=== PATIENT | female | born 1990 | race Caucasian/White ===

== ENCOUNTER 2023-07-03 20:55 | Outpatient (REF) | payer BC, OTHER, SELFPAY ==
[2023-07-09 14:09] LABS: Age Gdln ACOG Testing Note (.); HPV Aptima Negative (Negative); IGP, Aptima HPV, rfx 16/18,45 Note (.)
== END 2023-07-03 20:56 | disposition home or self-care (01) ==
LOC: LAB 20:55
PROVIDERS: Family Provider Family Medicine; Visit Provider Obstetrics & Gynecology
DX: Z12.4 Encounter for screening for malignant neoplasm of cervix (principal)
CPT/HCPCS: 87624; G0145

== ENCOUNTER 2024-07-15 20:49 | Outpatient (REF) | payer BC, SELFPAY ==
[2024-07-20 13:08] LABS: Age Gdln ACOG Testing Note (.); HPV Aptima Negative (Negative); IGP, Aptima HPV, rfx 16/18,45 Note (.)
== END 2024-07-15 20:50 | disposition home or self-care (01) ==
LOC: LAB 20:49
PROVIDERS: Family Provider Family Medicine; Visit Provider Obstetrics & Gynecology
DX: Z01.419 Encounter for gynecological examination (general) (routine) without abnormal findings (principal)
CPT/HCPCS: 87624; 88175

== ENCOUNTER 2025-08-22 19:43 | Outpatient (REF) | payer BC, SELFPAY ==
--- OUTSIDE RECORDS SUMMARY | 2025-08-08 12:40 | XMS_ITS | Encounter Summary ---
Author Organization [facility] Address [address] [place] [address] Care Team Providers Care Underground Truck Operator Name Role Phone Austen Mcdaniel DO Unavailable [phone] Austen Mcdaniel DO Primary Care Provider [phone] Encounter Details Date Type Department Care Team (Late st Contact Info) Description 08/08/2025 12:40 PM EDT Office Visit [facility] [address] [facility] [address] [place] [address] Austen Mcdaniel DO [address] [facility] [address] [place] [address] Obesity without serious comorbidity, unspecified class, unspecified obesity type; Viral upper respiratory infection Social History Tobacco Use Types Packs/Day Years Used Date Smoking Tobacco: Never Smokeless Tobacco: Never Alcohol Use Standard Drinks/Week Comments Yes 0 (1 standard drink = 0.6 oz pure alcohol) 1-2 drinks less than monthly in the past year, Caffeine intake: 1 can of pop per day AUDIT-C Answer Date Recorded Q1: How often do you have a drink containing alc ohol? Monthly or less 09/24/2023 Q2: How many drinks containi ng alcohol do you have on a typical day when you are drinking? 1 or 2 09/24/2023 Q3: How often do you have si x or more drinks on one occasion? Never 09/24/2023 PHQ-2 Answer Date Recorded Patient Health Questionnaire-2 Score 0 08/08/2025 Comments No Sex and Gender Information Value Date Recorded Sex Assigned at Not on file Legal Sex Female 7:24 PM EDT Gender Identity Female 01/15/2023 7:24 PM EDT Sexual Orientation Not on file documented as of this encounter Last Filed Vital Signs Vital Sign Reading Time Taken Comments Blood Pressure 118/84 08/08/2025 12:36 PM EDT Pulse 85 08/08/2025 12:36 PM EDT Temperature 36.1 C (96.9 F) 08/08/2025 12:36 PM EDT Respiratory Rate - - Oxygen Saturation 95% 08/08/2025 12:36 PM EDT Inhaled Oxygen Concentration - - Weight 109 kg (240 lb) 08/08/2025 12:36 PM EDT Height 162.6 cm (5' 4 ) 08/08/2025 12:36 PM EDT Body Mass Index 41.2 08/08/2025 12:36 PM EDT documented in this encounter Functional Status * Over the past 2 weeks, how often have you been bothered by any of the following problems? Question Answer Date of Assessment Author Little interest or pleasure in doing things Not at all 08/08/2025 12:36 PM EDT Cameron Kelly LPN Feeling down, depressed, or hopeless Not at all 08/08/2025 12:36 PM EDT Shell Cunha LPN Patient Health Questionnaire-2 Score 0 08/08/2025 12:36 PM EDT Cameron Cunha LPN documented as of this encounter Progress Notes * Austen Mcdaniel, - 08/08/2025 12:40 PM EDT Images from the original note were not included. Subjective ?Quick Links Last Note in Specialty Snapshot Current Meds Patient ID: Delia Magaña is a 34 y.o. female who presents for Weight Check. Weight Check: Pt presents to the office for a weight check. She is currently on adipex. Pt has gained 1 lb since last OV. She does walk a lot and eats a healthy diet overall. Treated for C-diff. Last day of Abx was either 07/17 or 07/18. Pt states she will still get diarrhea every once in a while still. Denies any blood in the stool. Medication Documentation Review Audit Reviewed by Cameron Cunha LPN (Licensed Nurse) on 06/27/25 at 1322 Medication Order Taking? Sig Documenting Provider Last Dose Status Discontinued 06/27/25 1322 cetirizine (ZyrTEC) 10 MG tablet [id number] Yes Take 1 tablet (10 mg) by mouth Daily Austen Mcdaniel DO Active fluticasone (Flonase) 50 MCG/ACT nasal spray [id number] Yes Administer 1-2 sprays into each nostril Daily Shake gently. Before first use, prime pump. After use, clean tip and replace cap Austen Mcdaniel DO Active ibuprofen 800 MG tablet [id number] Yes Take 1 tablet (800 mg) by mouth 3 (three) times a day as needed for mild pain Austen Mcdaniel DO Active phentermine (Adipex-P) 37.5 MG tablet [id number] Yes Take 1 tablet (37.5 mg) by mouth in the morning.Take before meals. Austen Mcdaniel DO Active Review of Systems ?Quick Review Review Full History Meds - cetirizine (ZyrTEC) 10 MG tablet fluticasone (Flonase) 50 MCG/ACT nasal spray ibuprofen 800 MG tablet phentermine (Adipex-P) 37.5 MG tablet --- PMH - Ovarian cyst Pap smear for cervical cancer screening PCOS (polycystic ovarian syndrome) Objective ?Quick Links Timeline (Adult) Labs Imaging Results Review Trend Vitals ?? Avoid pulling in long tables of results. Comment on relevant results to support your medical decision making. There were no vitals taken for this visit. Physical Exam ?Quick Links Full Problem List Allergy Cardiology GI Assessment & Plan Obesity without serious comorbidity, unspecified class, unspecified obesity type Will continue adipex as pt had c.dif infection and was unable to take medication or excersize. Did advise will not be able to refill agin without weight loss Orders: phentermine (Adipex-P) 37.5 MG tablet; Take 1 tablet (37.5 mg) by mouth in the morning. Take beforemeals. Viral upper respiratory infection Orders: fluticasone (Flonase) 50 MCG/ACT nasal spray; Administer 1-2 sprays into each nostril Daily Shake gently. Before first use, prime pump. After use, clean tip and replace cap documented in this encounter Plan of Treatment Upcoming Encounters Date Type Department Care Team (Late st Contact Info) Description 11/23/2025 8:30 AM EST Clinical Support HILARY HERRERA [address] [place] [address] [place] [address] 08/31/2026 11:00 AM EDT Procedure Visit [facility]ILARY HERRERA [address] [place] [address] [place] [phone] Heladio Morris DO [address] [place] [address] [place] [address] documented as of this encounter Visit Diagnoses Diagnosis Obesity without serious comorbidity, unspecified class, unspecified obesity type Viral upper respiratory infection Acute upper respiratory infections of unspecified site documented in this encounter Care Teams Underground Truck Operator Relationship Specialty Start Date End Date Austen Mcdaniel DO [address] [facility] [address] [place] [address] PCP - [place] [employer] 02/01/21 Austen Mcdaniel DO [address] [facility] [address] [place] [address] PCP - General Family Medicine 06/07/24 documented as of this encounter
--- OUTSIDE RECORDS SUMMARY | 2025-08-22 13:40 | XMS_ITS | Encounter Summary ---
Author Organization [facility] Address [address] [place] [address] Care Team Providers Care Ep Tech Name Role Phone Austen Mcdaniel DO Unavailable [phone] Austen Mcdaniel DO Primary Care Provider [phone] Reason for Visit * Reason Comments Well Women Visit Encounter Details Date Type Department Care Team (Late st Contact Info) Description 08/22/2025 1:40 PM EDT Office Visit [facility] [place] [facility] [address] [place] [id number] Heladio Morris DO [address] [facility] [address] [place], [facility]11 Well woman exam with routine gynecological exam; Pain of both breasts Social History Tobacco Use Types Packs/Day Years [...] Sign Reading Time Taken Comments Blood Pressure 110/70 08/22/2025 2:16 PM EDT Pulse - - Temperature - - Respiratory Rate - - Oxygen Saturation - - Inhaled Oxygen Concentration - - Weight 112 kg (246 lb 12.8 oz) 08/22/2025 2:16 P M EDT Height - - Body Mass Index 42.36 08/08/2025 12:36 PM EDT documented in this encounter Progress Notes * Cathryn Saucedo MA - 08/22/2025 1:40 PM EDT Reason for Appointment: Patient ID: Delia Magaña is a 34 y.o. female who presents for Well Women Visit Patient presents today for Annual Exam. MEDICATIONS Current Outpatient Medications Medication Instructions cetirizine (ZYRTEC) 10 mg, Oral, Daily fluticasone (Flonase) 50 MCG/ACT nasal spray 1-2 sprays, Each Nostril, Daily, Shake gently. Before first use, prime pump. After use, clean tip and replace cap ibuprofen 800 mg, Oral, 3 times daily PRN phentermine (ADIPEX-P) 37.5 mg, Oral, Daily before breakfast ALLERGIES No Known Allergies PROBLEMS Active Ambulatory Problems Diagnosis Date Noted Allergic rhinitis 05/20/2024 Mixed anxiety and depressive disorder 05/20/2024 Primary insomnia 05/20/2024 Varicose veins of both lower extremities 05/20/2024 Edema 05/20/2024 Menorrhagia with regular cycle 07/15/2024 Pelvic pain in female 07/15/2024 PCOS (polycystic ovarian syndrome) 07/15/2024 Insulin resistance 07/15/2024 Well woman exam with routine gynecological exam 07/15/2024 Resolved Ambulatory Problems Diagnosis Date Noted No Resolved Ambulatory Problems Past Medical History: Diagnosis Date Ovarian cyst Pap smear for cervical cancer screening 07/03/2023 HISTORY PAST MEDICAL HISTORY SOCIAL HISTORY Past Medical History: Diagnosis Date Ovarian cyst Pap smear for cervical cancer screening 07/03/2023 neg PCOS (polycystic ovarian syndrome) Social History Tobacco Use Smoking status: Never Smokeless tobacco: Never Substance Use Topics Alcohol use: Yes Comment: 1-2 drinks less than monthly in the past year, Caffeine intake: 1 can of pop per day Drug use: Never FAMILY HISTORY Family History Problem Relation Name Age of Onset No Known Problems Mother No Known Problems Father Colon cancer Sister Thyroid cancer Sister Breast cancer Sister pre-existing cells Lupus Sister Melanoma Sister Hypertension Maternal Grandmother Thyroid cancer Maternal Grandfather Thyroid cancer Sibling Colon cancer Sibling Heart disease Sibling SURGICAL HISTORY Past Surgical History: Procedure Laterality Date ADENOIDECTOMY SECTION, CLASSIC SECTION, LOW TRANSVERSE 2011 KIDNEY STONE SURGERY LEG SURGERY Left lukas leg 25 yrs ago TONSILLECTOMY REVIEW OF SYSTEMS Review of Systems: Review of Systems Constitutional: Negative. HENT: Negative. Eyes: Negative. Respiratory: Negative. Cardiovascular: Negative. Gastrointestinal: Negative. Genitourinary: Negative. Musculoskeletal: Negative. Skin: Negative. Neurological: Negative. All other systems reviewed and are negative. Hematological: Negative. Endocrine: Negative. Allergic/Immunologic: Negative. OBJECTIVE Objective: Physical Exam Constitutional: Appearance: Normal appearance. She is well-developed. Genitourinary: Vulva normal. Genitourinary Comments: Appearance of bilateral breast is normal with tenderness to bilateral breast with nipple pain to left nipple. Breasts: Breasts are soft. Right: Tenderness present. Left: Tenderness present. Cardiovascular: Rate and Rhythm: Normal rate and regular rhythm. Pulmonary: Effort: Pulmonary effort is normal. Breath sounds: Normal breath sounds. Abdominal: General: Bowel sounds are normal. There is no distension. Palpations: Abdomen is soft. Tenderness: There is no abdominal tenderness. There is no guarding or rebound. Musculoskeletal: General: No swelling. Normal range of motion. Right lower leg: No edema. Left lower leg: No edema. Neurological: Mental Status: She is alert and oriented to person, place, and time. Skin: General: Skin is warm and dry. Psychiatric: Mood and Affect: Mood normal. Behavior: Behavior normal. Vitals and nursing note reviewed. Exam conducted with a continuity person present. Vitals: Estimated body mass index is 42.36 kg/m?? as calculated from the following: Height as of 08/08/25: 5' 4 . Weight as of this encounter: 246 lb 12.8 oz. BP: 110/70 No LMP recorded. Assessment/Plan ICD-10-CM 1. Well woman exam with routine gynecological exam Z01.419 Pap Smear HPV DNA probe, amplified 2. Pain of both breasts N64.4 Bilateral diagnostic mammogram Bilateral diagnostic mammogram Annual Exam: Patient presents today for an annual exam. Patient complains of Bilateral Breast Pain. Pap was obtained without difficulty. Patient with complaints of breast tenderness with findings consistent with fibrocystic changes. She also reports left nipple pain that is described as burning pain. She deniesany nipple discharge. Patient with family history of breast cancer and colon cancer. Discussed otogenic testing and patient to schedule for otogenics testing in the future. Orders Placed This Encounter Procedures HPV DNA probe, amplified Bilateral diagnostic mammogram Follow Up: Patient is to return in one year for annual unless needed otherwise. Documented by Cathryn Saucedo MA on behalf of: Heladio Morris DO documented in this encounter Plan of Treatment Upcoming Encounters Date Type Department Care Team (Late st Contact Info) Description 11/23/2025 8:30 AM EST Clinical Support HILARY HERRERA [address] [place] [address] 08/31/2026 11:00 AM EDT Procedure Visit HILARY HERRERA [address] [place] [address] Heladio Morris DO [address] [place] [address] Scheduled Orders Name Type Priority Associated Diagnoses Orde r Schedule Pap Smear Pathology and Cytology Routine Well woman exam with routine gynecological exam Ordered: 08/22/2025 HPV DNA probe, amplified Microbiology Routine Well woman exam with routine gynecological exam Ordered: 08/22/2025 Bilateral diagnostic mammogram Imaging Routine Pain of both breasts Expected: 08/22/2025 (Approximate), Expires: 10/22/2026 documented as of this encounter Visit Diagnoses Diagnosis Well woman exam with routine gynecological exam Routine gynecological examination Pain of both breasts documented in this encounter Care Teams Ep Tech Relationship Specialty Start Date End Date Austen Mcdaniel DO [address] [place] [address] PCP - [place] [employer] 02/01/21 Austen Mcdaniel DO [address] [facility] [address] [place] [address] PCP - General Family Medicine 06/07/24 documented as of this encounter
--- OUTSIDE RECORDS SUMMARY | 2025-08-22 19:46 | XMS_ITS | Encounter Summary ---
Author Organization [facility] Address [address] [place] [address] Care Team Providers Care Supervisor Multifocal Lens Name Role Phone HungAusten england DO Unavailable [phone] HungAusten england Lorena KONG Primary Care Provider [phone] Encounter Details Date Type Department Care Team (Late st Contact Info) Description 07/22/2024 Orders Only HILARY HERRERA [address] [facility] [phone] [place] [address] [facility] [address] [place] [address] Social History Tobacco Use Types Packs/Day Years [...] Date Recorded Patient Health Questionnaire-2 Score 0 06/07/2024 Comments No Sex and Gender Information Value Date Recorded Sex Assigned at Not on file Legal Sex Female 7:24 PM EDT Gender Identity Female 01/15/2023 7:24 PM EDT Sexual Orientation Not on file documented as of this encounter Plan of Treatment Upcoming Encounters Date Type Department Care Team (Late st Contact Info) Description 11/23/2025 8:30 AM EST Clinical Support HILARY HERRERA [address] [facility] [address] 08/31/2026 11:00 AM EDT Procedure Visit HILARY HERRERA [address] [place] [phone] Heladio Morris DO [address] [facility] [place] [address] documented as of this encounter Procedures Procedure Name Priority Date/Time Associated Diagnosis Comments PAP SMEAR Routine 07/15/2024 12:00 AM EDT documented in this encounter Results * Pap Smear (07/15/2024 12:00 AM EDT) Swab Cervical swab / Unknown Heladio Morris DO LAB CYTOLOGY ORDERABLES Final Re sult EXTERNAL LAB documented in this encounter Visit Diagnoses Not on filedocumented in this encounter Care Teams Supervisor Multifocal Lens Relationship Specialty Start Date End Date Austen Mcdaniel DO [address] [facility] [address] [place] [address] PCP - [place] [employer] 02/01/21 Austen Mcdaniel DO [address] [place] [address] PCP - General Family Medicine 06/07/24 documented as of this encounter
--- OUTSIDE RECORDS SUMMARY | 2025-08-22 19:46 | XMS_ITS | Encounter Summary ---
Author Organization [facility] Address [address] [place] [address] Care Team Providers Care Manager Web Name Role Phone HungAustne england Lorena KONG Unavailable [phone] DarshanazainAusten DO Primary Care Provider [phone] Encounter Details Date Type Department Care Team (Late st Contact Info) Description 08/19/2024 Abstract [facility] [place] [facility] [address] [facility] [place] [phone] Heladio Morris DO [address] [facility] [address] [place] [id number] Social History Tobacco Use Types Packs/Day Years [...] AM EST Clinical Support HILARY HERRERA [address] [facility] [place] [address] 08/31/2026 11:00 AM EDT Procedure Visit HILARY HERRERA [address] [place] [address] Heladio Morris DO [address] [facility] [address] [place] [address] documented as of this encounter Visit Diagnoses Not on filedocumented in this encounter Care Teams Manager Web Relationship Specialty Start Date End Date Austen Mcdaniel DO [address] [facility] [address] [place] [address] PCP - [place]enn[place] Bennett 02/01/21 Austen Mcdaniel DO [address] [facility] [address] [place] [address] PCP - General Family Medicine 06/07/24 documented as of this encounter
--- OUTSIDE RECORDS SUMMARY | 2025-08-22 19:47 | XMS_ITS | Encounter Summary ---
Author Organization [facility] Address [address] [place] [address] Care Team Providers Care Global Implementation Manager Name Role Phone Austen Mcdaniel DO Unavailable [phone] Austen Mcdaniel DO Primary Care Provider [phone] Freddy Greene MD Primary Care Provider Austen Mcdaniel DO Primary Care Provider [phone] Encounter Details Date Type Department Care Team (Late st Contact Info) Description 04/24/2023 Orders Only [facility] [address] [place] [phone] Provider, MD Buddy [address] [place] [id number] Social History Tobacco Use Types Packs/Day Years Used Date Smoking Tobacco: Never Assessed Comments Unknown Sex and Gender Information Value Date Recorded Sex Assigned at Not on file Legal Sex Female 7:24 PM EDT Gender Identity Female 01/15/2023 7:24 PM EDT Sexual Orientation Not on file documented as of this encounter Plan of Treatment Upcoming Encounters Date Type Department Care Team (Late st Contact Info) Description 11/23/2025 8:30 AM EST Clinical Support [facility]OM[facility]ERR[facility] [address] [place] [address] 08/31/2026 11:00 AM EDT Procedure Visit [facility]a [facility] [address] [place] [address] Heladio Morris DO [address] [facility] [place] [address] documented as of this encounter Procedures Procedure Name Priority Date/Time Associated Diagnosis Comments COLONOSCOPY DIAGNOSTIC Routine 04/24/2023 10:33 AM EDT documented in this encounter Results * COLONOSCOPY DIAGNOSTIC (04/24/2023 10:33 AM EDT) Anatomical Region Laterality Modality Radiographic Liliana ging us Historical Provider MD [place] XR PROCEDURES Final R esult documented in this encounter Visit Diagnoses Not on filedocumented in this encounter Care Teams Global Implementation Manager Relationship Specialty Start Date End Date Austen Mcdaniel DO [address] [place] [address] PCP - [place] [employer] 02/01/21 Austen Mcdaniel DO [address] [place] [address] PCP - General Family Medicine 03/11/23 02/29/24 Freddy Greene MD [address] [place] [address] [place] [address] PCP - General Family Medicine 03/01/24 05/19/24 Austen Mcdaniel DO [address] [place] [address] PCP - General Family Medicine 06/07/24 documented as of this encounter
--- OUTSIDE RECORDS SUMMARY | 2025-08-22 19:47 | XMS_ITS | Clinical Summary ---
Author Organization [facility] Address [address] [place] [address] Care Team Providers Care Bearing Machine Operator Name Role Phone DarshanaAusten pittman Lorena KONG Unavailable [phone] Austen Mcdaniel DO Primary Care Provider Allergies No known active allergies Medications cetirizine (ZyrTEC) 10 MG tabletIndicatio ns:Allergic rhinitis due to other allergic trigger, unspecified seasonality Take 1 tablet (10 mg) by mouth Daily 30 tablet 11 5 Active ibuprofen 800 MG tabletIndicatio ns:Thrombophleb itis of superficial veins of left lower extremity Take 1 tablet (800 mg) by mouth 3 (three) times a day as needed for mild pain 90 tablet 5 Active phentermine (Adipex-P) 37.5 MG tabletIndicatio ns:Obesity without serious comorbidity, unspecified class, unspecified obesity type Take 1 tablet (37.5 mg) by mouth in the morning. Take before meals. 30 tablet 5 09/07/20 25 Active fluticasone (Flonase) 50 MCG/ACT nasal sprayIndication s:Viral upper respiratory infection Administer 1-2 sprays into each nostril Daily Shake gently. Before first use, prime pump. After use, clean tip and replace cap 16 g 3 5 Active fluticasone (Flonase) 50 MCG/ACT nasal sprayIndication s:Viral upper respiratory infection Administer 1-2 sprays into each nostril Daily Shake gently. Before first use, prime pump. After use, clean tip and replace cap 16 g 3 5 08/08/20 25 Discontin ued(Reord er) phentermine (Adipex-P) 37.5 MG tabletIndicatio ns:Obesity without serious comorbidity, unspecified class, unspecified obesity type Take 1 tablet (37.5 mg) by mouth in the morning. Take before meals. 30 tablet 5 08/08/20 25 Discontin ued(Reord er) Active Problems Problem Noted Date Diagnosed Date Menorrhagia with regular cycle 07/15/2024 Pelvic pain in female 07/15/2024 PCOS (polycystic ovarian syndrome) 07/15/2024 Assessment & Plan (06/27/2025 3:14 PM EDT): Labs ordered today, will follow up when results available Orders: CBC and differential; Future Comprehensive metabolic panel; Future Insulin resistance 07/15/2024 Well woman exam with routine gynecological exam 07/15/2024 Allergic rhinitis 05/20/2024 Mixed anxiety and depressive disorder 05/20/2024 Assessment & Plan (04/28/2025 12:26 PM EDT): Problem is stable, will continue with current treatment plan. Call or return to clinic if any changes occur, will restart wellbutrin as feels it was helpful Orders: buPROPion SR (Wellbutrin SR) 150 MG 12 hr tablet; Take 1 tablet (150 mg) by mouth Daily Do not crush, chew, or split. Primary insomnia 05/20/2024 Varicose veins of both lower extremities 024 Assessment & Plan (04/28/2025 12:26 PM EDT): Did rec compression stockings as pt on her feet alot Edema 05/20/2024 Assessment & Plan (04/28/2025 12:26 PM EDT): Patient advised to return if symptoms worsen and/or persist despite treatment. Encounters Date Type Department Care Team Description 08/22/2025 1:40 PM EDT Office Visit [facility] ANN [address] [place] [address] [place] [address] Heladio Morris, DO Well woman exam with routine gynecological exam; Pain of both breasts 08/22/2025 Bamboo flowsheet [facility] [address] [place] [address] [place] [phone] Heladio Morris DO 08/08/2025 12:40 PM EDT Office Visit [facility] [address] [place] [address] Austen Mcdaniel, Obesity without serious comorbidity, unspecified class, unspecified obesity type; Viral upper respiratory infection 08/08/2025 Bamboo flowsheet [facility] [address] [place] [address] Austen Mcdaniel, 08/08/2025 Travel 07/01/2025 Telephone [facility] [address] [place] [address] Austen Mcdaniel, Results 06/27/2025 1:20 PM EDT Office Visit [facility] [address] [place] [address] Austen Mcdaniel DO PCOS (polycystic ovarian syndrome) (Primary Dx); Obesity without serious comorbidity, unspecified class, unspecified obesity type; Diarrhea of presumed infectious origin; Bright red blood per rectum; Lower abdominal pain 06/27/2025 Bamboo flowsheet [facility] [address] [place] [address] Austen Mcdaniel, 06/27/2025 Travel 05/31/2025 2:20 PM EDT Office Visit [facility] [address] [place] [address] Austen Mcdaniel DO Bee sting, undetermined intent, initial encounter (Primary Dx); Obesity without serious comorbidity, unspecified class, unspecified obesity type; Cellulitis of left upper extremity; Thrombophlebitis of superficial veins of left lower extremity 05/31/2025 Bamboo flowsheet [facility] [place] [facility] [address] [place] [address] Austen Mcdaniel DO 05/31/2025 Travel from Last 3 Months Immunizations Immunization Administration Dates Next Due Influenza, seasonal, injectable, preservative fr ee 08/22/2022 Tdap 04/17/2018 Family History Medical History Relation Name Comments No Known Problems Father Thyroid cancer Maternal Grandfather Hypertension Maternal Grandmother No Known Problems Mother Colon cancer Sibling Heart disease Sibling Thyroid cancer Sibling Colon cancer Sister 1 Thyroid cancer Sister 2 Breast cancer Sister 3 pre-existing c ells Lupus Sister 4 Melanoma Sister 5 Relation Name Status Comments Father Maternal Grandfather Maternal Grandmother Mother Sibling 6, brothers, 8 sisters Sister 1 Sister 2 Sister 3 Sister 4 Sister 5 Social History Tobacco Use Types Packs/Day Years Used Date Smoking Tobacco: Never Smokeless Tobacco: Never Tobacco Cessation:Counseling Given: Yes Alcohol Use Standard Drinks/Week Comments Yes 0 [...] PM EDT Sexual Orientation Not on file Last Filed Vital Signs Vital Sign Reading Time Taken Comments Blood Pressure 110/70 08/22/2025 2:16 PM EDT Pulse 85 08/08/2025 12:36 PM EDT Temperature 36.1 C (96.9 F) 08/08/2025 12:36 PM EDT Respiratory Rate - - Oxygen Saturation 95% 08/08/2025 12:36 PM EDT Inhaled Oxygen Concentration - - Weight 112 kg (246 lb 12.8 oz) 08/22/2025 2:16 P M EDT Height 162.6 cm (5' 4 ) 08/08/2025 12:36 PM EDT Body Mass Index 42.36 08/08/2025 12:36 PM EDT Plan of Treatment Upcoming Encounters Date Type Department Care Team (Late st Contact Info) Description 11/23/2025 8:30 AM EST Clinical Support [facility] HERRERA [address] [facility] [place] [address] 08/31/2026 11:00 AM EDT Procedure Visit [facility] [address] [facility] [place] [address] Heladio Morris DO [address] [facility] [place] [address] Health Maintenance Due Date Last Done Comments Influenza Vaccine (#1) 2025 08/22/2022 Cervical Cancer Screening 07/15/2029 HPV/Cotest 07/15/2029 08/19/2023, 01/04/2020 Pap Smear 07/15/2029 07/15/2024 Procedures Procedure Name Priority Date/Time Associated Diagnosis Comments RESULT Routine 06/28/2025 12:13 PM EDT RESULT Routine 06/28/2025 12:13 PM EDT OCCULT BLOOD X 1, STOOL Routine 06/28/2025 12:13 PM EDT RESULT Routine 06/28/2025 12:13 PM EDT RESULT Routine 06/28/2025 12:13 PM EDT COMPREHENSIVE METABOLIC PANEL Routine 06/28/2025 12:13 PM EDT Obesity without serious comorbidity, unspecified class, unspecified obesity type PCOS (polycystic ovarian syndrome) Lower abdominal pain CBC (INCLUDES DIFF/PLT) Routine 06/28/2025 12:13 PM EDT Obesity without serious comorbidity, unspecified class, unspecified obesity type PCOS (polycystic ovarian syndrome) Lower abdominal pain FECAL LEUKOCYTE STAIN Routine 06/28/2025 12:13 PM EDT OVA AND PARASITES, CONC AND PERM SMEAR Routine 06/28/2025 12:13 PM EDT CLOSTRIDIUM DIFFICILE TOXIN Routine 06/28/2025 12:13 PM EDT Diarrhea of presumed infectious origin Bright red blood per rectum STOOL CULTURE Routine 06/28/2025 12:13 PM EDT Diarrhea of presumed infectious origin Bright red blood per rectum PAP SMEAR Routine 07/15/2024 12:00 AM EDT THINPREP PAP AND HPV MRNA E6/E7 W/RFL HPV 16,18/45 Routine 08/19/2023 3:31 PM EDT Well woman exam with routine gynecological exam from Last 3 Months or Most Recently Relevant to Health Maintenance Results * (ABNORMAL) RESULT (06/28/2025 12:13 PM EDT) RESULT 1 Comment(A) [facility] Comment:Few white blood cell s. 06/28/2025 12:1 3 PM EDT 06/28/2025 Narrative [facility] - 07/04/2025 5:06 PM EDT Performed at: 01 - [address] [id number] Twister Hand: Hayder Alanis PhD, Phone: [phone] Austen Mcdaniel DO LAB BLOOD ORDERABLES Final Re sult [facility] * RESULT (06/28/2025 12:13 PM EDT) RESULT 1 Comment [facility] Comment: No ova, cysts, or parasites seen. One negative specimen does not rule out the possibility of a parasitic infection. 06/28/2025 12:1 3 PM EDT 06/28/2025 Narrative [facility] - 07/04/2025 5:06 PM EDT Performed at: [address] [place] [id number] Twister Hand: Hayder Alanis PhD, Phone: [phone] Austen Mcdaniel DO LAB BLOOD ORDERABLES Final Re sult Performing Organization Address [facility] Co de Phone Number [facility] * RESULT (06/28/2025 12:13 PM EDT) RESULT 1 Comment [facility] Comment:No Campylobacter spe cies isolated. 06/28/2025 12:1 3 PM EDT 06/28/2025 Narrative [facility] - 07/04/2025 5:06 PM EDT Performed at: [address] [place] [id number] Twister Hand: Hayder Alanis PhD, Phone: [phone] Austen Mcdaniel LAB BLOOD ORDERABLES Final Re sult Performing Organization Address [facility] de Phone Number [facility] * RESULT (06/28/2025 12:13 PM EDT) RESULT 1 Comment [facility] Comment:No Salmonella or Isabella gella recovered. 06/28/2025 12:1 3 PM EDT 06/28/2025 Narrative [facility] - 07/04/2025 5:06 PM EDT Performed at: [address] [place] [id number] Twister Hand: Hayder Alanis PhD, Phone: [phone] Austen Mcdaniel DO LAB BLOOD ORDERABLES Final Re sult Performing Organization Address [facility] Co de Phone Number [facility] * (ABNORMAL) Occult blood x 1, stool (06/28/2025 12:13 PM EDT) OCCULT BLOOD, FECAL, IA Positive(A ) Negative [facility] 06/28/2025 12:1 3 PM EDT 06/28/2025 Comment:[facility] [place]- [phone] [facility] - 07/04/2025 5:06 PM EDT Performed at: [facility] [id number] Twister Hand: Hayder Alanis PhD, Phone: [phone] Austen Mcdaniel DO LAB BODY FLUIDS AND STOOLS OR DERABLES Final Result Performing Organization Address [facility] de Phone Number [facility] * Ova and parasite examination (06/28/2025 12:13 PM EDT) OVA AND PARASITE Final report [facility] Comment: These results were obtained using wet preparation(s) and trichrome stained smear. This test does not include testing for Cryptosporidium parvum, Cyclospora, or Microsporidia. 06/28/2025 12:1 3 PM EDT 06/28/2025 Comment:[facility] [place]- [id number] [facility] - 07/04/2025 5:06 PM EDT Performed at: [address] [place] [id number] Twister Hand: Hayder Alanis PhD, Phone: [phone] Austen Mcdaniel DO LAB MICROBIOLOGY - GENERAL OR DERABLES Final Result Performing Organization Address [facility] de Phone Number [facility] * (ABNORMAL) CBC and differential (06/28/2025 12:13 PM EDT) WBC 6.6 3.4 - 10.8 x10E3/uL [facility] RBC 4.34 3.77 - 5.28 x10E6/uL [facility] Hgb 12.7 11.1 - 15.9 g/dL [facility] Hct 38.8 34.0 - 46.6 % [facility] MCV 89 79 - 97 fL [facility] MCH 29.3 26.6 - 33.0 pg [facility] MCHC 32.7 31.5 - 35.7 g/dL [facility] RDW 12.4 11.7 - 15.4 % [facility] Platelets 305 150 - 450 x10E3/uL [facility] Neutrophils 57 Not Estab. % [facility] Lymphs 28 Not Estab. % [facility] Monocytes 6 Not Estab. % [facility] Eos 8 Not Estab. % [facility] Basos 1 Not Estab. % [facility] Neutrophils Abs 3.7 1.4 - 7.0 x10E3/uL [facility] Lymphs Abs 1.9 0.7 - 3.1 x10E3/uL [facility] MonocytesAbs 0.4 0.1 - 0.9 x10E3/uL [facility] Eos Abs 0.6(H) 0.0 - 0.4 x10E3/uL [facility] Baso Abs 0.1 0.0 - 0.2 x10E3/uL [facility] Immature Granulocytes 0 Not Estab. % [facility] Immature Grans Abs 0.0 0.0 - 0.1 x10E3/uL [facility] Blood Venous blood specimen / Unknown 06/28/2025 12:13 PM EDT 06/28/2025 Narrative [facility] - 07/04/2025 5:06 PM EDT Performed at: [address] [place] [id number] Twister Hand: Hayder Alanis PhD, Phone: [phone] Austen Mcdaniel DO LAB BLOOD ORDERABLES Final Re sult [facility] * (ABNORMAL) Fecal leukocytes (06/28/2025 12:13 PM EDT) WBC Final report(A) None Seen [facility] 06/28/2025 12:1 3 PM EDT 06/28/2025 Comment:[facility]- [id number] Narrative [facility] - 07/04/2025 5:06 PM EDT Performed at: [address] [place] [id number] Twister Hand: Hayder Alanis PhD, Phone: [phone] Austen Mcdaniel DO LAB MICROBIOLOGY - GENERAL OR DERABLES Final Result Performing Organization Address [facility] Co de Phone Number [facility] * (ABNORMAL) Clostridium difficile toxin (06/28/2025 12:13 PM EDT) C DIFFICILE, CYTOTOXIN B Comment(A) [facility] Comment: Positive Cytotoxin detected. Reference Range: Negative Stool Rectal contents / Unknown 06/28/2025 12:13 PM EDT 06/28/2025 Comment: - [id number] Narrative [facility] - 07/04/2025 5:06 PM EDT Performed at: [address] [id number] Twister Hand: Hayder Alanis PhD, Phone: [employer] Austen Mcdaniel DO LAB MICROBIOLOGY - GENERAL OR DERABLES Final Result Performing Organization Address [facility] Phone Number [facility] * Stool culture (06/28/2025 12:13 PM EDT) Pathologist [facility] SALMONELLA/SHIGEL LA SCREEN Final report [facility] CAMPYLOBACTER CULTURE Final report [facility] E COLI SHIGELLA TOXIN EIA Negative Negative [facility] Stool Rectal contents / Unknown 06/28/2025 12:13 PM EDT 06/28/2025 Comment: - [id number] Narrative [facility] - 07/04/2025 5:06 PM EDT Performed at: [address] [id number] Twister Hand: Hayder Alanis PhD, Phone: [phone] Austen Mcdaniel DO LAB MICROBIOLOGY - GENERAL OR DERABLES Final Result Performing Organization Address [facility] de Phone Number [facility] * (ABNORMAL) Comprehensive metabolic panel (06/28/2025 12:13 PM EDT) Glucose 77 70 - 99 mg/dL [facility] BUN 6 6 - 20 mg/dL [facility] Creat 0.74 0.57 - 1.00 mg/dL [facility] EGFR 107 >59 mL/min/1.7 3 [facility] BUN/Creat Ratio 8(L) 9 - 23 [facility] Sodium 140 134 - 144 mmol/L [facility] Potassium 3.8 3.5 - 5.2 mmol/L [facility] Chloride 103 96 - 106 mmol/L [facility] Carbon Dioxide 23 20 - 29 mmol/L [facility] Calcium 8.8 8.7 - 10.2 mg/dL [facility] Protein Total 6.6 6.0 - 8.5 g/dL [facility] Albumin 4.0 3.9 - 4.9 g/dL [facility] Globulin Total 2.6 1.5 - 4.5 g/dL [facility] Bili Total 0.5 0.0 - 1.2 mg/dL [facility] Alk Phosphatase 89 44 - 121 IU/L [facility] Comment: Effective July 18, 2025 Alkaline Phosphatase reference interval will be changing to: Age Male Female 0 - 5 days 47 - 127 47 - 127 6 - 10 days 29 - 242 29 - 242 11 - 20 days 109 - 357 109 - 357 21 - 30 days 94 - 494 94 - 494 1 - 2 months 149 - 539 149 - 539 3 - 6 months 131 - 452 131 - 452 7 - 11 months 117 - 401 117 - 401 12 months - 6 years 158 - 369 158 - 369 7 - 12 years 150 - 409 150 - 409 13 years 156 - 435 78 - 227 14 years 114 - 375 64 - 161 15 years 88 - 279 56 - 134 16 years 74 - 207 51 - 121 17 years 63 - 161 47 - 113 18 - 20 years 51 - 125 42 - 106 21 - 50 years 47 - 123 41 - 116 51 - 80 years 49 - 135 51 - 125 >80 years 48 - 129 48 - 129 AST 16 0 - 40 IU/L [facility] ALT 18 0 - 32 IU/L [facility] Blood Venous blood specimen / Unknown 06/28/2025 12:13 PM EDT 06/28/2025 Narrative [facility] - 07/04/2025 5:06 PM EDT Performed at: - [facility] [address] [id number] Twister Hand: Hayder Alanis PhD, Phone: [phone] us Austen Mcdaniel DO LAB BLOOD ORDERABLES Final Re sult [facility] * Pap Smear (07/15/2024 12:00 AM EDT) Swab Cervical swab / Unknown us Heladio Alexandra DO LAB CYTOLOGY ORDERABLES Final Re sult Performing Organization Address City/[facility]/ZIP Co de Phone Number EXTERNAL LAB * THINPREP PAP AND HPV MRNA E6/E7 W/RFL HPV 16,18/45 (08/19/2023 3:31 PM EDT) Heladio Alexandra DO LAB BLOOD ORDERABLES Final Resul t Performing Organization Address City/[facility] Co de Phone Number EXTERNAL LAB from Last 3 Months or Most Recently Relevant to Health Maintenance Insurance Care Teams Bearing Machine Operator Relationship Specialty Start Date End Date Austen Mcdaniel DO [address] [place] [address] PCP - [place] [employer] 02/01/21 Austen Mcdaniel DO [address] [place] [address] PCP - General Family Medicine 06/07/24
--- OUTSIDE RECORDS SUMMARY | 2025-08-22 19:47 | XMS_ITS | Clinical Summary ---
Author Organization [employer] [facility] Address [facility] [id number] [place] [id number] Care Team Providers Care Armament Repairer Name Role Phone Unavailable Primary Care Provider Unavailabl e Social History Tobacco Use Types Packs/Day Years Used Date Smoking Tobacco: Never Assessed Childcare Answer Date Recorded Childcare Unknown 04/14/2019 Employment Answer Date Recorded Employment Unknown 04/14/2019 Comments Unknown Sex and Gender Information Value Date Recorded Sex Assigned at Not on file Legal Sex Female 12:09 PM EDT Gender Identity Not on file Sexual Orientation Not on file Plan of Treatment Not on file Medical Devices Not on file
--- OUTSIDE RECORDS SUMMARY | 2025-08-22 19:47 | XMS_ITS | Encounter Summary ---
Author Organization [facility] Address [address] [place] [address] Care Team Providers Care Grief Counsellor Name Role Phone HungAusten england DO Unavailable [phone] DarshanazainAusten DO Primary Care Provider [phone] Encounter Details Date Type Department Care Team (Late st Contact Info) Description 08/22/2025 Bamboo flowsheet [facility] [place] [facility] [address] [place] [phone] Heladio Morris DO [address] [facility] [address] [place] [id number] Social History Tobacco Use Types Packs/Day Years [...] AM EST Clinical Support HILARY HERRERA [address] [facility] [address] 08/31/2026 11:00 AM EDT Procedure Visit HILARY HERRERA [address] [facility] [address] Heladio Morris DO [address] [facility] [place] [address] documented as of this encounter Visit Diagnoses Not on filedocumented in this encounter Care Teams Grief Counsellor Relationship Specialty Start Date End Date Austen Mcdaniel DO [address] [facility] [address] [place] [address] PCP - Dennise Bennett 02/01/21 Austen Mcdaniel DO [address] [facility] [address] [place] [address] PCP - General Family Medicine 06/07/24 documented as of this encounter
--- OUTSIDE RECORDS SUMMARY | 2025-08-22 19:47 | XMS_ITS | Encounter Summary ---
Author Organization [facility] Address [address] [place] [address] Care Team Providers Care Mold Construction Supervisor Name Role Phone Austen Mcdaniel DO Unavailable [phone] Austen Mcdaniel DO Primary Care Provider [phone] Freddy Greene MD Primary Care Provider Austen Mcdaniel DO Primary Care Provider [phone] Encounter Details Date Type Department Care Team (Late st Contact Info) Description 07/30/2023 Abstract NOMMarky HERRERA [address] [place] [address] Mary Lou Obrien PA [address] [place], [id number] Social History Tobacco Use Types Packs/Day Years Used Date Smoking Tobacco: Never Tobacco Cessation:Counseling Given: Not Answered Alcohol Use Standard Drinks/Week Comments Yes 0 (1 standard drink = 0.6 oz pure alcohol) 1-2 drinks less than monthly in the past year, Caffeine intake: 1 can of pop per day Comments No Sex and Gender Information Value Date Recorded Sex Assigned at Not on file Legal Sex Female 7:24 PM EDT Gender Identity Female 01/15/2023 7:24 PM EDT Sexual Orientation Not on file documented as of this encounter Plan of Treatment Upcoming Encounters Date Type Department Care Team (Late Contact Info) Description 11/23/2025 8:30 AM EST Clinical Support HILARY HERRERA [address] [place] [address] 08/31/2026 11:00 AM EDT Procedure Visit [facility] Nicolasa HERRERA [address] [facility] [place] [phone] Heladio Morris DO [address] [facility] [place] [address] documented as of this encounter Visit Diagnoses Not on filedocumented in this encounter Care Teams Mold Construction Supervisor Relationship Specialty Start Date End Date Austen Mcdaniel DO [address] [place] [address] [facility] Austen Mcdaniel DO [address] [place] [address] PCP - General Family Medicine 03/11/23 02/29/24 Freddy Greene MD [address] [place] [address] [place] [address] PCP - General Family Medicine 03/01/24 05/19/24 Austen Mcdaniel DO [address] [place] [address] PCP - General Family Medicine 06/07/24 documented as of this encounter
--- OUTSIDE RECORDS SUMMARY | 2025-08-22 19:47 | XMS_ITS | Encounter Summary ---
Author Organization [facility] Address [address] [place] [address] Care Team Providers Care Process Design Engineer Name Role Phone Austen Mcdaniel DO Unavailable [phone] Austen Mcdaniel DO Primary Care Provider [phone] Encounter Details Date Type Department Care Team (Late st Contact Info) Description 08/08/2025 Bamboo flowsheet [facility] [address] [place] [phone] Austen Mcdaniel DO [address] [place] [address] Social History Tobacco Use Types Packs/Day Years [...] AM EST Clinical Support HILARY HERRERA [address] [facility] [place] [address] 08/31/2026 11:00 AM EDT Procedure Visit HILARY HERRERA [address] [place] [address] Heladio Morris DO [address] [facility] [place] [address] documented as of this encounter Visit Diagnoses Not on filedocumented in this encounter Care Teams Process Design Engineer Relationship Specialty Start Date End Date Austen Mcdaniel DO [address] [facility] [address] [place] [address] PCP - Dennise Bennett 02/01/21 Austen Mcdaniel DO [address] [facility] 230 [place] [address] PCP - General Family Medicine 06/07/24 documented as of this encounter
--- OUTSIDE RECORDS SUMMARY | 2025-08-22 19:47 | XMS_ITS | Encounter Summary ---
Author Organization [facility] Address [address] [place] [address] Care Team Providers Care Courtesy Booth Cashier Name Role Phone Austen Mcdaniel DO Unavailable [phone] Austen Mcdaniel Primary Care Provider [phone] Encounter Details Date Type Department Care Team (Latest Contact Info) Description 08/08/2025 Travel Social History Tobacco Use Types Packs/Day Years [...] on file documented as of this encounter Functional Status * Over the [...] [place]unha LPN documented as of this encounter Plan of Treatment Upcoming Encounters Date Type Department Care Team (Late st Contact Info) Description 11/23/2025 8:30 AM EST Clinical Support NOMMarky HERRERA [address] [facility] [place] [address] 08/31/2026 11:00 AM EDT Procedure Visit HILARY HERRERA [address] [facility] [place] [place] [address] Heladio Morris DO [address] [facility] [place] [address] documented as of this encounter Visit Diagnoses Not on filedocumented in this encounter Care Teams Courtesy Booth Cashier Relationship Specialty Start Date End Date Austen Mcdaniel DO [address] [place] [address] PCP - Dennise Bennett 02/01/21 Austen Mcdaniel DO [address] [place] [address] PCP - General Family Medicine 06/07/24 documented as of this encounter
--- OUTSIDE RECORDS SUMMARY | 2025-08-22 19:48 | XMS_ITS | CCD ---
Author Organization [facility]iniSyn[facility] Care Team Providers Care Claims Representative Name Role Phone JULIETTE MORRIS Admitting Unavailable JULIETTE MORRIS Attending Unavailable Arely MCDANIEL Primary Care Unavailable GURPREET CALVO V Consulting Unavailable JULIETTE MORRIS Consulting Unavailable JULIETTE MORRIS Admitting Unavailable JULIETTE MORRIS Attending Unavailable JULIETTE MORRIS Consulting Unavailable LAZ ALEXIS Consulting Unavailable Arely MCDANIEL Consulting Unavailable DO Gregg Mcdaniel Primary Care Provider MD Laine Marx Attending Provider Gregg Mcdaniel Primary Care Unavailable Laine Marx Attending Unavailable Laine Marx Admitting Unavailable Britt Mcdaniel DO Unavailable Britt Mcdaniel DO Primary Care Provider FREDRICK Cooper Attending Unavailable BRITT MCDANIEL Primary Care Unavailable FREDRICK Cooper Admitting Unavailable BRITT MCDANIEL Primary Care Unavailable FREDRICK Cooper Admitting Unavailable FREDRICK Cooper Attending Unavailable WASHINGTON JIMENEZ Attending Unavailable BRITT MCDANIEL Attending Unavailable BRITT MCDANIEL Referring Unavailable MARY LOU POE Attending Unavailable BRITT MCDANIEL Attending Unavailable BRITT MCDANIEL Attending Unavailable JULIETTE MORRIS Attending Unavailable MARY LOU POE Attending Unavailable MARY LOU POE Attending Unavailable BRITT MCDANIEL Attending Unavailable BRITT MCDANIEL Attending Unavailable BRITT MCDANIEL Attending Unavailable BRITT MCDANIEL Attending Unavailable Medications Current Medications Medication Drug Class(es) Dates Sig (Normalized) Sig (Original) cefdinir 300 mg oral capsule (2 sources) Cephalosporin Antibacterial Start: 05-31-2025 End: 06-10-2025 take 1 capsule by mouth in the morning cefdinir (Omnicef) 300 MG capsule Indications: Cellulitis of left upper extremity Take 1 capsule (300 mg) by mouth in the morning and 1 capsule (300 mg) before bedtime. Do all this for 10 days. 20 capsule 05/31/2025 06/10/2025 Active cetirizine hydrochloride 10 mg oral tablet (20 sources) Histamine-1 Receptor Antagonist Start: 05-20-2024 End: 03-02-2025 take 1 tablet by mouth once daily cetirizine (ZyrTEC) 10 MG tablet Indications: Allergic rhinitis due to other allergic trigger, unspecified seasonality Take 1 tablet (10 mg) by mouth Daily 30 tablet 11 03/02/2025 Active Start: 04-24-2023 take 10 mg by mouth once daily Cetirizine Active 10 MG PO Daily April 24, 2023 12:00am cyclobenzaprine hydrochloride 10 mg oral tablet (3 sources) Muscle Relaxant Start: 01-11-2025 End: 02-21-2025 take 1 tablet by mouth three times daily as needed for muscle spasms cyclobenzaprine (Flexeril) 10 MG tablet Indications: Dysuria , Left flank pain Take 1 tablet (10 mg) by mouth 3 (three) times a day as needed for muscle spasms for up to 10 days 30 tablet 01/11/2025 02/21/2025 Discontinued 12 hr dextromethorphan hydrobromide 60 mg / guaiFENesin 1200 mg extended release oral tablet (20 sources) Uncompetitive X-hswfak-[place]-aspart[place] te Receptor Antagonist, Sigma-1 Agonist Start: 12-27-2024 dextromethorphan-gua iFENesin (MUCINEX DM MAX STRENGTH) 60-1200 MG 12 hr tablet Indications: Viral upper respiratory infection Take 1 tablet by mouth every 12 (twelve) hours if needed (BID) 20 tablet 12/27/2024 Active Start: 12-27-2024 dextromethorph an-guaiFENesin (MUCINEX DM MAX STRENGTH) 60- 1200 MG 12 hr tablet Indications: Viral upper respiratory infection Take 1 tablet by mouth every 12 (twelve) hours if needed (BID) 20 tablet 12/27/2024 Active Start: 07-12-2024 End: 12-27-2024 dextromethorphan-guaiFENesin (MUCINEX DM MAX STRENGTH) 60-1200 MG 12 hr tablet Indications: Viral upper respiratory infection Take 1 tablet by mouth every 12 (twelve) hours if needed (BID) 20 tablet 07/12/2024 12/27/2024 Discontinued fluticasone propionate 0.05 mg/actuat metered dose nasal spray (20 sources) Corticosteroid Start: 12-27-2024 End: 08-08-2025 take 1-2 spray(s) nasal route once daily fluticasone (Flonase) 50 MCG/ACT nasal spray Indications: Viral upper respiratory infection Administer 1-2 sprays into each nostril Daily Shake gently. Before first use, prime pump. After use, clean tip and replace cap 16 g 3 08/08/2025 Active Start: 05-20-2024 End: 12-27-2024 take 2 spray(s) nasal route once daily fluticasone (Flonase) 50 MCG/ACT nasal spray Indications: Allergic rhinitis due to other allergic trigger, unspecified seasonality Administer 2 sprays into each nostril Daily Shake gently. Before first use, prime pump. After use, clean tip and replace cap. 16 g 11 05/20/2024 12/27/2024 Discontinued Start: 04-24-2023 Fluticasone Pr opionate Active 1 SPRAY INTRANASAL Daily April 24, 2023 12:00am ibuprofen 800 mg oral tablet (20 sources) Nonsteroidal Anti-inflammatory Drug Start: 10-04-2024 End: 05-31-2025 take 1 tablet by mouth three times daily as needed for pain ibuprofen 800 MG tablet Indications: Thrombophlebitis of superficial veins of left lower extremity Take 1 tablet (800 mg) by mouth 3 (three) times a day as needed for mild pain 90 tablet 05/31/2025 Active Start: 06-07-2024 End: 07-15-2024 take 1 tablet by mouth in the morning, then take 1 tablet by mouth in the evening, then take 1 tablet by mouth at bedtime ibuprofen 800 MG tablet Indications: Thrombophlebitis of superficial veins of left lower extremity Take 1 tablet (800 mg) by mouth in the morning and 1 tablet (800 mg) in the evening and 1 tablet (800 mg) before bedtime. 90 tablet 06/07/2024 07/15/2024 Discontinued 24 hr metFORMIN hydrochloride 500 mg extended release oral tablet (20 sources) Biguanide Start: 08-19-2024 End: 09-18-2024 take 2 tablets by mouth every twenty-four hours at mealtime metFORMIN XR (Glucophage-XR) 500 MG 24 hr tablet Indications: Encounter for weight management Take 2 tablets (1,000 mg) by mouth in the evening. Take with meals Do not crush, chew, or split. 60 tablet 11 08/19/2024 Active Start: 07-15-2024 End: 10-14-2024 take 1 tablet by mouth every twenty-four hours at mealtime metFORMIN XR (Glucophage-XR) 500 MG 24 hr tablet Indications: Insulin resistance , PCOS (polycystic ovarian syndrome) Take 1 tablet (500 mg) by mouth in the evening. Take with meals Do not crush, chew, or split. 30 tablet 11 07/15/2024 10/14/2024 Discontinued metroNIDAZOLE 500 mg oral tablet (3 sources) Nitroimidazole Antimicrobial Start: 02-23-2025 End: 03-02-2025 take 1 tablet by mouth in the morning metroNIDAZOLE (Flagyl) 500 MG tablet Indications: BV (bacterial vaginosis) Take 1 tablet (500 mg) by mouth in the morning and 1 tablet (500 mg) before bedtime. Do all this for 7 days. Do not drink alcohol while taking this medication. 14 tablet 02/23/2025 03/02/2025 Active nitrofurantoin, macrocrystals 25 mg / nitrofurantoin, monohydrate 75 mg oral capsule (3 sources) Nitrofuran Antibacterial Start: 01-10-2025 End: 02-21-2025 take 1 capsule by mouth in the morning nitrofurantoin, macrocrystal-monoh ydrate, (Macrobid) 100 MG capsule Take 100 mg by mouth in the morning and 100 mg before bedtime. 01/10/2025 02/21/2025 Discontinued phentermine hydrochloride 37.5 mg oral tablet (20 sources) Sympathomimetic Amine Anorectic Start: 03-02-2025 End: 09-07-2025 take 1 tablet by mouth before mealtime phentermine (Adipex-P) 37.5 MG tablet Indications: Obesity without serious comorbidity, unspecified class, unspecified obesity type Take 1 tablet (37.5 mg) by mouth in the morning. Take before meals. 30 tablet 08/08/2025 09/07/2025 Active Start: 08-19-2024 End: 02-21-2025 take 1 tablet by mouth before mealtime phentermine (Adipex-P) 37.5 MG tablet Indications: Encounter for weight management Take 1 tablet (37.5 mg) by mouth in the morning. Take before meals. 30 tablet 10/14/2024 02/21/2025 Discontinued Completed/Discontinued Medications Medication Drug Class(es) Dates Sig (Normalized) Sig (Original) 12 hr buPROPion hydrochloride 150 mg extended release oral tablet (13 sources) Aminoketone Start: 04-04-2025 End: 06-27-2025 take 1 tablet by mouth once daily buPROPion SR (Wellbutrin SR) 150 MG 12 hr tablet Indications: Mixed anxiety and depressive disorder Take 1 tablet (150 mg) by mouth Daily Do not crush, chew, or split. 04/28/2025 06/27/2025 Discontinued ramelteon 8 mg oral tablet (6 sources) Melatonin Receptor Agonist Start: 05-20-2024 End: 05-20-2025 take 1 tablet by mouth at bedtime ramelteon (Rozerem) 8 MG tablet Indications: Primary insomnia Take 1 tablet (8 mg) by mouth at bedtime 30 tablet 05/20/2024 07/15/2024 Discontinued Problems Active Problems Problem Classification Problem Date Documented Da te Episodic/Chronic Administrative/social admission (5 sources) Patient encounter status; Translations: [Persons encountering health services in other specified circumstances] 08-19-2024 Episodic Anxiety disorders (20 sources) Mixed anxiety and depressive disorder; Translations: [Other specified anxiety disorders] Onset: 05-20-2024 Chronic Gastrointestinal hemorrhage (4 sources) Gastrointestinal hemorrhage; Translations: [Hemorrhage of anus and rectum] 06-27-2025 Episodic Immunizations and screening for infectious disease (4 sources) Exposure to sexually transmissible disorder; Translations: [Contact with and (suspected) exposure to infections with a predominantly sexual mode of transmission] 02-21-2025 Episodic Intestinal infection (4 sources) Diarrhea of presumed infectious origin; Translations: [Diarrhea, unspecified] 06-27-2025 Episodic Menstrual disorders (20 sources) Menorrhagia; Translations: [Excessive and frequent menstruation with regular cycle] Onset: 4 07-15-2024 Chronic Miscellaneous mental health disorders (20 sources) Primary insomnia; Translations: [Primary insomnia] Onset: 4 05-20-2024 Chronic Nonmalignant breast conditions (2 sources) Mastodynia of bilateral breasts; Translations: [Mastodynia] 08-22-2025 Episodic Other endocrine disorders (4 sources) Polycystic ovarian syndrome; Translations: [POLYCYSTIC OVARIAN SYNDROME] Onset: 9 Chronic Other endocrine disorders (20 sources) Polycystic ovary syndrome; Translations: [Polycystic ovarian syndrome] Onset: 4 07-15-2024 Chronic Other female genital disorders (2 sources) Vaginal discharge; Translations: [Other specified noninflammatory disorders of vagina] 02-21-2025 Episodic Other lower respiratory disease (2 sources) Cough; Translations: [Acute cough] 12-27-2024 Episodic Other nutritional; endocrine; and metabolic disorders (20 sources) Insulin resistance; Translations: [Insulin resistance] Onset: 4 07-15-2024 Chronic Other nutritional; endocrine; and metabolic disorders (12 sources) Obesity; Translations: [Obesity, unspecified] 03-02-2025 Chronic Other upper respiratory disease (20 sources) Allergic rhinitis; Translations: [Allergic rhinitis, unspecified] Onset: 4 05-20-2024 Chronic Other upper respiratory infections (10 sources) Viral upper respiratory tract infection; Translations: [Acute upper respiratory infection, unspecified] 07-12-2024 Episodic Ovarian cyst (4 sources) Unspecified ovarian cyst, unspecified side; Translations: [UNSPECIFIED OVARIAN CYST UNSP SIDE] Onset: 9 Phlebitis; thrombophlebitis and thromboembolism (7 sources) Thrombophlebitis of superficial vein of left lower limb; Translations: [Phlebitis and thrombophlebitis of superficial vessels of left lower extremity] 10-04-2024 Episodic Poisoning by nonmedicinal substances (2 sources) Bee sting; Translations: [Toxic effect of venom of bees, undetermined, initial encounter] 05-31-2025 Episodic Skin and subcutaneous tissue infections (2 sources) Cellulitis of left upper limb; Translations: [Cellulitis of left upper limb] 05-31-2025 Episodic Unclassified (1 source) Encounter for screening for malignant neoplasm of colon; Translations: [Encounter for screening for malignant neoplasm of colon] Onset: Past or Other Problems Problem Classification Problem Date Documented Da te Episodic/Chronic Abdominal pain (20 sources) Pain in female pelvis; Translations: [Pelvic and perineal pain] Onset: 07-15-2024 07-15-2024 Episodic Residual codes; unclassified (20 sources) Edema; Translations: [Edema, unspecified] Onset: 05-20-2024 05-20-2024 Episodic Varicose veins of lower extremity (20 sources) Varicose veins of bilateral lower limbs; Translations: [Asymptomatic varicose veins of bilateral lower extremities] Onset: 05-20-2024 05-20-2024 Episodic Results Test Name Value Interpretation Reference Range Facility Coding Summaryon 06-22-2025 Coding Summary HTMLBase 64 ClyfnmnnLKx3xLi+PGhl YWQ+TM8QIWLzV81lmEIi hA1pL1QNGDcEBfdoZRDY UJrEIbXjqjNpTW5hlJOz ZXJu IC8+PQ9tQRXfVwaweYQb u3E3nVD4T38dyu2jBQge nMJ7UNJyUiFwgjzvg7xc zKa7FJczLyrtRpWj RKUowT54LXW9sW11Oa60 dVMckIWxi4squIi6HwLh OMRhQTS4yFoqGIyfh1Hd QUMaI78uiVJno6Y2 IGNvbGxhcHNlOyBlbXB0 zP8wRHgdvoozy9xiibpw Khq7ov74uVGlx8K0ySJ2 W4RnabZ0YQLjfYMo DftrgEYWhI2oammlo9js uxbrVnAcLLBqUXd1GXe7 SFRceBbkDfUuJX33EAU2 FXXzjfDlD6FfOSRk mQodAhD1m5S0Lf8LT1BQ QtorH5YRQSMELHwhaKY+ JA56go43I5KjJbcfBzx2 SPKlVJC0zQF9wH2g ATFdDYahy3R3nFA3M6Px ieFdyp9wu4bxAGWxLBjl R62qzXMqs2B2JFYktEM9 CSErcMlvQwHqkX82 Oyc+EAQckUrso2LrOvou n1rns7cbiGb3GhpbCRRu waJhoDtqSHU4t3IfZc6v ZOLurXT6qLK7aQ9f PaHbBuM3CCyyN328SmTd kNToGbqrI86kP7DgrED+ JKLlGxl5RYUubMlzDH1x T9LeILQxvwyicIMu oIheEC8nODXyabvqDYLy vB7oNECgZ3k5HfUdFqH6 AOtyM3OdDUMximbfKr37 uX1yMySbHxZ3LUtm M3FchjR0GWUfkJMoMGlc FIP5H68oc3G7LOFfMAVn HLJ8pUA2kN1vsHzhlbev bGVmdDsgdmVydGlj VPauHBbpW857DKRfhFqf PkNvZGluZyBEYXRlOiAg MDgvMjAvMjAyNTwvdGQ+ SDMeUJC2lRgtZRQd eKAiOVyxSa3hsXzixBnd CV6kXZMyeoiiUHQngA6y BEPhqGFuaOfgGK7rQOWw rafwn910HeDaOKG3 MZYkaIGjH2RlvX2wImKe SOFuDJQaU7JwyYRwIJmq Y384KSxfHfX7RRMrftXg O0BtXWRepMifUcE8 c3B9Vc1Xp3JmiqpvU9Eb sJLuSdEoKhzdAQc7F9Rs PjwvdHI+TB72TRYiCR45 VDu6EFL8tCfbSNbb SXMwP7GmlC6kEqHiDHAn ZGRkOyc+PHRhYmxlIHdp ZHRoPScxMDAlJyBzdHls HE1mWw8jEEQsVPFn cZqjeFLtFrSjn0qjYJVl PWwjJY7hnPhxD9ZcmHR1 EOHqo0l9Ve11T38cQ4Nq dXA+JPIxxAI7cAD5 jG9lUfAcDtD3FNooD660 LgYrdCSbKlnnr2huf1cj jKm7RaD8GZXhqxMoiRfd SLD0o7EoPo72F20m IHdpZHRoPSIxNSUiIHZh xSibaa5fyN9aHr2+PGNv vGX4dHW0rN8sQaRfJuQ6 YBlvJ699BmEyfXFv Dblsr3ele7aqpOd8NcQm VWOvgxBvwNyhYCH6i1Df Ll43K1SttIqha2PhAwd9 jh03xGQob4F0pAU5 K8KwHMDhompngBJlvYlz RF5tKNMrtjwiJTZlcY1a PIBhG2h1UgUySzL8TScx E8LjruX6WCOxxUDx OLBveZJFoB1dgacmy8ue mbmjMfKtKZTvQKu0UCa1 GHBbbUnkMkMfCZW3LkV1 FPI7dNGhuS4zmCxa samttS1sUur+RAQ5rFRl uDTELB2wWbzmmWI+PHRk NKG2vUkaXEeyMCGyvX2s PCHaB7p9MvEsScC8 HHctH7IkxvG7DIAngELp ORHlfRKImP0pfauhg0wa porjKiJuYQMuBFg9HYf6 LWFsaWduOiBsZWZ0 WwV3OYZ0dSQpdW2ceMcn ktedhP6lLaw+QmlydGgg WZB2XWl2S7TcYtd3OILz nRvwRU3kyYVoAMcy Fj9tjWiqaCqjWD1nVQFe muwby817XcVpg5nfZIAx gVVyTTmnKHI6C40px6X0 JTWgRVGnNKE0tOX4 kM7yxLzwsmpihULpvKsr xrQuvOxkYNjoZYzzU905 RMZfhJqbXxRsHZq4G7Au Ckp1UPNtqPgrXL5t bVFyNCdkBm6dzTfwpKfa JE0uWXKpveoyo370WlQc y2siJAKkqXDfQNpjJGF5 A32bl5Z3ZDNvDCGu BGO2sVJ8lV6lfHpndbis bGVmdDsgdmVydGljYWwt AFfiW067DMEucTwyQhOs rGa5Q7PsGib2DBUi aDemMN0yoUDtKKldBq0w qFoebHhuQF4wWYGnqsym o005AbDdc2kqZLOauSLa VYkqCYN4D82au6L6 VSUnUXKoXGV9jCX6fP2u bGlnbjogbGVmdDsgdmVy dMlfDXkiWWobR697RMWp cDsnPlBhdGllbnQg VIwiGLu5G3LvJadnlKL+ RG24UNMtRM35nMEoaZDg u9cesHj8XpCoJDWrZQS3 rIuiIFvya6KlDSCf Z50haBSqa6V8YYGgvMax gEYiOxCawLN1lZ9vCWsl ktqcx5urtbouQqjur0bd ye13hP16Q10fYBcn ZHRoPSIzMCUiIHZhbGln ui8bbT5rWx2+PGNvbCB3 iOX1mM0aGDCuXcS7UVxa V009CiPooBJvHpwg d2xkh0ctzLt6WwT6UUVg pgHpoRlfNCN5e9KvGi02 W89qFNzbRUImLAQjADHc MXIqhZujkm7dwR8s Ii8+AYSfoXZ5cTC2bZ0x WjZsOvK4JDcxC587GsEn jUBnKhrkU03iB8GaiUU+ MZZsAqy6QLPiyTpp MC6lbBXrTOwrDm6wIVV5 AiWbWuBuTHdwD2VqKTNi xnxwcpzslBR8AGZcIVQm lK49Xr3zwZpmPLBr sHZDpO8xbutox7odpusg FxKdFVIiLUm8QGi1FULk oJdkGmCvKVM2IzD4GNZ9 cPBqdA0cmPgorxof dO3zE7CiBPUniofgHr31 dB2gMjWpSsB9NUlsPci+ QHaHSBVAJSPPF8aJLDum JHpQVFZSEZT6Y2Qa Bzo7POAwjMlvIH1zlMLj FAwwMh1krKfkkKoxXF5q BARqrvfbNUVqjO1mAQRi sMYdwTqrJJ7uGALv dqgap390JlZzXIQ2CLZr zQMoV7OanB3bBhJrGJPc WKPzD5DwdYFsGWxmM054 OIdrLrU4IKMrtkZe L3HeXBZzqCdqZsR8j7I6 Xp2oFm9wAO1yTBe3HU48 DB38yXUpi1X5kVA9O5Rs ZGRpbmctcmlnaHQ6 PKJeIIGgwJ33gTCcUImg Oz2ik5O6f740IXGjXCZi pN60Wq0bhOjmAEIrpTGH bU5giguoq1dewbvd AlRlUGMdLEt5TSs1EWFv xAhjKpLfZNG8EuU8ZOY6 gBRozJ4hhCgzhqvbyG2l Oyc+MzYgWWVhcnM8 J2LxSct4BASxrVgmAJ3k uJAxXHwvKn5gzDuwgWdt QB3wWGRbwjwnGBDwqQ5n YJIvqNWsgMtlEG4b VYVffavyl744GhGxTXQ9 BDKyyNFxN5ZttS2gMiYz GBLsKURgD0UatVRuPMtk T526TLksKoI1BPZr mkLkS4WsFDNvvHhpZrN8 f7P4It2RVN6GGTI0K4Vx Nzj7RDGvzYrqEA9kcLYz PIlvSr2tjXrpiUjw LY6jNXWxeorxAQCxtK0h DZNdtWNbbQnnIK7fZDEi lzgzv761KiYmKSB2ARVe nAVbW1FvvI9wNhFo DPClNLPhC2YuqLQvVYiz V041HBllEvA3ZAKnpcNl X0BtBJXslMfkYmL7r6K7 Pa6ZGCjtsUL+PC90 fi28S9SxSjokIvj5UBMm RTY2eMY1iI3gVVBeBVgq x2G9bSN6Z4GzwnRvjc1q b5sxIVMeYVxsQ99c lHSej3H2OGCcaEL9JPTm iRuwYrFhmK64Ewh+PGNv sXbub5SwGluvi7nla6dy zDe3AfHuMDTowfJz oNwePMF2f4IjXa52Y22n IHdpZHRoPSIzMCUiIHZh sQkuck5gyC6tFe0+PGNv cXN5xLG4kA0dBpXw AhJ1KZrzT219DyLguFQp Vkulw5shy3xjhSn9HnRd QMXlqlRzaNjvYTM5z7Ex Ni94I7ZuiUfyy5Mr Yze8sy02oYUaj1Q7aGZ6 Z0JnKCErssnfyIHupBrx GJ5sFZGcvqhwYCTlpU3f LVRhK6j6HrStPfC0 YKqwK7ElpoP6XJUzmJPo LFWflNSSiU7lgoknd0bx wmepDbOuMXWuHNm2DFf9 LWFsaWduOiBsZWZ0 HyW0ZOR8uMSgfC6xgIgi jxewsG0gEsh+KXw5q0bj lDFgIF4svPE0RK96BU05 rJYxn9W1yJV6A0Fg SBIppsqmgzjhrOU4UAKw FMUcsH33Rw4xdPesKb1w XJFxXOE4QGEmbLTsV9Tu fN8zQmZoKPPjMIGl G0DhoFEmJZebA515RSjx WdD9GJNnpvTuE2XsAYGs mPcpNwF5b9F7Aw7LIY02 MI13FQ07gORkd4K0 jMM7A0PyWIFomrcsphtc iXI7UAKoTTWfnP73Lf1n sUzeSu2pRAIkKFK8PBPq tNVsR8DpzX8iIiTr VGWrDZGjN8ValXEsLQzb O441LPfhKmX3KYPiziMz J4WbRIUnvAcnJnN6w4X2 Tk2RDx69YN91HC92 oSUlb2I2mRX2K7WuLWSx rhizhharjMV5TQSdTFCc bX34Jl6ciSnxQc2lDOTu VXU3XLXurFHnK9Ub vP7pGiWtVPXaZOAeN7Yj iRIfFXefP966VRxcBlV1 TXTybvZvN2SdYJRtdFna SyD1y2Y5Ji2SOUim dxx1Q5FlEafceVG+PC90 CFWcFQ01bEPtaCPre6rl uXm2ZzSwWUWiSTE8qVoq YHfxr2RcUFSvN80m bGF (more content not included)... Normal [facility] RECURRENT VAGINITIS (HTRX)on 02-22-2025 ATOPOBIUM VAGINAE 21.55 Abnormal [facility] ATOPOBIUM VAGINAE Detected Abnormal [facility] BVAB 2,3 (BACTERIAL VAGINOSIS ASSOCIATED BACTERIA 2, 3); MOBILUNCUS SPP 12.878 Abnormal [facility] BVAB 2,3 (BACTERIAL VAGINOSIS ASSOCIATED BACTERIA 2, 3); MOBILUNCUS SPP Detected Abnormal [facility] SHIMON ALBICANS, PARAPSILOSIS, TROPICALIS 0 [facility] SHIMON ALBICANS, PARAPSILOSIS, TROPICALIS Not detected [facility] SHIMON GLABRATA 0 [facility] SHIMON GLABRATA Not detected [facility] SHIMON KRUSEI 0 [facility] SHIMON KRUSEI Not detected [facility] CHLAMYDIA TRACHOMATIS 0 [facility] CHLAMYDIA TRACHOMATIS Not detected [facility] ERMB, C; MEFA 25.09 Abnormal [facility] Healthcare ERMB, C; MEFA Detected Abnormal [facility] Healthcare GARDNERELLA VAGINALIS 20.402 Abnormal [facility] GARDNERELLA VAGINALIS Detected Abnormal [facility] Healthcare HERPES SIMPLEX VIRUS 1 0 [facility] HERPES SIMPLEX VIRUS 1 Not detected [facility] HERPES SIMPLEX VIRUS 2 0 [facility] HERPES SIMPLEX VIRUS 2 Not detected [facility] Interpretation and review of laboratory results Abnormal [facility] MEGASPHAERA (TYPES 1, 2) 0 [facility] MEGASPHAERA (TYPES 1, 2) Not detected [facility] MYCOPLASMA GENITALIUM 0 [facility] MYCOPLASMA GENITALIUM Not detected [facility] NEISSERIA GONORRHOEAE 0 [facility] NEISSERIA GONORRHOEAE Not detected [facility] TET B, TET M 18.723 Abnormal [facility] TET B, TET M Detected Abnormal [facility] TRICHOMONAS VAGINALIS 0 [facility] TRICHOMONAS VAGINALIS Not detected [facility] HCG ( test) Ql (U)o n 02-21-2025 Interpretation and review of laboratory results Normal [facility] Preg Test, Ur Negative Negative [facility] Urinalysis macro (dipstick) panel (U)on 02-21-2025 Bilirubin, UA Negative Negative - 4(70) +++ mg/dL [facility] Blood, UA Positive Negative - 50 Chucky/mcL [facility] Comment on above: trace-intact Clarity, UA Clear [facility] Color, UA Yellow [facility] Glucose, UA Negative Negative - 1999(110) ++++ mg/dL [facility] Interpretation and review of laboratory results Abnormal [facility] Ketones, UA Negative Negative - 160(16) ++++ mg/dL [facility] Leukocytes, UA Trace Negative - 500+++ Sriram/mcL [facility] Nitrite, UA Negative Negative - Positive [facility] pH, UA 5.5 5 - 9 [facility] Protein, UA Negative Negative - 1999(20) ++++ mg/dL [facility] Spec Grav, UA 1.025 1 - 1.03 [facility] Urobilinogen, UA 0.2 0.2 - 12 mg/dL [facility] Coding Summaryon 01-18-2025 Coding Summary HTMLBase 64 SqavdxiqMBo2sSl+PGhl YWQ+ML4CALAwT21euAZn fC0mZ5YKRZvUVryzFSAQ LRdTTfQobeOlJC3mfFLh ZXJu IC8+EG4uDTApDlmzsWUj d1E4jWL8Z85yjq7jMPke rUT5WZGnQeIgznfgx9ae iUe1FQcbKhphThQu QLWtvX23HBH4eS64Cy04 rCYhwIIiq3bzcHk9TrRu FRZgHIK9aZtcUUate1Zq XDQyG83qgKQdo8O1 IGNvbGxhcHNlOyBlbXB0 dV7sIOfddlvgl8dvjwtw Bkd4lw00cBQrj6V3oBK5 Y6WgtvK0LJZozGJp JicxyTTLoS5yxzrcl3we etjxVmDhMMHyHDa3WRg2 XARmaExpYjXgHN46UTO2 TRKqsbTyH5LgHWAt kHnaDiB1c8O7Uq2TT3IO AxnnI5PCFGOUTJigdEE+ HV76bh85Z0LzWiwfPtp7 GAOtCSQ0wMT9lC1v YZIaRTarj4U8nEC3T9Oc yyHgxk3db6kaGRNdKZlr W02kxGLhu5K3UKVkrVE5 SMSwzYadJwDqqV59 Oyc+BNWehPeoe2SrKqmq w5dny6dgtBg6BcxxJNSn wdVtpMrwCRG1q1WwOa5d RDEkzPC3lRK6wQ6g PkAzOmJ2FAhqD517OjNy kGJlYumoA90aT5VafSH+ CYUrQvd5RZTnsQmyGV0r W6MxRGXnxboyfLHp tPtaQE8gGAHqvhaxEVJi kT7aVISoA2h4AhLoBfN2 AGzcW2JkBHEoodusJb19 pJ5uNtItGiG9OHeu V2OlrqH8AHBesOYvJTwa PYX8K45yx6N4TNStYSPe JMX2gJZ4yK4xcEnapcvq bGVmdDsgdmVydGlj NVglKUitV016NGMbkWsc PkNvZGluZyBEYXRlOiAg MDMvMTgvMjAyNTwvdGQ+ LTXpZNX5dFwoUEPh dQVuKGbfCq3wyDjsyExl LC4nUUQteilsDLPniM8a MRFzuEYznQwlVQ1qMYZz tytbp419EsYqFYQ0 JKXskJNrM3CcbT6gJgGs NGVcGGIbJ1ZwsVKpHMzs F097MQuxQhK0LAJdlxUw U4WwEIWwlDecInX4 l8T4Vi5Wq0DaixsoP3Rl pYVwDvPnKyduOBy3J6Ye PjwvdHI+KT29DEEwRW99 OJr8GHN7kNatTDjf TNMaG0UckP6tWePcXFJa ZGRkOyc+PHRhYmxlIHdp ZHRoPScxMDAlJyBzdHls XN8rHd4rNYXgSWMz nZczcXZnNpHsy1elXBDc USazGJ7pcXsvZ7OlzPY4 GAHyh5g2Aw48Q71wW8Pw dXA+RENfbEQ7vLK5 aU8wYlIeQvR5MInlM617 YcAdpMCsHxlns5qjp3om uYv5EiB4HHPvbwXqnBox RYD2n9NgPq84K72c IHdpZHRoPSIxNSUiIHZh hGoeks7inZ2cYl3+PGNv wYI9nBW0hR9vPgQlJuA0 XJtxK259VoWiiRCb Mgunt4hkn9slxYd8GmRi BKQufxCvbMyvMOU8b4Ud Lz06Q0ZnoJsas2LcXpq5 dv89zQXbk1M2qWV0 F2PfYVDliyzfpSPepYvt SP7wOVSgdyyjRILfvO9o PAFeA2o9BnQaVlJ0LLda G2IwuzS9MABimGMv DJXbePFFpE7sivbat8qw maukAbPhNBHlXLu3XMf4 PVZlaXfhOlGcLPB4WjM7 APZ9wFXdeE5opZel msbpjW3sXqx+LQS8zASm xZGOXZ1mVzcxyMD+PHRk SZL2zPnnHCxaKVAxdB9b IKYpQ0r1XeClGrU8 UZwiE0BfjjN3XTLicWMn VEHuuMDZxO8xewbqc2kb rpkxQrYcMDOjGVe9QIg4 LWFsaWduOiBsZWZ0 UiH7MTF4eRYmmR3upJbg geknkU5oFrj+QmlydGgg YDM3ZNx2Z0FoBzo4DILq nOxjBI1kuPMkFScy Us0flRfqnVmoTD5fOLRi rijiq904KvIaj5ixEHLb nJDdOZglQRG7R44rf8K6 KIWcYVToYDF4cTE8 pX3xzHrgmpsdsXVweBqq csRjzQgaAOhgKAmgB091 KPYqfEkmYdVxFVg9V6Fw Xha6AFEhnYauSN1z lWBxIWllEa8zoFwfhYze OE7rZLYnyqehj726FrRv m1gxYRBqdSFyWFhwFAW5 M57ci1S8HWZrNWYz CCH0qWZ4tC5qyRjapglq bGVmdDsgdmVydGljYWwt OIwaK213WZAugSnaOfEi yVd1C1XsIrf3JBBs xEpoXB6imEQoYYouAt5z pSecqEzdGR7hCXMhdsmr y614EqOdk5jsFRZkqCIf OHwiVLO5Q43sk8L0 ERXjUBYhQHG9fRG6pV7u bGlnbjogbGVmdDsgdmVy oFdaCAnnLRllY822HDAa cDsnPlBhdGllbnQg EQbzAPb2R8DrNngdiRK+ LA92WQFjCU16lOElfKFq e2coiRx1FgNlDEEiJWI1 nIvbTIxns2GbAVGl Z79wxHVln9H5GUSdwWoy vOBrApAqwUN3qQ5qDGck wucea6axtldfCnoyg4is jk04bA58G54xNThn ZHRoPSIzMCUiIHZhbGln ol1swH4cSg6+PGNvbCB3 oPW9vP2nIWJiPcO4FWtm O377LbKhiPOtKpzh t8esn4kuxVw1MeO2DVFx uiVkvVaxOXQ8l1PvBi34 T32sQWnoTMYkMJRvLIKz SOUgrChpyf0laT8b Ii8+ZRHefPT1wJS6lD4w NrFgZbZ1WXpaG410YqXs hGHyJdqpO63zR4RrsCH+ SUWkBmc8OHLkhOrd ZA6buPZpTSxaAc5lWFH1 LzCsAvAzSSuwO8InXWXk isrvtifzbNV0EDOeHKOk rQ40Lj3xsQcfOLGl yWRVeJ7cnsxco4jvoxbx PwTuBUTiNDa6UDq2OIFp hVriIhUzLRR5UwD1BHF4 vUHtcW5tkSgnxvvk zM2lI3YyFZEziuufWy73 eC1dMvRaBxH6FIzrNvt+ CHrAVLBQYROYQ3hGNGor KDzSWJARQJR5G0Np Vue0NAHtmOzdHL8gyZKg IZjuHi4vvFadtFzfPT6k YLLtorolYRDwaV4uGAFl wYKafMxfMH9rOVLu gpise999QiCgLMV2CCUj uUCmG8EhkM6hZxSoBWZk VOZzV4WyrUQxWHwmG531 GAkdLbB1TGSmllJg C0XtGWBfqSmpJwW2d5X0 Ym1dQq7zET2bSXw5UE35 CQ44vIIec9D7nKX4Y4Ct ZGRpbmctcmlnaHQ6 NBKqWYBqwW89kIJyXCif Qm2jy7B4r971DKHpVFDq wJ62Lv0reVqaHHVozXPI kC2iyrioj1icsgvm GlHbFSEyWJt7GGg5WMTz tImjTvPlDKN6MzD9DJY0 rLTpyK3nrHuejwuncG3v Oyc+MzYgWWVhcnM8 G5MbGoc6BCEguSasOW3k eAQtWHkjAc0vaHzflSgj CT6vCELyowlmYKVjuY2k YEDwbCEuyAqwJM6v HLQyodkco175FwDhHSM1 WZDiyJIhM8EgyL3iKiXd VREjQGMtQ9HbeJIwLTcz I786VDmkHyP1OVVv omJvD6TeGSZdvZfkBzP9 v0P6Qv9ZFG6DRVH8Y8Ma Yjj4XAWmiLriJF9ybVGw ZSgqAk3jkBxfeHgl BW3uTKGgvezvMTJnbC5u FMEtbZEdwNgyYP2mXXXr rtbiq340OtIbIOG9BYDg wYHyJ8XewL7pYeWc SYMaJGEcM4HdkLHhCKah Q390JIovTpL9VYVcpkLq I5HwQHByyYgnPiQ4n2O2 Rg1ONZcoaPK+PC90 ct96S6PzFiabCfp3YSWh VQH6eKO6cB1dYLKeVOge o9H7fBV2F7KyqjYkfs7z l3pvRQKxWNahR33n xVDuw2U7FZQfrBM7QTSz hYtxSlPukX40Rjj+PGNv tFrdk5WrYuayk8buc2rd xTm4KyZqBEFpypZw lTqgDPA4o0IxJq64U91s IHdpZHRoPSIzMCUiIHZh xUqccq0ptA5qNl0+PGNv oXP4iWB5qV0lIcVv EkO0CNxeO417LiOftUOm Pkgln6jlv6qtcLr7DhZq FNRwhqZkkFcoLPA0r2Up Ri68G4LoxAekl0Xg Nbl7bm61wENdj2A8lFM7 L0OyTXQdwgqxxJTrsOxe WC5vCZTwcxpeHMKcwL0f TWHdL1b2LbDcWuY9 IYvmH4WtedT6XKRpqLWg LIAvcCCDrD3tswrtw8zz cjkyQsXnIGPaBCz0MTu6 LWFsaWduOiBsZWZ0 GtV5DZH5xKRfhP8sfQka sncxjO8uJmn+VXq5p4co bAJhIW8omMQ0MX59YQ36 bKBgk3W3mTH0L5Is EPTwathqfashyMV4OAYg LYCmzX22Hc7ogKcbYk3f KDPkOXV0IQCkmBAxO1Xp rB6xVaJaXQDsKNEz W6GuzKPyBVyjJ422JWqz WdU1HCLzcsPsJ1UqYDTt uQfjJfO6q8F6Lz3RZQ93 HG62BU21tFLtd4X6 bLM8M2JqWDObugtxgvfk oTV5BOLdWFHryG61Nm3l qSefLh2sMFObXNV1MWAw gGBmW3GmnJ4eNpNz SWBiNZLzX2CtjOFlMRch D083XVvaGzD3TLYfbbXp Z8XhHVBbyZgfXrA0v3V0 Tu7WFb42OL28BX18 wQDou3A1fNN0D2YqBXSy tyltwmqfbUH1IKKdPWFr mG33Hk9ctOxiLf0eLVTd GKF7LDPprGGrI1Hn uR6qZcEbTSThUOXiY1Tx sVUhWEqyD948HTxoZzC0 QXMcwgWrB2NuWMEjcTmr QmW9j4K0Xj7OTTbo jjq9L6UzSvrrlEJ+PC90 EZCpKF03hZKxgFBon7dd pPj7ZnOeTHGaWTS2zQup KBeyd0TcNDOfL50x bGF (more content not included)... Normal [facility] CT ABDOMEN PELVIS WO IV CONT [facility] 01-14-2025 CT ABDOMEN PELVIS WO IV CONTRAST HISTORY: Left flank pain. Hematuria. History of kidney stones and lithotripsy. TECHNIQUE: Non-IV contrast imaging of the abdomen and pelvis was performed using standard technique, scanning from just above the dome of the diaphragm to the symphysis pubis. Unenhanced imaging is limited for the evaluation of some intra-abdominal and pelvic pathology. All CT scans at this facility use dose modulation, iterative reconstruction, and/or weight based dosing when appropriate to reduce radiation dose to as low as reasonably achievable. COMPARISON: None. RESULT: Abdomen / Pelvis: Liver: Unremarkable. Biliary: Gallbladder unremarkable. Pancreas: Unremarkable. Spleen: No splenomegaly. Adrenals: No mass. Kidneys: No calculus or hydronephrosis. No suspicious lesions in the unenhanced kidneys. GI Tract: No bowel dilation. Normal appendix. Feces throughout the colon. Diverticulosis without evidence for diverticulitis. Lymph Nodes: No lymphadenopathy. Mesentery/peritoneum /retroperitoneum: No ascites or mass. Vasculature: No abdominal aortic or iliac artery aneurysm. Pelvis: No significant free fluid. Bladder unremarkable. Uterus grossly unremarkable. Bones/Soft Tissues: No acute osseous findings. Lower thorax: Unremarkable. IMPRESSION: No hydronephrosis or nephrolithiasis, or other acute process in the abdomen/pelvis. ELECTRONICALLY SIGNED BY: Rafa Simental MD Normal Not Available Urgent Care Note- Provideron 01-14-2025 Urgent Care Note- Provider Called patient, identified by last name and date of . We discussed her urine culture results and gonorrhea chlamydia testing which were negative. Patient has been on Macrobid since initial visit and has been taking as directed with improvement of her symptoms. We discussed that it may not be necessary at this time to continue the antibiotic but patient reports her PCP has ordered a CT scan today to assess for kidney stone as well. She will continue with the antibiotic at this point and discuss with her PCP whether or not she will continue to take it. She denies any worsening of her symptoms, fever, chills. Call with concerns patient verbalized understanding [Electronically Signed on: 01/14/2025 08:47 EDT] Ray Cooper MAGAZINE JOURNALIST REAL ESTATE ACQUISITION ANALYST-C [Verified on: 01/14/2025 08:47 EDT] Ray Cooper MAGAZINE JOURNALIST REAL ESTATE ACQUISITION ANALYST-C Normal [facility] C Urineon 01-12-2025 C Urine Urine Culture ordered as a result of parameters set on specific urine dip and urine microsopic results. Mixed skin, or urogenital dylon. Clinically insignificant Normal [facility] Comment on above: Performed By: #### 1 [id number], [id number], [id number] #### [facility] (DEFAULT) [address] [place], [place] [id number] Chlamydia/GC Amplification L Con 01-12-2025 Chlamydia trachomatis, BEATRIZ LC Negative Invalid Interpretation Code Negative [facility] Comment on above: Performed By: #### 1 [id number] #### [facility] (DEFAULT) [address] [place] [address] Neisseria gonorrhoeae, BEATRIZ LC Negative Invalid Interpretation Code Negative [facility] Comment on above: Result Comment: Perf ormed At: =G [facility] [id number] Andrea Negro MD Ph:[phone] Performed By: #### 1 [id number], [id number] #### [facility] (DEFAULT) [address] [place] [address] Miscellaneous Testing LCon 0 01-12-2025 Misc. Test Result LC COMMENT Invalid Interpretation Code [facility] Comment on above: Result Comment: Test Ordered: [id number] Trich vag by BEATRIZ Trich vag by BEATRIZ Negative =G Reference Range: Negative Performed At: [facility] [place] [address] [place], [place] [id number] Zeke Singletary PhD Ph:[phone] Performed At: =[facility] [address] [place], [place] [id number] Andrea Negro MD Ph:[phone] Performed By: #### 1 [id number] #### [facility] (DEFAULT) [address] [place] [address] Misc. Lab Teston 01-10-2025 Miscellaneous Sent 01/10/25 Invalid Interpretation Code [facility] Comment on above: Order Comment: Trich omonas Performed By: #### 1 [id number], [id number] #### [facility] (DEFAULT) [address] [place] [address] Name of Test Trichomonas Invalid Interpretation Code [facility] Comment on above: Order Comment: Trich omonas Performed By: #### 1 [id number], [id number] #### [facility] (DEFAULT) [address] [place] [address] Miscellaneous Testing LCon 0 01-10-2025 Miscellaneous Testing LC TRICHOMONAS VAGINALIS BEATRIZ Invalid Interpretation Code [facility] Comment on above: Performed By: #### 1 [id number] #### [facility] (DEFAULT) [address] [place] [address] Test Code LC 107488 Invalid Interpretation Code [facility] Comment on above: Performed By: #### 1 [id number] #### [facility] (DEFAULT) [address] [place] [address] Test Name LC TRICHOMONAS VAGINALIS BEATRIZ Invalid Interpretation Code [facility] Comment on above: Performed By: #### 1 [id number] #### [facility] (DEFAULT) [address] [place] [address] Test Urine 1on U Preg Negative [facility] Comment on above: Performed By: #### 1 [id number], [id number] #### [facility] (DEFAULT) [address] [place] [address] U Preg Internal Control Pass [facility] Comment on above: Performed By: #### 1 [id number], [id number] #### [facility] (DEFAULT) [address] [place] [address] UA Zizli5yd 01-10-2025 UA Bacteria 1+ [facility] Comment on above: Order Comment: Urina lysis Microscopic order added on by [employer] Rules system. Performed By: #### 1 [id number], [id number], [id number] #### [facility] (DEFAULT) [address] [place] [address] UA RBC 3-5 [facility] Comment on above: Order Comment: Urina lysis Microscopic order added on by Discern Expert Rules system. Performed By: #### 1 [id number], [id number], [id number] #### [facility] (DEFAULT) [address] [place] [address] UA Squam Epi Few [facility] Comment on above: Order Comment: Urina lysis Microscopic order added on by [employer] Expert Rules system. Performed By: #### 1 [id number], [id number], [id number] #### [facility] (DEFAULT) [address] [place] [address] UA WBC 10-15 [facility] Comment on above: Order Comment: Urina lysis Microscopic order added on by [employer] Rules system. Performed By: #### 1 [id number], [id number], [id number] #### [facility] (DEFAULT) [address] [place] [address] UA w Culture if Ind Standard on 01-10-2025 Breakpoint UA [facility] Comment on above: Performed By: #### 1 [id number], [id number], [id number] #### [facility] (DEFAULT) [address] [place] [address] Color (U) Yellow [facility] Comment on above: Performed By: #### 1 [id number], [id number], [id number] #### [facility] (DEFAULT) [address] [place] [address] Culture? Indicated Invalid Interpretation Code [facility] Comment on above: Result Comment: Resu lt created by rule GL_MAGR_ADD_UA_CULT Result created by rule GL_MAGR_ADD_UA_CULT Result created by rule GL_MAGR_ADD_UA_CULT Performed By: #### 1 [id number], [id number], [id number] #### [facility] (DEFAULT) [address] [place] [address] Glucose (U) [Mass/Vol] Negative [facility] Comment on above: Performed By: #### 1 [id number], [id number], [id number] #### [facility] (DEFAULT) [address] [place] [address] Ketones Ql (U) Negative Normal [facility] Comment on above: Performed By: #### 1 [id number], [id number], [id number] #### [facility] (DEFAULT) [address] [place] [address] 18084 Micro? Indicated Invalid Interpretation Code [facility] Comment on above: Result Comment: Resu lt created by rule GL_MAGR_ADD_UA_MICRO Performed By: #### 1 [id number], [id number], [id number] #### [facility] (DEFAULT) [address] [place] [address] UA Bilirubin Negative Normal [facility] Comment on above: Performed By: #### 1 [id number], [id number], [id number] #### [facility] (DEFAULT) [address] [place] [address] UA Blood MODERATE Abnormal NEGATIVE [facility] Comment on above: Performed By: #### 1 [id number], [id number], [id number] #### [facility] (DEFAULT) [address] [place] [address] UA Clarity SL CLOUDY Abnormal CLEAR [facility] Comment on above: Performed By: #### 1 [id number], [id number], [id number] #### [facility] (DEFAULT) [address] [place] [address]220 UA Leuk Est SMALL Abnormal NEGATIVE [facility] Comment on above: Performed By: #### 1 [id number], [id number], [id number] #### [facility] (DEFAULT) [address] [place] [address] UA Nitrite Negative Normal NEGATIVE [facility] Comment on above: Performed By: #### 1 [id number], [id number], [id number] #### [facility] (DEFAULT) [address] [place] [address]3801 UA pH 6.0 Normal 5-8 [facility] Comment on above: Performed By: #### 1 [id number], [id number], [id number] #### [facility] (DEFAULT) [address] [place] [address] UA Protein Negative Normal NEGATIVE [facility] Comment on above: Performed By: #### 1 [id number], [id number], [id number] #### [facility] (DEFAULT) [address] [place] [address] UA Spec Grav >=1.030 Normal 1.001-1.035 [facility] Comment on above: Performed By: #### 1 [id number], [id number], [id number] #### [facility] (DEFAULT) [address] [place] [address]52 UA Urobilinogen 0.2 mg/dL Normal 0.2-1.0 [facility] Comment on above: Performed By: #### 1 [id number], [id number], [id number] #### [facility] (DEFAULT) [address] [place] [address]75 Urine Source Clean Catch Normal [facility] Comment on above: Performed By: #### 1 [id number], [id number], [id number] #### [facility] (DEFAULT) [address] [place] [address] Laboratory - Microbiology an d Antimicrobial susceptibilityon 12-27-2024 S. pyogenes Ag Ql (Throat) Negative Negative, None Detected [facility] SARS-CoV-2 (COVID-19) RNA BEATRIZ+probe Ql (Unsp spec) Negative [facility] No Panel Informationon 12-27 Interpretation and review of laboratory results Normal [facility] FLU A Negative [facility] FLU B Negative [facility] Interpretation and review of laboratory results Normal [facility] IGP,APTIMA HPV,AGE GDLNon AGE GDLN ACOG TESTING Note . [facility] Comment on above: TESTS RESULT FLAG UN ITS REF RANGE LAB Clinician Provided Cytology Information Source.............Cervix;Endocervix No. of containers..01 ThinPrep Vial Age Meryl DIALLO Courtney... 3065 FLAG LEGEND: L-Low Normal,H-High Normal,LL-Alert Low,HH-Alert High <-Panic Low,>-Panic High,A-Abnormal,AA-Critical Abnormal Performed at: 01 =[address] [address] Leslie Mendez MD, HPV APTIMA Negative Negative [facility] Comment on above: This nucleic acid am plification test detects fourteen high- risk HPV types (16,18,31,33,35,39,45,51,52,56,58,59,66,68) without differentiation. Performed at: =[address] [id number] Corrections Corporal: Leslie Mendez MD, Phone: [phone] Performed at: [address] [id number] Corrections Corporal: Leslie Mendez MD, Phone: [phone] IGP, APTIMA HPV, RFX 16/18,45 Note . [facility] Comment on above: TESTS RESULT FLAG UN ITS REF RANGE LAB DIAGNOSIS: 02 NEGATIVE FOR INTRAEPITHELIAL LESION OR MALIGNANCY. CELLULAR CHANGES ASSOCIATED WITH INFLAMMATION ARE PRESENT. Specimen adequacy: 02 Satisfactory for evaluation. Endocervical and/or squamous metaplastic cells (endocervical component) are present. Performed by: 02 Yvrose Lance, Hand Plug Shaper (ASCP) . 02 Note: Note 02 The Pap smear is a screening test designed to aid in the detection of premalignant and malignant conditions of the uterine cervix. It is not a diagnostic procedure and should not be used as the sole means of detecting cervical cancer. Both false-positive and false-negative reports do occur. Test Methodology: Note 02 This liquid based ThinPrep(R) pap test was screened with the use of an image guided system. HPV Genotype Reflex Note 02 Criteria not met, HPV Genotype not performed. FLAG LEGEND: L-Low Normal,H-High Normal,LL-Alert Low,HH-Alert High <-Panic Low,>-Panic High,A-Abnormal,AA-Critical Abnormal Performed at: [address] [address] Leslie Mendez MD, BRUSH-SPATULA CERVIX [facility] HCG ( test) IAbasim tadeo Ql (U)Ordered By: Laine Marx on 04-24-2023 HCG ( test) Ql (U) Negative [facility] HCG,Urineon 04-24-2023 Beta HCG ( test) Ql (U) Negative Normal [facility] Comment on above: Result Comment: PERF ORMED BY: [place] [address] PATHOLOGIST IRONER MACHINE JERMAINE ZAPATA M.D. Performed By: #### U HCG #### [address] US PELVIS AND TRANSVAGon US PELVIS AND TRANSVAG Patient: NOBLE CHIN Exam Date: 09/16/2019 : 1990 Gender:F Ordering : DR JULIETTE MORRIS . Admission #: [id number] Family : Order #: [id number] CLICK HERE TO VIEW EXAM RADIOLOGY REPORT PROCEDURE: ULTRASOUND PELVIS AND TRANSVAGINAL COMPARISON: US PELVIS AND TRANSVAG, 07/22/2019. INDICATIONS: Cyst of ovary N83.209 TECHNIQUE: Transabdominal sonographic examination. Transvaginal sonographic examination. FINDINGS: UTERUS: Normal size and appearance. Uterus: 7.9 x 3.6 x 4.3 cm (63.4 cc) ENDOMETRIUM: Normal homogeneous appearance. Endometrial thickness: 3 mm RIGHT OVARY: Normal size and appearance. Blood flow present within ovary on color Doppler. Right ovary: 3.2 x 1.6 x 2.4 cm (6.4 cc) LEFT OVARY: Normal size and appearance. Blood flow is present within ovary on Color Doppler. Left ovary: 4.4 x 1.6 x 1.9 cm (6.9 cc) OTHER: None. CONCLUSION: Normal examination. Resolution of previously seen right ovary complex cyst. Dictated by: Laz Alexis M.D. on 09/16/2019 at 13:30 Approved by: Laz Alexis M.D. on 09/16/2019 at 13:32 Normal [facility] US PELVIS AND TRANSVAGon US PELVIS AND TRANSVAG Patient: NOBLE CHIN Exam Date: 07/22/2019 : 1990 Gender:F Ordering : DR JULIETTE MORRIS . Admission #: [id number] Family : Order #: [id number] CLICK HERE TO VIEW EXAM RADIOLOGY REPORT PROCEDURE: ULTRASOUND PELVIS AND TRANSVAGINAL COMPARISON: None. INDICATIONS: Polycystic ovary syndrome E28.2 TECHNIQUE: Transabdominal sonographic examination. Transvaginal sonographic examination. FINDINGS: UTERUS: Normal size and appearance. Uterus: 8.4 x 3.8 x 6.0 cm (100 cc) ENDOMETRIUM: Normal homogeneous appearance. Endometrial thickness: 10 mm RIGHT OVARY: Hypoechoic area noted measuring 2.0 x 1.7 x 1.6cm. Normal number and size of follicles Blood flow present within ovary on color Doppler. Right ovary: 3.4 x 2.4 x 2.8 cm (11.5 cc) LEFT OVARY: Normal size and appearance. Normal number and size of follicles Blood flow is present within ovary on Color Doppler. Left ovary: 3.1 x 1.8 x 2.0 cm (6.9 cc) CONCLUSION: 1. 2 cm cystic lesion in the right ovary, consider hemorrhagic or complex cyst. Dictated by: Gurpreet Clavo M.D. on 07/22/2019 at 11:15 Approved by: Gurpreet Calvo M.D. on 07/22/2019 at 11:16 Normal [facility] Vital Signs Date Time Vital Sign Value Performing Clinician Facility 08-22-2025 14:16-0400 Body mass index (BMI) [Ratio] 42.36 kg/m2 [employer] Work Phone: [facility] [employer] 08-22-2025 14:16-0400 Body weight 111.95 kg [employer] Work Phone: [facility] [employer] 08-22-2025 14:16-0400 Diastolic blood pressure 70 mm[Hg] [employer] Work Phone: [facility] [employer] 08-22-2025 14:16-0400 Systolic blood pressure 110 mm[Hg] [employer] Work Phone: [facility] [employer] 08-08-2025 12:36-0400 Body height 162.6 cm [employer] Work Phone: [facility] [employer] 08-08-2025 12:36-0400 Body mass index (BMI) [Ratio] 41.2 kg/m2 [employer] Work Phone: [facility] [employer] 08-08-2025 12:36-0400 Body temperature 96.91 [degF] [employer] Work Phone: [facility] [employer] 08-08-2025 12:36-0400 Body weight 108.86 kg [employer] Work Phone: [facility] [employer] 08-08-2025 12:36-0400 Diastolic blood pressure 84 mm[Hg] Britt Kaftan DO Work Phone: [facility] 08-08-2025 12:36-0400 Heart rate 85 /min Britt Mcdaniel DO Work Phone: [facility] 08-08-2025 12:36-0400 SaO2% (BldA) [Mass fraction] 95 % Britt Mcdaniel DO Work Phone: [facility] 08-08-2025 12:36-0400 Systolic blood pressure 118 mm[Hg] Britt Mcdaniel DO Work Phone: [facility] 06-27-2025 13:17-0400 Body height 162.6 cm Britt Mcdaniel DO Work Phone: [facility] 06-27-2025 13:17-0400 Body mass index (BMI) [Ratio] 41.13 kg/m2 Britt Mcdaniel DO Work Phone: [facility] 06-27-2025 13:17-0400 Body temperature 97.3 [degF] Britt Mcdaniel DO Work Phone: [facility] 06-27-2025 13:17-0400 Body weight 108.68 kg Britt Mcdaniel DO Work Phone: [facility] 06-27-2025 13:17-0400 Diastolic blood pressure 86 mm[Hg] Britt Mcdaniel DO Work Phone: [facility] 06-27-2025 13:17-0400 Heart rate 73 /min Britt Mcdaniel DO Work Phone: [facility] 06-27-2025 13:17-0400 SaO2% (BldA) [Mass fraction] 99 % Britt Mcdaniel DO Work Phone: [facility] 06-27-2025 13:17-0400 Systolic blood pressure 128 mm[Hg] Britt Mcdaniel DO Work Phone: [facility] 05-31-2025 14:34-0400 Body height 162.6 cm Britt Mcdaniel DO Work Phone: [facility] 05-31-2025 14:34-0400 Body mass index (BMI) [Ratio] 41.71 kg/m2 Britt Mcdaniel DO Work Phone: [facility] 05-31-2025 14:34-0400 Body temperature 96.91 [degF] Britt Mcdaniel DO Work Phone: [facility] 05-31-2025 14:34-0400 Body weight 110.22 kg Britt Mcdaniel DO Work Phone: [facility] 05-31-2025 14:34-0400 Diastolic blood pressure 86 mm[Hg] Britt Mcdaniel DO Work Phone: [facility] 05-31-2025 14:34-0400 Heart rate 65 /min Britt Mcdaniel DO Work Phone: [facility] 05-31-2025 14:34-0400 SaO2% (BldA) [Mass fraction] 99 % Britt Mcdaniel DO Work Phone: [facility] 05-31-2025 14:34-0400 Systolic blood pressure 124 mm[Hg] Britt Mcdaniel DO Work Phone: [facility] 04-28-2025 11:17-0400 Body height 162.6 cm Britt Mcdaniel DO Work Phone: [facility] 04-28-2025 11:17-0400 Body mass index (BMI) [Ratio] 41.85 kg/m2 Britt Mcdaniel DO Work Phone: [facility] 04-28-2025 11:17-0400 Body temperature 96.8 [degF] Britt Mcdaniel DO Work Phone: [facility] 04-28-2025 11:17-0400 Body weight 110.59 kg Britt Mcdaniel DO Work Phone: [facility] 04-28-2025 11:17-0400 Diastolic blood pressure 86 mm[Hg] Britt Mcdaniel DO Work Phone: [facility] 04-28-2025 11:17-0400 Heart rate 86 /min Britt Mcdaniel DO Work Phone: [facility] 04-28-2025 11:17-0400 SaO2% (BldA) [Mass fraction] 98 % Britt Mcdaniel DO Work Phone: [facility] 04-28-2025 11:17-0400 Systolic blood pressure 128 mm[Hg] Britt Mcdaniel DO Work Phone: [facility] 04-04-2025 11:24-0400 Body height 162.6 cm Britt Mcdaniel DO Work Phone: [facility] 04-04-2025 11:24-0400 Body mass index (BMI) [Ratio] 42.57 kg/m2 Britt Mcdaniel DO Work Phone: [facility] 04-04-2025 11:24-0400 Body temperature 97.11 [degF] Britt Mcdaniel DO Work Phone: [facility] 04-04-2025 11:24-0400 Body weight 112.49 kg Britt Mcdaniel DO Work Phone: [facility] 04-04-2025 11:24-0400 Diastolic blood pressure 80 mm[Hg] Britt Mcdaniel DO Work Phone: [facility] 04-04-2025 11:24-0400 Heart rate 83 /min Britt Mcdaniel DO Work Phone: [facility] 04-04-2025 11:24-0400 SaO2% (BldA) [Mass fraction] 98 % Britt Mcdaniel DO Work Phone: [facility] 04-04-2025 11:24-0400 Systolic blood pressure 124 mm[Hg] Britt Mcdaniel DO Work Phone: [facility] 03-02-2025 14:35-0400 Body mass index (BMI) [Ratio] 42.4 kg/m2 Britt Mcdaniel DO Work Phone: [facility] 03-02-2025 14:35-0400 Body temperature 97.3 [degF] Britt Mcdaniel DO Work Phone: [facility] 03-02-2025 14:35-0400 Body weight 112.04 kg Britt Mcdaniel DO Work Phone: [facility] 03-02-2025 14:35-0400 Diastolic blood pressure 86 mm[Hg] Britt Mcdaniel DO Work Phone: [facility] 03-02-2025 14:35-0400 Heart rate 81 /min Britt Mcdaniel DO Work Phone: [facility] 03-02-2025 14:35-0400 SaO2% (BldA) [Mass fraction] 98 % Britt Mcdaniel DO Work Phone: [facility] 03-02-2025 14:35-0400 Systolic blood pressure 132 mm[Hg] Britt Mcdaniel DO Work Phone: [facility] 02-21-2025 09:51-0400 Body mass index (BMI) [Ratio] 42.19 kg/m2 Mary Lou Washington PA Work Phone: [facility] 02-21-2025 09:51-0400 Body weight 111.49 kg Mary Lou Camille PA Work Phone: [facility] 02-21-2025 09:51-0400 Diastolic blood pressure 78 mm[Hg] Mary Lou Camille PA Work Phone: [facility] 02-21-2025 09:51-0400 Systolic blood pressure 120 mm[Hg] Mary Lou Washington PA Work Phone: [facility] 12-27-2024 10:24-0500 Body height 162.6 cm Washington Jimenez PA Work Phone: [facility] 12-27-2024 10:24-0500 Body mass index (BMI) [Ratio] 42.4 kg/m2 Washington Jimenez PA Work Phone: [facility] 12-27-2024 10:24-0500 Body weight 112.04 kg Washington Jimenez PA Work Phone: [facility] 12-27-2024 10:24-0500 Diastolic blood pressure 84 mm[Hg] Washington Jimenez PA Work Phone: [facility] 12-27-2024 10:24-0500 Heart rate 98 /min Washington Jimenez PA Work Phone: [facility] 12-27-2024 10:24-0500 SaO2% (BldA) [Mass fraction] 100 % Washington Jimenez PA Work Phone: [facility] 12-27-2024 10:24-0500 Systolic blood pressure 128 mm[Hg] Washington Jimenez PA Work Phone: [facility] 10-14-2024 10:45-0500 Body mass index (BMI) [Ratio] 41.62 kg/m2 Mary Lou Camille PA Work Phone: [facility] 10-14-2024 10:45-0500 Body weight 113.45 kg Mary Lou Washington PA Work Phone: [facility] 10-14-2024 10:45-0500 Diastolic blood pressure 82 mm[Hg] Mary Lou Camille PA Work Phone: [facility] 10-14-2024 10:45-0500 Systolic blood pressure 120 mm[Hg] Mary Lou [place] PA Work Phone: [facility] 09-16-2024 11:27-0500 Body mass index (BMI) [Ratio] 41.37 kg/m2 Mary Lou Washington PA Work Phone: [facility] 09-16-2024 11:27-0500 Body weight 112.76 kg Mary Lou [place] PA Work Phone: [facility] 09-16-2024 11:27-0500 Diastolic blood pressure 70 mm[Hg] Mary Lou Washington PA Work Phone: [facility] 09-16-2024 11:27-0500 Systolic blood pressure 118 mm[Hg] Mary Lou Camille PA Work Phone: [facility] 08-19-2024 11:13-0400 Body mass index (BMI) [Ratio] 42.1 kg/m2 Juliette Alexandra DO Work Phone: [facility] 08-19-2024 11:13-0400 Body weight 114.76 kg Juliette Alexandra DO Work Phone: [facility] 08-19-2024 11:13-0400 Diastolic blood pressure 70 mm[Hg] Juliette Alexandra DO Work Phone: [facility] 08-19-2024 11:13-0400 Systolic blood pressure 116 mm[Hg] Juliette Alexandra DO Work Phone: [facility] 07-15-2024 11:10-0400 Body height 165.1 cm Juliette Alexandra DO Work Phone: [facility] 07-15-2024 11:10-0400 Body mass index (BMI) [Ratio] 40.44 kg/m2 Juliette Alexandra DO Work Phone: [facility] 07-15-2024 11:10-0400 Body weight 110.22 kg Juliette Alexandra DO Work Phone: [facility] 07-15-2024 11:10-0400 Diastolic blood pressure 74 mm[Hg] Juliette Alexandra DO Work Phone: [facility] 07-15-2024 11:10-0400 Systolic blood pressure 122 mm[Hg] Juliette Alexandra DO Work Phone: [facility] 07-12-2024 13:11-0400 Body height 165.1 cm Washington Jimenez PA Work Phone: [facility] 07-12-2024 13:11-0400 Body mass index (BMI) [Ratio] 40.44 kg/m2 Washington Jimenez PA Work Phone: [facility] 07-12-2024 13:11-0400 Body temperature 98.71 [degF] Washington Jimenez PA Work Phone: [facility] 07-12-2024 13:11-0400 Body weight 110.22 kg Washington Jimenez PA Work Phone: [facility] 07-12-2024 13:11-0400 Diastolic blood pressure 64 mm[Hg] Washington Jimenez PA Work Phone: [facility] 07-12-2024 13:11-0400 Heart rate 83 /min Washington Jimenez PA Work Phone: [facility] 07-12-2024 13:11-0400 SaO2% (BldA) [Mass fraction] 100 % Washington Jimenez PA Work Phone: [facility] 07-12-2024 13:11-0400 Systolic blood pressure 122 mm[Hg] Washington VILLEDA Work Phone: [facility] 04-24-2023 10:54-0400 Diastolic blood pressure 66 mm[Hg] DO Gregg Mcdaniel Work Phone: [facility] 04-24-2023 10:54-0400 Heart rate 65 /min DO Gregg Mcdaniel Work Phone: [facility] 04-24-2023 10:54-0400 Respiratory rate 16 /min DO Gregg Mcdaniel Work Phone: [facility] 04-24-2023 10:54-0400 SaO2% (BldA) [Mass fraction] 99 % DO Gregg Mcdaniel Work Phone: [facility] 04-24-2023 10:54-0400 Systolic blood pressure 124 mm[Hg] DO Gregg Mcdaniel Work Phone: [facility] 04-24-2023 09:49-0400 Body height 162.56 cm DO Gregg Mcdaniel Work Phone: [facility] 04-24-2023 09:49-0400 Body temperature 97.9 [degF] DO Gregg Mcdaniel Work Phone: [facility] 04-24-2023 09:49-0400 Body weight 117.93 kg DO Gregg Mcdaniel Work Phone: [facility] Encounters Encounter Date Encounter Type Care Provider Facility Start: 08-22-2025 End: 08-22-2025 Bamboo flowsheet Juliette Alexandra DO Work Phone: [facility] Start: 08-22-2025 End: 08-22-2025 Bamboo flowsheet Juliette Alexandra DO Work Phone: [facility] Start: 08-22-2025 End: 08-22-2025 Patient encounter procedure Juliette Alexandra DO Work Phone: [facility] Work Phone: Start: 08-22-2025 End: 08-22-2025 Periodic preventive med est patient 18-39 yrs Juliette Morris DO Work Phone: [facility] Comment on above: Well woman exam with routine gynecological exam; Pain of both breasts Start: 08-08-2025 End: 08-08-2025 Bamboo flowsheet Britt Mcdaniel DO Work Phone: [facility] 230 Start: 08-08-2025 End: 08-08-2025 Bamboo flowsheet Britt Mcdaniel DO Work Phone: [facility] 230 Start: 08-08-2025 End: 08-08-2025 Office outpatient visit 15 minutes Britt Carrillo Darshanazain DO Work Phone: [facility] 230 Comment on above: Obesity without seri ous comorbidity, unspecified class, unspecified obesity type; Viral upper respiratory infection Start: 08-08-2025 End: 08-08-2025 ambulatory BRITT MCDANIEL Not Available Start: 07-01-2025 End: 07-01-2025 Telephone encounter Britt Lorena Mcdaniel DO Work Phone: [facility] 230 Comment on above: Results Start: 06-27-2025 End: 06-27-2025 Bamboo flowsheet Britt Mcdaniel DO Work Phone: [facility] 230 Start: 06-27-2025 End: 06-27-2025 Bamboo flowsheet Britt Mcdaniel DO Work Phone: [facility] 230 Start: 06-27-2025 End: 06-27-2025 Office outpatient visit 15 minutes Britt Carrillo Darshanazain DO Work Phone: [facility] 230 Comment on above: PCOS (polycystic ova cindi syndrome) (Primary Dx); Obesity without serious comorbidity, unspecified class, unspecified obesity type; Diarrhea of presumed infectious origin; Bright red blood per rectum; Lower abdominal pain Start: 06-27-2025 End: 06-27-2025 ambulatory BRITT MCDANIEL Not Available Start: 06-01-2025 ambulatory FREDRICK Cooper [facility] Start: 05-31-2025 End: 05-31-2025 ambulatory BRITT MCDANIEL Not Available Start: 05-31-2025 End: 05-31-2025 Office outpatient visit 15 minutes Britt R Hungftan DO Work Phone: [facility] 230 Comment on above: Bee sting, undetermi yuli intent, initial encounter (Primary Dx); Obesity without serious comorbidity, unspecified class, unspecified obesity type; Cellulitis of left upper extremity; Thrombophlebitis of superficial veins of left lower extremity Start: 05-31-2025 End: 05-31-2025 Bamboo flowsheet Britt Persaudftan DO Work Phone: [facility] 230 Start: 05-31-2025 End: 05-31-2025 Bamboo flowsheet Britt Gillilandan DO Work Phone: [facility] 230 Start: 04-28-2025 End: 04-28-2025 Bamboo flowsheet Britt Lorena Gillilandan DO Work Phone: [facility] 230 Start: 04-28-2025 End: 04-28-2025 Bamboo flowsheet Britt Gillilandan DO Work Phone: [facility] 230 Start: 04-28-2025 End: 04-28-2025 ambulatory BRITT MCDANIEL Not Available Start: 04-28-2025 End: 04-28-2025 Office outpatient visit 15 minutes Britt R Hungftan DO Work Phone: [facility] 230 Comment on above: Edema, unspecified t ype (Primary Dx); Obesity without serious comorbidity, unspecified class, unspecified obesity type; Thrombophlebitis of superficial veins of left lower extremity; Viral upper respiratory infection; Varicose veins of both lower extremities, unspecified whether complicated; Mixed anxiety and depressive disorder Start: 04-04-2025 End: 04-04-2025 Bamboo flowsheet Britt R Hungftan DO Work Phone: [facility] 230 Start: 04-04-2025 End: 04-04-2025 Bamboo flowsheet Britt Mcdaniel DO Work Phone: [facility] 230 Start: 04-04-2025 End: 04-04-2025 ambulatory BRITT MCDANIEL Not Available Start: 04-04-2025 End: 04-04-2025 Office outpatient visit 15 minutes Britt Mcdaniel DO Work Phone: [facility] 230 Comment on above: PCOS (polycystic ova cindi syndrome) (Primary Dx); Obesity without serious comorbidity, unspecified class, unspecified obesity type; Mixed anxiety and depressive disorder Start: 03-02-2025 End: 03-02-2025 ambulatory BRITT MCDANIEL Not Available Start: 03-02-2025 End: 03-02-2025 Office outpatient visit 15 minutes Britt Mcdaniel DO Work Phone: [facility] 230 Comment on above: PCOS (polycystic ova cindi syndrome) (Primary Dx); Thrombophlebitis of superficial veins of left lower extremity; Allergic rhinitis due to other allergic trigger, unspecified seasonality; Viral upper respiratory infection; Mixed anxiety and depressive disorder; Obesity without serious comorbidity, unspecified class, unspecified obesity type Start: 03-02-2025 End: 03-02-2025 Bamboo flowsheet Britt Mcdaniel DO Work Phone: [facility] 230 Start: 03-02-2025 End: 03-02-2025 Bamboo flowsheet Britt Mcdaniel DO Work Phone: [facility] 230 Start: 02-21-2025 End: 02-21-2025 Bamboo flowsheet Mary Lou VILLEDA Work Phone: [facility] Start: 02-21-2025 End: 02-22-2025 Bamboo flowsheet Mary Lou VILLEDA Work Phone: [facility] Start: 02-21-2025 End: 02-22-2025 External Result Encounter Mary Lou VILELDA Work Phone: [facility] External Department Unsolicited Start: 02-21-2025 End: 02-21-2025 ambulatory MARY LOU POE Not Available Start: 02-21-2025 End: 02-21-2025 Office outpatient visit 15 minutes Mary Lou Poe PA Work Phone: [facility] Comment on above: Exposure to STD; Vaginal discharge; Sexually transmitted disease exposure Start: 01-14-2025 End: 01-14-2025 ambulatory BRITT MCDANIEL Not Available Start: 01-11-2025 End: 01-11-2025 ambulatory BRITT MCDANIEL Not Available Start: 01-10-2025 ambulatory BRITT Lorena MCDANIEL Facilit :[facility] Start: 12-27-2024 End: 12-27-2024 Bamboo flowsheet Washington Jimenez PA Work Phone: [facility] 230 Start: 12-27-2024 End: 12-27-2024 Bamboo flowsheet Washington Jimenez PA Work Phone: [facility] Start: 12-27-2024 End: 12-27-2024 Office outpatient visit 15 minutes Washington VILLEDA Work Phone: [facility] 230 Comment on above: Acute cough (Primary Dx); Viral upper respiratory infection Start: 12-27-2024 End: 12-27-2024 ambulatory WASHINGTON JIMENEZ Not Available Start: 10-14-2024 End: 10-14-2024 Bamboo flowsheet Mary Lou Poe PA Work Phone: [facility] Start: 10-14-2024 End: 10-14-2024 Bamboo flowsheet Mary Lou Poe PA Work Phone: [facility] Start: 10-14-2024 End: 10-14-2024 Office outpatient visit 15 minutes Mary Lou Poe PA Work Phone: [facility] Comment on above: Encounter for weight management Start: 10-14-2024 End: 10-14-2024 ambulatory MARY LOU POE Not Available Start: 10-04-2024 End: 10-04-2024 Refill Cameron Cunha LPN Work Phone: [facility] 230 Comment on above: Thrombophlebitis of superficial veins of left lower extremity Start: 09-16-2024 End: 09-16-2024 Bamboo flowsheet Mary Lou VILLEDA Work Phone: [facility] Start: 09-16-2024 End: 09-16-2024 Bamboo flowsheet Mary Lou VILLEDA Work Phone: [facility] Start: 09-16-2024 End: 09-16-2024 ambulatory MARY LOU POE Not Available Start: 09-16-2024 End: 09-16-2024 Office outpatient visit 5 minutes Mary Lou VILLEDA Work Phone: [facility] Comment on above: Encounter for weight management Start: 08-19-2024 End: 08-19-2024 Bamboo flowsheet Juliette Alexandra DO Work Phone: [facility] Start: 08-19-2024 End: 08-19-2024 Bamboo flowsheet Juliette Alexandra DO Work Phone: [facility] Start: 08-19-2024 End: 08-19-2024 Office outpatient visit 15 minutes Juliette Alexandra DO Work Phone: [facility] Comment on above: Encounter for weight management Start: 08-19-2024 End: 08-19-2024 ambulatory JULIETTE ALEXANDRA Not Available Start: 07-15-2024 End: 07-15-2024 Bamboo flowsheet Juliette Alexandra DO Work Phone: [facility] Start: 07-15-2024 End: 07-20-2024 Bamboo flowsheet Juliette Alexandra DO Work Phone: [facility] Start: 07-15-2024 End: 07-20-2024 Clinisync Result Encounter Juliette Alexandra DO Work Phone: [facility] External Department Unsolicited Start: 07-15-2024 End: 07-15-2024 Patient encounter procedure Juliette Alexandra DO Work Phone: [facility] Start: 07-15-2024 End: 07-15-2024 Periodic preventive med est patient 18-39 yrs Juliette Alexandra DO Work Phone: [facility] Comment on above: Well woman exam with routine gynecological exam; Menorrhagia with regular cycle; Pelvic pain in female; Insulin resistance; PCOS (polycystic ovarian syndrome) Start: 07-12-2024 End: 07-12-2024 Bamboo flowsheet Washington VILLEDA Work Phone: [facility] Start: 07-12-2024 End: 07-12-2024 Bamboo flowsheet Washington VILLEDA Work Phone: [facility] Start: 07-12-2024 End: 07-12-2024 Office outpatient visit 15 minutes Washington VILLEDA Work Phone: [facility] 230 Comment on above: Viral upper respirat ory infection (Primary Dx) Start: 04-24-2023 End: 04-24-2023 ambulatory Gregg Mcdaniel Facility:[facility] Start: 04-24-2023 End: 04-24-2023 Admission to same day surgery center DO Gregg Persaudsamanta Work Phone: [facility] Work Phone: Start: 04-24-2023 End: 04-24-2023 ambulatory DO Gregg Mcdaniel Work Phone: [facility] Work Phone: Start: 09-16-2019 End: 09-17-2019 Patient encounter procedure JULIETTE MORRIS Facility:[facility] Start: 07-22-2019 End: 07-23-2019 Patient encounter procedure JULIETTE MORRIS Facility:[facility] Procedures Date Procedure Procedure Detail Performing Clinician Start: 02-21-2025 RECURRENT VAGINITIS (HTRX) Mary Lou VILLEDA Work Phone: Start: 02-21-2025 End: 02-21-2025 Urnls dip stick/tablet rgnt non-auto w/o micrscp Mary Lou VILLEDA Work Phone: Start: 12-27-2024 Iaadiadoo streptococ cus group a Washington VILLEDA Work Phone: Start: 12-27-2024 STATUS COVID-19/FLU Cruz VILLEDA Work Phone: Start: 07-15-2024 IGP,APTIMA HPV,AGE GDLN Juliette Morris DO Work Phone: Start: 07-15-2024 Microscopic observat ion [Identifier] in Cervix by Cyto stain Juliette Morris DO Work Phone: Start: 04-24-2023 Colonoscopy DO Gregg Mcdaniel Work Phone: Plan of Treatment Date Care Activity Detail Author Start: 07-15-2029 Screening for malign ant neoplasm of cervix [facility] Start: 08-19-2028 Screening for malign ant neoplasm of cervix [facility] Start: 08-22-2025 End: 10-22-2026 MG Breast - bilateral Diagnostic Bilateral diagnostic mammogram Imaging Routine Pain of both breasts Expected: 08/22/2025 (Approximate), Expires: 10/22/2026 [facility] Work Phone: Comment on above: Expected: 08/22/2025 (Approximate), Expires: 10/22/2026 Start: 08-22-2025 End: 08-22-2025 Patient encounter procedure [facility] Start: 08-08-2025 End: 08-08-2025 Patient encounter procedure 08/08/2025 12:40 PM EDT Office Visit [facility] [address] [place] [address] Britt Mcdaniel, DO [address] [place] [address] Arrived [facility] 230 Comment on above: Arrived Start: 07-28-2025 End: 07-28-2025 Patient encounter procedure 07/28/2025 11:00 AM EDT Office Visit [facility] [address] [place] [address] Juliette Morris DO [address] [place], [place] [id number] [facility] Start: 07-04-2025 Influenza vaccination [facility] Start: 06-28-2025 End: 07-27-2025 CBC W Auto Differential panel - Blood CBC and differential Lab Routine Obesity without serious comorbidity, unspecified class, unspecified obesity type PCOS (polycystic ovarian syndrome) Lower abdominal pain Expected: 06/28/2025 (Approximate), Expires: 07/27/2025 [facility] Comment on above: Expected: 06/28/2025 (Approximate), Expires: 07/27/2025 Start: 06-28-2025 End: 07-27-2025 Clostridioides difficile toxin A+B tcdA+tcdB genes [Presence] in Stool by BEATRIZ with probe detection Clostridium difficile toxin Microbiology Routine Diarrhea of presumed infectious origin Bright red blood per rectum Expected: 06/28/2025 (Approximate), Expires: 07/27/2025 [facility] Comment on above: Expected: 06/28/2025 (Approximate), Expires: 07/27/2025 Start: 06-28-2025 End: 07-27-2025 Comprehensive metabolic 2000 panel - Serum or Plasma Comprehensive metabolic panel Lab Routine Obesity without serious comorbidity, unspecified class, unspecified obesity type PCOS (polycystic ovarian syndrome) Lower abdominal pain Expected: 06/28/2025 (Approximate), Expires: 07/27/2025 [facility] Comment on above: Expected: 06/28/2025 (Approximate), Expires: 07/27/2025 Start: 06-28-2025 End: 07-27-2025 Stool culture Stool culture Microbiology Routine Diarrhea of presumed infectious origin Bright red blood per rectum Expected: 06/28/2025 (Approximate), Expires: 07/27/2025 [facility] Work Phone: Comment on above: Expected: 06/28/2025 (Approximate), Expires: 07/27/2025 Start: 06-27-2025 End: 06-27-2026 CT Abdomen and Pelvis WO contrast CT abdomen pelvis wo IV contrast Imaging Routine Diarrhea of presumed infectious origin Bright red blood per rectum Lower abdominal pain Expected: 06/27/2025, Expires: 06/27/2026 [facility] Comment on above: Expected: 06/27/2025 , Expires: 06/27/2026 Start: 06-27-2025 End: 06-27-2025 Patient encounter procedure 06/27/2025 1:20 PM EDT [facility] [address] [place] [id number] Britt Mcdaniel DO [address] [place] [address] Arrived [facility] 230 Comment on above: Arrived Start: 03-03-2025 End: 04-01-2025 CBC W Auto Differential panel - Blood CBC and differential Lab Routine Thrombophlebitis of superficial veins of left lower extremity Allergic rhinitis due to other allergic trigger, unspecified seasonality Viral upper respiratory infection PCOS (polycystic ovarian syndrome) Mixed anxiety and depressive disorder Obesity without serious comorbidity, unspecified class, unspecified obesity type Expected: 03/03/2025 (Approximate), Expires: 04/01/2025 [facility] Comment on above: Expected: 03/03/2025 (Approximate), Expires: 04/01/2025 Start: 03-03-2025 End: 04-01-2025 Comprehensive metabolic 2000 panel - Serum or Plasma Comprehensive metabolic panel Lab Routine Thrombophlebitis of superficial veins of left lower extremity Allergic rhinitis due to other allergic trigger, unspecified seasonality Viral upper respiratory infection PCOS (polycystic ovarian syndrome) Mixed anxiety and depressive disorder Obesity without serious comorbidity, unspecified class, unspecified obesity type Expected: 03/03/2025 (Approximate), Expires: 04/01/2025 [facility] Comment on above: Expected: 03/03/2025 (Approximate), Expires: 04/01/2025 Start: 03-03-2025 End: 04-01-2025 Hemoglobin A1c/Hemoglobin.total in Blood Hemoglobin A1c Lab Routine PCOS (polycystic ovarian syndrome) Expected: 03/03/2025 (Approximate), Expires: 04/01/2025 [facility] Comment on above: Expected: 03/03/2025 (Approximate), Expires: 04/01/2025 Start: 03-03-2025 End: 04-01-2025 Testosterone [Mass/volume] in Serum or Plasma Testosterone Lab Routine PCOS (polycystic ovarian syndrome) Expected: 03/03/2025 (Approximate), Expires: 04/01/2025 [facility] Work Phone: Comment on above: Expected: 03/03/2025 (Approximate), Expires: 04/01/2025 Start: 12-27-2024 End: 12-27-2024 Patient encounter procedure 12/27/2024 10:20 AM EST Office Visit [facility] [address] [place] [address] Washington Jimenez PA [address] [place] [address] Arrived [facility] 230 Comment on above: Arrived Start: 11-09-2024 End: 11-09-2024 Patient encounter procedure 11/09/2024 10:10 AM EST Office Visit [facility] [address] [place] [phone] Mary Lou Poe PA [address] [place] [address] [facility] Start: 10-14-2024 End: 10-14-2024 Patient encounter procedure [facility] Comment on above: Arrived Start: 09-16-2024 End: 09-16-2024 Patient encounter procedure 09/16/2024 10:50 AM EST Office Visit [facility] [address] [place] [id number] Mary Lou Poe PA [address] [place] [address] [facility] Start: 08-19-2024 End: 08-19-2024 Patient encounter procedure [facility] Comment on above: Arrived Start: 07-15-2024 End: 07-15-2025 Antimullerian hormone (AMH) Antimullerian hormone (AMH) Lab Routine Insulin resistance PCOS (polycystic ovarian syndrome) Expected: 07/15/2024, Expires: 07/15/2025 [facility] Comment on above: Expected: 07/15/2024 , Expires: 07/15/2025 Start: 07-15-2024 End: 07-15-2025 aPTT in Blood by Coagulation assay APTT Lab Routine Menorrhagia with regular cycle Expected: 07/15/2024 (Approximate), Expires: 07/15/2025 [facility] Comment on above: Expected: 07/15/2024 (Approximate), Expires: 07/15/2025 Start: 07-15-2024 End: 07-15-2025 CBC W Auto Differential panel - Blood [facility] Comment on above: Ordered: 07/15/2024 Expected: 07/15/2024 (Approximate), Expires: 07/15/2025 Start: 07-15-2024 End: 07-15-2025 DHEA DHEA Lab Routine Insulin resistance PCOS (polycystic ovarian syndrome) Expected: 07/15/2024, Expires: 07/15/2025 [facility] Comment on above: Expected: 07/15/2024 , Expires: 07/15/2025 Start: 07-15-2024 End: 07-15-2025 DHEA-sulfate DHEA-sulfate Lab Routine Insulin resistance PCOS (polycystic ovarian syndrome) Expected: 07/15/2024 (Approximate), Expires: 07/15/2025 [facility] Comment on above: Expected: 07/15/2024 (Approximate), Expires: 07/15/2025 Start: 07-15-2024 End: 07-15-2025 Follicle stimulating hormone Follicle stimulating hormone Lab Routine Insulin resistance PCOS (polycystic ovarian syndrome) Expected: 07/15/2024 (Approximate), Expires: 07/15/2025 [facility] Comment on above: Expected: 07/15/2024 (Approximate), Expires: 07/15/2025 Start: 07-15-2024 End: 07-15-2025 hCG, quantitative, [facility] Comment on above: Ordered: 07/15/2024 Expected: 07/15/2024 (Approximate), Expires: 07/15/2025 Start: 07-15-2024 End: 07-15-2025 Luteinizing hormone Luteinizing hormone Lab Routine Insulin resistance PCOS (polycystic ovarian syndrome) Expected: 07/15/2024 (Approximate), Expires: 07/15/2025 [facility] Comment on above: Expected: 07/15/2024 (Approximate), Expires: 07/15/2025 Start: 07-15-2024 End: 07-15-2025 Thyrotropin [Units/volume] in Serum or Plasma [facility] Comment on above: Ordered: 07/15/2024 Expected: 07/15/2024 (Approximate), Expires: 07/15/2025 Start: 07-15-2024 End: 07-15-2025 Thyroxine (T4) free [Mass/volume] in Serum or Plasma [facility] Comment on above: Ordered: 07/15/2024 Expected: 07/15/2024 (Approximate), Expires: 07/15/2025 Start: 07-15-2024 End: 07-15-2025 US for US PELVIS-TRANSVAG IF INDICATED Imaging Routine Menorrhagia with regular cycle Expected: 07/15/2024 (Approximate), Expires: 07/15/2025 [facility] Comment on above: Expected: 07/15/2024 (Approximate), Expires: 07/15/2025 Start: 07-15-2024 End: 07-15-2024 Patient encounter procedure 07/15/2024 11:00 AM EDT Office Visit [facility] [address] [place] [address] Juliette Morris, DO [address] [place], [place] [id number] [facility] Start: 07-04-2024 Influenza vaccination Influenza Vacc ine (#1) [facility] Start: 04-24-2023 [facility] Start: 2009 Screening for malign ant neoplasm of cervix Pap Smear [facility] CHLAMYDIA TRACHOMATI S (GENITO/STI) CHLAMYDIA TRACHOMATIS (GENITO/STI) Lab Routine Exposure to STD Vaginal discharge Ordered: 02/21/2025 [facility] Comment on above: Ordered: 02/21/2025 Cytology Cervical or vaginal smear or scraping study Pap Smear Pathology and Cytology Routine Well woman exam with routine gynecological exam Ordered: 07/15/2024 [facility] Work Phone: Comment on above: Ordered: 07/15/2024 Cytology Cervical or vaginal smear or scraping study Pap Smear Pathology and Cytology Routine Well woman exam with routine gynecological exam Ordered: 08/22/2025 [facility] Work Phone: Comment on above: Ordered: 08/22/2025 Hemoglobin A1c/Hemoglobin.total in Blood Hemoglobin A1c Lab Routine Menorrhagia with regular cycle Ordered: 07/15/2024 [facility] Comment on above: Ordered: 07/15/2024 Hepatitis B virus surface Ag [Presence] in Serum or Plasma by Immunoassay Hepatitis B surface antigen Lab Routine Sexually transmitted disease exposure Ordered: 02/21/2025 [facility] Comment on above: Ordered: 02/21/2025 HIV-1/HIV-2 antigen/antibody combination immunoassay HIV-1 and HIV-2 antibodies Lab Routine Sexually transmitted disease exposure Ordered: 02/21/2025 [facility] Comment on above: Ordered: 02/21/2025 Human papilloma viru s DNA [Presence] in Unspecified specimen by Probe with amplification HPV DNA probe, amplified Microbiology Routine Well woman exam with routine gynecological exam Ordered: 07/15/2024 [facility] Comment on above: Ordered: 07/15/2024 Human papilloma viru s DNA [Presence] in Unspecified specimen by Probe with amplification HPV DNA probe, amplified Microbiology Routine Well woman exam with routine gynecological exam Ordered: 08/22/2025 [facility] Comment on above: Ordered: 08/22/2025 Neisseria gonorrhoea e DNA [Presence] in Unspecified specimen by BEATRIZ with probe detection Neisseria gonorrhea DNA probe, direct Lab Routine Exposure to STD Vaginal discharge Ordered: 02/21/2025 [facility] Comment on above: Ordered: 02/21/2025 Patient Education Hemorrhoids (DC) [facility] Work Phone: Prothrombin time (PT ) in Blood by Coagulation assay Protime-INR Lab Routine Menorrhagia with regular cycle Ordered: 07/15/2024 [facility] Comment on above: Ordered: 07/15/2024 Reagin Ab [Presence] in Serum by RPR RPR Lab Routine Sexually transmitted disease exposure Ordered: 02/21/2025 [facility] Comment on above: Ordered: 02/21/2025 SURESWAB(R) ADVANCED VAGINITIS PLUS, TMA SURESWAB(R) ADVANCED VAGINITIS PLUS, TMA Pathology and Cytology Routine Exposure to STD Vaginal discharge Ordered: 02/21/2025 [facility] Work Phone: Comment on above: Ordered: 02/21/2025 Immunizations Immunization Date Immunization Notes Care Provider Christen dominguez 08-22-2022 influenza, seasonal, injectable, preservative free [place] [facility] Work Phone: [facility] 08-22-2022 influenza virus vacc ine, unspecified formulation [place] [facility] Work Phone: [facility] 04-17-2018 tetanus toxoid, redu danny diphtheria toxoid, and acellular pertussis vaccine, adsorbed [place] [facility] Work Phone: [facility] Payers Date Payer Category Payer Self-pay [id number] 2017 [facility] BCBS Memb er Subscriber Plan / Payer (Effective 2017-Present) Name: Noble Chin Relation to Subscriber: Self Name: Noble Chin Payer ID: Not on file Type: Not on file Address: [address] [place] [id number] 2017 Unknown BCBS BCBS xxxxxx [id number] 2017-Present [phone] [address] [place] [id number] 1988 Unknown [id number] 2.16.840.1.032734.3.579.2. 593 1988 Unknown [id number] 2.16.840.1.003574.3.579.2. 593 1988 Unknown [id number] 2.16.840.1.169028.3.579.2. 8 1988 Unknown [id number] 2.16.840.1.466924.3.579.2. 8 1988 Unknown [id number] 2.16.840.1.567811.3.579.2. 9 1988 Unknown [id number] 2.16.840.1.408347.3.579.2. 1258 1988 Unknown [id number] 2.16.840.1.338925.3.579.2. 1258 1988 Unknown [id number] 2.16.840.1.302220.3.579.2. 1258 1988 Unknown [id number] 2.16840.1.316739.3.579.2. 1258 1988 Unknown [id number] 2.16840.1.328952.3.579.2. 1258 1988 Unknown [id number] 2.16840.1.071984.3.579.2. 1258 1988 Unknown [id number] 2.16840.1.012224.3.579.2. 1258 1988 Unknown [id number] 2.16840.1.649896.3.579.2. 1258 1988 Unknown [id number] 2.16840.1.895331.3.579.2. 1258 1988 Unknown [id number] 2.16840.1.463797.3.579.2. 1258 1988 Unknown [id number] 2.16840.1.048651.3.579.2. 1258 1988 Unknown [id number] 2.16840.1.138932.3.579.2. 9 1959 Unknown [id number] 1959 Unknown [id number] Unknown [id number] 2.16840.1.279310.3.579.2. 531 Social History Date Type Detail Facility Start: 04-24-2023 End: 07-12-2024 Tobacco smoking status NHIS Never smoked tobacco (finding) [facility] Start: 1990 Sex Assigned At Female [facility] Start: 07-12-2024 Tobacco use and exposure Smokeless tobacco non-user [facility] Start: 07-15-2024 End: 08-22-2025 Alcoholic beverage intake Current drinker of alcohol (finding) [facility] Start: 09-24-2023 End: 08-08-2025 History of Social function [facility] Start: 09-24-2023 End: 08-08-2025 Alcohol Use Disorder Identification Test - Consumption [AUDIT-C] [facility] How often to you hav e a drink containing alcohol? Monthly or less [facility] How many standard dr inks containing alcohol do you have on a typical day? 1 or 2 [facility] How often do you hav e 6 or more drinks on 1 occasion? Never [facility] Start: 07-30-2023 Alcohol Comment 1-2 drinks less than monthly in the past year, Caffeine intake: 1 can of pop per day [facility] Start: 1990 Sex assigned at Not on file [facility] Start: 01-15-2023 Gender identity Identifies as female gender (finding) [facility] Start: 01-15-2023 Sex Female [facility] Goals Date Patient Goal Desired Activity /State Functional Status Date Assessment Result Facility 08-08-2025 Patient Health Quest ionnaire 2 item (PHQ-2) [Reported] [facility] 06-27-2025 Patient Health Quest ionnaire 2 item (PHQ-2) [Reported] [facility] 05-31-2025 Patient Health Quest ionnaire 2 item (PHQ-2) [Reported] [facility] 04-28-2025 Patient Health Quest ionnaire 2 item (PHQ-2) [Reported] [facility] 04-04-2025 Patient Health Quest ionnaire 2 item (PHQ-2) [Reported] [facility] 03-02-2025 Patient Health Quest ionnaire 2 item (PHQ-2) [Reported] [facility] Clinical Notes 04-24-2023 to 08-22-2025 Cathryn Saucedo MA - 08/22/2025 1:40 PM Gisela Mcdaniel, - 08/08/2025 12:40 PM EDTTelephone Encounter - Yasmin Salvador - 07/01/2025 10:41 AM Gisela Mcdaniel, - 06/27/2025 1:20 PM EDT Note Date & Type Note Facility 08-22-2025 History of Presen t illness Narrative Reason for Appointment: Patient ID: Noble Chin is a 34 y.o. female who presents [...] nursing note reviewed. Exam conducted with a switch box installer present. Vitals: Estimated body mass index is 42.36 kg/m as calculated from the following: Height as [...] that is described as burning pain. She denies any nipple discharge. Patient with family history of breast cancer and colon cancer. Discussed otogenic testing and patient to schedule for otogenics testing in the future. Orders Placed This Encounter Procedures HPV DNA probe, amplified Bilateral diagnostic mammogram Follow Up: Patient is to return in one year for annual unless needed otherwise. Documented by Cathryn Saucedo MA on behalf of: Juliette Morris DO documented in this encounter [facility] 08-08-2025 History of Presen t illness Narrative Images from the original note were not included. Subjective ?Quick Links Last Note in Specialty Snapshot Current Meds Patient ID: Noble Chin is a 34 y.o. female who presents [...] 06/27/25 1322 cetirizine (ZyrTEC) 10 MG tablet [id number] Yes Take 1 tablet (10 mg) by mouth Daily Britt Mcdaniel DO Active fluticasone (Flonase) 50 MCG/ACT nasal spray [id number] Yes Administer 1-2 sprays into each nostril Daily Shake gently. Before first use, prime pump. After use, clean tip and replace cap Britt Mcdaniel DO Active ibuprofen 800 MG tablet [id number] Yes Take 1 tablet (800 mg) by mouth 3 (three) times a day as needed for mild pain Britt Mcdaniel DO Active phentermine (Adipex-P) 37.5 MG tablet [id number] Yes Take 1 tablet (37.5 mg) by mouth in the morning. Take before meals. Britt Mcdaniel DO Active Review of Systems ?Quick [...] mouth in the morning. Take before meals. Viral upper respiratory infection Orders: fluticasone (Flonase) 50 MCG/ACT nasal spray; Administer 1-2 sprays into each nostril Daily Shake gently. Before first use, prime pump. After use, clean tip and replace cap documented in this encounter [facility] 07-01-2025 Telephone encounter Note Pt calling to fu on blood work and stool sample. Completed on 06/28 at [facility] 07-01-2025 Miscellaneous Notes Pt calling to fu on blood work and stool sample. Completed on 06/28 at [facility] documented in this encounter [facility] 06-27-2025 History of Presen t illness Narrative Associated Problem(s): PCOS (polycystic ovarian syndrome) Labs ordered today, will follow up when results available Orders: CBC and differential; Future Comprehensive metabolic panel; Future Images from the original note were not included. Subjective ?Quick Links Last Note in Specialty Snapshot Current Meds Patient ID: Noble Chin is a 34 y.o. female who presents for Diarrhea, blood in stool. Subjective Noble Chin is a 34 y.o. female who presents for evaluation of diarrhea. Onset of diarrhea was 2 weeks ago. Diarrhea is occurring approximately 10- 15 times per day. Patient describes diarrhea as bloody/ mucus and watery. Diarrhea has been associated with nausea once . Patient denies significant abdominal pain, unintentional weight loss. Treatment to date: avoiding food, pepto- bismol tablets with no relief. Pt had colonoscopy 2 years ago showing hemorrhoids. Pt was on antibiotics last month for insect bite. Pt states there is still a meet located on right lower arm. Did not finish abx due to illness. A couple weeks ago had illness of vomiting, diarrhea, body aches, chills, and fever. This has since subsided. Weight Check: Here for a weight check. She is currently on adipex. Pt has lost 4 lbs since last OV. She does walk a lot and eats a healthy diet overall. Review of Systems ?Quick Review Review Full History Meds - buPROPion SR (Wellbutrin SR) 150 MG 12 hr tablet cetirizine (ZyrTEC) 10 MG tablet fluticasone (Flonase) [...] vitals taken for this visit. Physical Exam Constitutional: Appearance: Normal appearance. She is obese. HENT: Head: Normocephalic and atraumatic. Eyes: Extraocular Movements: Extraocular movements intact. Conjunctiva/sclera: Conjunctivae normal. Pupils: Pupils are equal, round, and reactive to light. Cardiovascular: Rate and Rhythm: Normal rate and regular rhythm. Pulmonary: Effort: Pulmonary effort is normal. Breath sounds: Normal breath sounds. Abdominal: General: Bowel sounds are normal. Palpations: Abdomen is soft. Musculoskeletal: General: Normal range of motion. Skin: General: Skin is warm and dry. Neurological: General: No focal deficit present. Mental Status: She is alert and oriented to person, place, and time. Psychiatric: Mood and Affect: Mood normal. Thought Content: Thought content normal. Judgment: Judgment normal. ?Quick Links Full Problem List Allergy Cardiology GI Assessment & Plan Obesity without serious comorbidity, unspecified class, unspecified obesity type improved significantly, continue current treatment Orders: phentermine (Adipex-P) 37.5 MG tablet; Take 1 tablet (37.5 mg) by mouth in the morning. Take before meals. CBC and differential; Future Comprehensive metabolic panel; Future PCOS (polycystic ovarian syndrome) Labs ordered today, will follow up when results available Orders: CBC and differential; Future Comprehensive metabolic panel; Future Diarrhea of presumed infectious origin Rec probiotic as well Orders: Stool culture; Future Clostridium difficile toxin; Future CT abdomen pelvis wo IV contrast; Future Bright red blood per rectum Labs and imaging ordered today, will follow up when results available Orders: Stool culture; Future Clostridium difficile toxin; Future CT abdomen pelvis wo IV contrast; Future Lower abdominal pain Labs ordered today, will follow up when results available Orders: CBC and differential; Future Comprehensive metabolic panel; Future CT abdomen pelvis wo IV contrast; Future documented in this encounter [facility] 05-31-2025 History of Presen t illness Narrative Images from the original note were not included. Subjective Patient ID: Noble Chin is a 34 y.o. female who presents for Weight Check, Insect Bite. Weight Check: Pt presents to the office for follow up on taking adipex for weight loss. Pt maintained weight loss but has not lost any additional weight. She is currently on 1st day of menstrual cycle. Diet: well balanced, fruit smoothie bowls daily, dinner: lean protein with veggies. Exercise: walking. Pt admits she is tolerating the medication well. Insect Bite: Pt was bitten by insect yesterday on right lower arm. Now notes redness of right lower arm. Has been applying ice and taking ibuprofen 800 mg with little relief. Review of Systems Objective There were no vitals taken for this visit. Physical Exam Assessment & Plan Obesity without serious comorbidity, unspecified class, unspecified obesity type Pt feels like med is working and is noticing imporvements in [place]. Will continue med as has not been able to be as active recently but she does know she needs to make better progress to continue Orders: phentermine (Adipex-P) 37.5 MG tablet; Take 1 tablet (37.5 mg) by mouth in the morning. Take before meals. Bee sting, undetermined intent, initial encounter Patient advised to return if symptoms worsen and/or persist despite treatment. Cellulitis of left upper extremity Patient advised to return if symptoms worsen and/or persist despite treatment. To ER if fever or worsening develp Orders: cefdinir (Omnicef) 300 MG capsule; Take 1 capsule (300 mg) by mouth in the morning and 1 capsule (300 mg) before bedtime. Do all this for 10 days. Thrombophlebitis of superficial veins of left lower extremity Orders: ibuprofen 800 MG tablet; Take 1 tablet (800 mg) by mouth 3 (three) times a day as needed for mild pain documented in this encounter [facility] 04-28-2025 History of Presen t illness Narrative Associated Problem(s): Edema Patient advised to return if symptoms worsen and/or persist despite treatment. Associated Problem(s): Varicose veins of both lower extremities Did rec compression stockings as pt on her feet alot Associated Problem(s): Mixed anxiety and depressive disorder Problem is stable, will continue with current treatment plan. Call or return to clinic if any changes occur, will restart wellbutrin as feels it was helpful Orders: buPROPion SR (Wellbutrin SR) 150 MG 12 hr tablet; Take 1 tablet (150 mg) by mouth Daily Do not crush, chew, or split. Images from the original note were not included. Subjective Patient ID: Noble Chin is a 34 y.o. female who presents for Weight Check. Pt presents to the office for follow up on taking adipex for weight loss and wellbutrin (pt discontinued this rx the last couple days as had bloating and increased appetite). Pt has lost 5 lb since last OV. Diet: well balanced, fruit smoothie bowls daily, dinner: lean protein with veggies. Exercise: walking. Pt admits she is tolerating the medication well. Edema: Has complaints of lower extremity edema. Last episode occurred yesterday. Pt states bilateral legs were swollen after shift. 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 Objective There were no vitals taken for this visit. Physical Exam Constitutional: Appearance: Normal appearance. HENT: Head: Normocephalic and atraumatic. Eyes: Extraocular Movements: Extraocular movements intact. Conjunctiva/sclera: Conjunctivae normal. Pupils: Pupils are equal, round, and reactive to light. Cardiovascular: Rate and Rhythm: Normal rate and regular rhythm. Pulmonary: Effort: Pulmonary effort is normal. Breath sounds: Normal breath sounds. Abdominal: General: Bowel sounds are normal. Palpations: Abdomen is soft. Musculoskeletal: General: Normal range of motion. Skin: General: Skin is warm and dry. Neurological: General: No focal deficit present. Mental Status: She is alert and oriented to person, place, and time. Psychiatric: Mood and Affect: Mood normal. Thought Content: Thought content normal. Judgment: Judgment normal. Assessment & Plan Obesity without serious comorbidity, unspecified class, unspecified obesity type improved significantly, continue current treatment Thrombophlebitis of superficial veins of left lower extremity Patient advised to return if symptoms worsen and/or persist despite treatment.Patient advised to return if symptoms worsen and/or persist despite treatment. Viral upper respiratory infection Edema, unspecified type Patient advised to return if symptoms worsen and/or persist despite treatment. Varicose veins of both lower extremities, unspecified whether complicated Did rec compression stockings as pt on her feet alot Mixed anxiety and depressive disorder Problem is stable, will continue with current treatment plan. Call or return to clinic if any changes occur, will restart wellbutrin as feels it was helpful Orders: buPROPion SR (Wellbutrin SR) 150 MG 12 hr tablet; Take 1 tablet (150 mg) by mouth Daily Do not crush, chew, or split. documented in this encounter [facility] 04-04-2025 History of Presen t illness Narrative Images from the original note were not included. SUBJECTIVE: Noble Chin is a 34 y.o. female presents with chief complaint of Weight Check. Pt presents to the office for 1 month follow up on taking adipex for weight loss. Pt has gained 1 lb since last OV. Pt states she has forgotten to take a couple doses and started menstrual cycle yesterday. Diet: well balanced, fruit smoothie bowls daily, dinner: lean protein with veggies. Exercise: walking. Pt admits she is tolerating the medication well. Review of Systems: Review of Systems Problem List: Patient Active Problem List Diagnosis Allergic rhinitis Mixed anxiety and depressive disorder Primary insomnia Varicose veins of both lower extremities Edema Menorrhagia with regular cycle Pelvic pain in female PCOS (polycystic ovarian syndrome) Insulin resistance Well woman exam with routine gynecological exam Past Medical History: Past Medical History: Diagnosis Date Ovarian cyst Pap smear for cervical cancer screening 07/03/2023 neg PCOS (polycystic ovarian syndrome) Family History: Family History Problem Relation Name Age of Onset No Known Problems Mother No Known Problems Father Colon cancer Sister Thyroid cancer Sister Breast cancer Sister pre-existing cells Lupus Sister Melanoma Sister Hypertension Maternal Grandmother Thyroid cancer Maternal Grandfather Thyroid cancer Sibling Colon cancer Sibling Heart disease Sibling Allergies: No Known Allergies Surgical History: Past Surgical History: Procedure Laterality Date ADENOIDECTOMY SECTION, CLASSIC SECTION, LOW TRANSVERSE 2011 KIDNEY STONE SURGERY LEG SURGERY Left lukas leg 25 yrs ago TONSILLECTOMY Social History: Social Drivers of Health Tobacco Use: Low Risk (03/02/2025) Patient History Smoking Tobacco Use: Never Smokeless Tobacco Use: Never Passive Exposure: Not on file Alcohol Use: Not At Risk (09/24/2023) AUDIT-C Frequency of Alcohol Consumption: Monthly or less Average Number of Drinks: 1 or 2 Frequency of Binge Drinking: Never Financial Resource Strain: Not on file Food Insecurity: Not on file Transportation Needs: Not on file Physical Activity: Not on file Stress: Not on file Social Connections: Not on file Intimate Partner Violence: Not on file Depression: Not at risk (03/02/2025) PHQ-2 PHQ-2 Score: 0 Housing Stability: Not on file Health Literacy: Not on file OBJECTIVE: Visit Vitals OB Status Having periods Smoking Status Never Physical Exam Constitutional: Appearance: Normal appearance. HENT: Head: Normocephalic and atraumatic. Eyes: Extraocular Movements: Extraocular movements intact. Conjunctiva/sclera: Conjunctivae normal. Pupils: Pupils are equal, round, and reactive to light. Cardiovascular: Rate and Rhythm: Normal rate and regular rhythm. Pulmonary: Effort: Pulmonary effort is normal. Breath sounds: Normal breath sounds. Abdominal: General: Bowel sounds are normal. Palpations: Abdomen is soft. Musculoskeletal: General: Normal range of motion. Skin: General: Skin is warm and dry. Neurological: General: No focal deficit present. Mental Status: She is alert and oriented to person, place, and time. Psychiatric: Mood and Affect: Mood normal. Thought Content: Thought content normal. Judgment: Judgment normal. No results found for this or any previous visit (from the past 4 weeks). ASSESSMENT AND PLAN: Assessment/Plan Diagnoses and all orders for this visit: PCOS (polycystic ovarian syndrome) Reviewed labs and/or imaging at today. Will continue current treatment regimen and follow up at next scheduled visit unless problems arise. Obesity without serious comorbidity, unspecified class, unspecified obesity type Problem is stable, will continue with current treatment plan as pt was unable to take meds regularly last month. Did advise will not be able to continue if not making progress. Will work on increasing excersize as well - phentermine (Adipex-P) 37.5 MG tablet; Take 1 tablet (37.5 mg) by mouth in the morning. Take before meals. Mixed anxiety and depressive disorder - buPROPion SR (Wellbutrin SR) 150 MG 12 hr tablet; Take 1 tablet (150 mg) by mouth Daily Do not crush, chew, or split. Updated Medications: I have reviewed and reconciled the history and medication list with the patient today. Current Outpatient Medications: cetirizine (ZyrTEC) 10 MG tablet, Take 1 tablet (10 mg) by mouth Daily, Disp: 30 tablet, Rfl: 11 fluticasone (Flonase) 50 MCG/ACT nasal spray, Administer 1-2 sprays into each nostril Daily Shake gently. Before first use, prime pump. After use, clean tip and replace cap, Disp: 16 g, Rfl: 3 ibuprofen 800 MG tablet, Take 1 tablet (800 mg) by mouth 3 (three) times a day as needed for mild pain, Disp: 90 tablet, Rfl: 0 phentermine (Adipex-P) 37.5 MG tablet, Take 1 tablet (37.5 mg) by mouth in the morning. Take before meals., Disp: 30 tablet, Rfl: 0 documented in this encounter [facility] 03-02-2025 History of Presen t illness Narrative Images from the original note were not included. SUBJECTIVE: Noble Chin is a 34 y.o. female presents with chief complaint of Weight Management. Pt presents to the office to discuss weight management options. Pt would like to discuss getting on Semaglutide pill form to help with weight loss. Has been on adipex in the past, it provided temp relief of weight loss. Pt does walk frequently. Does do intermittent fasting. Does have hx of PCOS. Review of Systems: Review of Systems Problem List: Patient Active Problem List Diagnosis Allergic rhinitis Mixed anxiety and depressive disorder Primary insomnia Varicose veins of both lower extremities Edema Menorrhagia with regular cycle Pelvic pain in female PCOS (polycystic ovarian syndrome) Insulin resistance Well woman exam with routine gynecological exam Past Medical History: Past Medical History: Diagnosis Date Ovarian cyst Pap smear for cervical cancer screening 07/03/2023 neg PCOS (polycystic ovarian syndrome) Family History: Family History Problem Relation Name Age of Onset No Known Problems Mother No Known Problems Father Colon cancer Sister Thyroid cancer Sister Breast cancer Sister pre-existing cells Lupus Sister Melanoma Sister Hypertension Maternal Grandmother Thyroid cancer Maternal Grandfather Thyroid cancer Sibling Colon cancer Sibling Heart disease Sibling Allergies: No Known Allergies Surgical History: Past Surgical History: Procedure Laterality Date ADENOIDECTOMY SECTION, CLASSIC SECTION, LOW TRANSVERSE 2011 KIDNEY STONE SURGERY LEG SURGERY Left lukas leg 25 yrs ago TONSILLECTOMY Social History: Social Drivers of Health Tobacco Use: Low Risk (01/11/2025) Patient History Smoking Tobacco Use: Never Smokeless Tobacco Use: Never Passive Exposure: Not on file Alcohol Use: Not At Risk (09/24/2023) AUDIT-C Frequency of Alcohol Consumption: Monthly or less Average Number of Drinks: 1 or 2 Frequency of Binge Drinking: Never Financial Resource Strain: Not on file Food Insecurity: Not on file Transportation Needs: Not on file Physical Activity: Not on file Stress: Not on file Social Connections: Not on file Intimate Partner Violence: Not on file Depression: Not at risk (01/11/2025) PHQ-2 PHQ-2 Score: 0 Housing Stability: Not on file Health Literacy: Not on file OBJECTIVE: Visit Vitals LMP 02/07/2025 OB Status Having periods Smoking Status Never Physical Exam Constitutional: Appearance: Normal appearance. HENT: Head: Normocephalic and atraumatic. Eyes: Extraocular Movements: Extraocular movements intact. Conjunctiva/sclera: Conjunctivae normal. Pupils: Pupils are equal, round, and reactive to light. Cardiovascular: Rate and Rhythm: Normal rate and regular rhythm. Pulmonary: Effort: Pulmonary effort is normal. Breath sounds: Normal breath sounds. Abdominal: General: Bowel sounds are normal. Palpations: Abdomen is soft. Musculoskeletal: General: Normal range of motion. Skin: General: Skin is warm and dry. Neurological: General: No focal deficit present. Mental Status: She is alert and oriented to person, place, and time. Psychiatric: Mood and Affect: Mood normal. Thought Content: Thought content normal. Judgment: Judgment normal. Recent Results (from the past 4 weeks) Hepatitis c virus (hcv) rna detection and quantification by rt-pcr Collection Time: 02/16/25 4:57 PM Result Value Ref Range HEPATITIS C QUANTITATION HCV Not Detected IU/mL TEST INFORMATION: Comment POCT urinalysis dipstick manually resulted Collection Time: 02/21/25 9:58 AM Result Value Ref Range Color, UA Yellow Clarity, UA Clear Glucose, UA Negative Negative - 2000(110) ++++ mg/dL Bilirubin, UA Negative Negative - 4(70) +++ mg/dL Ketones, UA Negative Negative - 160(16) ++++ mg/dL Spec Grav, UA 1.025 1 - 1.03 Blood, UA Positive Negative - 50 Chucky/mcL pH, UA 5.5 5 - 9 Protein, UA Negative Negative - 2000(20) ++++ mg/dL Urobilinogen, UA 0.2 0.2 - 12 mg/dL Leukocytes, UA Trace Negative - 500+++ Sriram/mcL Nitrite, UA Negative Negative - Positive POCT , urine manually resulted Collection Time: 02/21/25 9:59 AM Result Value Ref Range Preg Test, Ur Negative Negative RECURRENT VAGINITIS (HTRX) Collection Time: 02/21/25 10:09 AM Result Value Ref Range ATOPOBIUM VAGINAE 21.550 (A) 19.961 - 24.689 ppm ATOPOBIUM VAGINAE Detected (A) 19.961 - 24.689 ppm BVAB 2,3 (BACTERIAL VAGINOSIS ASSOCIATED BACTERIA 2, 3); MOBILUNCUS SPP 12.878 (A) 19.961 - 24.689 ppm BVAB 2,3 (BACTERIAL VAGINOSIS ASSOCIATED BACTERIA 2, 3); MOBILUNCUS SPP Detected (A) 19.961 - 24.689 ppm SHIMON ALBICANS, PARAPSILOSIS, TROPICALIS 0.000 19.961 - 30.770 ppm SHIMON ALBICANS, PARAPSILOSIS, TROPICALIS Not Detected 19.961 - 30.770 ppm SHIMON GLABRATA 0.000 23.000 - 32.138 ppm SHIMON GLABRATA Not Detected 23.000 - 32.138 ppm SHIMON KRUSEI 0.000 23.000 - 32.271 ppm SHIMON KRUSEI Not Detected 23.000 - 32.271 ppm CHLAMYDIA TRACHOMATIS 0.000 23.000 - 31.467 ppm CHLAMYDIA TRACHOMATIS Not Detected 23.000 - 31.467 ppm GARDNERELLA VAGINALIS 20.402 (A) 19.961 - 24.689 ppm GARDNERELLA VAGINALIS Detected (A) 19.961 - 24.689 ppm HERPES SIMPLEX VIRUS 1 0.000 23.000 - 32.355 ppm HERPES SIMPLEX VIRUS 1 Not Detected 23.000 - 32.355 ppm HERPES SIMPLEX VIRUS 2 0.000 23.000 - 31.433 ppm HERPES SIMPLEX VIRUS 2 Not Detected 23.000 - 31.433 ppm MEGASPHAERA (TYPES 1, 2) 0.000 19.961 - 24.689 ppm MEGASPHAERA (TYPES 1, 2) Not Detected 19.961 - 24.689 ppm NEISSERIA GONORRHOEAE 0.000 23.000 - 32.117 ppm NEISSERIA GONORRHOEAE Not Detected 23.000 - 32.117 ppm TRICHOMONAS VAGINALIS 0.000 23.000 - 32.119 ppm TRICHOMONAS VAGINALIS Not Detected 23.000 - 32.119 ppm MYCOPLASMA GENITALIUM 0.000 19.961 - 24.689 ppm MYCOPLASMA GENITALIUM Not Detected 19.961 - 24.689 ppm ERMB, C; MEFA 25.090 (A) 23.000 - 27.611 ppm ERMB, C; MEFA Detected (A) 23.000 - 27.611 ppm TET B, TET M 18.723 (A) 23.000 - 27.778 ppm TET B, TET M Detected (A) 23.000 - 27.778 ppm ASSESSMENT AND PLAN: Assessment/Plan Diagnoses and all orders for this visit: PCOS (polycystic ovarian syndrome) Labs ordered today, will follow up when results available - Testosterone; Future - CBC and differential; Future - Comprehensive metabolic panel; Future - Hemoglobin A1c; Future Thrombophlebitis of superficial veins of left lower extremity - ibuprofen 800 MG tablet; Take 1 tablet (800 mg) by mouth 3 (three) times a day as needed for mild pain - CBC and differential; Future - Comprehensive metabolic panel; Future Allergic rhinitis due to other allergic trigger, unspecified seasonality Problem is stable, will continue with current treatment plan. Call or return to clinic if any changes occur - cetirizine (ZyrTEC) 10 MG tablet; Take 1 tablet (10 mg) by mouth Daily - CBC and differential; Future - Comprehensive metabolic panel; Future Viral upper respiratory infection - fluticasone (Flonase) 50 MCG/ACT nasal spray; Administer 1-2 sprays into each nostril Daily Shake gently. Before first use, prime pump. After use, clean tip and replace cap - CBC and differential; Future - Comprehensive metabolic panel; Future Mixed anxiety and depressive disorder - CBC and differential; Future - Comprehensive metabolic panel; Future Obesity without serious comorbidity, unspecified class, unspecified obesity type - phentermine (Adipex-P) 37.5 MG tablet; Take 1 tablet (37.5 mg) by mouth in the morning. Take before meals. - CBC and differential; Future - Comprehensive metabolic panel; Future Updated Medications: I have reviewed and reconciled the history and medication list with the patient today. Current Outpatient Medications: cetirizine (ZyrTEC) 10 MG tablet, Take 1 tablet (10 mg) by mouth Daily, Disp: 30 tablet, Rfl: 11 fluticasone (Flonase) 50 MCG/ACT nasal spray, Administer 1-2 sprays into each nostril Daily Shake gently. Before first use, prime pump. After use, clean tip and replace cap, Disp: 16 g, Rfl: 3 ibuprofen 800 MG tablet, Take 1 tablet (800 mg) by mouth 3 (three) times a day as needed for mild pain, Disp: 90 tablet, Rfl: 0 metroNIDAZOLE (Flagyl) 500 MG tablet, Take 1 tablet (500 mg) by mouth in the morning and 1 tablet (500 mg) before bedtime. Do all this for 7 days. Do not drink alcohol while taking this medication., Disp: 14 tablet, Rfl: 0 documented in this encounter [facility] 02-21-2025 History of Presen t illness Narrative Reason for Appointment: Patient ID: Noble Chin is a 34 y.o. female who presents for STI Screening Patient presents today for STD Check. MEDICATIONS Current Outpatient Medications Medication Instructions cetirizine (ZYRTEC) 10 mg, Oral, Daily fluticasone (Flonase) 50 MCG/ACT nasal spray 1-2 sprays, Each Nostril, Daily, Shake gently. Before first use, prime pump. After use, clean tip and replace cap ibuprofen 800 mg, Oral, 3 times daily PRN ALLERGIES No Known Allergies PROBLEMS Active Ambulatory [...] Exam Constitutional: Appearance: Normal appearance. She is well-developed and normal weight. HENT: Head: Normocephalic. Cardiovascular: Rate and Rhythm: Normal rate and regular rhythm. Pulses: Normal pulses. Pulmonary: Effort: Pulmonary effort is normal. Breath sounds: Normal breath sounds. Abdominal: General: Bowel sounds are normal. There is no distension. Palpations: Abdomen is soft. Tenderness: There is no abdominal tenderness. There is no guarding or rebound. Musculoskeletal: General: No swelling. Normal range of motion. Right lower leg: No edema. Left lower leg: No edema. Neurological: General: No focal deficit present. Mental Status: She is alert and oriented to person, place, and time. Skin: General: Skin is warm and dry. Psychiatric: Mood and Affect: Mood normal. Behavior: Behavior normal. Thought Content: Thought content normal. Judgment: Judgment normal. Vitals and nursing note reviewed. Exam conducted with a switch box installer present. Vitals: Estimated body mass index is 42.19 kg/m as calculated from the following: Height as of 01/11/25: 5' 4 . Weight as of this encounter: 245 lb 12.8 oz. BP: 120/78 Patient's last menstrual period was 02/07/2025. ASSESSMENT & PLAN Patient did come into the office today for Cultures. Patient labs ordered and cultures obtained without difficulty. Patient to return in 1 year for annual. Documented by Sapphire Adams LPN on behalf of: RONAL Olguin documented in this encounter [facility] 01-10-2025 Note Patient Education Ma terials Follows: Dysuria Dysuria is pain or discomfort during urination. The pain or discomfort may be felt in the part of the body that drains urine from the bladder (urethra) or in the surrounding tissue of the genitals. The pain may also be felt in the groin area, lower abdomen, or lower back. You may have to urinate frequently or have the sudden feeling that you have to urinate (urgency). Dysuria can affect anyone, but it is more common in females. Dysuria can be caused by many different things, including: ? Urinary tract infection. ? Kidney stones or bladder stones. ? Certain STIs (sexually transmitted infections), such as chlamydia. ? Dehydration. ? Inflammation of the tissues of the vagina. ? Use of certain medicines. ? Use of certain soaps or scented products that cause irritation. Follow these instructions at home: Medicines ? Take [id number] and prescription medicines only as told by your health care provider. ? If you were prescribed an antibiotic medicine, take it as told by your health care provider. Do not stop taking the antibiotic even if you start to feel better. Eating and drinking ? Drink enough fluid to keep your urine pale yellow. ? Avoid caffeinated beverages, tea, and alcohol. These beverages can irritate the bladder and make dysuria worse. In males, alcohol may irritate the prostate. General instructions ? Watch your condition for any changes. ? Urinate often. Avoid holding urine for long periods of time. ? If you are female, you should wipe from front to back after urinating or having a bowel movement. Use each piece of toilet paper only once. ? Empty your bladder after sex. ? Keep all follow-up visits. This is important. ? If you had any tests done to find the cause of dysuria, it is up to you to get your test results. Ask your health care provider, or the department that is doing the test, when your results will be ready. Contact a health care provider if: ? You have a fever. ? You develop pain in your back or sides. ? You have nausea or vomiting. ? You have blood in your urine. ? You are not urinating as often as you usually do. Get help right away if: ? Your pain is severe and not relieved with medicines. ? You cannot eat or drink without vomiting. ? You are confused. ? You have a rapid heartbeat while resting. ? You have shaking or chills. ? You feel extremely weak. Summary ? Dysuria is pain or discomfort while urinating. Many different conditions can lead to dysuria. ? If you have dysuria, you may have to urinate frequently or have the sudden feeling that you have to urinate (urgency). ? Watch your condition for any changes. Keep all follow-up visits. ? Make sure that you urinate often and drink enough fluid to keep your urine pale yellow. This information is not intended to replace advice given to you by your health care provider. Make sure you discuss any questions you have with your health care provider. Document Revised: 06/01/2021 Document Reviewed: 06/01/2021 [employer] Patient Education ? 2023 [employer]. [facility] 12-27-2024 History of Presen t illness Narrative Images from the original note were not included. Subjective Patient ID: Noble Chin is a 34 y.o. female who presents for Sore Throat (Pt states that this has been going on since Friday, no fever or chills). URI This is a new problem. The current episode started in the past 7 days. The problem has been gradually worsening. There has been no fever. Associated symptoms include congestion, coughing, headaches, a sore throat and wheezing. Pertinent negatives include no diarrhea, ear pain, nausea, rash, sinus pain or vomiting. Treatments tried: cough drops and OTC medications. The treatment provided mild relief. Review of Systems Constitutional: Negative for chills and fever. HENT: Positive for congestion and sore throat. Negative for ear pain and sinus pain. Respiratory: Positive for cough and wheezing. Gastrointestinal: Negative for diarrhea, nausea and vomiting. Musculoskeletal: Negative for myalgias. Skin: Negative for rash. Neurological: Positive for headaches. All other systems reviewed and are negative. Objective Visit Vitals BP 128/84 Pulse 98 Ht 5' 4 Wt 247 lb SpO2 100% BMI 42.40 kg/m OB Status Having periods Smoking Status Never BSA 2.25 m Physical Exam Constitutional: General: She is not in acute distress. Appearance: She is ill-appearing (and coughing). HENT: Head: Normocephalic and atraumatic. Right Ear: Tympanic membrane and ear canal normal. Left Ear: Tympanic membrane and ear canal normal. Nose: Congestion (mild) present. Right Sinus: Maxillary sinus tenderness present. No frontal sinus tenderness. Left Sinus: Maxillary sinus tenderness present. No frontal sinus tenderness. Mouth/Throat: Mouth: Mucous membranes are moist. Pharynx: Posterior oropharyngeal erythema (mild) present. No oropharyngeal exudate. Cardiovascular: Rate and Rhythm: Normal rate and regular rhythm. Pulses: Normal pulses. Heart sounds: No murmur heard. No friction rub. No gallop. Pulmonary: Effort: No respiratory distress. Breath sounds: Normal breath sounds. No wheezing, rhonchi or rales. Lymphadenopathy: Cervical: No cervical adenopathy. Skin: General: Skin is warm and dry. Neurological: General: No focal deficit present. Mental Status: She is alert. Psychiatric: Mood and Affect: Mood normal. Behavior: Behavior normal. Judgment: Judgment normal. Assessment/Plan Diagnoses and all orders for this visit: Acute cough - POCT rapid strep A manually resulted - STATUS COVID-19/FLU Viral upper respiratory infection - fluticasone (Flonase) 50 MCG/ACT nasal spray; Administer 1-2 sprays into each nostril Daily Shake gently. Before first use, prime pump. After use, clean tip and replace cap - dextromethorphan-guaiFENesin (MUCINEX DM MAX STRENGTH) 60-1200 MG 12 hr tablet; Take 1 tablet by mouth every 12 (twelve) hours if needed (BID) - POCT rapid strep A manually resulted - STATUS COVID-19/FLU Pt advised they have a viral illness. Advised on what OTC medications to take to treat fever, sore throat, body aches, sinus pain, cough, chest congestion, nose and sinus congestion, sneezing, runny nose, watery, itchy eyes, overall congestion relief, faster recovery and how to avoid spreading the illness. Call or RTO if worsening or not improving as expected. Discussed expectations (viral infections such as colds/flus do not respond to antibiotics and typically do not begin to improve until 7-10 days into the illness). All questions answered. Call the office with any other questions or concerns. Recent Results (from the past hour) POCT rapid strep A manually resulted Collection Time: 12/27/24 10:46 AM Result Value Ref Range Rapid Strep A Screen Negative Negative, None Detected STATUS COVID-19/FLU Collection Time: 12/27/24 10:46 AM Result Value Ref Range FLU A neg FLU B neg SARS COV 2 RNA neg documented in this encounter [facility] 10-14-2024 History of Presen t illness Narrative Reason for Appointment: Patient ID: Noble Chin is a 33 y.o. female who presents for encounter for weight management (Adipex #3) Patient presents today for Weight Management Consult. MEDICATIONS Current Outpatient Medications Medication Instructions cetirizine (ZYRTEC) 10 mg, Oral, Daily dextromethorphan-guaiFENesin (MUCINEX DM MAX STRENGTH) 60-1200 MG 12 hr tablet 1 tablet, Oral, Every 12 hours PRN fluticasone (Flonase) 50 MCG/ACT nasal spray 2 sprays, Each Nostril, Daily, Shake gently. Before first use, prime pump. After use, clean tip and replace cap. ibuprofen 800 mg, Oral, 3 times daily PRN metFORMIN XR (GLUCOPHAGE-XR) 1,000 mg, Oral, Daily with evening meal, Do not crush, chew, or split. phentermine (ADIPEX-P) 37.5 mg, Oral, Daily before [...] Exam Constitutional: Appearance: Normal appearance. She is normal weight. HENT: Head: Normocephalic. Cardiovascular: Rate and Rhythm: Normal rate. Pulses: Normal pulses. Pulmonary: Effort: Pulmonary effort is normal. Breath sounds: Normal breath sounds. Abdominal: Palpations: Abdomen is soft. Musculoskeletal: General: Normal range of motion. Neurological: General: No focal deficit present. Mental Status: She is alert and oriented to person, place, and time. Psychiatric: Mood and Affect: Mood normal. Behavior: Behavior normal. Thought Content: Thought content normal. Judgment: Judgment normal. Vitals and nursing note reviewed. Vitals: Estimated body mass index is 41.62 kg/m as calculated from the following: Height as of 07/15/24: 5' 5 . Weight as of this encounter: 250 lb 1.9 oz. BP: 120/82 Patient's last menstrual period was 10/09/2024. ASSESSMENT & PLAN ICD-10-CM 1. Encounter for weight management Z76.89 phentermine (Adipex-P) 37.5 MG tablet Patient presents today for 3rd Adipex prescription. Patient desires additional weigh loss and she is currently taking metformin along with working out to achieve further results.. Weight and blood pressure has been captured and it has been discussed/reiterated the importance of keeping a food journal, proper nutrition/diet, and exercise regimen. Patient verbalized understanding. Patient has lost more than 5% of her initial body weight Follow Up: Patient is to return to the office in 1 month for further evaluation to assess patient progress. Weight and blood pressure will need to be obtained in order for patient to receive 4th Adipex prescription. Documented by RONAL Olguin on behalf of: RONAL Olguin documented in this encounter [facility] 09-16-2024 History of Presen t illness Narrative Reason for Appointment: Patient ID: Noble Chin is a 33 y.o. female who presents for Weight Management Patient presents today for a weight management consultation. Patient has been prescribed Adipex and she is here for her 2nd prescription. Today's Vitals: Estimated body mass index is 41.37 kg/m as calculated from the following: Height as of 07/15/24: 5' 5 . Weight as of this encounter: 248 lb 9.6 oz. Previous Weight/BMI: Wt Readings from Last 2 Encounters: 09/16/24 248 lb 9.6 oz 08/19/24 253 lb BMI Readings from Last 2 Encounters: 09/16/24 41.37 kg/m 08/19/24 42.10 kg/m Allergies as of 09/16/2024 (No Known Allergies) Past Medical History: Diagnosis Date Ovarian cyst Pap smear for cervical cancer screening 07/03/2023 neg PCOS (polycystic ovarian syndrome) Past Surgical History: Procedure Laterality Date ADENOIDECTOMY SECTION, CLASSIC SECTION, LOW TRANSVERSE 2010 KIDNEY STONE SURGERY LEG SURGERY Left lukas leg 25 yrs ago TONSILLECTOMY Assessment/Plan Encounter Diagnosis Name Primary? Encounter for weight management Adipex: Patient presents today for 2nd Adipex prescription. Patients weight and blood pressure has been captured and discussed with the patient. I have discussed/reiterated the importance of keeping a food journal, proper nutrition/diet, and exercise regimen while taking Adipex. Patient verbalized understanding and was given a printed prescription signed by provider to take to their local pharmacy. Follow Up: Patient is to return to the office in 1 month for further evaluation to assess patient progress. Weight and blood pressure will need to be obtained in order for patient to receive 3rd prescription. Documented by: Halley Alfred LPN on behalf of RONAL Olguin documented in this encounter [facility] 08-19-2024 History of Presen t illness Narrative Reason for Appointment: Patient ID: Noble Chin is a 33 y.o. female who presents for Weight Management Patient presents today for Weight Management Consult. MEDICATIONS Current Outpatient Medications Medication Instructions cetirizine (ZYRTEC) 10 mg, Oral, Daily dextromethorphan-guaiFENesin (MUCINEX DM MAX STRENGTH) 60-1200 MG 12 hr tablet 1 tablet, Oral, Every 12 hours PRN fluticasone (Flonase) 50 MCG/ACT nasal spray 2 sprays, Each Nostril, Daily, Shake gently. Before first use, prime pump. After use, clean tip and replace cap. metFORMIN XR (GLUCOPHAGE-XR) 500 mg, Oral, Daily with evening meal, Do not crush, chew, or split. ALLERGIES No Known Allergies PROBLEMS Active Ambulatory [...] Date ADENOIDECTOMY SECTION, CLASSIC SECTION, LOW TRANSVERSE 2010 KIDNEY STONE SURGERY LEG SURGERY Left lukas leg 25 yrs ago TONSILLECTOMY REVIEW OF SYSTEMS Review of Systems: Review of Systems All other systems reviewed and are negative. OBJECTIVE Objective: Physical Exam Constitutional: Appearance: Normal appearance. She is well-developed. Cardiovascular: Rate and Rhythm: Normal rate and [...] nursing note reviewed. Exam conducted with a switch box installer present. Vitals: Estimated body mass index is 42.1 kg/m as calculated from the following: Height as of 07/15/24: 5' 5 . Weight as of this encounter: 253 lb. BP: 116/70 No LMP recorded. ASSESSMENT & PLAN ICD-10-CM 1. Encounter for weight management Z76.89 Patient presents today for initial Adipex prescription. The importance of keeping a food journal, proper nutrition/diet, and exercise regimen while taking Adipex has been discussed. Patient verbalized understanding and signed consents to initiate (Adipex) medication therapy. Patient was given a printed prescription signed by provider to take to their local pharmacy. Patient is doing well on Metformin. Follow Up: Patient is to return to the office in 1 month for further evaluation to assess patient progress. Weight and blood pressure will need to be captured in order for patient to receive 2nd prescription. Documented by Catherine Alves LPN on behalf of: Juliette Morris DO documented in this encounter [facility] 07-15-2024 History of Presen t illness Narrative Reason for Appointment: Patient ID: Noble Chin is a 33 y.o. female who presents for Well Women Visit Patient presents today for Annual Exam. and Consult appointment. MEDICATIONS Current Outpatient Medications Medication Instructions cetirizine (ZYRTEC) 10 mg, Oral, Daily dextromethorphan-guaiFENesin (MUCINEX DM MAX STRENGTH) 60-1200 MG 12 hr tablet 1 tablet, Oral, Every 12 hours PRN fluticasone (Flonase) 50 MCG/ACT nasal spray 2 sprays, Each Nostril, Daily, Shake gently. Before first use, prime pump. After use, clean tip and replace cap. ALLERGIES No Known Allergies PROBLEMS Active Ambulatory Problems Diagnosis Date Noted Allergic rhinitis 05/20/2024 Mixed anxiety and depressive disorder 05/20/2024 Primary insomnia 05/20/2024 Varicose veins of both lower extremities 05/20/2024 Edema 05/20/2024 Resolved Ambulatory Problems Diagnosis Date Noted No Resolved Ambulatory Problems Past Medical History: Diagnosis Date Ovarian cyst Pap smear for cervical cancer screening 07/03/2023 PCOS (polycystic ovarian syndrome) HISTORY PAST MEDICAL HISTORY SOCIAL HISTORY Past [...] SYSTEMS Review of Systems: Review of Systems Genitourinary: Positive for vaginal pain. All other systems reviewed and are negative. OBJECTIVE Objective: Physical Exam Constitutional: Appearance: Normal appearance. She is well-developed. Genitourinary: Vulva normal. Breasts: Breasts are soft. Right: Normal. Left: Normal. Cardiovascular: Rate and Rhythm: Normal rate and [...] nursing note reviewed. Exam conducted with a switch box installer present. Vitals: Estimated body mass index is 40.44 kg/m as calculated from the following: Height as of this encounter: 5' 5 . Weight as of this encounter: 243 lb. BP: 122/74 No LMP recorded. ASSESSMENT & PLAN ICD-10-CM 1. Well woman exam with routine gynecological exam Z01.419 Pap Smear HPV DNA probe, amplified Annual Exam: Patient presents today for an annual exam. Patient states she is doing well and has complaints of heavy/painful/irregular cycles. . Pap was obtained without difficulty. Discussed options for management and will order labs and US to have done. Patient is unsure of stance on fertility and is not preventing. Discussed Metformin use if patient desires. Patient will start Metformin 500mg and RTC in 4 weeks for increase in Metformin to 1000mg and Adipex #1 prescription. -*-Labs and ultrasound ordered to assess patient PCOS and symptoms of irregular/heavy/painful cycles. Patient did voiced that PCOS symptoms are sometimes debilitating and she is unable to perform ADL's Orders Placed This Encounter Procedures HPV DNA probe, amplified Follow Up: Patient is to return in one year for annual unless needed otherwise. Documented by Catherine Alves LPN on behalf of: Juliette Morris DO documented in this encounter [facility] 07-12-2024 History of Presen t illness Narrative Images from the original note were not included. Subjective Patient ID: Noble Chin is a 33 y.o. female who presents for URI (Pt presents for URI. Symptoms include runny nose, cough, headaches, body aches, chills. Onset was Friday. OTC cough drops, Tylenol. ). URI This is a new problem. Episode onset: 2 days ago. The problem has been gradually worsening. There has been no fever. Associated symptoms include congestion, coughing, headaches and a sore throat. Pertinent negatives include no chest pain, diarrhea, ear pain, nausea, rash, sinus pain, vomiting or wheezing. Treatments tried: cough drops and motrin. Improvement on treatment: moderate relief of sore throat. Review of Systems Constitutional: Negative for chills and fever. HENT: Positive for congestion and sore throat. Negative for ear pain and sinus pain. Respiratory: Positive for cough. Negative for wheezing. Cardiovascular: Negative for chest pain. Gastrointestinal: Negative for diarrhea, nausea and vomiting. Musculoskeletal: Positive for myalgias. Skin: Negative for rash. Neurological: Positive for headaches. All other systems reviewed and are negative. Objective Visit Vitals BP 122/64 Pulse 83 Temp 98.7 F Ht 5' 5 Wt 243 lb SpO2 100% BMI 40.44 kg/m OB Status Having periods Smoking Status Never BSA 2.25 m Physical Exam Constitutional: General: She is not in acute distress. Appearance: She is ill-appearing. HENT: Head: Normocephalic and atraumatic. Right Ear: Tympanic membrane and ear canal normal. Left Ear: Tympanic membrane and ear canal normal. Nose: Congestion (moderate) present. Right Sinus: Frontal sinus tenderness present. No maxillary sinus tenderness. Left Sinus: Frontal sinus tenderness present. No maxillary sinus tenderness. Mouth/Throat: Mouth: Mucous membranes are moist. Pharynx: Posterior oropharyngeal erythema (mild) present. No pharyngeal swelling or oropharyngeal exudate. Eyes: Extraocular Movements: Extraocular movements intact. Cardiovascular: Rate and Rhythm: Normal rate and regular rhythm. Pulses: Normal pulses. Heart sounds: No murmur heard. No friction rub. No gallop. Pulmonary: Effort: No respiratory distress. Breath sounds: Normal breath sounds. No wheezing, rhonchi or rales. Lymphadenopathy: Cervical: No cervical adenopathy. Skin: General: Skin is warm and dry. Neurological: General: No focal deficit present. Mental Status: She is alert. Psychiatric: Mood and Affect: Mood normal. Behavior: Behavior normal. Judgment: Judgment normal. Assessment/Plan Diagnoses and all orders for this visit: Viral upper respiratory infection - dextromethorphan-guaiFENesin (MUCINEX DM MAX STRENGTH) 60-1200 MG 12 hr tablet; Take 1 tablet by mouth every 12 (twelve) hours if needed (BID) Pt advised they have a viral illness. Advised on what OTC medications to take to treat fever, sore throat, body aches, sinus pain, cough, chest congestion, nose and sinus congestion, sneezing, runny nose, watery, itchy eyes, overall congestion relief, faster recovery and how to avoid spreading the illness. Call or RTO if worsening or not improving as expected. Discussed expectations (viral infections such as colds/flus do not respond to antibiotics and typically do not begin to improve until 7-10 days into the illness). All questions answered. Call the office with any other questions or concerns. documented in this encounter [facility] 04-24-2023 Procedure note [facility] Evaluation note No assessment inform ation available [facility] Work Phone: Evaluation note Diagnosis Encounter for weight management documented in this encounter [facility] Healthcare[facility]* Diagnosis Encounter for weight management documented in this encounter [facility] note* Diagnosis Thrombophlebitis of superficial veins of left lower extremity documented in this encounter [facility] HealthcareEvaluation note* Diagnosis Well woman exam with routine gynecological exam Routine gynecological examination Menorrhagia with regular cycle Pelvic pain in female Unspecified symptom associated with female genital organs Insulin resistance Other abnormal glucose PCOS (polycystic ovarian syndrome) Polycystic ovaries documented in this encounter [facility] HealthcareEvaluation note* Diagnosis Encounter for weight management documented in this encounter [facility] note* Diagnosis Viral upper respiratory infection- Primary Acute upper respiratory infections of unspecified site documented in this encounter [facility] HealthcareEvaluation note* Diagnosis Acute cough- Primary Viral upper respiratory infection Acute upper respiratory infections of unspecified site documented in this encounter [facility]* Diagnosis Exposure to STD Vaginal discharge Leukorrhea, not specified as infective Sexually transmitted disease exposure Contact with or exposure to venereal diseases documented in this encounter [facility]* Diagnosis PCOS (polycystic ovarian syndrome)- Primary Polycystic ovaries Thrombophlebitis of superficial veins of left lower extremity Allergic rhinitis due to other allergic trigger, unspecified seasonality Viral upper respiratory infection Acute upper respiratory infections of unspecified site Mixed anxiety and depressive disorder Dysthymic disorder Obesity without serious comorbidity, unspecified class, unspecified obesity type documented in this encounter [facility]* Diagnosis PCOS (polycystic ovarian syndrome)- Primary Polycystic ovaries Obesity without serious comorbidity, unspecified class, unspecified obesity type Mixed anxiety and depressive disorder Dysthymic disorder documented in this encounter [facility]* Diagnosis Edema, unspecified type- Primary Obesity without serious comorbidity, unspecified class, unspecified obesity type Thrombophlebitis of superficial veins of left lower extremity Viral upper respiratory infection Acute upper respiratory infections of unspecified site Varicose veins of both lower extremities, unspecified whether complicated Mixed anxiety and depressive disorder Dysthymic disorder documented in this encounter [facility]* Diagnosis Edema, unspecified type- Primary Obesity without serious comorbidity, unspecified class, unspecified obesity type Thrombophlebitis of superficial veins of left lower extremity Viral upper respiratory infection Acute upper respiratory infections of unspecified site Varicose veins of both lower extremities, unspecified whether complicated Mixed anxiety and depressive disorder Dysthymic disorder Bee sting, undetermined intent, initial encounter- Primary Obesity without serious comorbidity, unspecified class, unspecified obesity type Cellulitis of left upper extremity Thrombophlebitis of superficial veins of left lower extremity documented in this encounter [facility]* Diagnosis Edema, unspecified type- Primary Obesity without serious comorbidity, unspecified class, unspecified obesity type Thrombophlebitis of superficial veins of left lower extremity Viral upper respiratory infection Acute upper respiratory infections of unspecified site Varicose veins of both lower extremities, unspecified whether complicated Mixed anxiety and depressive disorder Dysthymic disorder PCOS (polycystic ovarian syndrome)- Primary Polycystic ovaries Obesity without serious comorbidity, unspecified class, unspecified obesity type Diarrhea of presumed infectious origin Bright red blood per rectum Hemorrhage of rectum and anus Lower abdominal pain Abdominal pain, other specified site documented in this encounter [facility]* Diagnosis Edema, unspecified type- Primary Obesity without serious comorbidity, unspecified class, unspecified obesity type Thrombophlebitis of superficial veins of left lower extremity Viral upper respiratory infection Acute upper respiratory infections of unspecified site Varicose veins of both lower extremities, unspecified whether complicated Mixed anxiety and depressive disorder Dysthymic disorder PCOS (polycystic ovarian syndrome)- Primary Polycystic ovaries Obesity without serious comorbidity, unspecified class, unspecified obesity type Diarrhea of presumed infectious origin Bright red blood per rectum Hemorrhage of rectum and anus Lower abdominal pain Abdominal pain, other specified site Obesity without serious comorbidity, unspecified class, unspecified obesity type Viral upper respiratory infection Acute upper respiratory infections of unspecified site documented in this encounter [facility]* Diagnosis Edema, unspecified type- Primary Obesity without serious comorbidity, unspecified class, unspecified obesity type Thrombophlebitis of superficial veins of left lower extremity Viral upper respiratory infection Acute upper respiratory infections of unspecified site Varicose veins of both lower extremities, unspecified whether complicated Mixed anxiety and depressive disorder Dysthymic disorder PCOS (polycystic ovarian syndrome)- Primary Polycystic ovaries Obesity without serious comorbidity, unspecified class, unspecified obesity type Diarrhea of presumed infectious origin Bright red blood per rectum Hemorrhage of rectum and anus Lower abdominal pain Abdominal pain, other specified site Well woman exam with routine gynecological exam Routine gynecological examination Pain of both breasts documented in this encounter [facility] Author Laine Marx [facility] April 24, 2023 10:09am Note Date/Time April 24, 2023 10:0 9am [facility] [address] [place] [address] Gastroenterology H&P Signed Patient: Noble Chin MR#: [id number] : 1990 Acct:[id number] Age/Sex: 32 / F Adm Date: 3 Loc: Room: Type: [facility] Attending Dr: Laine Marx MD Copies to: Arely Mcdaniel Jr, DO Laine Marx MD~ Date of Service: 04/24/2023 HISTORY & PHYSICAL: Patient's history with special attention to the cardiovascular, pulmonary systems and the current problem was reviewed with the patient immediately prior to the procedure. Present medications and doses reviewed in the EMR. Allergies and pertinent laboratory tests were also reviewedat this time in the EMR. The physical examination, as below, was then performed. Indication, assessment and HPI: 32-year-old female with family history of colon cancer (sister at the age of 33) here for screening colonoscopy Family history of GI malignancy? Yes PHYSICAL EXAMINATION Mouth and Pharynx : Moist mucus membranes, normal dentition Cardiac: Regular rate, regular rhythm Pulmonary: Clear to auscultation bilaterally, no wheezing Neurological: Alert and oriented x3, no focal deficits noted Abdomen: Abdomen soft, non-tender REVIEW OF SYSTEMS Constitutional: Denies malaise, fevers Cardiovascular: Denies chest pain, palpitations Respiratory: Denies shortness of breath, wheezing Gastrointestinal: Per HPI Genitourinary: Denies dysuria, polyuria Musculoskeletal: Denies joint swelling, joint stiffness Neurological: Denies numbness, tingling Integumentary: Denies rashes, skin lesions Endocrine: Denies fatigue, weight loss Written informed consent obtained from the patient. Risks (including but not limited to perforation, infection, bloating, bleeding, need for emergent surgeryand loss of life), benefits and alternatives explained and questions answered. The patient verbalized understanding. Based on history patient is an appropriate candidate for the procedure. Laine Marx M.D. Documented By: Laine Marx MD 04/24/23 1008 Signed By: <Electronically signed by Laine Marx MD> 04/24/23 1009 [facility] Work Phone: Hospital Discharge instructions Additional Instructions DISCHARGE INSTRUCTIONS FOR COLONOSCOPY WHAT TO EXPECT: - You may feel full, gassy or cramping after your procedure. In some cases, this may be from a few hours to a day. Walking may help relieve the discomfort. - If you have polyp(s) removed you may note some minor bloody discharge after your first bowel movements. - You should begin to recover from anesthesia within 1 hour of the procedure, however may feel groggy for the next 24 hours. DO's AND DON'Ts: - Call your doctor right away if you have a hard abdomen, severe pain, are passing lots of bright red blood or clots. - Call your doctor if you develop any rashes, hives or difficulty breathing. - Let your doctor know if you have not had a bowel movement by 3 days after your procedure. - If you take 81 mg aspirin for your heart it is safe to resume this medication. - If you take other blood thinner medications your doctor will instruct you when these can safely be resumed. - Do NOT drive for 24 hours. - Do NOT operate machinery such as power tools, lawn mowers, snow blowers, sewing machines, etc. for 24 hours. - Avoid alcoholic beverages and drugs for allergies, nerves, or sleep. - Do NOT stay alone. Do NOT leave your child unattended. - Do NOT make important personal or business decisions or sign any legal documents. - Eat solid foods and drink liquids in smaller amounts than usual until normal appetite returns. If you should experience an upset stomach, liquids high in sugar content (soda, Ramsey-Aid, non-acid juices) are recommended. - You can resume normal activities tomorrow. FOLLOW UP & RECOMMENDATIONS: -Notify the doctor if you have any problems. -Repeat colonoscopy in 5 years -Follow up with PCP. -Office number [phone]. [facility] Work Phone: Summary Purpose Family History Relationship Condition Age at Onset Recorded Date/T josie sister Malignant neoplasm of colon Unknown sister Lupus Unknown sister Malignant neoplasm of thyroid gland Unkno wn father Alzheimer's disease Unknown Advance Directives Advance Directive Response Recorded Date/ Time Advance Directives No March 20, 8 2:59pm Chief Complaint and Reason for Visit Chief Complaint Family Hx Colon Canc er Additional Source Comments INFORMATION SOURCE (unrecogn ized section and content) DATE CREATED AUTHOR 09/17/2019 [facility] DATE CREATED AUTHOR AUTHOR'S ORGANIZ ATION 05/01/2023 [facility] DATE CREATED AUTHOR AUTHOR'S ORGANIZ ATION 06/23/2025 [facility] DATE CREATED AUTHOR AUTHOR'S ORGANIZ ATION 08/10/2025 [facility] [employer] Care Teams (unrecognized sec tion and content) Team Status: Active Member Role Status Dates Gregg Mcdaniel DO Primary Care Provider Active Team Status: Inactive Member Role Status Dates Gregg Mcdaniel DO Primary Care Provider Active Laine Marx MD Attending Provider Active Claims Representative Relationship Specialty Start Date End Date Britt Mcdaniel DO [address] [place] [address] PCP - [employer] 02/01/21 Britt Mcdaniel, DO [address] [place] [address] PCP - General Family Medicine 06/07/24 Claims Representative Relationship Specialty Start Date End Date Britt Mcdaniel, [address] [place] [address] PCP - [employer] 02/01/21 Britt Mcdaniel, DO [address] [place] [address] PCP - General Family Medicine 06/07/24 Claims Representative Relationship Specialty Start Date End Date Britt Mcdaniel, DO [address] [place] [address] PCP - [employer] 02/01/21 Britt Mcdaniel, DO [address] [place] [address] PCP - General Family Medicine 06/07/24 Claims Representative Relationship Specialty Start Date End Date Britt Mcdaniel, [address] [place] [address] PCP - [employer] 02/01/21 Britt Mcdaniel, DO [address] [place] [address] PCP - General Family Medicine 06/07/24 Claims Representative Relationship Specialty Start Date End Date Britt Mcdaniel, [address] [place] [address] PCP - [employer] 02/01/21 Britt Mcdaniel, DO [address] [place] [address] PCP - General Family Medicine 06/07/24 Claims Representative Relationship Specialty Start Date End Date Britt Mcdaniel, DO [address] [place] [address] PCP - [employer] 02/01/21 Britt Mcdaniel, DO [address] [place] [address] PCP - General Family Medicine 06/07/24 Claims Representative Relationship Specialty Start Date End Date Britt Mcdaniel, DO [address] [place] [address] PCP - [employer] 02/01/21 Britt Mcdaniel, DO [address] [place] [address] PCP - General Family Medicine 06/07/24 Claims Representative Relationship Specialty Start Date End Date Britt Mcdaniel, DO [address] [place] [address] PCP - [employer] 02/01/21 Britt Mcdaniel, DO [address] [place] [address] PCP - General Family Medicine 06/07/24 Claims Representative Relationship Specialty Start Date End Date Britt Mcdaniel, DO [address] [place] [address] PCP - [employer] 02/01/21 Britt Mcdaniel, DO [address] [place] [address] PCP - General Family Medicine 06/07/24 Claims Representative Relationship Specialty Start Date End Date Britt Mcdaniel DO [address] [place] [address] PCP - [employer] 02/01/21 Britt Mcdaniel, DO [address] [place] [address] PCP - General Family Medicine 06/07/24 Claims Representative Relationship Specialty Start Date End Date Britt Mcdaniel DO [address] [place] [address] PCP - [employer] 02/01/21 Britt Mcdaniel, DO [address] [place] [address] PCP - General Family Medicine 06/07/24 Claims Representative Relationship Specialty Start Date End Date Britt Mcdaniel DO [address] [place] [address] PCP - [employer] 02/01/21 Britt Mcdaniel DO [address] [place] [address] PCP - General Family Medicine 06/07/24 Claims Representative Relationship Specialty Start Date End Date Britt Mcdaniel DO [address] [place] [address] PCP - [employer] 02/01/21 Britt Mcdaniel DO [address] [place] [address] PCP - General Family Medicine 06/07/24 Claims Representative Relationship Specialty Start Date End Date Britt Mcdaniel DO [address] [place] [address] PCP - [employer] 02/01/21 Britt Mcdaniel DO [address] [place] [address] PCP - General Family Medicine 06/07/24 Claims Representative Relationship Specialty Start Date End Date Britt Mcdaniel DO [address] [place] [address] PCP - [employer] 02/01/21 Britt Mcdaniel DO [address] [place] [address] PCP - General Family Medicine 06/07/24 Claims Representative Relationship Specialty Start Date End Date Britt Mcdaniel DO [address] [place] [address] PCP - [employer] 02/01/21 Britt Mcdaniel DO [address] [place] [address] PCP - General Family Medicine 06/07/24 Claims Representative Relationship Specialty Start Date End Date Britt cMdaniel DO [address] [place] [address] PCP - [employer] 02/01/21 Britt Mcdaniel DO [address] [place] [address] PCP - General Family Medicine 06/07/24 Claims Representative Relationship Specialty Start Date End Date Britt Mcdaniel DO [address] [place] [address] PCP - [employer] 02/01/21 Britt Mcdaniel DO [address] [place] [address] PCP - General Family Medicine 06/07/24 Claims Representative Relationship Specialty Start Date End Date Britt Mcdaniel DO [address] [place] [address] PCP - [employer] 02/01/21 Britt Mcdaniel DO [address] [place] [address] PCP - General Family Medicine 06/07/24 Claims Representative Relationship Specialty Start Date End Date Britt Mcdaniel DO [address] [place] [address] PCP - [employer] 02/01/21 Britt Mcdaniel DO [address] [place] [address] PCP - General Family Medicine 06/07/24 Claims Representative Relationship Specialty Start Date End Date Britt Mcdaniel DO [address] [place] [address] PCP - [employer] 02/01/21 Britt Mcdaniel DO [address] [place] [address] PCP - General Family Medicine 06/07/24 Claims Representative Relationship Specialty Start Date End Date Britt Mcdaniel, DO [address] [place] [address] PCP - [employer] 02/01/21 Britt Mcdaniel, DO [address] [place] [address] PCP - General Family Medicine 06/07/24 Claims Representative Relationship Specialty Start Date End Date Britt Mcdaniel, DO [address] [place] [address] PCP - [employer] 02/01/21 Britt Mcdaniel, DO [address] [place] [address] PCP - General Family Medicine 06/07/24 Claims Representative Relationship Specialty Start Date End Date Britt Mcdaniel, DO [address] [place] [address] PCP - [employer] 02/01/21 Britt Mcdaniel, DO [address] [place] [address] PCP - General Family Medicine 06/07/24 Claims Representative Relationship Specialty Start Date End Date Britt Mcdaniel, DO [address] [place] [address] PCP - [employer] 02/01/21 Britt Mcdaniel, DO [address] [place] [address] PCP - General Family Medicine 06/07/24 Claims Representative Relationship Specialty Start Date End Date Britt Mcdaniel, DO [address] [place] [address] PCP - [employer] 02/01/21 Britt Mcdaniel, DO [address] [place] [address] PCP - General Family Medicine 06/07/24 Claims Representative Relationship Specialty Start Date End Date Britt Mcdaniel, DO [address] [place] [address] PCP - [employer] 02/01/21 Britt Mcdaniel, DO [address] [place] [address] PCP - General Family Medicine 06/07/24 Reason for Visit (unrecogniz ed section and content) Reason Comments Weight Management Reason Onset Date Comments Med Refill 10/04/2024 Reason Comments Well Women Visit Reason Comments encounter for weight management Adipex # 3 Reason Comments URI Pt presents for URI. Symptoms include runny nose, cough, headaches, body aches, chills. Onset was Friday. OTC cough drops, Tylenol. Reason Comments Sore Throat Pt states that this has been going on since Friday, no fever or chills Reason Comments STI Screening Reason Onset Date Comments Results 07/01/2025 FOR RECORDS PERTAINING TO PATIENTS WHO ARE OR HAVE BEEN ENROLLED IN A CHEMICAL DEPENDENCY/SUBSTANCEABUSE PROGRAM, SOME INFORMATION MAY BE OMITTED. This clinical summary was aggregated from multiple sources. Caution should be exercised in using it in the provision of clinical care. This summary normalizes information from multiple sources, and as a consequence, information in this document may materially change the coding, format and clinical context of patient data. In addition, data may be omitted in some cases. CLINICAL DECISIONS SHOULD BE BASED ON THE PRIMARY CLINICAL RECORDS. [employer] [facility]. provides no warranty or guarantee of the accuracy or completeness of information in this document.
== END 2025-08-22 19:44 | disposition home or self-care (01) ==
LOC: LAB 19:43
PROVIDERS: Family Provider Family Medicine; Visit Provider Obstetrics & Gynecology
DX: Z01.419 Encounter for gynecological examination (general) (routine) without abnormal findings (principal)
CPT/HCPCS: 87624; 88175

== ENCOUNTER 2025-09-20 15:26 | Outpatient (REF) | payer BC, SELFPAY ==
--- OUTSIDE RECORDS SUMMARY | 2010-04-10 09:30 | XMS_ITS | Continuity of Care Document ---
Author Organization [facility] Address [address] [place] [address] Phone Care Team Providers Care Quiller Tender Name Role Phone Danisha Mendoza Unavailable Unavailable Procedures Procedure Date PREV VISIT, EST, AGE 18-39 URINE TEST SPECIMEN HANDLING THIN PREP PAP W/REFLEX TO ASCUS 010 Contraceptive pills for bc OFFICE/OUTPATIENT VISIT, EST Contraceptive pills for bc URINE TEST PREV VISIT, NEW, AGE 18-39 URINALYSIS, NONAUTO W/SCOPE SPECIMEN HANDLING Contraceptive pills for bc THIN PREP PAP W/REFLEX TO ASCUS 009 URINE TEST OFFICE/OUTPATIENT VISIT, EST ODH ROCEPHINE 250 MG (PER DOSE) 009 OFFICE/OUTPATIENT VISIT, EST HIV-1 URINALYSIS, NONAUTO W/SCOPE SPECIMEN HANDLING ROUTINE VENIPUNCTURE URINE TEST Advance Directives Directive Yes / No Effective Date File Name No Information Encounters Encounter Description Practice Location Reason(s) For Visit Diagnoses Date Provider Providers Copied on Encounter PREV VISIT, EST, AGE 18-39 [facility], [address] [place], [place], [id number], [place] tel:[phone] [facility] No Information Kelly Raman. [address] [place], [place], [id number], [place]. tel:[phone] OFFICE/OUTPAT IENT VISIT, [facility] ([place], [place]), [address] [place], [place], [id number], [place] tel:[phone] [facility] No Information Lizeth MILANA Obregon. [address] [place], [place], [id number]. tel:[phone] PREV VISIT, NEW, AGE 18-39 [facility], [address], [place], [id number], [place] tel:[phone] [facility] No Information No Information OFFICE/OUTPAT IENT VISIT, [facility] ([place], [place]), [address] [place], [place], [id number], [place] tel:[phone] [facility] No Information Sylvia Conn. [address] [place], [place], [id number], [place]. tel:[phone] OFFICE/OUTPAT IENT VISIT, [facility] ([place], [place]), [address] [place], [place], [id number], [place] tel:[phone] [facility] No Information Sylvia Conn. [address] [place], [place], [id number], [place]. tel:[phone] Family History Family Member Type Diagnosis Age At Onset No Information Payers Payer name Insurance type Covered green party ID Authoriza tion(s) No Information Social History Type Description Quantity Date Captured Comments Sex Female Smoking Status No Information Chief Complaint And Reason For Visit No Information Reason For Referral Reason For Referral No Information History Of Present Illness Encounter Date Complaint History Of Prese nt Illness No Information Functional Status Date Functional Assessmen t No Information Instructions Date Instruction Additional Infor mation No Information Assessments Type Assessment Date No Information Patient Care Teams Name Effective Dates (start - stop) Status Members No Information
--- OUTSIDE RECORDS SUMMARY | 2010-04-10 09:30 | XMS_ITS | Continuity of Care Document ---
Author Organization [facility] ([place], [place]) Address [address] [place] [address] Phone Care Team Providers Care Hemmer Automatic Name Role Phone Danisha Mendoza Unavailable Unavailable [...] on Encounter PREV VISIT, EST, AGE 18-37 [facility] ([place], [place]), [address] [place], [place], [id number], [place] tel:[phone] [facility] ([place], [place]) No Information Kelly Raman. [address] [place], [place], [id number], [place]. tel:[phone] OFFICE/OUTPAT IENT VISIT, [facility], [address] [place], [place], [id number], [place] tel:[phone] [facility] ([place], [place]) No Information Lizeth MILANA Obregon. [address] [place], [place], [id number]. tel:[phone] PREV VISIT, NEW, AGE 18-39 [facility] ([place], [place]), [address] [place], [place], [id number], [place] tel:[phone] [facility] ([place] [place]) No Information No Information OFFICE/OUTPAT IENT VISIT, [facility], [address] [place], [place], [id number], [place] tel:[phone] [facility] ([place], [place]) No Information Sylvia Conn. [address] [place], [place], [id number], [place]. tel:[phone] OFFICE/OUTPAT IENT VISIT, [facility], [address] [place], [place], [id number], [place] tel:[phone] [facility] ([place], [place]) No Information Sylvia Conn. [address] [place], [place], [id number], [place]. tel:[phone] Family History Family Member Type Diagnosis Age At Onset No Information Payers Payer name Insurance type Covered republican ID Authoriza tion(s) No Information Social History [...]
--- OUTSIDE RECORDS SUMMARY | 2010-04-10 09:30 | XMS_ITS | Continuity of Care Document ---
Author Organization [facility] Address [address] [place] [address] Phone Care Team Providers Care Furs Salesperson Name Role Phone Danisha Mendoza Unavailable Unavailable [...] on Encounter PREV VISIT, EST, AGE 18-39 [facility], [address] [place], [place], [id number], [place] tel:[phone] [facility] No Information Kelly Raman. [address] [place], [place], [id number], [place]. tel:[phone] OFFICE/OUTPAT IENT VISIT, [facility], [address] [place], [place], [id number], [place] tel:[phone] [facility] No Information Lizeth MILANA Obregon. [address] [place], [place], [id number]. tel:[phone] PREV VISIT, NEW, AGE 18-39 [facility], [address] [place], [place], [id number], [place] tel:[phone] [facility] No Information No Information OFFICE/OUTPAT IENT VISIT, [facility], [address] [place], [place], [id number], [place] tel:[phone] [facility] No Information Sylvia Conn. [address] [place], [place], [id number], [place]. tel:[phone] OFFICE/OUTPAT IENT VISIT, [facility], [address] [place], [place], [id number], [place] tel:[phone] [facility] No Information Sylvia Conn. [address] [place], [place], [id number], [place]. tel:[phone] Family History Family Member Type Diagnosis Age At Onset No Information Payers Payer name Insurance type Covered constitution party ID Authoriza tion(s) No Information Social [...]
--- OUTSIDE RECORDS SUMMARY | 2010-04-10 09:30 | XMS_ITS | Continuity of Care Document ---
Author Organization [facility] Address [address] [place] [address] Phone Care Team Providers Care Gas And Oil Servicer Name Role Phone Danisha Mendoza Unavailable Unavailable [...] on Encounter PREV VISIT, EST, AGE 18-39 [facility], [address] [place], [place], [id number], [place] tel:[phone] [facility] No Information Kelly Raman. [address] [place], [place], [id number], [place]. tel:[phone] OFFICE/OUTPAT IENT VISIT, [facility], [address] [place], [place], [id number], [place] tel:[phone] [facility] No Information Lizeth MILANA Obregon. [address] [place], [place], [id number]. tel:[phone] PREV VISIT, NEW, AGE 18-39 [facility], [address] [place], [place], [id number], [place] tel:[phone] [facility] No Information No Information OFFICE/OUTPAT IENT VISIT, [facility], [address] [place], [place], [id number], [place] tel:[phone] [facility] No Information Sylvia Conn. [address] [place], [place], [id number], [place]. tel:[phone] OFFICE/OUTPAT IENT VISIT, [facility], [address] [place], [place], [id number], [place] tel:[phone] [facility] No Information Sylvia Conn. [address] [place], [place], [id number], [place]. tel:[phone] Family History Family Member Type Diagnosis Age At Onset No Information Payers Payer name Insurance type Covered democrat ID Authoriza tion(s) No Information Social History [...]
--- OUTSIDE RECORDS SUMMARY | 2010-04-10 09:30 | XMS_ITS | Continuity of Care Document ---
Author Organization [facility] Address [address] [place] [address] Phone Care Team Providers Care Compliance Representative Name Role Phone Danisha Mendoza Unavailable Unavailable [...] on Encounter PREV VISIT, EST, AGE 18-39 [facility], [address] [place], [place], [id number], [place] tel:[phone] [facility] No Information Kelly Raman. [address] [place], [place], [id number], [place]. tel:[phone] OFFICE/OUTPAT IENT VISIT, [facility], [address] [place], [place], [id number], [place] tel:[phone] [facility] No Information Lizeth MILANA Obregon. [address] [place], [place], [id number]. tel:[phone] PREV VISIT, NEW, AGE 18-39 [facility], [address] [place], [place], [id number], [place] tel:[phone] [facility] No Information No Information OFFICE/OUTPAT IENT VISIT, [facility], [address] [place], [place], [id number], [place] tel:[phone] [facility] No Information Sylvia Conn. [address] [place], [place], [id number], [place]. tel:[phone] OFFICE/OUTPAT IENT VISIT, [facility], [address] [place], [place], [id number], [place] tel:[phone] [facility] No Information Sylvia Conn. [address] [place], [place], [id number], [place]. tel:[phone] Family History Family Member Type Diagnosis Age [...]
--- OUTSIDE RECORDS SUMMARY | 2010-04-10 09:30 | XMS_ITS | Continuity of Care Document ---
Author Organization [facility] Address [address] [place] [address] Phone Care Team Providers Care Well Service Pump Equipment Operator Name Role Phone Danisha Mendoza Unavailable Unavailable [...] on Encounter PREV VISIT, EST, AGE 18-39 [facility], [address] [place], [place], [id number], [place] tel:[phone] [facility] No Information Kelly Raman. [address] [place], [place], [id number], [place]. tel:[phone] OFFICE/OUTPAT IENT VISIT, [facility], [address] [place], [place], [id number], [place] tel:[phone] [facility] No Information Lizeth MILANA Obregon. [address] [place], [place], [id number]. tel:[phone] PREV VISIT, NEW, AGE 18-39 [facility], [address] [place], [place], [id number], [place] tel:[phone] [facility] No Information No Information OFFICE/OUTPAT IENT VISIT, [facility], [address] [place], [place], [id number], [place] tel:[phone] [facility] No Information Sylvia Conn. [address] [place], [place], [id number], [place]. tel:[phone] OFFICE/OUTPAT IENT VISIT, [facility], [address] [place], [place], [id number], [place] tel:[phone] [facility] No Information Sylvia Conn. [address] [place], [place], [id number], [place]. tel:[phone] Family History Family Member Type Diagnosis Age At Onset No Information Payers Payer name Insurance type Covered alliance party ID Authoriza tion(s) No Information Social [...]
--- OUTSIDE RECORDS SUMMARY | 2010-04-10 09:30 | XMS_ITS | Continuity of Care Document ---
Author Organization [facility] Address [address] [place] [address] Phone Care Team Providers Care Direct Marketing Specialist Name Role Phone Danisha Mendoza Unavailable Unavailable [...] on Encounter PREV VISIT, EST, AGE 18-39 [facility], [address] [place], [place], [id number], [place] tel:[phone] [facility] No Information Kelly Raman. [address] [place], [place], [id number], [place]. tel:[phone] OFFICE/OUTPAT IENT VISIT, [facility], [address] [place], [place], [id number], [place] tel:[phone] [facility] No Information Lizeth MILANA Obregon. [address] [place], [place], [id number]. tel:[phone] PREV VISIT, NEW, AGE 18-39 [facility], [address] [place], [place], [id number], [place] tel:[phone] [facility] No Information No Information OFFICE/OUTPAT IENT VISIT, [facility], [address] [place], [place], [id number], [place] tel:[phone] [facility] No Information Sylvia Conn. [address] [place], [place], [id number], [place]. tel:[phone] OFFICE/OUTPAT IENT VISIT, [facility], [address] [place], [place], [address], [place] tel:[phone] [facility] No Information Sylvia Conn. [address] [place], [place], [id number], [place]. tel:[phone] Family History Family Member Type Diagnosis Age [...]
--- OUTSIDE RECORDS SUMMARY | 2025-09-20 11:30 | XMS_ITS | Encounter Summary ---
Author Organization [facility] Address [address] [place] [address] Care Team Providers Care Medical Front Desk Coordinator Name Role Phone Jonas Asuten Carrillo DO Unavailable [phone] Austen Mcdaniel DO Primary Care Provider [phone] Reason for Visit * ReasonCommentsColposcopy Encounter Details DateTypeDepartmentCare Team (Latest Contact Info)Phdgfehsiil57/18/2025 11:30 AM ESTProcedure Visit [facility] [place] [facility] [address] [place] [id number] Heladio Morris DO [address] [place], [facility] Colposcopy needed after cervical smear; LGSIL of cervix of undetermined significance; Papanicolaou smear of cervix with low risk human papillomavirus (HPV) DNA test positive Social History Tobacco UseTypesPacks/DayYears UsedDateSmoking Tobacco: NeverSmokeless Tobacco: NeverAlcohol UseStandard Drinks/WeekCommentsYes0 (1 standard drink = 0.6 oz pure alcohol)1-2 drinks less than monthly in the past year, Caffeine intake: 1 can of pop per dayAUDIT-CAnswerDate RecordedQ1: How often do you have a drink containing alcohol?Monthly or less09/24/2023Q2: How many drinks containing alcohol do you have on a typical day when you are drinking?1 or Q3: How often do you have six or more drinks on one occasion?Never11/22/2023PHQ-2 AnswerDate RecordedPatient Health Questionnaire-2 Aiaou537 CommentsNoSex and Gender InformationValueDate RecordedSex Assigned at BirthNot on fileLegal EreMgcmis05/15/2023 7:24 PM EDTGender QqtrfuewWjsnej72/15/2023 7:24 PM EDTSexual OrientationNot on filedocumented as of this encounter Last Filed Vital Signs Vital SignReadingTime TakenCommentsBlood Jbwczrjt462/6809/20/2025 12:06 PM EST Pulse--Temperature--Respiratory Rate--Oxygen Saturation--Inhaled Oxygen Concentration--Dxwdfk827 kg (248 lb)09/20/2025 12:06 PM ESTHeight--Body Mass Index42.5710 12:36 PM EDTdocumented in this encounter Progress Notes * Divina Ferrari, NEIDA - 09/20/2025 11:30 AM ESTAssociated Order(s): Colposcopy Post-Procedure Diagnose(s): LGSIL of cervix of undetermined significance Reason for Appointment: Patient ID: Delia Magaña is a 34 y.o. female who presents for Colposcopy Patient presents today for a Colposcopy appointment. MEDICATIONS Current Outpatient Medications Medication Instructions [...] appearance. She is well-developed. Genitourinary: Vulva normal. Cardiovascular: Rate and Rhythm: Normal rate and [...] nursing note reviewed. Exam conducted with a crna present. Vitals: Estimated body mass index is 42.57 kg/m?? as calculated from the following: Height as of 08/08/25: 5' 4 . Weight as of this encounter: 248 lb. BP: 108/68 No LMP recorded. ASSESSMENT & PLAN Encounter Diagnosis: ICD-10-CM 1. Colposcopy needed after cervical smear R87.619 POCT , urine manually resulted Colposcopy 2. LGSIL of cervix of undetermined significance R87.612 3. Papanicolaou smear of cervix with low risk human papillomavirus (HPV) DNA test positive R87.820 Colposcopy Date/Time: 09/20/2025 12:16 PM Performed by: Heladio Morris DO Authorized by: Heladio Morris DO Procedure location: cervix and vagina Consent: Patient questions answered: yes Risks and benefits of the procedure and its alternatives discussed: yes Procedural risks discussed: Bleeding and infection Consent obtained: Written Consent given by: Patient Indication: Cervical indication(s): cervical LSIL Other indication(s): clinical abnormality Pre-procedure: Speculum was placed in the vagina: yes Prep solution(s): acetic acid Procedure: Colposcopy with: endocervical curettage Cervix visibility: fully visualized Post-procedure: Patient tolerance of procedure: Patient tolerated the procedure well with no immediate complications Instructions and paperwork completed: yes Educational handouts given: no Comments: Colposcopy: Patient is doing well and has no complaints. Pap results have been reviewed with the patient in great detail and patient voiced understanding. Patient presents today for a Colposcopy with ECC. Patient was placed in dorsal lithotomy position with feet in stirrups, a sterile speculum was placed into the vagina and the cervix was visualized. Cervix was cleansed with vinegar. Postprocedural instructions given. All if patients questions answered and she expressed understanding. Advised to call in interim with questions or concerns. Follow Up: Patient is to return in 6 months for Repeat Pap. Assessment/Plan Documented by Divina Ferrari LPN on behalf of: Heladio Morris DO documented in this encounter Plan of Treatment DateTypeDepartmentCare Team (Latest Contact Info)Vaiqzzeivjb91/21/2026 8:30 AM ESTClinical Support [facility] [address] [place] [address] [place] [address] 03/20/2026 11:20 AM EDTProcedure Visit NOM[facility] [address] [place] [phone] Heladio Morris, DO [address] [place] [address] 08/31/2026 11:00 AM EDTProcedure Visit HILARY HERRERA [address] [place] [phone] Heladio Morris, DO [address] [place] [address] NameTypePriorityAssociated DiagnosesOrder ScheduleColposcopyProceduresRoutine Colposcopy needed after cervical smear Expected: 09/20/2025 (Approximate), Expires: 09/20/2026documented as of this encounter Procedures Procedure NamePriorityDate/TimeAssociated DiagnosisCommentsPR COLPOSCOPY CERVIX ENDOCERVICAL KCLIEMGQBOrbcdaz04/18/2025 12:16 PM EST LGSIL of cervix of undetermined significance POCT , LBGANNuuirym60/18/2025 12:16 PM EST Colposcopy needed after cervical smear documented in this encounter Results * SC COLPOSCOPY CERVIX ENDOCERVICAL CURETTAGE (09/20/2025 12:16 PM EST) Divina Hemphill LPN - 09/20/2025 12:16 PM EST Divina Ferrari LPN 09/20/2025 1:59 PM Colposcopy Date/Time: 09/20/2025 12:16 PM Performed by: Heladio Morris DO Authorized by: Heladio Morris DO ?? Procedure location: cervix and vagina ?? Consent: ??Patient questions answered: yes ?Risks and benefits of the procedure and its alternatives discussed: yes ?Procedural risks discussed: ??Bleeding and infection ??Consent obtained: ??Written ??Consent given by: ??Patient Indication: ??Cervical indication(s): cervical LSIL ?Other indication(s): clinical abnormality ?? Pre-procedure: ??Speculum was placed in the vagina: yes ?Prep solution(s): acetic acid ?? Procedure: ??Colposcopy with: endocervical curettage ?Cervix visibility: fully visualized ?? Post-procedure: ??Patient tolerance of procedure: ??Patient tolerated the procedure well with no immediate complications ??Instructions and paperwork completed: yes ?Educational handouts given: no ?? Comments: ?? Colposcopy: Patient is doing well and has no complaints. Pap results have been reviewed with the patient in great detail and patient voiced understanding. Patient presents today for a Colposcopy with ECC. Patient was placed in dorsal lithotomy position with feet in stirrups, a sterile speculum was placed into the vagina and the cervix was visualized. Cervix was cleansed with vinegar. Postprocedural instructions given. All if patients questions answered and she expressed understanding. Advised to call in interim with questions or concerns. Follow Up: Patient is to return in 6 months for Repeat Pap. Authorizing ProviderResult TypeResult StatusCorey Alexandra [facility]/B[facility]IDE ORDERABLESFinal Result * POCT , urine manually resulted (09/20/2025 12:16 PM EST)Component ValueRef RangeTest MethodAnalysis TimePerformed AtPathologist SignaturePreg Test, UrNegativeNegativeSpecimen (Source)Anatomical Location / Laterality Collection Method / VolumeCollection TimeReceived IjmuOggfj82/18/2025 12:16 PM EST Narrative Authorizing ProviderResult TypeResult StatusCorey Alexandra DOPOINT OF CARE TEST ENTER/EDIT ORDERABLESFinal Result documented in this encounter Visit Diagnoses Diagnosis Colposcopy needed after cervical smear LGSIL of cervix of undetermined significance Papanicolaou smear of cervix with low risk human papillomavirus (HPV) DNA test positive documented in this encounter Care Teams Team MemberRelationshipSpecialtyStart DateEnd Date Austen Mcdaniel DO [address] [place] [address] SAUD - Dennise [facility]02/01/21 Austen Mcdaniel DO [address] [place] [address] PCP - GeneralFamily Medicine06/07/24documented as of this encounter
--- OUTSIDE RECORDS SUMMARY | 2025-09-21 19:29 | XMS_ITS | Continuity of Care Document ---
Author Organization [facility] Address [address] [place] [address] Phone Care Team Providers Care Foreign Student Adviser Name Role Phone Heladio Morris DO Attending Provider [phone] Care Teams Patient Care Team Team Status: Inactive Member Role/Relationship Status Dates Heladio Morris DO Attending Provider Active Start : September 20, 2025 End: September 20, 2025 Allergies, Adverse Reactions, Alerts Allergen Type Severity Reaction Last Updated Verified Status No Known Allergies Allergy Unknown April 24, 2023 8:29amYesActive Social History Smoking Status Status Start Date End Date Date of Observa tion Never smoked tobacco (finding) April 24, 2023 9:46am Observation Status Observation Response Date of Response Legal Sex Female (finding) Sex Assigned At BirthFemaleFebary 1990 Family History Relationship Condition Age at Onset Recorded Date/T josie sister Malignant neoplasm of colon Unknown sisterLupusUnknownsisterMalignant neoplasm of thyroid glandUnknownfather Alzheimer's diseaseUnknownfatherDeceasedUnknownfamily memberDeceasedUnknown Medications Medication Status Dose Units Route Directions Qty Days Refills S tart Date Stop Date End Date Reason(s) Instructions Adherence Cetirizine 10 mg tablet Active 10 MG PO Daily April 23, 2023 11:00pmUnknownFluticasone Propionate 50 mcg/actuation spray,acrekezlleVfeivg7ATRJYOQBUPZKJSXMwuohVszg 2022 11:00pmUnknown Advance Directives Advance Directive Response Recorded Date/ Time Advance Directives No March 20 8 1:59pm Insurance Providers Guarantor Nalini Luna Address [address] [facility] [address] Info.Home Phone: Payer Group Member ID Coverage Type Subscriber Relationship to Subscriber Effective Date Expiration Date Dennise JAQUEZ Id: [id number] Miller , M Id: [id number] [address] [facility] [address] Home Phone: Email: Declined [id number] Medicaid [id number] Miller , M Id: [id number] [address] [facility] [address] Home Phone: Email: Declined [id number] Encounters Encounter Location(s) Arrival/Admit Date Discharge/Departure Date Discharge/Departure Disposition Provider(s) Departed Referred -Lab [facility] September 20, 2025 12:30pm September 20, 2025 12:31pm Discharged to home care or self care (routine discharge) Heladio Morris
--- OUTSIDE RECORDS SUMMARY | 2025-09-22 15:28 | XMS_ITS | Clinical Summary ---
Author Organization [facility] Address [facility] [id number] [place] [address] Care Team Providers Care Photographic Equipment Mechanic Name Role Phone Unavailable Primary Care Provider Unavailabl e Social History Tobacco UseTypesPacks/DayYears UsedDateSmoking Tobacco: Never AssessedChildcare AnswerDate UsgnqekaAwqhofeyvNngolvy84/12/2019EmploymentAnswerDate Recorded BvpuuoeifaEqrcffo23/12/2019CommentsUnknownSex and Gender Information ValueDate RecordedSex Assigned at BirthNot on fileLegal LnzJuvvby06/06/2015 12:09 PM EDTGender IdentityNot on fileSexual OrientationNot on file Plan of Treatment Not on file Medical Devices Not on file
--- OUTSIDE RECORDS SUMMARY | 2025-09-22 15:28 | XMS_ITS | Clinical Summary ---
Author Organization [facility] Address [address] [place] [address] Care Team Providers Care Fiberglass Product Tester Name Role Phone Austen Mcdaniel DO Unavailable [phone] Austen Mcdaniel DO Primary Care Provider [phone] Allergies No known active allergies Medications MedicationSigDispense QuantityRefillsLast FilledStart DateEnd DateStatus cetirizine (ZyrTEC) 10 MG tablet Indications:Allergic rhinitis due to other allergic trigger, unspecified seasonalityTake 1 tablet (10 mg) by mouth Daily 30 tablet 5Active ibuprofen 800 MG tablet Indications:Thrombophlebitis of superficial veins of left lower extremityTake 1 tablet (800 mg) by mouth 3 (three) times a day as needed for mild pain 90 tablet 5Active phentermine (Adipex-P) 37.5 MG tablet Indications:Obesity without serious comorbidity, unspecified class, unspecified obesity typeTake 1 tablet (37.5 mg) by mouth in the morning. Take before meals. 30 tablet 5Active fluticasone (Flonase) 50 MCG/ACT nasal spray Indications:Viral upper respiratory infectionAdminister 1-2 sprays into each nostril Daily Shake gently. Before first use, prime pump. After use, clean tip and replace cap 16 g 5Active Active Problems ProblemNoted DateDiagnosed DateMenorrhagia with regular cycle4Pelvic pain in pvpzxi274PCOS (polycystic ovarian syndrome)07/15/2024 Assessment & Plan (06/27/2025 3:14 PM EDT): Labs ordered today, will follow up when results available Orders: CBC and differential; Future Comprehensive metabolic panel; Future Insulin unowsqrvzr88/12/2024Well woman exam with routine gynecological exam 4Allergic ozvijjht32/18/2024Mixed anxiety and depressive disorder 05/20/2024 Assessment & Plan (04/28/2025 12:26 PM EDT): Problem is stable, will continue with current treatment plan. Call or return to clinic if any changes occur, will restart wellbutrin as feels it was helpful Orders: buPROPion SR (Wellbutrin SR) 150 MG 12 hr tablet; Take 1 tablet (150 mg) by mouth Daily Do not crush, chew, or split. Primary jezucirx10/18/2024Varicose veins of both lower wofwtpucuxr21/18/2024 Assessment & Plan (04/28/2025 12:26 PM EDT): Did rec compression stockings as pt on her feet alot Edema05/20/2024 Assessment & Plan (04/28/2025 12:26 PM EDT): Patient advised to return if symptoms worsen and/or persist despite treatment. Encounters DateTypeDepartmentCare KgcqYhhlnmacfsc58/18/2025 11:30 AM ESTProcedure Visit [facility] H[facility] [address] [place], [place] [address] [address] Heladio Morris, Colposcopy needed after cervical smear; LGSIL of cervix of undetermined significance; Papanicolaou smear of cervix with low risk human papillomavirus (HPV) DNA test ivzpqynt35/03/2025[place] [address] Sapphire Adams LPN 08/31/2025[place] [address] Sapphire Adams LPN Error (VOID this visit)08/22/2025 1:40 PM EDTOffice Visit [facility] [address] [place] [address] Heladio Morris, DO Well woman exam with routine gynecological exam; Pain of both mbvnzmi03linisync Result Encounter [facility] External Department Unsolicited Heladio Morris, DO 08/22/2025amboo flowsheet [facility] [address] [place] [phone] Heladio Morris, DO 08/08/2025 12:40 PM EDTOffice Visit [facility] [address] [place] [phone] Austen Mcdaniel, Obesity without serious comorbidity, unspecified class, unspecified obesity type; Viral upper respiratory decwjhcxj93/06/2025amboo flowsheet [facility] [address] [place] [address] Austen Mcdaniel, 08/08/20256742Hoyvja76/29/2025Telephone [facility] [address] [place] [address] Austen Mcdaniel, Achowrs1306/27/2025 1:20 PM EDTOffice Visit [facility] [address] [place] [address] Austen Mcdaniel DO PCOS (polycystic ovarian syndrome) (Primary Dx); Obesity without serious comorbidity, unspecified class, unspecified obesity type; Diarrhea of presumed infectious origin; Bright red blood per rectum; Lower abdominal pain06/27/2025amboo flowsheet [facility] [address] [place] [phone] Austen Mcdaniel, DO 06/27/2025Travelfrom Last 3 Months Immunizations ImmunizationAdministration DatesNext DueInfluenza, seasonal, injectable, preservative free08/22/2022Tdap04/17/2018 Family History Medical HistoryRelationNameCommentsNo Known ProblemsFatherThyroid cancerMaternal GrandfatherHypertensionMaternal GrandmotherNo Known ProblemsMotherColon cancer SiblingHeart diseaseSiblingThyroid cancerSiblingColon cancerSister 1Thyroid cancerSister 2Breast cancerSister 3pre-existing cellsLupusSister 4MelanomaSister 5RelationNameStatusCommentsFatherMaternal GrandfatherMaternal GrandmotherMother Sibling6, brothers, 8 sistersSister 1DeceasedSister 2Sister 3Sister 4Sister 5 Social History Tobacco UseTypesPacks/DayYears UsedDateSmoking Tobacco: NeverSmokeless Tobacco: Never Tobacco Cessation:Counseling Given: Yes Alcohol UseStandard Drinks/WeekCommentsYes0 (1 standard drink = 0.6 [...] have six or more drinks on one occasion?Never09/24/2023HQ-2 AnswerDate RecordedPatient Health Questionnaire-2 Wifzi964 CommentsNoSex and Gender InformationValueDate RecordedSex Assigned at BirthNot on fileLegal OpxCumpwf27/15/2023 7:24 PM EDTGender WzomfyzeTgbnyd63/15/2023 7:24 PM EDTSexual OrientationNot on file Last Filed Vital Signs Vital SignReadingTime TakenCommentsBlood Jrtykxdr110/6809/20/2025 12:06 PM EST Gvgra582008/08/2025 12:36 PM SZVHyhspwvcsqq40.1 ??C (96.9 ??F)08/08/2025 12:36 PM EDTRespiratory Rate--Oxygen Gxxqniqsse31%08/08/2025 12:36 PM EDTInhaled Oxygen Concentration--Grcnev273 kg (248 lb)09/20/2025 12:06 PM JEXPqptho397.6 cm (5' 4 )08/08/2025 12:36 PM EDTBody Mass Index42.5708/08/2025 12:36 PM EDT Plan of Treatment DateTypeDepartmentCare Team (Latest Contact Info)Gcxrsfmyfpq13/21/2026 8:30 AM ESTClinical Support HILARY HERRERA [address] [place] [address] [place] [address] 03/20/2026 11:20 AM EDTProcedure Visit NOMMarky HERRERA [address] [place] [address] [place] [address] Heladio Morris, DO [address] [place] [address] [place] [address] 08/31/2026 11:00 AM EDTProcedure Visit HILARY HERRERA [address] [place] [address] [place] [address] Heladio Morris, DO [address] [place] [address] [place] [address] Health MaintenanceDue DateLast DoneCommentsCOVID-19 Vaccine ( season) 509/06/2021Influenza Vaccine (#1)/2Pap Smear /, 4Cervical Cancer Jwhsscuwf42/12/2029HPV/Cotest /, 01/04/2020Pneumococcal Vaccine: Pediatrics (0 to 5 Years) and At-Risk Patients (6 to 64 Years)Aged OutNo longer eligible based on patient's age to complete this topic Procedures Procedure NamePriorityDate/TimeAssociated DiagnosisCommentsPR COLPOSCOPY CERVIX ENDOCERVICAL PFUJZDKHONwqblwz27/18/2025 12:16 PM EST LGSIL of cervix of undetermined significance POCT , XAAFMGydqcxs09/18/2025 12:16 PM EST Colposcopy needed after cervical smear IGP,APTIMA HPV,AGE QCTOAnzglgj27/20/2025 2:07 PM EDT PAP TEST, BBODQVDAOcmgxmb66/20/2025 12:00 AM JPTQJNZSQBixbiae19/26/2025 12:13 PM EDT YGYIXWKgumzfa36/26/2025 12:13 PM EDT OCCULT BLOOD X 1, DNJNCRgmpqul48/26/2025 12:13 PM EDT QZNXBNFfkilmb48/26/2025 12:13 PM EDT MGXGYDUltjjfc65/26/2025 12:13 PM EDT COMPREHENSIVE METABOLIC LTVIINqiljkh26/26/2025 12:13 PM EDT Obesity without serious comorbidity, unspecified class, unspecified obesity type PCOS (polycystic ovarian syndrome) Lower abdominal pain CBC (INCLUDES DIFF/PLT)Rxybarz9106/28/2025 12:13 PM EDT Obesity without serious comorbidity, unspecified class, unspecified obesity type PCOS (polycystic ovarian syndrome) Lower abdominal pain FECAL LEUKOCYTE TZMZOFojusbn54/26/2025 12:13 PM EDT OVA AND PARASITES, CONC AND PERM UMRKFMlpsjtw48/26/2025 12:13 PM EDT CLOSTRIDIUM DIFFICILE HURRAMwtvyzd36/26/2025 12:13 PM EDT Diarrhea of presumed infectious origin Bright red blood per rectum STOOL FUPJWVZSmgmmjs57/26/2025 12:13 PM EDT Diarrhea of presumed infectious origin Bright red blood per rectum THINPREP PAP AND HPV MRNA E6/E7 W/RFL HPV 16,18/56Emfgult12/17/2023 3:31 PM EDT Well woman exam with routine gynecological exam from Last 3 Months or Most Recently Relevant to Health Maintenance Results * NM COLPOSCOPY CERVIX ENDOCERVICAL CURETTAGE (09/20/2025 12:16 PM EST) Divina Hemphill LPN - 09/20/2025 12:16 PM EST Divina NEIDA Ferrari 09/20/2025 1:59 PM Colposcopy Date/Time: 09/20/2025 12:16 [...] / Laterality Collection Method / VolumeCollection TimeReceived DhroPtzkf93/18/2025 12:16 PM EST Narrative Authorizing ProviderResult TypeResult StatusCorey Alexandra DOPOINT OF CARE TEST ENTER/EDIT ORDERABLESFinal Result * (ABNORMAL) IGP,APTIMA HPV,AGE GDLN (08/22/2025 2:07 PM EDT)ComponentValueRef RangeTest MethodAnalysis TimePerformed AtPathologist SignatureAGE GDLN ACOG TESTINGNote.TBHComment: ?? TESTS ? RESULT ??FLAG ??UNITS ?REF RANGE ??LAB ?? Clinician Provided Cytology Information ?? Source.............Cervix;Endocervix ?? No. of containers..01 ThinPrep Vial Age Algo ACOG Courtney... ??30-65 ? 01 ?FLAG LEGEND: ?L-Low Normal,H-High Normal,LL-Alert Low,HH-Alert High <-Panic Low,>-Panic High,A-Abnormal,AA-Critical Abnormal Performed at: 01 =G ?[facility] [address] ?? [address] [place] ??[phone] ?? Leslie Mendez MD, IGP, APTIMA HPV, RFX 16/18,45Note(A).TBHComment: ?? TESTS ? RESULT ??FLAG ??UNITS ?REF RANGE ??LAB DIAGNOSIS: ? [A] ?02 ?? EPITHELIAL CELL ABNORMALITY. ?? LOW GRADE SQUAMOUS INTRAEPITHELIAL LESION (LSIL). Recommendation: ?[A] ?02 ?? Suggest follow up as clinically appropriate. Specimen adequacy: ?02 ?? Satisfactory for evaluation. ??Endocervical and/or squamous metaplastic ?? cells (endocervical component) are present. Performed by: ? 02 ?? Darlene Chun Fleet Administrative Assistant (ASCP) Electronically si... ?02 ?? Candelario Coello MD, Pathologist . ? 02 Pathologist ICD10: ?02 ?? R87.612 Note: ? Note ?02 ?? The Pap smear is a screening test designed to aid in the ?? detection of premalignant and malignant conditions of the ?? uterine cervix. ??It is not a diagnostic procedure and ?? should not be used as the sole means of detecting cervical ?? cancer. ??Both false-positive and false-negative reports do ?? occur. Test Methodology: ? Note ?02 ?? This liquid based ThinPrep(R) pap test was interpreted ?? using the Campalyst(R) doxIQ(TM) Cervical Algorithm whole ?? slide imaging system. HPV Genotype Reflex ?? Note ?02 ?? Criteria not met, HPV Genotype not performed. ?FLAG LEGEND: ?L-Low Normal,H-High Normal,LL-Alert Low,HH-Alert High <-Panic Low,>-Panic High,A-Abnormal,AA-Critical Abnormal Performed at: 02 WB ?[facility] ?? [address] [place], [place] ??[phone] ?? Leslie Mendez MD, HPV APTIMAPositive(A)NegativeTBHComment: This nucleic acid amplification test detects fourteen high- risk HPV types (16,18,31,33,35,39,45,51,52,56,58,59,66,68) without differentiation. Performed at: ??=G - [facility] [address] ??[id number] [employer] Buyer: Leslie Mendez MD, Phone: ??[phone] Performed at: ?? - [facility] ??[id number] [employer] Buyer: Leslie Mendez MD, Phone: ??[phone] Specimen (Source)Anatomical Location / LateralityCollection Method / Volume Collection TimeReceived Time08/22/2025 2:07 PM EDT1 8:44 PM EDT Narrative [facility] - 08/29/2025 3:08 PM EDT BRUSH-SPATULA CERVIX ENDOCERVIX Authorizing ProviderResult TypeResult StatusCorey Alexandra DOLAB BLOOD ORDERABLES Final ResultPerforming OrganizationAddressCity/State/ZIP CodePhone Number [facility] * (ABNORMAL) PAP TEST, EXTERNAL (08/22/2025 12:00 AM EDT) Narrative Authorizing ProviderResult TypeResult StatusFazio Nurse [facility] ObLAB CYTOLOGY ORDERABLESFinal ResultPerforming OrganizationAddressCity/State/ZIP CodePhone Number EXTERNAL LAB * (ABNORMAL) RESULT (06/28/2025 12:13 PM EDT)ComponentValueRef RangeTest Method Analysis TimePerformed AtPathologist SignatureRESULT 1Comment(A)[facility] Comment:Few white blood cells.Specimen (Source)Anatomical Location / LateralityCollection Method / VolumeCollection TimeReceived Time06/28/2025 12:13 PM EDT06/28/2025 Narrative [facility] - 07/04/2025 5:06 PM EDT Performed at: 01 - [facility] ??[id number] [employer] Buyer: Hayder Alanis PhD, Phone: ??[phone] Authorizing ProviderResult TypeResult StatusAusten BRUMFIELDAB BLOOD ORDERABLESFinal ResultPerforming OrganizationAddSurgical [facility] Hlthty/State/ZIP CodePhone Number [facility] * RESULT (06/28/2025 12:13 PM EDT)ComponentValueRef RangeTest MethodAnalysis TimePerformed AtPathologist SignatureRESULT 1CommentLABCORPComment: No ova, cysts, or parasites seen. One negative specimen does not rule out the possibility of a parasitic infection. Specimen (Source)Anatomical Location / LateralityCollection Method / Volume Collection TimeReceived Time06/28/2025 12:13 PM EDT06/28/2025 Narrative [facility] - 07/04/2025 5:06 PM EDT Performed at: [address] [place] [address] ??[id number] [employer] Buyer: Hayder Alanis PhD, Phone: ??[phone] Authorizing ProviderResult TypeResult StatusAusten BRUMFIELDAB BLOOD ORDERABLESFinal ResultPerforming OrganizationAddLE[facility] HospitalPhone Number [facility] * RESULT (06/28/2025 12:13 PM EDT)ComponentValueRef RangeTest MethodAnalysis TimePerformed AtPathologist SignatureRESULT 1CommentLABCORPComment:No Campylobacter species isolated.Specimen (Source)Anatomical Location / LateralityCollection Method / VolumeCollection TimeReceived Time06/28/2025 12:13 PM EDT06/28/2025 Narrative [facility] - 07/04/2025 5:06 PM EDT Performed at: [address] [place] [address] ??[id number] [employer] Buyer: Hayder Alanis PhD, Phone: ??[phone] Authorizing ProviderResult TypeResult StatusAusten Mcdaniel DOLAB BLOOD ORDERABLESFinal ResultPerforming OrganizationAddSurgical Specialty [facility] Hlthty/State/ZIP CodePhone Number [facility] * RESULT (06/28/2025 12:13 PM EDT)ComponentValueRef RangeTest MethodAnalysis TimePerformed AtPathologist SignatureRESULT 1CommentLABCORPComment:No Salmonella or Shigella recovered.Specimen (Source)Anatomical Location / LateralityCollection Method / VolumeCollection TimeReceived Time06/28/2025 12:13 PM EDT06/28/2025 [facility] - 07/04/2025 5:06 PM EDT Performed at: [address] [place] [address] ??[id number] [employer] Buyer: Hayder Alanis PhD, Phone: ??[phone] Authorizing ProviderResult TypeResult StatusGeorge Lornea Mcdaniel DOLAB BLOOD ORDERABLESFinal ResultPerforming OrganizationAddressCity/State/ZIP CodePhone Number [facility] * (ABNORMAL) Occult blood x 1, stool (06/28/2025 12:13 PM EDT)ComponentValueRef RangeTest MethodAnalysis TimePerformed AtPathologist SignatureOCCULT BLOOD, FECAL, IAPositive(A)NegativeLABCORPSpecimen (Source)Anatomical Location / LateralityCollection Method / VolumeCollection TimeReceived Time06/28/2025 12:13 PM EDT5Comment:[facility]- [id number] [facility] - 07/04/2025 5:06 PM EDT Performed at: [address] [place] [address] ??[id number] [employer] Buyer: Hayder Alanis PhD, Phone: ??[phone] Authorizing ProviderResult TypeResult StatusGeorcelio Mcdaniel DOLAB BODY FLUIDS AND STOOLS ORDERABLESFinal ResultPerforming OrganizationAddressty/[facility] CodePhone Number [facility] * Ova and parasite examination (06/28/2025 12:13 PM EDT)ComponentValueRef Range Test MethodAnalysis TimePerformed AtPathologist SignatureOVA AND PARASITEFinal reportLABCORPComment: These results were obtained using wet preparation(s) and trichrome stained smear. This test does not include testing for Cryptosporidium parvum, Cyclospora, or Microsporidia. Specimen (Source)Anatomical Location / LateralityCollection Method / Volume Collection TimeReceived Time06/28/2025 12:13 PM EDT5Comment:[facility]- [phone] [facility] - 07/04/2025 5:06 PM EDT Performed at: 01 - [facility] [address], [place], [place] ??[id number] [employer] Buyer: Hayder Alanis PhD, Phone: ??[phone] Authorizing ProviderResult TypeResult StatusGeorcelio Lorena Gillilandzain DOLAB MICROBIOLOGY - GENERAL ORDERABLESFinal ResultPerforming OrganizationAddressCity/State/ZIP Code Phone Number [facility] * (ABNORMAL) CBC and differential (06/28/2025 12:13 PM EDT)ComponentValueRef RangeTest MethodAnalysis TimePerformed AtPathologist SignatureWBC6.63.4 - 10.8 x10E3/uLLABCORPRBC4.343.77 - 5.28 x10E6/uHQPRGPKAEio46.711.1 - 15.9 g/dL VAHSMSFRxv14.834.0 - 46.6 %KSRTYYYQBB7643 - 97 gGWZHKGKTOAH79.326.6 - 33.0 pg LHPNVMKTESP07.731.5 - 35.7 g/nWVEBLSQAHZP01.411.7 - 15.4 %VQJJTTFDqunrndsg795 150 - 450 x10E3/gGQCIYVEYNglzhcwfvbt50Uts Estab. %FLSVOIHObzleb69Vcw Estab. % CTSNIMRQynlgljmo8Rsa Estab. %XPGHJGKEka1Ghz Estab. %RDHYMMLBlsrj8Gvh Estab. % [facility]ABCORPNeutrophils Abs3.71.4 - 7.0 x10E3/uLLABCORPLymphs Abs1.90.7 - 3.1 x10E3/uLLABCORPMonocytesAbs0.40.1 - 0.9 x10E3/uLLABCORPEos Abs0.6(H)0.0 - 0.4 x10E3/uLLABCORPBaso Abs0.10.0 - 0.2 x10E3/uLLABCORPImmature Cgtxevhmtnhu8Qqe Estab. %[facility]ABC[facility]PImmature Grans Abs0.00.0 - 0.1 x10E3/uLLABCORPSpecimen (Source) Anatomical Location / LateralityCollection Method / VolumeCollection Time Received TimeBloodVenous blood specimen / Bhgnkwu3406/28/2025 12:13 PM EDT 06/28/2025 Narrative [facility] - 07/04/2025 5:06 PM EDT Performed at: 01 - [address] ??[id number] [employer] Buyer: Hayder Alanis PhD, Phone: ??[phone] Authorizing ProviderResult TypeResult StatusGeorcelio Mcdaniel DOLAB BLOOD ORDERABLESFinal ResultPerforming OrganizationAddressty/State/[facility] HospitalPhone Number [facility] * (ABNORMAL) Fecal leukocytes (06/28/2025 12:13 PM EDT)ComponentValueRef Range Test MethodAnalysis TimePerformed AtPathologist SignatureWBCFinal report(A) None SeenLABCORPSpecimen (Source)Anatomical Location / LateralityCollection Method / VolumeCollection TimeReceived Time06/28/2025 12:13 PM EDT06/28/2025 Comment:ST SINGH [id number] Narrative [facility] - 07/04/2025 5:06 PM EDT Performed at: 01 - [address] ??[id number] [employer] Buyer: Hayder Alanis PhD, Phone: ??[phone] Authorizing ProviderResult TypeResult StatusGeorcelio Lorena Mcdaniel DOLAB MICROBIOLOGY - GENERAL ORDERABLESFinal ResultPerforming OrganizationAddressty/State/[facility] Code Phone Number [facility] * (ABNORMAL) Clostridium difficile toxin (06/28/2025 12:13 PM EDT)ComponentValue Ref RangeTest MethodAnalysis TimePerformed AtPathologist SignatureC DIFFICILE, CYTOTOXIN BComment(A)[facility]PComment: Positive Cytotoxin detected. ?Reference Range: Negative Specimen (Source)Anatomical Location / LateralityCollection Method / Volume Collection TimeReceived TimeStoolRectal contents / Jynlzaq7206/28/2025 12:13 PM EDT06/28/2025omment:ST VERA- [id number] Narrative [facility] - 07/04/2025 5:06 PM EDT Performed at: 01 - [address] ??[id number] [employer] Buyer: Hayder Alanis PhD, Phone: ??[phone] Authorizing ProviderResult TypeResult StatusAusten Mcdaniel [facility] MICROBIOLOGY - GENERAL ORDERABLESFinal ResultPerforming OrganizationAddLE[facility] Code Phone Number [facility] * Stool culture (06/28/2025 12:13 PM EDT)ComponentValueRef RangeTest Method Analysis TimePerformed AtPathologist SignatureSALMONELLA/SHIGELLA SCREENFinal reportLABCORPCAMPYLOBACTER CULTUREFinal reportLABCORPE COLI SHIGELLA TOXIN EIA NegativeNegativeLABCORPSpecimen (Source)Anatomical Location / Laterality Collection Method / VolumeCollection TimeReceived TimeStoolRectal contents / Fmhddyi7906/28/2025 12:13 PM EDT06/28/2025omment:ST CD- [id number] Narrative [facility] - 07/04/2025 5:06 PM EDT Performed at: [address] ??[id number] [employer] Buyer: Hayder Alanis PhD, Phone: ??[phone] Authorizing ProviderResult TypeResult StatusGejone Mcdaniel [facility] MICROBIOLOGY - GENERAL ORDERABLESFinal ResultPerforming OrganizationAddSurgical Specialty Hospital-[facility] Hlthty/[facility] Code Phone Number [facility] * (ABNORMAL) Comprehensive metabolic panel (06/28/2025 12:13 PM EDT)Component ValueRef RangeTest MethodAnalysis TimePerformed AtPathologist SignatureGlucose 7770 - 99 mg/fFOIBFPVBDUR15 - 20 mg/dLLABCORPCreat0.740.57 - 1.00 mg/dLLABCORP XSZQ199>59 mL/min/1.73LABC[facility]PBUN/Creat Ratio8(L)9 - 13WUHNQAPAyqdtq999191 - 144 mmol/[facility]PPotassium3.83.5 - 5.2 mmol/ILYLRHLLNfkklozd03026 - 106 mmol/L [facility]PCarbon Htehxgs8918 - 29 mmol/[facility]ABCORPCalcium8.88.7 - 10.2 mg/dLLABC[facility]P Protein Total6.66.0 - 8.5 g/dLLABCORPAlbumin4.03.9 - 4.9 g/dLLABCORPGlobulin Total2.61.5 - 4.5 g/dLLABCORPBili Total0.50.0 - 1.2 mg/dLLABCORPAlk Agnasowjako8117 - 121 IU/[facility]ABC[facility]PComment: Effective July 18, 2025 Alkaline Phosphatase ??reference interval will be changing to: ? Age ?Male ?Female ?0 - ??5 days ? 47 - 127 ? 47 - 127 ?6 - 10 days ? 29 - 242 ? 29 - 242 ? 11 - 20 days ?109 - 357 ?109 - 357 ? 21 - 30 days ? 94 - 494 ? 94 - 494 ?1 - ??2 months ?149 - 539 ?149 - 539 ?3 - ??6 months ?131 - 452 ?131 - 452 ?7 - 11 months ?117 - 401 ?117 - 401 ??12 months - ??6 years ? 158 - 369 ?158 - 369 ?7 - 12 years ? 150 - 409 ?150 - 409 ?13 years ? 156 - 435 ? 78 - 227 ?14 years ? 114 - 375 ? 64 - 161 ?15 years ?88 - 279 ? 56 - 134 ?16 years ?74 - 207 ? 51 - 121 ?17 years ?63 - 161 ? 47 - 113 ? 18 - 20 years ?51 - 125 ? 42 - 106 ? 21 - 50 years ?47 - 123 ? 41 - 116 ? 51 - 80 years ?49 - 135 ? 51 - 125 >80 years 48 - 129 48 - 129 BHC188 - 40 IU/PXNCFMDXVCV459 - 32 IU/[facility]PSpecimen (Source)Anatomical Location / LateralityCollection Method / VolumeCollection TimeReceived TimeBlood Venous blood specimen / Nmpckyc7206/28/2025 12:13 PM EDT06/28/2025 Narrative [facility] - 07/04/2025 5:06 PM EDT Performed at: - [address] ??[id number] [employer] Buyer: Hayder Alanis PhD, Phone: ??[phone] Authorizing ProviderResult TypeResult StatusGejone Mcdaniel DOLAB BLOOD ORDERABLESFinal ResultPerforming OrganizationAddressCity/State/ZIP CodePhone Number [facility] * THINPREP PAP AND HPV MRNA E6/E7 W/RFL HPV 16,18/45 (08/19/2023 3:31 PM EDT) Narrative Authorizing ProviderResult TypeResult StatusCorey Alexandra DOLAB BLOOD ORDERABLES Final ResultPerforming OrganizationAddressCity/State/ZIP CodePhone Number EXTERNAL LAB from Last 3 Months or Most Recently Relevant to Health Maintenance Insurance Care Teams Team MemberRelationshipSpecialtyStart DateEnd Date Austen Mcdaniel DO [address] [place] [address] [facility] Austen Mcdaniel DO [address] [place] [address] PCP - [facility]06/07/24
--- OUTSIDE RECORDS SUMMARY | 2025-09-22 15:31 | XMS_ITS | CCD ---
Author Organization [facility] CliniSyvt Care Team Providers Care Materials Coordinator Name Role Phone HELADIO MORRIS Admitting Unavailable HELADIO MORRIS Attending Unavailable Arely MCDANIEL Primary Care Unavailable GURPREET CALVO V Consulting Unavailable HELADIO MORRIS Consulting Unavailable ALIYAH MORRISY Admitting Unavailable HELADIO MORRIS Attending Unavailable HELADIO MORRSI Consulting Unavailable GERMAIN ALEXIS Consulting Unavailable Arely MCDANIEL Consulting Unavailable DO Gregg Mcdaniel Primary Care Provider [phone] MD Laine Marx Attending Provider Gregg Mcdaniel [...] MCDANIEL Attending Unavailable BRITT MCDANIEL Attending Unavailable MARY LOU POE Attending Unavailable MARY LOU POE Attending Unavailable BRITT MCDANIEL Attending Unavailable BRITT MCDANIEL Attending Unavailable BRITT MCDANIEL Attending Unavailable BRITT MDCANIEL Attending Unavailable HELADIO MORRIS Attending Unavailable Medications Current Medications MedicationDrug Class(es)DatesSig (Normalized)Sig (Original)cefdinir 300 mg oral capsule (2 sources)Cephalosporin AntibacterialStart: 05-31-2025 End: 86-99-9463owxh 1 capsule by mouth in the morningcefdinir (Omnicef) 300 MG capsule Indications: Cellulitis of left upper extremity Take 1 capsule (300 mg) by mouth in the morning and 1 capsule (300 mg) before bedtime. Do all this for 10 days. 20 capsule 05/31/2025 06/10/2025 Activecetirizine hydrochloride 10 mg oral tablet (20 sources)Histamine-1 Receptor AntagonistStart: 05-20-2024 End: 98-85-8853vpxv 1 tablet by mouth once dailycetirizine (ZyrTEC) 10 MG tablet Indications: Allergic rhinitis due to other allergic trigger, unspecified seasonality Take 1 tablet (10 mg) by mouth Daily 30 tablet 11 03/02/2025 Active Start: 26-02-6573wnhk 10 mg by mouth once dailyCetirizine Active 10 MG PO Daily April 24, 2023 12:00amcyclobenzaprine hydrochloride 10 mg oral tablet (3 sources)Muscle RelaxantStart: 01-11-2025 End: 44-65-9582vpmh 1 tablet by mouth three times daily as needed for muscle spasmscyclobenzaprine (Flexeril) 10 MG tablet Indications: Dysuria , Left flank pain Take 1 tablet (10 mg) by mouth 3 (three) times a day as needed for muscle spasms for up to 10 days 30 tablet 01/11/2025 02/21/2025 Xxwzcjotysxh78 hr dextromethorphan hydrobromide 60 mg / guaiFENesin 1200 mg extended release oral tablet (20 sources)Uncompetitive K-cgjwij-G-aspartate Receptor Antagonist, Sigma-1 AgonistStart: 45-30-7666xwqmiwcysbjfpyqr-guaiFENesin (MUCINEX DM MAX STRENGTH) 60-1200 MG 12 hr tablet Indications: Viral upper respiratory infection Take 1 tablet by mouth every 12 (twelve) hours if needed (BID) 20 tablet 12/27/2024 ActiveStart: 27-07-0694tvoabhlhmrmfowuu-guaiFENesin (MUCINEX DM MAX STRENGTH) 60-1200 MG 12 hr tablet Indications: Viral upper respiratory infection Take 1 tablet by mouth every 12 (twelve) hours if needed (BID) 20 tablet 12/27/2024 ActiveStart: 07-12-2024 End: 82-74-5773hgepjkipruewvhdb-guaiFENesin (MUCINEX DM MAX STRENGTH) 60-1200 MG 12 hr tablet Indications: Viral upper respiratory infection Take 1 tablet by mouth every 12 (twelve) hours if needed (BID) 20 tablet 07/12/2024 12/27/2024 Discontinuedfluticasone propionate 0.05 mg/actuat metered dose nasal spray (20 sources)CorticosteroidStart: 12-27-2024 End: 78-18-7258ouwy 1-2 spray(s) nasal route once dailyfluticasone (Flonase) 50 MCG/ACT nasal spray Indications: Viral upper respiratory infection Administer 1- 2 sprays into each nostril Daily Shake gently. Before first use, prime pump. After use, clean tip and replace cap 16 g 3 08/08/2025 ActiveStart: 05-20-2024 End: 52-02-3932wsyj 2 spray(s) nasal route once dailyfluticasone (Flonase) 50 MCG/ACT nasal spray Indications: Allergic rhinitis due to other allergic tr igger, unspecified seasonality Administer 2 sprays into each nostril Daily Shake gently. Before first use, prime pump. After use, clean tip and replace cap. 16 g 11 05/20/2024 12/27/2024 DiscontinuedStart: 62-03-6060Bcrsrrgyegu Propionate Active 1 SPRAY INTRANASAL Daily April 24, 2023 12:00amibuprofen 800 mg oral tablet (20 sources)Nonsteroidal Anti-inflammatory DrugStart: 10-04-2024 End: 16-09-7425xbtr 1 tablet by mouth three times daily as needed for pain ibuprofen 800 MG tablet Indications: Thrombophlebitis of superficial veins of left lower extremity Take 1 tablet (800 mg) by mouth 3 (three) times a day as needed for mild pain 90 tablet 05/31/2025 ActiveStart: 06-07-2024 End: 59-44-6701gwsp 1 tablet by mouth in the morning, then take 1 tablet by mouth in the evening, then take 1 tablet by mouth at bedtimeibuprofen 800 MG tablet Indications: Thrombophlebitis of superficial veins of left lower extremity Take 1 tablet (800 mg) by mouth in the morning and 1 tablet (800 mg) in the evening and 1 tablet (800 mg) before bedtime. 90 tablet 06/07/2024 07/15/2024 Itceomcqnscg11 hr metFORMIN hydrochloride 500 mg extended release oral tablet (20 sources)BiguanideStart: 08-19-2024 End: 32-31-7662ctna 2 tablets by mouth every twenty-four hours at mealtime metFORMIN XR (Glucophage-XR) 500 MG 24 hr tablet Indications: Encounter for weight management Take 2 tablets (1,000 mg) by mouth in the evening. Take with meals Do not crush, chew, or split. 60 tablet 11 08/19/2024 ActiveStart: 07-15-2024 End: 52-01-6706boob 1 tablet by mouth every twenty-four hours at mealtime metFORMIN XR (Glucophage-XR) 500 MG 24 hr tablet Indications: Insulin resistance , PCOS (polycysticovarian syndrome) Take 1 tablet (500 mg) by mouth in the evening. Take with meals Do not crush, chew, or split. 30 tablet 11 07/15/2024 10/14/2024 DiscontinuedmetroNIDAZOLE 500 mg oral tablet (3 sources)Nitroimidazole AntimicrobialStart: 02-23-2025 End: 75-20-9620arer 1 tablet by mouth in the morningmetroNIDAZOLE (Flagyl) 500 MG tablet Indications: BV (bacterial vaginosis) Take 1 tablet (500 mg) by mouth in the morning and 1 tablet (500 mg) before bedtime. Do all this for 7 days. Do not drink alcohol while taking this medication. 14 tablet 02/23/2025 03/02/2025 Activenitrofurantoin, macrocrystals 25 mg / nitrofurantoin, monohydrate 75 mg oral capsule (3 sources)Nitrofuran AntibacterialStart: 01-10-2025 End: 11-29-7170xwro 1 capsule by mouth in the morningnitrofurantoin, macrocrystal-monohydrate, (Macrobid) 100 MG capsule Take 100 mg by mouth in the morning and 100 mg before bedtime. 01/10/2025 02/21/2025 Discontinuedphentermine hydrochloride 37.5 mg oral tablet (20 sources)Sympathomimetic Amine AnorecticStart: 03-02-2025 End: 20-83-0476wjrp 1 tablet by mouth before mealtimephentermine (Adipex-P) 37.5 MG tablet Indications: Obesity without serious comorbidity, unspecifiedclass, unspecified obesity type Take 1 tablet (37.5 mg) by mouth in the morning. Take before meals.30 tablet 08/08/2025 09/07/2025 ActiveStart: 08-19-2024 End: 73-06-2336zkjo 1 tablet by mouth before mealtimephentermine (Adipex-P) 37.5 MG tablet Indications: Encounter for weight management Take 1 tablet (37.5 mg) by mouth in the morning. Take before meals. 30 tablet 10/14/2024 02/21/2025 Discontinued Completed/Discontinued Medications MedicationDrug Class(es)DatesSig (Normalized)Sig (Original)12 hr buPROPion hydrochloride 150 mg extended release oral tablet (13 sources)AminoketoneStart: 04-04-2025 End: 10-38-1691qpqw 1 tablet by mouth once dailybuPROPion SR (Wellbutrin SR) 150 MG 12 hr tablet Indications: Mixed anxiety and depressive disorderTake 1 tablet (150 mg) by mouth Daily Do not crush, chew, or split. 04/28/2025 06/27/2025 Discontinuedramelteon 8 mg oral tablet (6 sources)Melatonin Receptor AgonistStart: 05-20-2024 End: 72-57-7959hjah 1 tablet by mouth at bedtimeramelteon (Rozerem) 8 MG tablet Indications: Primary insomnia Take 1 tablet (8 mg) by mouth at bedtime 30 tablet 11 05/20/2024 07/15/2024 Discontinued Problems Active Problems Problem ClassificationProblemDateDocumented DateEpisodic/Chronic Administrative/social admission (5 sources)Patient encounter status; Translations: [Persons encountering health services in other specified circumstances]42-47-6538GvcyzzptUijvksq disorders (20 sources)Mixed anxiety and depressive disorder; Translations: [Other specified anxiety disorders]Onset: 657829-60-5580CifwltmNxeuspmeprhrizlz hemorrhage (4 sources)Gastrointestinal hemorrhage; Translations: [Hemorrhage of anus and rectum]53-57-5323HppvmuwpPgbcqhqutsmol and screening for infectious disease (4 sources)Exposure to sexually transmissible disorder; Translations: [Contact with and (suspected) exposure to infections with a predominantly sexual mode of transmission]63-07-5713ZsxtdanlAalsmklorl infection (4 sources)Diarrhea of presumed infectious origin; Translations: [Diarrhea, unspecified]78-28-4761PjrmigihXwogwfxea disorders (20 sources)Menorrhagia; Translations: [Excessive and frequent menstruation with regular cycle]Onset: 086833-58-4364TkaewkcZqqzdnaszduwt mental health disorders (20 sources)Primary insomnia; Translations: [Primary insomnia]Onset: 05-20-2024 59-13-3490DvogsqkDmpzrkmayhao breast conditions (2 sources)Mastodynia of bilateral breasts; Translations: [Mastodynia]08-22-2025 EpisodicOther endocrine disorders (4 sources)Polycystic ovarian syndrome; Translations: [POLYCYSTIC OVARIAN SYNDROME]Onset: 08-61-3604JlbxtdzWzkuq endocrine disorders (20 sources)Polycystic ovary syndrome; Translations: [Polycystic ovarian syndrome]Onset: 044795-21-0673NowrootFvmma female genital disorders (2 sources)Vaginal discharge; Translations: [Other specified noninflammatory disorders of vagina]20-67-2735TxtrmjhqUdotg lower respiratory disease (2 sources)Cough; Translations: [Acute cough]49-33-4405AojqueqeMruyx nutritional; endocrine; and metabolic disorders (20 sources)Insulin resistance; Translations: [Insulin resistance]Onset: 978833-17-3592QmntbhsYyjdw nutritional; endocrine; and metabolic disorders (12 sources)Obesity; Translations: [Obesity, unspecified]63-88-1357PcikrhkWmtfk upper respiratory disease (20 sources)Allergic rhinitis; Translations: [Allergic rhinitis, unspecified] Onset: 035149-92-9495TiwonkuUrrtf upper respiratory infections (10 sources)Viral upper respiratory tract infection; Translations: [Acute upper respiratory infection, unspecified]55-25-8827GyhwteuqTcqgzmm cyst (4 sources)Unspecified ovarian cyst, unspecified side; Translations: [UNSPECIFIED OVARIAN CYST UNSP SIDE]Onset: 99-54-6238Psravaobg; thrombophlebitis and thromboembolism (7 sources)Thrombophlebitis of superficial vein of left lower limb; Translations: [Phlebitis and thrombophlebitis of superficial vessels of left lower extremity]56-33-5325IlzzrgglSuysbfhuj by nonmedicinal substances (2 sources)Bee sting; Translations: [Toxic effect of venom of bees, undetermined, initial encounter]50-60-1222FoglngioSxeg and subcutaneous tissue infections (2 sources)Cellulitis of left upper limb; Translations: [Cellulitis of left upper limb]40-91-0220TlxibgsqAlxcyphqudhj (1 source)Encounter for screening for malignant neoplasm of colon; Translations: [Encounter for screening formalignant neoplasm of colon]Onset: 04-24-2023 Past or Other Problems Problem ClassificationProblemDateDocumented DateEpisodic/ChronicAbdominal pain (20 sources)Pain in female pelvis; Translations: [Pelvic and perineal pain] Onset: 172161-87-4081GluwjaglArxcxnqj codes; unclassified (20 sources)Edema; Translations: [Edema, unspecified]Onset: EpisodicVaricose veins of lower extremity (20 sources)Varicose veins of bilateral lower limbs; Translations: [Asymptomatic varicose veins of bilateral lower extremities]Onset: Episodic Results Test NameValueInterpretationReference RangeFacilityIGP,APTIMA HPV,AGE GDLNon 02-37-6295TWH GDLN ACOG TESTINGNote.NOMS HealthcareComment on above:TESTS RESULT FLAG UNITS REF RANGE LAB Clinician Provided Cytology Information Source.............Cervix;Endocervix No. of containers..01 ThinPrep Vial Age Algo ACOG Courtney... 28 FLAG LEGEND: L-Low Normal,H-High Normal,LL-Alert Low,HH-Alert High <-Panic Low,>-Panic High,A-Abnormal,AA-Critical Abnormal Performed at: 01 =[address] [phone] Leslie Mendez MD, HPV APTIMAPositiveAbnormalNegativeNOMS HealthcareComment on above:This nucleic acid amplification test detects fourteen high- risk HPV types (16,18,31,33,35,39,45,51,52,56,58,59,66,68) without differentiation. Performed at: =[address] [id number] Business Professor: Leslie Mendez MD, Phone: [phone] Performed at: [address] [id number] Business Professor: Leslie Mendez MD, Phone: [phone] IGP, APTIMA HPV, RFX 16/18,45NoteAbnormal.NOMS HealthcareComment on above:TESTS RESULT FLAG UNITS REF RANGE LAB DIAGNOSIS: [A] 02 EPITHELIAL CELL ABNORMALITY. LOW GRADE SQUAMOUS INTRAEPITHELIAL LESION (LSIL). Recommendation: [A] 02 Suggest follow up as clinically appropriate. Specimen adequacy: 02 Satisfactory for evaluation. Endocervical and/or squamous metaplastic cells (endocervical component) are present. Performed by: 02 Darlene Chun, Dry Mill Worker (ASCP) Electronically si... Candelario Coello MD, Pathologist . 02 Pathologist ICD10: 02 R87.612 Note: Note 02 The Pap smear is a screening test designed to aid in the detection of premalignant and malignant conditions of the uterine cervix. It is not a diagnostic procedure and should not be used as the sole means of detecting cervical cancer. Both false-positive and false-negative reports do occur. Test Methodology: Note 02 This liquid based ThinPrep(R) pap test was interpreted using the [employer](R) Job App Plus(TM) Cervical Algorithm whole slide imaging system. HPV Genotype Reflex Note 02 Criteria not met, HPV Genotype not performed. FLAG LEGEND: L-Low Normal,H-High Normal,LL-Alert Low,HH-Alert High <-Panic Low,>-Panic High,A-Abnormal,AA-Critical Abnormal Performed at: [address] [phone] Leslie Mendez MD, Interpretation and review of laboratory resultsAbnormalNOFreeman Cancer Institute BRUSH-SPATULA CERVIX ENDOCERVIX CLINISYNCNOAZ HealthcareCoding Summaryon 25-42-6936Cfzuba SummaryMLBase 64 VaamutusNKh6qCu+PGhlYWQ+RH4DXRDoN71ghAZldE3sR0VVPOjNOmhbSSVRRTaGDcWkhnFuYR9hkSJv ZXJu [file] bGF (more content not included)...[facility] CampusRECURRENT VAGINITIS (HTRX)on 27-12-6714DFAAFIXWI IWAJDBO37.55AbnormalNOMS HealthcareATOPOBIUM VAGINAEDetectedAbnormalNOMS HealthcareBVAB 2,3 (BACTERIAL VAGINOSIS ASSOCIATED BACTERIA 2, 3); MOBILUNCUS SPP12.878AbnormalNOMS HealthcareBVAB 2,3 (BACTERIAL VAGINOSIS ASSOCIATED BACTERIA 2, 3); MOBILUNCUS SPPDetectedAbnormalNOMS HealthcareCANDIDA ALBICANS, PARAPSILOSIS, YTGHLVNPOU3LCSN HealthcareCANDIDA ALBICANS, PARAPSILOSIS, TROPICALISNot detectedNOMS HealthcareCANDIDA GLABRATA0 NOMS HealthcareCANDIDA GLABRATANot detectedNOMS HealthcareCANDIDA ZFJTDI3BANX HealthcareCANDIDA KRUSEINot detectedNOMS HealthcareCHLAMYDIA SWEUMNCZTSE4LZPO HealthcareCHLAMYDIA TRACHOMATISNot detectedNOMS HealthcareERMB, C; MEFA25.09 AbnormalNOMS HealthcareERMB, C; MEFADetectedAbnormalNOMS HealthcareGARDNERELLA CCCEOYWAB09.402AbnormalNOMS HealthcareGARDNERELLA VAGINALISDetectedAbnormalNOMS HealthcareHERPES SIMPLEX VIRUS 10NOMS HealthcareHERPES SIMPLEX VIRUS 1Not detectedNOMS HealthcareHERPES SIMPLEX VIRUS 20NOMS HealthcareHERPES SIMPLEX VIRUS 2Not detectedNOMS HealthcareInterpretation and review of laboratory resultsAbnormalNOAZ HealthcareMEGASPHAERA (TYPES 1, 2)0[facility] Healthcare MEGASPHAERA (TYPES 1, 2)Not detectedNOMS HealthcareMYCOPLASMA ECCUQBAWVS8YCVX HealthcareMYCOPLASMA GENITALIUMNot detectedNOMS HealthcareNEISSERIA GONORRHOEAE0 NOMS HealthcareNEISSERIA GONORRHOEAENot detectedNOMS HealthcareTET B, TET M 18.723AbnormalNOMS HealthcareTET B, TET MDetectedAbnormalNOAZ Healthcare TRICHOMONAS DYZQLFTDS1UUSE HealthcareTRICHOMONAS VAGINALISNot detectedNOMS HealthcareNOMS HealthcareHCG ( test) Ql (U)on 88-57-5474Szgftlahcvlupp and review of laboratory resultsNormalNOAZ HealthcarePreg Test, UrNegative NegativeNOAZ HealthcareNOAZ HealthcareUrinalysis macro (dipstick) panel (U)on 20-94-0315Trbzpohul, UANegativeNegative - 4(70) +++ mg/dLNOMS HealthcareBlood, UAPositiveNegative - 50 Chucky/mcLNOMS HealthcareComment on above:trace-intact Clarity, UAClearNOMS HealthcareColor, UAYellowNOMS HealthcareGlucose, UANegative Negative - 1999(110) ++++ mg/dLNOMS HealthcareInterpretation and review of laboratory resultsAbnormalNOAZ HealthcareKetones, UANegativeNegative - 160(16) ++++ mg/dLNOMS HealthcareLeukocytes, UATraceNegative - 500+++ Sriram/mcLNOMS HealthcareNitrite, UANegativeNegative - PositiveNOMS HealthcarepH, UA5.55 - 9 NOMS HealthcareProtein, UANegativeNegative - 2000(20) ++++ mg/dLNOMS Healthcare Spec Grav, UA1.0251 - 1.03NOMS HealthcareUrobilinogen, UA0.20.2 - 12 mg/dLNOMS HealthcareNOMS HealthcareCoding Summaryon 11-00-2088Ivedrs SummaryHTMLBase 64 IrkjeihuFYp1hPb+PGhlYWQ+MG1JSXXiB74jsICdxS8eQ8ZTGVhRWkimUIICSVoJEdKkkrRwKG8pfFBw ZXJu [file] bGF (more content not included)...[facility] ABDOMEN PELVIS WO IV CONTRASTon 19-26-9357QA ABDOMEN PELVIS WO IV CONTRASTHISTORY: Left flank pain. Hematuria. History of kidney stones and lithotripsy. TECHNIQUE: Non-IV contrast imaging of the abdomen and pelvis was performed using standard technique, scanning from just above the dome of the diaphragm to the symphysis pubis. Unenhanced imaging is limited for the evaluation of some intra- abdominal and pelvic pathology. All CT scans at [...] evidence for diverticulitis. Lymph Nodes: No lymphadenopathy. Mesentery/peritoneum/retroperitoneum: No ascites or mass. Vasculature: No abdominal aortic or iliac artery aneurysm. Pelvis: No significant free fluid. Bladder unremarkable. Uterus grossly unremarkable. Bones/Soft Tissues: No acute osseous findings. Lower thorax: Unremarkable. IMPRESSION: No hydronephrosis or nephrolithiasis, or other acute process in the abdomen/pelvis. ELECTRONICALLY SIGNED BY: Obi Rod AvailableUrgent Care Note- Provideron 87-96-8749Uyhjgr Care Note- ProviderCalled patient, identified by last name and date of . We discussed her urine culture results and gonorrhea chlamydia testing which were negative. Patient has been on Macrobid since initial visitand has been taking as directed with improvement [...] Signed on: 01/14/2025 08:47 EDT] Ray Cooper CNP MANAGER INVESTIGATIONS-C [Verified on: 01/14/2025 08:47 EDT] Ray Cooper CNP MANAGER INVESTIGATIONS-[facility] Urineon 01-12-2025 UrineUrine Culture ordered as a result of parameters set on specific urine dip and urine microsopic results. Mixed skin, or urogenital dylon. Clinically insignificantNoBethesda North Hospital Comment on above:Performed By: #### [id number], [id number], [id number] #### [facility] (DEFAULT) [address] [place] [address]Lbnphrzph/GC Amplification LCon 23-06-8849Odxhryseq trachomatis, BEATRIZ LCNegativeInvalid Interpretation [facility] HollisNegZanesville City Hospital Comment on above:Performed By: #### [id number], [id number] #### [facility] (DEFAULT) [address] [place] [address] 44298Auxltxiri gonorrhoeae, BEATRIZ LCNegativeInvalid Interpretation [facility] – HollisNegativeMagruder HospitalComment on above:Result Comment: Performed At: =[facility] [id number] Andrea Negro MD Ph:[phone] By: #### [id number], [id number] #### [facility] (DEFAULT) [address] [place] [address] 20773Byrlvfuwlubyf Testing LCon 50-42-1903Avne. Test Result LC COMMENTInvalid Interpretation CodeRegional Medical Center HospitalComment on above:Result Comment: Test Ordered: [id number] Trich vag by BEATRIZ Trich vag by BEATRIZ Negative =G Reference Range: Negative Performed At: [facility] [id number] Zeke Singletary PhD Ph:[phone] Performed At: =[address] [facility] [id number] Andrea Negro MD Ph:[phone] By: #### [id number] #### [facility] (DEFAULT) [address] [place] [address]Etna. Lab Teston 34-79-6756RazjxkiaekdaoEetm 01/10/25 Invalid Interpretation CodeRegional Medical Center HospitalComment on above:Order Comment: TrichomonasPerformed By: #### [id number], [id number] #### [facility] (DEFAULT) [address] [place] [address]Stbu of TestTrichomonasInvalid Interpretation CodeRegional Medical Center HospitalComment on above:Order Comment: TrichomonasPerformed By: #### [id number], [id number] #### [facility] (DEFAULT) [address] [place] [address]Yporkthsvqllh Testing LCon 63-87-0284Fdxhoppgjvxzt Testing LCTRICHOMONAS VAGINALIS NAAInvalid Interpretation CodeRegional Medical Center HospitalComment on above:Performed By: #### [id number] #### [facility] (DEFAULT) [address] [place] [address] 61212Guuu Code [id number] Interpretation CodeRegional Medical Center HospitalComment on above:Performed By: #### [id number] #### [facility] (DEFAULT) [address] [place] [address] 57549Unaj Name LCTRICHOMONAS VAGINALIS NAAInvalid Interpretation [facility] HospitalComment on above:Performed By: #### [id number] #### [facility] (DEFAULT) [address] [place] [address] 23463Cachirptc Test Urine 1on 01-10-2025U PregNegativeNormal [facility] Medical CenterComment on above:Performed By: #### [id number], [id number] #### [facility] (DEFAULT) [address] [place] [address] 34854F Preg Internal ControlPassNoBethesda North HospitalComment on above:Performed By: #### [id number], [id number] #### [facility] (DEFAULT) [address] [place] [address] 28179IV Jugfb2cg 90-52-2357FF Bacteria1+[facility] Comment on above:Order Comment: Urinalysis Microscopic order added on by [employer] Expert Rules system.Performed By: #### [id number], [id number] #### [facility] (DEFAULT) [address] [place] [address] 713[address]DD RBC3-5NoBethesda North HospitalComment on above:Order Comment: Urinalysis Microscopic order added on by [employer] Expert Rules system. Performed By: #### [id number], [id number] #### [facility] (DEFAULT) [address] [place] [address] 75051XB Squam EpiFewNormMartin Memorial HospitalComment on above: Order Comment: Urinalysis Microscopic order added on by [employer] Expert Rules system.Performed By: #### [id number], [id number], [id number] #### [facility] (DEFAULT) [address] [place] [address] 24519RN FZO44-82AgxbtwAqxiaocu HospitalComment on above:Order Comment: Urinalysis Microscopic order added on by [employer] Expert Rules system. Performed By: #### [id number], [id number], [id number] #### [facility] (DEFAULT) [address] [place] [address] 96783LM w Culture if Ind Standardon 91-42-9664Rfimhktobz UA NormalRegional Medical Center HospitalComment on above:Performed By: #### [id number], [id number], [id number] #### [facility] (DEFAULT) [address] [place] [address] 57011Oqvio (U)YellowNormHocking Valley Community Hospital HospitalComment on above: Performed By: #### [id number], [id number], [id number] #### [facility] (DEFAULT) [address] [place] [address] 68926Jgwgslz?IndicatedInvalid Interpretation CodeRegional Medical Center HospitalComment on above:Result Comment: Result created by rule GL_MAGR_ADD_UA_CULT Result created by rule GL_MAGR_ADD_UA_CULT Result created by rule GL_MAGR_ADD_UA_CULTPerformed By: #### [id number], [id number], [id number] #### [facility] (DEFAULT) [address] [place] [address]681Xievmpw (U) [Mass/Vol]NegativeTrinity Health System East Campus Comment on above:Performed By: #### [id number], [id number], [id number] #### [facility] (DEFAULT) [address] [place] [address]Irpataz Ql (U)NegativeNormHocking Valley Community Hospital HospitalComment on above:Performed By: #### [id number], [id number], [id number] #### [facility] (DEFAULT) [address] [place] [place] [address] 05821Xklms?IndicatedInvalid Interpretation CodeRegional Medical Center HospitalComment on above:Result Comment: Result created by rule GL_MAGR_ADD_UA_MICROPerformed By: #### [id number], [id number], [id number] #### [facility] (DEFAULT) [address] [place] [address] [id number] BilirubinNegativeNoSumma Health HospitalComment on above:Performed By: #### [id number], [id number], [id number] #### [facility] (DEFAULT) [address] [place] [address] [id number] BloodMODERATEAbnormalNEGATIVERegional Medical Center HospitalComment on above:Performed By: #### [id number], [id number], [id number] #### [facility] (DEFAULT) [address] [place] [address] [id number] ClaritySL CLOUDYAbnormalCLEARMagrmiddletown hospital HospitalComment on above:Performed By: #### [id number], [id number], [id number] #### [facility] (DEFAULT) [address] [place] [address] [id number] Leuk EstSMALLAbnormalNEGATIVERegional Medical Center HospitalComment on above:Performed By: #### [id number], [id number], [id number] #### [facility] (DEFAULT) [address] [place] [address] [id number] NitriteNegativeNormalNEGATIVEMapromedica memorial hospital HospitalComment on above:Performed By: #### [id number], [id number], [id number] #### [facility] (DEFAULT) [address] [place] [address] 93112CW pH6.9Ikxenl4-4Puxunwxz HospitalComment on above: Performed By: #### [id number], [id number], [id number] #### [facility] (DEFAULT) [address] [place] [address] 78987KN ProteinNegativeNormalNEGATIVEMapromedica memorial hospital HospitalComment on above:Performed By: #### [id number], [id number], [id number] #### [facility] (DEFAULT) [address] [place] [address] 93069PO Spec Grav>=1.388Flritv9.001-1.035Mapromedica memorial hospital Hospital Comment on above:Performed By: #### [id number], [id number], [id number] #### [facility] (DEFAULT) [address] [place] [address] [id number] Urobilinogen0.2 mg/dLNormal0.2-1.0[facility] Comment on above:Performed By: #### [id number], [id number], [id number] #### [facility] (DEFAULT) [address], [place] [address]Piimq SourceClean CatchTrinity Health System East CampusComment on above:Performed By: #### [id number], [id number], [id number] #### [facility] (DEFAULT) [address], [place] [address]Yzgfoivwcw - Microbiology and Antimicrobial susceptibility on 12-27-2024S. pyogenes Ag Ql (Throat)NegativeNegative, None DetectedNOMS UtxriyytlbZYCZ-TdY-7 (COVID-19) RNA BEATRIZ+probe Ql (Unsp spec)NegativeNOMS HealthcareNo Panel Informationon 94-07-1309Waikttlbfzphqg and review of laboratory resultsNormalNOMS HealthcareNOMS HealthcareFLU ANegativeNOMS HealthcareFLU BNegativeNOMS HealthcareInterpretation and review of laboratory resultsNormalNOAZ HealthcareNOMS HealthcareIGP,APTIMA HPV,AGE GDLNon 07-20-2024 AGE GDLN ACOG TESTINGNote.NOMS HealthcareComment on above:TESTS RESULT FLAG UNITS REF RANGE LAB Clinician Provided Cytology Information Source.............Cervix;Endocervix No. of containers..01 ThinPrep Vial Age Algo ACOG Courtney... FLAG LEGEND: L-Low Normal,H-High Normal,LL-Alert Low,HH-Alert High <-Panic Low,>-Panic High,A-Abnormal,AA-Critical Abnormal Performed at: 01 =[address] [place] [address] Leslie Mendez MD, HPV APTIMANegativeNegativeNOMS HealthcareComment on above:This nucleic acid amplification test detects fourteen high- risk HPV types (16,18,31,33,35,39,45,51,52,56,58,59,66,68) without differentiation. Performed at: =[facility] [id number] Business Professor: Leslie Mendez MD, Phone: [phone] Performed at: [address], [place] [id number] Business Professor: Leslie Mendez MD, Phone: [phone] IGP, APTIMA HPV, RFX 16/18,45Note.NOMS HealthcareComment on above:TESTS RESULT FLAG UNITS REF RANGE LAB DIAGNOSIS: 02 NEGATIVE FOR INTRAEPITHELIAL LESION OR MALIGNANCY. CELLULAR CHANGES ASSOCIATED WITH INFLAMMATION ARE PRESENT. Specimen adequacy: 02 Satisfactory for evaluation. Endocervical and/or squamous metaplastic cells (endocervical component) are present. Performed by: Adrian Lance, Metal Control Coordinator (ASCP) . 02 Note: Note 02 The [...] Low,>-Panic High,A-Abnormal,AA-Critical Abnormal Performed at: 02 [facility] [address] [place] [address] Leslie Mendez MD, BRUSH-SPATULA CERVIX ENDOCERVIX CLINISYNCNOFreeman Cancer InstituteHCG ( test) IA.rapid Ql (U)Ordered By: Imvladimir Asaad on 92-93-8869VIV ( test) Ql (U)NegativeMemorial HospitalHCG,Urineon 28-59-1969Fhfe HCG ( test) Ql (U)NegativeNormal Memorial HospitalComment on above:Result Comment: PERFORMED BY: [facility] [address] [place] [address] PATHOLOGIST LATHING SUPERVISOR JERMAINE ZAPATA M.D.Performed By: #### UHCG #### [facility] [address] [place] [address] USAUS PELVIS AND TRANSVAGon [id number] PELVIS AND TRANSVAG Patient: DELIA CHIN Exam Date: 09/16/2019 : 1990 Gender:F Ordering : DR HLEADIO MORRIS . Admission #: [id number] Family : Order #: [id number] CLICK HERE TO VIEW EXAM RADIOLOGY REPORT [...] seen right ovary complex cyst. Dictated by: Germain Alexis M.D. on 09/16/2019 at 13:30 Approved by: Germain Alexis M.D. on 09/16/2019 at 13:32[facility] HospitalUS PELVIS AND TRANSVAGon [id number] PELVIS AND TRANSVAGPatient: DELIA CHIN Exam Date: 07/22/2019 : 1990 Gender:F Ordering : DR HELADIO MORRIS . Admission #: [id number] Family : Order #: [id number] CLICK HERE TO VIEW EXAM RADIOLOGY REPORT [...] hemorrhagic or complex cyst. Dictated by: Gurpreet Calvo M.D. on 07/22/2019 at 11:15 Approved by: Gurpreet Calvo M.D. on 07/22/2019 at 11:16[facility] Vital Signs Date TimeVital SignValuePerforming PhmdrvyusLyffsqbd98-55-0118 14:16-0400Body mass index (BMI) [Ratio]42.36 kg/g2Lgdbd Fazio DO Work Phone: [facility] SpringsEwawxwjbku58-95-3526 14:16-0400Body .95 kgCoremanuel Morris DO Work Phone: NOFreeman Cancer InstituteUghmvfzjej44-23-2264 14:16-0400Diastolic blood thzaumra32 mm[Hg]Heladio Morris DO Work Phone: [facility] SpringsMbulypvafh67-80-9129 14:16-0400Systolic blood mmrxxyok416 mm[Hg]Heladio Morris DO Work Phone: [facility] SpringsLoddjrwetc07-15-3013 12:36-0400Body djmzqu622.6 cmGeorcelio Mcdaniel DO Work Phone: [facility] SpringsIfdcpircqg67-33-1945 12:36-0400Body mass index (BMI) [Ratio]41.2 kg/a7Vregjjcelio Mcdaniel DO Work Phone: [facility] SpringsMtinihrjuy67-42-0838 12:36-0400Body temperature 96.91 [degF]Britt Mcdaniel DO Work Phone: NOFreeman Cancer InstituteFgkhtmqmcu13-34-4954 12:36-0400Body sfasjb598.86 kgGeorcelio Mcdaniel DO Work Phone: NOFreeman Cancer InstituteRlwnhnangi79-08-4391 12:36-0400Diastolic blood tjwzelrm30 mm[Hg]Britt Mcdaniel DO Work Phone: [facility] SpringsIqlapwqeqg01-11-6617 12:36-0400Heart rate85 /min Britt Mcdaniel DO Work Phone: NOFreeman Cancer InstituteCohrjegdmm57-61-2524 12:36-8896TvZ1% (BldA) [Mass fraction]95 %Britt Mcdaniel DO Work Phone: NOFreeman Cancer InstituteEzmkpgvrhn65-19-8710 12:36-0400Systolic blood clarbfyo078 mm[Hg]Britt Mcdaniel DO Work Phone: 1([phone] [place], [place] [address]Kenmeusyji21-25-2424 13:17-0400Body tluljz514.6 cmGeorcelio Mcdaniel DO Work Phone: 1(419)[facility] [place] [address]-25-2025 13:17-0400Body mass index (BMI) [Ratio]41.13 kg/x3Jkteficelio Mcdaniel DO Work Phone: 1(419)[facility] [place], [place] [address]Ffrqtsxasw78-07-4881 13:17-0400Body temperature 97.3 [degF]Britt Mcdaniel DO Work Phone: 1(419)[facility] [place] [address]-25-2025 13:17-0400Body nanvhh352.68 kgGeorcelio Mcdaniel DO Work Phone: 1(419)[facility] [place] [address]-25-2025 13:17-0400Diastolic blood fzscokzb96 mm[Hg]Britt Mcdaniel DO Work Phone: 1(419)[facility] [place], [place] [address]Pqhbxotfsh93-45-6040 13:17-0400Heart rate73 /min Britt Mcdaniel DO Work Phone: 1(419)[facility] [place], [place] [address]Fdlmewllpi33-46-3992 13:17-3811AgN1% (BldA) [Mass fraction]99 %Britt Mcdaniel DO Work Phone: 1(537)[facility] [place], [place] [address]Camtmvhxel95-16-0979 13:17-0400Systolic blood tttgagzs824 mm[Hg]Britt Mcdaniel DO Work Phone: 1(937)[facility] [place], [place] [address]Hadscofooc84-80-5777 14:34-0400Body yoatdn588.6 cmGeorcelio Mcdaniel DO Work Phone: [phone])[address] [place], [place] [address]-29-2025 14:34-0400Body mass index (BMI) [Ratio]41.71 kg/r1Qczxajcelio Mcdaniel DO Work Phone: 1(419)[facility] [place], [place] [address]Vqqoywvsle41-61-2757 14:34-0400Body temperature 96.91 [degF]Britt Mcdaniel DO Work Phone: 1(419)[facility] [place] [address]-29-2025 14:34-0400Body zeyhoj927.22 kgGeorcelio Mcdaniel DO Work Phone: 1(419)[facility] [place] [address]-29-2025 14:34-0400Diastolic blood irzxwjoc83 mm[Hg]Britt Mcdaniel DO Work Phone: NOFreeman Cancer InstituteByuertxgpy06-53-8259 14:34-0400Heart rate65 /min Britt Mcdaniel DO Work Phone: NOFreeman Cancer InstituteNhdmlutpqb98-34-1910 14:34-9755OhZ2% (BldA) [Mass fraction]99 %Britt Mcdaniel DO Work Phone: NOFre[facility] Cancer InstituteCpcsvdvhyi16-78-7593 14:34-0400Systolic blood mm[Hg]Britt Mcdaniel DO Work Phone: NOFreeman Cancer InstituteSkxagotdap27-82-9852 11:17-0400Body .6 cmGeorcelio Mcdaniel DO Work Phone: NOFre[facility] InstituteEtgecloznt86-18-3420 11:17-0400Body mass index (BMI) [Ratio]41.85 kg/p5Vkdxogcelio Mcdaniel DO Work Phone: NOFreeman Cancer InstituteQwrowaxwsi02-55-5709 11:17-0400Body temperature 96.8 [degF]Britt Mcdaniel DO Work Phone: NOFreeman Cancer InstituteCpnzwltffh54-61-6743 11:17-0400Body ntxqeh620.59 kgGejone Mcdaniel DO Work Phone: NOFreeman Cancer InstituteRrwqwyvtbn90-05-4232 11:17-0400Diastolic blood mm[Hg]Britt Mcdaniel DO Work Phone: NOFreeman Cancer InstituteUyullqwlpj66-56-3142 11:17-0400Heart rate86 /min Britt Mcdaniel DO Work Phone: NOFreeman Cancer InstituteRchqtkracb97-33-5736 11:17-4046OuN8% (BldA) [Mass fraction]98 %Britt Mcdaniel DO Work Phone: NOFreeman Cancer InstituteRpzyxuhwvj03-25-6366 11:17-0400Systolic blood rkoqpgwr265 mm[Hg]Britt Mcdaniel DO Work Phone: NOFre[facility] Cancer InstituteEotxwlmyyo85-20-4231 11:24-0400Body .6 cmGejone Mcdaniel DO Work Phone: noFreeman Cancer InstituteQbvaqnozzn62-43-2025 11:24-0400Body mass index (BMI) [Ratio]42.57 kg/v0Pdcqjbjone Mcdaniel DO Work Phone: [facility] SpringsKsusdsdvsu65-32-6895 11:24-0400Body temperature 97.11 [degF]Britt Mcdaniel DO Work Phone: [facility] SpringsXagejttufb56-62-7815 11:24-0400Body .49 kgGeorcelio Mcdaniel DO Work Phone: [phone])608-[address] [place], [place] [address]Ouronuiaxk61-24-4506 11:24-0400Diastolic blood klohwami32 mm[Hg]Britt Mcdaniel DO Work Phone: 1(177)677-[address] [place], [place] [address]Fekjqxnrbo42-87-0803 11:24-0400Heart rate83 /min Britt Mcdaniel DO Work Phone: 1(577)[facility] [place], [place] [address]Rmbxwpueyk44-49-4800 11:24-4079NwM2% (BldA) [Mass fraction]98 %Britt Mcdaniel DO Work Phone: 1(517)399-[address] [place], [place] [address]Oshecywlid82-82-6580 11:24-0400Systolic blood rezflgfy071 mm[Hg]Britt Mcdaniel DO Work Phone: 1(438)229-[address] [place], [place] [address]Jozhbdhnct70-58-0064 14:35-0400Body mass index (BMI) [Ratio]42.4 kg/l4Renfskjone Mcdaniel DO Work Phone: [facility] SpringsJjhwyhwgab76-33-0032 14:35-0400Body temperature 97.3 [degF]Britt Mcdaniel DO Work Phone: 1(727)613-[address] [place], [place] [address]Zhlzrttdsy06-53-4769 14:35-0400Body .04 kgGejone Mcdaniel DO Work Phone: Bounce ImagingFreeman Cancer InstituteEiztyflaty27-59-8225 14:35-0400Diastolic blood ryhzlcyy92 mm[Hg]Britt Mcdaniel DO Work Phone: 1(941)798-[facility] HospitalBounce ImagingFreeman Cancer InstitutePzdernoycb06-52-9601 14:35-0400Heart rate81 /min Britt Mcdaniel DO Work Phone: [facility] ImagingFreeman Cancer InstituteGvkrqkwget64-20-1271 14:35-6693GdR4% (BldA) [Mass fraction]98 %Britt Mcdaniel DO Work Phone: noFreeman Cancer InstituteKwkxzziasf17-21-5296 14:35-0400Systolic blood xjhwisaz053 mm[Hg]Britt Mcdaniel DO Work Phone: noFreeman Cancer InstituteWqulfkipvk49-84-2996 09:51-0400Body mass index (BMI) [Ratio]42.19 kg/m2Mary Lou Camille PA Work Phone: [facility] SpringsHhlnzyxpdv84-25-2538 09:51-0400Body qjresi627.49 kgAmy Camille PA Work Phone: noFreeman Cancer InstituteTcxepazlma74-59-9061 09:51-0400Diastolic blood zotzobgq62 mm[Hg]Mary Lou Poe PA Work Phone: noFreeman Cancer InstituteCixqohatqq53-10-0402 09:51-0400Systolic blood jipxuwlp387 mm[Hg]Mary Lou Poe PA Work Phone: [facility] SpringsLgweglsivh65-29-1772 10:24-0500Body sijghl913.6 Brown Jimenez PA Work Phone: noFreeman Cancer InstituteTtsrtubsmz12-42-7328 10:24-0500Body mass index (BMI) [Ratio]42.4 kg/m2Washington Jimenez PA Work Phone: noFreeman Cancer InstituteDlrgynmscp70-10-9995 10:24-0500Body ehovmc697.04 kgWashington Jimenez PA Work Phone: noFreeman Cancer InstituteTkqvgptunk36-66-6712 10:24-0500Diastolic blood dkzctujm87 mm[Hg]Washington Jimenez PA Work Phone: noFreeman Cancer InstituteMsfrdjaiop71-82-3698 10:24-0500Heart rate98 /min Washington Jimenez PA Work Phone: noFreeman Cancer InstituteLefwizbkjb33-85-7420 10:24-4173LfQ1% (BldA) [Mass fraction]100 %Washington Jimenez PA Work Phone: noFreeman Cancer InstituteCtsomqthtk85-69-3834 10:24-0500Systolic blood builzkyb633 mm[Hg]Washington Jimenez PA Work Phone: noFreeman Cancer InstituteXnokvthjcd74-77-2774 10:45-0500Body mass index (BMI) [Ratio]41.62 kg/m2Amy Camille PA Work Phone: [facility] SpringsCretbimnvn61-55-0544 10:45-0500Body hoztoi228.45 kgMary Lou Keenaney PA Work Phone: [facility] SpringsPwbnejxlkh93-50-8988 10:45-0500Diastolic blood mukiztqs67 mm[Hg]Mary Lou Poe PA Work Phone: 1(830)851-[address] [place], [place] [address]Rbpwbomtqn10-14-8462 10:45-0500Systolic blood wqgylgrj546 mm[Hg]Mary Lou Poe PA Work Phone: 1(402)727-[address] [place], [place] [address]Ipvedtbwwg68-19-5308 11:27-0500Body mass index (BMI) [Ratio]41.37 kg/m2Amy Camille PA Work Phone: 1(146)850-[address] [place], [place] [address]Vlooiuunvk20-24-5829 11:27-0500Body talnlo496.76 kgMary Lou Poe PA Work Phone: 1(193)775-[address] [place], [place] [address]Xmwijyhtvd79-50-1584 11:27-0500Diastolic blood nzymjxna34 mm[Hg]Mary Lou Poe PA Work Phone: 1(026)378-[address] [place], [place] [address]Hasfevhvnc64-65-0499 11:27-0500Systolic blood pcpfhlay391 mm[Hg]Mary Lou Poe PA Work Phone: 1(227)810-[address] [place], [place] [address]Mbfiobmkzq12-55-4380 11:13-0400Body mass index (BMI) [Ratio]42.1 kg/f2Fpeae Alexandra DO Work Phone: [phone] [place], [place] [address]Ocjcphvogu80-20-1374 11:13-0400Body dvrkqa576.76 kgCorey Alexandra DO Work Phone: 1(807)753-[address] [place], [place] [address]Hvxzvmzorm67-53-8136 11:13-0400Diastolic blood ldyzcasm09 mm[Hg]Heladio Alexandra DO Work Phone: 1(722)792-[address] [place], [place] [address]Gibfwchhbb04-66-8768 11:13-0400Systolic blood vcvzncju395 mm[Hg]Heladio Alexandra DO Work Phone: 1(014)358-[address] [place], [place] [address]Rbmsgrngcq69-06-6748 11:10-0400Body zvduee336.1 cmCorey Alexandra DO Work Phone: [facility] SpringsPdbhhlpapj00-98-6989 11:10-0400Body mass index (BMI) [Ratio]40.44 kg/j1Ilojj Alexandra DO Work Phone: [facility] SpringsGzhcrawcah48-69-7872 11:10-0400Body spuwvt387.22 kgCorey Alexandra DO Work Phone: [facility] SpringsQzjnqqykko88-95-7316 11:10-0400Diastolic blood iwirpdps79 mm[Hg]Heladiomanuel Fullero DO Work Phone: [facility] SpringsMphshgrrpm81-71-7017 11:10-0400Systolic blood dbwrosun294 mm[Hg]Heladio Alexandra DO Work Phone: [facility] SpringsZoxqthqhpj66-87-8367 13:11-0400Body cjzawt068.1 cmRvilma Jimenez PA Work Phone: [facility] SpringsClwkvnylxy40-44-7462 13:11-0400Body mass index (BMI) [Ratio]40.44 kg/m2Ryzain Jimenez PA Work Phone: [facility] SpringsHgzkfkbgde38-32-5329 13:11-0400Body temperature 98.71 [degF]Washington Jimenez PA Work Phone: 1(080)208-[address] [place], [place] [address]Cyiuactvkf75-73-7029 13:11-0400Body dkucsz540.22 kgWashington Jimenez PA Work Phone: [facility] SpringsIatlwfsswu49-68-1157 13:11-0400Diastolic blood dcdbbaay25 mm[Hg]Washington Jimenez PA Work Phone: [place] [address]Ykgabkjjei48-42-6144 13:11-0400Heart rate83 /min Washington Jimenez PA Work Phone: [facility] SpringsMjqenwlzvu40-44-8559 13:11-8196NaE0% (BldA) [Mass fraction]100 %Washington Jimenez PA Work Phone: [facility] SpringsFwotjtxmnh37-62-2949 13:11-0400Systolic blood ctywkvxl090 mm[Hg]Washington Jimenez PA Work Phone: 1(430)850-[address] [place], [place] [address]Apptzabzxw20-79-9473 10:54-0400Diastolic blood mfozjfac14 mm[Hg]DO Gregg Mcdaniel Work Phone: 1(581)[address] [place], [place] 5[address]106-22-2023 10:54-0400 Heart rate65 /Christina Mcdaniel Work Phone: 1(712)[address] [place], [place] 5653106-22-2023 10:54-0400 Respiratory rate16 /CarenO Gregg Mcdaniel Work Phone: 1(548)[address] [place], [place] 5[address]106-22-2023 10:54-0400 SaO2% (BldA) [Mass fraction]99 %DO Gregg Mcdaniel Work Phone: 1(588)[address] [place], [place] 5[address]106-22-2023 10:54-0400 Systolic blood rmfxvvle690 mm[Hg]DO Gregg Mcdaniel Work Phone: 1(393)[address] [place], [place] 5[address]106-22-2023 09:49-0400 Body .56 cmDO Gregg Mcdaniel Work Phone: 1(003)[address] [place], [place] 5653106-22-2023 09:49-0400 Body heyyfsrtfpz62.9 [degF]DO Gregg Mcdaniel Work Phone: 1(014)[address] [place], [place] 5[address]106-22-2023 09:49-0400 Body cuhlxp269.93 kgDO Gregg Mcdaniel Work Phone: 1([phone] [place] [address] Encounters Encounter DateEncounter TypeCare ProviderFacilityStart: 08-22-2025 End: 02-64-0833Nbprhb flowsheetCorey Alexandra DO Work Phone: NOVQ Nicolasa OBGYNStart: 08-22-2025 End: 45-79-2109Wdauwv flowsheetCorey Alexandra DO Work Phone: [facility] [place] OBGYNStart: 08-22-2025 End: 17-60-2913Ukvhkmuhk Result EncounterCorey Alexandra DO Work Phone: NOUP External Department UnsolicitedStart: 08-22-2025 End: 89-58-2868mjuaptiogjJKIDK FAZIONot AvailableStart: 08-22-2025 End: 66-60-8053Nzrezkc encounter procedureCorey Alexandra DO Work Phone: [facility] Work Phone: Start: 08-22-2025 End: 87-27-3942Zwgxupuz preventive med est patient 18-39 yrsCorey Alexandra DO Work Phone: [facility] Nicolasa OBGYNComment on above:Well woman exam with routine gynecological exam; Pain of both breastsStart: 08-08-2025 End: 85-04-3586Ssphpy flowsheetGeorge R Kaftan DO Work Phone: [facility] 230Start: 08-08-2025 End: 66-27-4005Lbjdys flowsheetGeorge R Kaftan DO Work Phone: [facility] 230Start: 08-08-2025 End: 68-03-9482Nndvdu outpatient visit 15 minutesGeorge R Kaftan DO Work Phone: NOTY [facility] 230Comment on above: Obesity without serious comorbidity, unspecified class, unspecified obesity type; Viral upper respiratory infectionStart: 08-08-2025 End: 02-53-2906airfbklialWQPUYJ R KAFTANNot AvailableStart: 07-01-2025 End: 59-52-1488Tebnfocbk encounterGeorge R Kaftan DO Work Phone: [facility] 230Comment on above: ResultsStart: 06-27-2025 End: 84-11-6099Aimxot flowsheetGeorge R Kaftan DO Work Phone: [facility] 230Start: 06-27-2025 End: 39-94-7551Nbxpmt flowsheetGeorge R Kaftan DO Work Phone: [facility] 230Start: 06-27-2025 End: 76-32-4527Ftwaku outpatient visit 15 minutesGeorge R Kaftan DO Work Phone: NOCB [facility] 230Comment on above:PCOS (polycystic ovarian syndrome) (Primary Dx); Obesity without serious comorbidity, unspecified class, unspecified obesity type; Diarrhea of presumed infectious origin; Bright red blood per rectum; Lower abdominal painStart: 06-27-2025 End: 31-45-6898rwttirlqarANEXCO R KAFTANNot AvailableStart: 11-69-4925fhnfmzuydz FREDRICK Simmscility:[facility] Hospitaltart: 05-31-2025 End: 35-78-2093kempbisgtgOHPZJS R KAFTANNot AvailableStart: 05-31-2025 End: 17-06-0594Rontqm outpatient visit 15 minutesGeorge R Kaftan DO Work Phone: [facility] 230Comment on above:Bee sting, undetermined intent, initial encounter (Primary Dx); Obesity without serious comorbidity, unspecified class, unspecified obesity type; Cellulitis of left upper extremity; Thrombophlebitis of superficial veins of left lower extremityStart: 05-31-2025 End: 02-84-2072Rbygjy flowsheetGeorge R Kaftan DO Work Phone: [facility] 230Start: 05-31-2025 End: 79-41-0638Mfxalr flowsheetGeorge R Kaftan DO Work Phone: [facility] 230Start: 04-28-2025 End: 89-67-0959Sdefcy flowsheetGeorge R Kaftan DO Work Phone: [facility] 230Start: 04-28-2025 End: 91-80-4170Wtwfol flowsheetGeorge R Kaftan DO Work Phone: [facility] 230Start: 04-28-2025 End: 34-63-9467nfvvqlqknxLDTVVS R KAFTANNot AvailableStart: 04-28-2025 End: 34-59-9981Qppgpg outpatient visit 15 minutesGeorge R Kaftan DO Work Phone: [facility] 230Comment on above:Edema, unspecified type (Primary Dx); Obesity without serious comorbidity, unspecified class, unspecified obesity type; Thrombophlebitis of superficial veins of left lower extremity; Viral upper respiratory infection; Varicose veins of both lower extremities, unspecified whether complicated; Mixed anxiety and depressive disorderStart: 04-04-2025 End: 95-40-6453Wzjjnw flowsheetGeorge R Kaftan DO Work Phone: [facility] 230Start: 04-04-2025 End: 32-92-6991Yxfflj flowsheetGeorge R Kaftan DO Work Phone: [facility] 230Start: 04-04-2025 End: 23-88-7459xtdnocbqpfOZWVGQ R KAFTANNot AvailableStart: 04-04-2025 End: 01-11-6186Nlocya outpatient visit 15 minutesGeorge R Kaftan DO Work Phone: [facility] 230Comment on above:PCOS (polycystic ovarian syndrome) (Primary Dx); Obesity without serious comorbidity, unspecified class, unspecified obesity type; Mixed anxiety and depressive disorderStart: 03-02-2025 End: 45-66-1033jtqpznwdtkXOUORU R KAFTANNot AvailableStart: 03-02-2025 End: 38-98-0773Pmxnug outpatient visit 15 minutesGeorge R Kaftan DO Work Phone: [facility] 230Comment on above:PCOS (polycystic ovarian syndrome) (Primary Dx); Thrombophlebitis of superficial veins of left lower extremity; Allergic rhinitis due to other allergic trigger, unspecified seasonality; Viral upper respiratory infection; Mixed anxiety and depressive disorder; Obesity without serious comorbidity, unspecified class, unspecified obesity type Start: 03-02-2025 End: 49-83-1323Bbnkgc flowsheetGeorge R Kaftan DO Work Phone: [facility] 230Start: 03-02-2025 End: 31-24-6711Ieystq flowsheetGeorge R Kaftan DO Work Phone: [facility] 230Start: 02-21-2025 End: 09-98-7937Rchbgg Brett VILLEDA Work Phone: NOHT BCP OBStart: 02-21-2025 End: 81-83-3316Fvwqio Brett VILLEDA Work Phone: [facility]oms BCP OBStart: 02-21-2025 End: 65-72-6173Xxdzbjka Result EncounterMary Lou VILLEDA Work Phone: [facility] External Department UnsolicitedStart: 02-21-2025 End: 07-23-3730qtfipkdqpwBYW RAMEYNot AvailableStart: 02-21-2025 End: 55-81-2026Wazozh outpatient visit 15 minutesMary Lou VILLEDA Work Phone: noMS BCP OBComment on above:Exposure to STD; Vaginal discharge; Sexually transmitted disease exposureStart: 01-14-2025 End: 24-53-2115qqgivwezemOKBFOX R KAFTANNot AvailableStart: 01-11-2025 End: 93-75-4605mxdtnscirbKLGOHL R KAFTANNot AvailableStart: 30-91-4586sjkyeddchy BRITT MCDANIELFacility:[facility]Start: 12-27-2024 End: 36-27-1677Oowags Miriam VILLEDA Work Phone: [facility] FM 230Start: 12-27-2024 End: 59-00-2726Xdqmix Miriam VILLEDA Work Phone: [facility] FM 230Start: 12-27-2024 End: 78-52-2899Jgwrza outpatient visit 15 minutesWashington VILLEDA Work Phone: [facility] FM 230Comment on above:Acute cough (Primary Dx); Viral upper respiratory infectionStart: 12-27-2024 End: 15-71-1046xpufuyxhcsMYXH M MYERSNot AvailableStart: 10-14-2024 End: 99-02-8464Usybqd Brett VLILEDA Work Phone: noms BCP OBStart: 10-14-2024 End: 87-01-3493Vvejtq flowsheetMary Lou Poe PA Work Phone: [facility] BCP OBStart: 10-14-2024 End: 83-23-0387Nfbpzj outpatient visit 15 minutesAmy Camille VILLEDA Work Phone: NOMS BCP OBComment on above:Encounter for weight managementStart: 10-14-2024 End: 34-96-0040cqyhmmgzitXDI RAMEYNot AvailableStart: 10-04-2024 End: 79-17-0067WhjzpiAsdtq Alphonse SOFTBALL UMPIRE Work Phone: [facility] S[facility] FM 230Comment on above:Thrombophlebitis of superficial veins of left lower extremityStart: 09-16-2024 End: 87-17-7953Jlkzmh flowsheetMary Lou Poe PA Work Phone: [facility] BCP OBStart: 09-16-2024 End: 57-48-6061Wqoyjv flowsheetMary Lou Poe PA Work Phone: [facility] BCP OBStart: 09-16-2024 End: 53-71-1108vxonppeezpKYP RAMEYNot AvailableStart: 09-16-2024 End: 31-18-4537Zfvjzs outpatient visit 5 minutesAmy Camille VILLEDA Work Phone: NOMS BCP OBComment on above:Encounter for weight managementStart: 08-19-2024 End: 73-43-0024Ycrowz flowsheetCorey Alexandra DO Work Phone: [facility] BCP OBStart: 08-19-2024 End: 39-50-5811Nwsynd flowsheetCorey Alexandra DO Work Phone: [facility] BCP OBStart: 08-19-2024 End: 70-16-0624Cutpng outpatient visit 15 minutesCorey Alexandra DO Work Phone: NOMS BCP OBComment on above:Encounter for weight managementStart: 07-15-2024 End: 07-04-2153Jdonir flowsheetCorey Alexandra DO Work Phone: [facility] BCP OBStart: 07-15-2024 End: 12-32-1978Ryfgxw flowsheetCorey Alexandra DO Work Phone: noms BCP OBStart: 07-15-2024 End: 97-03-5656Qjeubjfbc Result EncounterCorey Alexandra DO Work Phone: noms External Department UnsolicitedStart: 07-15-2024 End: 25-88-9598Dadzzfm encounter procedureCorey Alexandra DO Work Phone: noms HealthcareStart: 07-15-2024 End: 09-42-2457Sqblkujp preventive med est patient 18-39 yrsCorey Alexandra DO Work Phone: noms BCP OBComment on above:Well woman exam with routine gynecological exam; Menorrhagia with regular cycle; Pelvic pain in female; Insulin resistance; PCOS (polycystic ovarian syndrome)Start: 07-12-2024 End: 70-96-1833Yqiayl Miriam VILLEDA Work Phone: [facility] FM 230Start: 07-12-2024 End: 29-40-8725Hqjiut Miriam VILLEDA Work Phone: [facility] 230Start: 07-12-2024 End: 50-80-6061Rpewoz outpatient visit 15 minutesWashington VILLEDA Work Phone: [facility] FM 230Comment on above:Viral upper respiratory infection (Primary Dx)Start: 04-24-2023 End: 16-89-2767tjedkwqwdnI. Robert KaftanFacility:[facility] Hospitaltart: 04-24-2023 End: 76-48-7262Ubxlkrcjz to same day surgery Iam Mcdaniel Work Phone: [facility] Work Phone: Start: 04-24-2023 End: 02-16-8042ttpfevmbcvVB G. Robert Kaftan Work Phone: [facility] Work Phone: Start: 09-16-2019 End: 94-57-7478Xzsgkpp encounter procedureCOREY FAZIOFacility:M4Kpsri: 07-22-2019 End: 66-78-5303Hgiuizx encounter procedureCOREY FAZIOFacility:H1 Procedures DateProcedureProcedure DetailPerforming ClinicianStart: 97-65-5708CTB,APTIMA HPV,AGE GDLNCorey Alexandra DO Work Phone: Start: 73-87-2474MIPXJDZNT VAGINITIS (HTRX)Mary Lou VILLEDA Work Phone: Start: 02-21-2025 End: 85-34-4237Keslv dip stick/tablet rgnt non-auto w/o micrscpAmy Camille VILLEDA Work Phone: Start: 78-54-0900Bvcsolbqh streptococcus group Kvng Nalini VILLEDA Work Phone: Start: 69-71-5139SOSFJZ COVID-19/FLURyan Nalini VILLEDA Work Phone: Start: 32-59-6853RUJ,APTIMA HPV,AGE GDLNCorey Alexandra Ybrain Work Phone: Start: 68-64-7067Usdpdbqcone observation [Identifier] in Cervix by Cyto stainCorey Alexandra DO Work Phone: Start: 04-61-2938GxkpzucutniLP Gregg Mcdaniel Work Phone: Plan of Treatment DateCare ActivityDetailAuthorStart: 25-65-1519Flobegdxw for malignant neoplasm of cervixNOMS HealthcareStart: 10-62-0659Zhzqobvec for malignant neoplasm of cervixNOMS HealthcareStart: 08-31-2026 End: 95-11-9395Mtowsnh encounter /29/2026 11:00 AM EDT Procedure Visit [facility] Nicolasa [facility]ERRERA [address] [facility] [phone] Heladio Morris DO [address] [place], [place] [id number] NOMMarky MOSSNStart: 11-23-2025 End: 02-62-8905Jnquotiy Lkbutgr8611/23/2025 8:30 AM EST Clinical Support [facility] [place] [facility] [address] [place], [id number] [facility] [place] OBGYNStart: 08-22-2025 End: 99-26-5818QD Breast - bilateral DiagnosticBilateral diagnostic mammogram Imaging Routine Pain of both breasts Expected: 08/22/2025 (Approximate), Expires: 10/22/2026[facility] Work Phone: comment on above:Expected: 08/22/2025 (Approximate), Expires: 10/22/2026Start: 08-22-2025 End: 88-37-5895Iawfhpy encounter procedureNOSAN [facility] OBStart: 08-08-2025 End: 76-91-8913Fcqmelu encounter rcbatvjow33/06/2025 12:40 PM EDT Office Visit On license of [facility] [address] [place] [address] Britt Mcdaniel DO [address] [place] [address] [facility] 230Comment on above:ArrivedStart: 07-28-2025 End: 70-74-9858Imgbclr encounter yxjgiscql27/25/2025 11:00 AM EDT Office Visit HILARY LINARES OB [address] [phone] Heladio Morris DO [address] [facility] [place] [address] NOMS BCP OBStart: 23-47-5815Tiuylfrem vaccinationMOUNTAIN POINT MEDICAL [facility]ENTER HealthcareStart: 06-28-2025 End: 69-97-0457BQR W Auto Differential panel - BloodCBC and differential Lab Routine Obesity without serious comorbidity, unspecified class, unspecified obesity type PCOS (polycystic ovarian syndrome) Lower abdominal pain Expected: 06/28/2025 (Approximate), Expires: 07/27/2025[facility] HealthcareComment on above: Expected: 06/28/2025 (Approximate), Expires: 07/27/2025Start: 06-28-2025 End: 94-27-7284Tolktywkyzlelp difficile toxin A+B tcdA+tcdB genes [Presence] in Stool by BEATRIZ with probe detectionClostridium difficile toxin Microbiology Routine Diarrhea of presumed infectious origin Bright red blood per rectum Expected: 06/28/2025 (Approximate), Expires: 07/27/2025[facility] HealthcareComment on above:Expected: 06/28/2025 (Approximate), Expires: 07/27/2025Start: 06-28-2025 End: 85-74-2455Ysxkuiwejzvvc metabolic 2000 panel - Serum or PlasmaComprehensive metabolic panel Lab Routine Obesity without serious comorbidity, unspecified class, unspecified obesity type PCOS (polycystic ovarian syndrome) Lower abdominal pain Expected: 06/28/2025(Approximate), Expires: 07/27/2025[facility] HealthcareComment on above:Expected: 06/28/2025 (Approximate), Expires: 07/27/2025Start: 06-28-2025 End: 64-16-7530Wyaii cultureStool culture Microbiology Routine Diarrhea of presumed infectious origin Bright red blood per rectum Expected: 06/28/2025 (Approximate), Expires: 07/27/2025[facility] Healthcare Work Phone: Comment on above:Expected: 06/28/2025 (Approximate), Expires: 07/27/2025Start: 06-27-2025 End: 32-90-2273LS Abdomen and Pelvis WO contrastCT abdomen pelvis wo IV contrast Imaging Routine Diarrhea of presumed infectious origin Bright red blood per rectum Lower abdominal pain Expected: 06/27/2025, Expires: 06/27/2026[facility] HealthcareComment on above:Expected: 06/27/2025, Expires: 06/27/2026Start: 06-27-2025 End: 57-31-9012Yrgyjdg encounter /25/2025 1:20 PM EDT Office Visit [facility] [address] [place] [address] Britt Mcdaniel, DO [address] [place] [address] ArrivedNOMS Lizarr[facility] 230Comment on above:ArrivedStart: 03-03-2025 End: 38-68-6457XAQ W Auto Differential panel - BloodCBC and differential Lab Routine Thrombophlebitis of superficial veins of left lower extremity Allergic rhinitis due to other allergic trigger, unspecified seasonality Viral upper respiratory infection PCOS (polycystic ovarian syndrome) Mixed anxiety and depressive disorder Obesity without serious comorbidity, unspecified class, unspecified obesity type Expected: 03/03/2025 (Approximate), Expires: 04/01/2025 NOMS HealthcareComment on above:Expected: 03/03/2025 (Approximate), Expires: 04/01/2025Start: 03-03-2025 End: 06-45-3335Gxhhaflcwbtzg metabolic 2000 panel - Serum or PlasmaComprehensive metabolic panel Lab Routine Thrombophlebitis of superficial veins of left lower extremity Allergic rhinitis due to other allergic trigger, unspecified seasonality Viral upper respiratory infection PCOS (polycystic ovarian syndrome) Mixed anxiety and depressive disorder Obesity withoutserious comorbidity, unspecified class, unspecified obesity type Expected: 03/03/2025 (Approximate), Expires: 04/01/2025NOMS HealthcareComment on above:Expected: 03/03/2025 (Approximate), Expires: 04/01/2025Start: 03-03-2025 End: 90-67-1918Aqeccovxns A1c/Hemoglobin.total in BloodHemoglobin A1c Lab Routine PCOS (polycystic ovarian syndrome) Expected: 03/03/2025 (Approximate), Expires: 04/01/2025NOMS HealthcareComment on above:Expected: 03/03/2025 (Approximate), Expires: 04/01/2025Start: 03-03-2025 End: 44-45-7017Yvdovjmgfeji [Mass/volume] in Serum or PlasmaTestosterone Lab Routine PCOS (polycystic ovarian syndrome) Expected: 03/03/2025 (Approximate), Expires: 04/01/2025[facility] Work Phone: Comment on above:Expected: 03/03/2025 (Approximate), Expires: 04/01/2025Start: 12-27-2024 End: 23-04-6780Skztgzc encounter /24/2025 10:20 AM EST Office Visit [facility] [address] [place] [address] [place] Jimenez PA [address] [place] [address] ArrivedNOMS SWS FM 230Comment on above:ArrivedStart: 11-09-2024 End: 58-59-3881Gxugtmj encounter zvokyyrcc91/07/2025 10:10 AM EST Office Visit [facility] OB [address] [facility] [facility] [phone] Mary Lou Poe, PA [address] [facility] [place] [address] NOMS BCP OBStart: 10-14-2024 End: 98-23-4867Tuwfuqi encounter procedureNOMS BCP OBComment on above:Arrived Start: 09-16-2024 End: 83-08-0897Btemuua encounter /14/2024 10:50 AM EST Office Visit [facility] OB [address] [place] [phone] Mary Lou Poe, PA [address] [facility] [place] [address] NOMS BCP OBStart: 08-19-2024 End: 53-48-5685Gqpmysq encounter procedureNOMS BCP OBComment on above:Arrived Start: 07-15-2024 End: 88-76-9479Ooeeettqcapvy hormone (AMH)Antimullerian hormone (AMH) Lab Routine Insulin resistance PCOS (polycystic ovarian syndrome) Expected: 07/15/2024, Expires: 07/15/2025NOMS HealthcareComment on above:Expected: 07/15/2024, Expires: 07/15/2025Start: 07-15-2024 End: 54-57-3524qWAJ in Blood by Coagulation assayAPTT Lab Routine Menorrhagia with regular cycle Expected: 07/15/2024 (Approximate), Expires: 07/15/2025NOMS HealthcareComment on above:Expected: 07/15/2024 (Approximate), Expires: 07/15/2025Start: 07-15-2024 End: 57-59-9063WMH W Auto Differential panel - BloodNOAZ HealthcareComment on above:Ordered: 07/15/2024Expected: 07/15/2024 (Approximate), Expires: 07/15/2025 Start: 07-15-2024 End: 45-78-3375VBDUREYC Lab Routine Insulin resistance PCOS (polycystic ovarian syndrome) Expected: 07/15/2024, Expires: 07/15/2025NOMS HealthcareComment on above:Expected: 07/15/2024, Expires: 07/15/2025Start: 07-15-2024 End: 66-38-8456NAKA-sulfateDHEA-sulfate Lab Routine Insulin resistance PCOS (polycystic ovarian syndrome) Expected: 07/15/2024(Approximate), Expires: 07/15/2025NOMS HealthcareComment on above:Expected: 07/15/2024 (Approximate), Expires: 07/15/2025Start: 07-15-2024 End: 55-09-1585Eavdzklo stimulating hormoneFollicle stimulating hormone Lab Routine Insulin resistance PCOS (polycystic ovarian syndrome) Expected: 07/15/2024 (Approximate), Expires: 07/15/2025NOMS HealthcareComment on above: Expected: 07/15/2024 (Approximate), Expires: 07/15/2025Start: 07-15-2024 End: 94-53-1953hXH, quantitative, pregnancyNOMS HealthcareComment on above: Ordered: 07/15/2024Expected: 07/15/2024 (Approximate), Expires: 07/15/2025Start: 07-15-2024 End: 27-37-3657Nmpdzlulwer hormoneLuteinizing hormone Lab Routine Insulin resistance PCOS (polycystic ovarian syndrome) Expected: 07/15/2024 (Approximate), Expires: 07/15/2025NOMS HealthcareComment on above:Expected: 07/15/2024 (Approximate), Expires: 07/15/2025Start: 07-15-2024 End: 18-19-9897Cygiueyakcj [Units/volume] in Serum or PlasmaNOMS Healthcare Comment on above:Ordered: 07/15/2024Expected: 07/15/2024 (Approximate), Expires: 07/15/2025Start: 07-15-2024 End: 57-60-9632Fzsffxuhy (T4) free [Mass/volume] in Serum or PlasmaNOMS HealthcareComment on above:Ordered: 07/15/2024Expected: 07/15/2024 (Approximate), Expires: 07/15/2025Start: 07-15-2024 End: 14-24-4284OC for pregnancyUS PELVIS-TRANSVAG IF INDICATED Imaging Routine Menorrhagia with regular cycle Expected: 07/15/2024(Approximate), Expires: 07/15/2025[facility] HealthcareComment on above:Expected: 07/15/2024 (Approximate), Expires: 07/15/2025Start: 07-15-2024 End: 52-69-5068Ftwrzme encounter tbtqowtld09/12/2024 11:00 AM EDT Office Visit N[facility] [address] [place] [phone] Heladio Morris, DO [address] [facility] [place] [address] NOMS [facility] OBStart: 00-29-2855Puaffjllp vaccination Influenza Vaccine (#1)NOMS HealthcareStart: 01-57-9780KdrbhvomhCorey Hospitaltart: 38-78-8445Yybgejbvi for malignant neoplasm of cervixPap SmearNOAZ HealthcareCHLAMYDIA TRACHOMATIS (GENITO/STI)CHLAMYDIA TRACHOMATIS (GENITO/STI) Lab Routine Exposure to STD Vaginal discharge Ordered: 02/21/2025[facility] Healthcare Comment on above:Ordered: 5Cytology Cervical or vaginal smear or scraping studyPap Smear Pathology and Cytology Routine Well woman exam with routine gynecological exam Ordered: 07/15/2024[facility] Healthcare Work Phone: comment on above:Ordered: ytology Cervical or vaginal smear or scraping studyPap Smear Pathology and Cytology Routine Well woman exam with routine gynecological exam Ordered: 08/22/2025[facility] Work Phone: comment on above:Ordered: 08/22/2025Hemoglobin A1c/Hemoglobin.total in BloodHemoglobin A1c Lab Routine Menorrhagia with regular cycle Ordered: 07/15/2024[facility] HealthcareComment on above:Ordered: 07/15/2024 Hepatitis B virus surface Ag [Presence] in Serum or Plasma by Immunoassay Hepatitis B surface antigen Lab Routine Sexually transmitted disease exposure Ordered: 02/21/2025[facility] HealthcareComment on above:Ordered: 02/21/2025 HIV-1/HIV-2 antigen/antibody combination immunoassayHIV-1 and HIV-2 antibodies Lab Routine Sexually transmitted disease exposure Ordered: 02/21/2025[facility] HealthcareComment on above:Ordered: 02/21/2025Human papilloma virus DNA [Presence] in Unspecified specimen by Probe with amplificationHPV DNA probe, amplified Microbiology Routine Well woman exam with routine gynecological exam Ordered: 07/15/2024[facility] HealthcareComment on above:Ordered: 07/15/2024Human papilloma virus DNA [Presence] in Unspecified specimen by Probe with amplificationHPV DNA probe, amplified Microbiology Routine Well woman exam with routine gynecological exam Ordered: 08/22/2025[facility] HealthcareComment on above: Ordered: 08/22/2025Neisseria gonorrhoeae DNA [Presence] in Unspecified specimen by BEATRIZ with probe detectionNeisseria gonorrhea DNA probe, direct Lab Routine Exposure to STD Vaginal discharge Ordered: 02/21/2025[facility] HealthcareComment on above:Ordered: 02/21/2025Patient EducationHemorrhoids (DC)[facility] Work Phone: Prothrombin time (PT) in Blood by Coagulation assay Protime-INR Lab Routine Menorrhagia with regular cycle Ordered: 07/15/2024[facility] HealthcareComment on above:Ordered: 07/15/2024eagin Ab [Presence] in Serum by RPRRPR Lab Routine Sexually transmitted disease exposure Ordered: 02/21/2025[facility] HealthcareComment on above:Ordered: 02/21/2025SURESWAB(R) ADVANCED VAGINITIS PLUS, TMASURESWAB(R) ADVANCED VAGINITIS PLUS, TMA Pathology and Cytology Routine Exposure to STD Vaginal discharge Ordered: 02/21/2025[facility] Endpoint Clinical Work Phone: comment on above:Ordered: 02/21/2025 Immunizations Immunization DateImmunizationNotesCare FpjcveaoDmnigfoa49-09-2083hdqbjgrco, seasonal, injectable, preservative freeWashington [place] Work Phone: noFreeman Cancer InstituteKogkktelbe61-66-3775gxkmehjdv virus vaccine, unspecified formulationWashington [place] Work Phone: noFreeman Cancer InstituteYwpitbruel30-92-4311bovkaks toxoid, reduced diphtheria toxoid, and acellular pertussis vaccine, adsorbedzain [place] Work Phone: no[facility] Payers DatePayer CategoryPayerPoly [id number] Cross Blue ShieldBCBS [id number] BCBS [id number] 2017-Present [phone] [address] [place] [id number] 2.16.840.1.027877.3.579.2.61244-36-8668Yhrqdxa4857175 2.16.840.1.352063.3.579.2.64704-77-1464Vvjwryd69717201 2.16.840.1.988646.3.579.2.40559-05-9634Gmzcxxk95823680 2.16.840.1.936956.3.579.2.76007-64-5569Fzgciih25407527 2.16.840.1.008436.3.579.2.697642-22-4928Wmrxaxf66481074 2.16.840.1.587246.3.579.2.654542-16-6484Zyxrafd88995091 2.16.840.1.148524.3.579.2.345271-31-1160Yizaeic29273519 2.16840.1.126160.3.579.2.318058-10-2191Pgwpdqn87309516 2.16.840.1.587780.3.579.2.654576-76-5126Wlwyzhl3479525 2.16.840.1.184499.3.579.2.992202-99-7977Xqodrji0693245 2.16.840.1.057652.3.579.2.978232-90-1346Olvpagd7876933 2.16.840.1.079568.3.579.2.491147-98-8585Qmmyddy0340654 2.16.840.1.974883.3.579.2.096196-17-0755Ybzkbyg7470873 2.16.840.1.308602.3.579.2.538488-56-0720Jstfzwk8677621 2.16.840.1.913755.3.579.2.503946-19-0945Qwqyywn2292656 2.16.840.1.500783.3.579.2.523060-33-7017Iggussg0705764 2.16.840.1.444073.3.579.2.416295-94-4759FpzdzqwHIU458Y9786701-07-2955Jyoyyms [id number] 2.16.840.1.804834.3.579.2.531 Social History DateTypeDetailFacilityStart: 04-24-2023 End: 78-80-9447Qwsjtss smoking status NHISNever smoked tobacco (finding) [facility]: 15-82-5817Uyz Assigned At BirthFemale [facility]: 44-62-1007Ogdzfkr use and exposure Smokeless tobacco non-userNOAZ HealthcareStart: 07-15-2024 End: 34-18-3674Uuuqbrqmi beverage intakeCurrent drinker of alcohol (finding)NOMS HealthcareStart: 09-24-2023 End: 84-54-8008Vpvmpvp of Social functionNOAZ HealthcareStart: 09-24-2023 End: 58-73-6358Thnpitr Use Disorder Identification Test - Consumption [AUDIT-C] NOMS HealthcareHow often to you have a drink containing alcohol?Monthly or less [facility] HealthcareHow many standard drinks containing alcohol do you have on a typical day?1 or 2NOMS HealthcareHow often do you have 6 or more drinks on 1 occasion?NeverNOMS HealthcareStart: 29-92-5354Itltihy Comment1-2 drinks less than monthly in the past year, Caffeine intake: 1 can of pop per dayNOAZ HealthcareStart: 88-56-6850Gvm assigned at birthNot on fileNOMS HealthcareStart: 32-66-2323Ueetkr identityIdentifies as female gender (finding)[facility] Start: 76-50-0877ZfwKxwztkSGKU Healthcare Goals DatePatient GoalDesired Activity/State Functional Status JburRgkxhdrcswXlhvcoYxiddjwx56-14-8282Bbzurcp Health Questionnaire 2 item (PHQ- 2) [Reported]NOMS Rymdczfbwd14-60-4997Qwklezw Health Questionnaire 2 item (PHQ- 2) [Reported]NOMS Rsmcoqapvo85-52-3561Lwomxfg Health Questionnaire 2 item (PHQ- 2) [Reported][facility] SpringsXfgshaenzd04-87-6159Bzvfdye Health Questionnaire 2 item (PHQ- 2) [Reported][facility] SpringsVofsyhbndm78-32-3751Orzpjhe Health Questionnaire 2 item (PHQ- 2) [Reported][facility] SpringsEiltgssbwf51-29-1521Pciqens Health Questionnaire 2 item (PHQ- 2) [Reported][facility] Clinical Notes 04-24-2023 to 08-22-2025 Note Date & WsmjLdahWjsxlknl75-19-9051 History of Present illness Narrative* Cathryn Saucedo MA - 08/22/2025 1:40 PM EDT Reason for Appointment: Patient ID: Delia Chin is a 34 y.o. female who [...] nursing note reviewed. Exam conducted with a minor league baseball player present. Vitals: Estimated body mass index is 42.36 kg/m as calculated from the following: Height as of 25: 5' 4 . Weight as of this [...] of: Heladio Morris DO documented in this encounterSaint Mary's Hospital of Blue SpringsZteiiuinoc35-79-5868 History of Present illness Narrative* Britt Mcdaniel DO - 08/08/2025 12:40 PM EDT Images from the original note were not included. Subjective ?Quick Links Last Note in Specialty Snapshot Current Meds Patient ID: Delia Chin is a 34 y.o. female who [...] 06/27/25 1322 cetirizine (ZyrTEC) 10 MG tablet [id number] Yes Take 1 tablet (10 mg) by mouth Daily Britt Mcdaniel DO Active fluticasone (Flonase) 50 MCG/ACT nasal spray [id number] Yes Administer 1-2 sprays into each nostril Daily Shake gently. Before first use, prime pump. After use, clean tip and replace cap Britt Mcdaniel DO Active ibuprofen 800 MG tablet [id number] Yes Take 1 tablet (800 mg) by mouth 3 (three) times a day as needed for mild pain Britt Mcdaniel, DO Active phentermine (Adipex-P) 37.5 MG tablet [id number] Yes Take 1 tablet (37.5 mg) by mouth in the morning.Take before meals. Britt Mcdaniel DO Active Review [...] tip and replace cap documented in this encounterSaint Mary's Hospital of Blue SpringsCkcenuotcr43-21-1181 Telephone encounter Note* Telephone Encounter - Yasmin Salvador - 07/01/2025 10:41 AM EDT Pt calling to on blood work and stool sample. [facility] SpringsSofjddcpzm22-17-7243 Miscellaneous Notes* Telephone Encounter - Yasmin Salvador - 07/01/2025 10:41 AM EDT Pt calling to fu on blood work and stool sample. [facility] documented in this encounterSaint Mary's Hospital of Blue SpringsAifvngascc48-10-6920 History of Present illness Narrative* Britt Mcdaniel DO - 06/27/2025 1:20 PM EDTAssociated Problem(s): PCOS (polycystic ovarian syndrome) Labs ordered today, will follow up when results available Orders: CBC and differential; Future Comprehensive metabolic panel; Future * Britt Mcdaniel DO - 06/27/2025 1:20 PM EDT Images from the original note were not included. Subjective ?Quick Links Last Note in Specialty Snapshot Current Meds Patient ID: Delia Chin is a 34 y.o. female who presents for Diarrhea, blood in stool. Subjective Delia Chin is a 34 y.o. female who presents for evaluation of diarrhea. Onset of diarrhea was 2 weeks ago. Diarrhea is occurring approximately 10- 15 times per day. Patient describes diarrhea asbloody/ mucus and watery. Diarrhea has been associated with nausea once . Patient denies significant abdominal pain, unintentional weight loss. Treatment to date: avoiding food, pepto- bismol tabletswith no relief. Pt had colonoscopy 2 years ago showing hemorrhoids. Pt was on antibiotics last month for insect bite. Pt states there is still a meet located on right lower arm. Did not finish abx due to illness. A couple weeks ago had illness of vomiting, diarrhea, body aches, chills, and fever. This has sincesubsided. Weight Check: Here for a weight check. She is currently on adipex. Pt has lost 4 lbs since last OV.She does walk a lot and eats a [...] by mouth in the morning. Take beforemeals. CBC and differential; Future Comprehensive metabolic panel; [...] wo IV contrast; Future documented in this encounterSaint Mary's Hospital of Blue SpringsWjtavqybdc26-97-3061 History of Present illness Narrative* Britt Mcdaniel DO - 05/31/2025 2:20 PM EDT Images from the original note were not included. Subjective Patient ID: Delia Chin is a 34 y.o. female who presents for Weight Check, Insect Bite. Weight Check: Pt presents to the office for follow up on taking adipex for weight loss. Pt maintained weight lossbut has not lost any additional weight. She [...] by mouth in the morning. Take beforemeals. Bee sting, undetermined intent, initial encounter Patient [...] needed for mild pain documented in this encounterSaint Mary's Hospital of Blue [id number] History of Present illness Narrative* Britt Mcdaniel DO - 04/28/2025 11:00 AM EDTAssociated Problem(s): Edema Patient advised to return if symptoms worsen and/or persist despite treatment. * Britt Mcdaniel DO - 04/28/2025 11:00 AM EDTAssociated Problem(s): Varicose veins of both lower extremities Did rec compression stockings as pt on her feet alot * Britt Mcdaniel DO - 04/28/2025 11:00 AM EDTAssociated Problem(s): Mixed anxiety and depressive disorder Problem is stable, will continue with current treatment plan. Call or return to clinic if any changes occur, will restart wellbutrin as feels it was helpful Orders: buPROPion SR (Wellbutrin SR) 150 MG 12 hr tablet; Take 1 tablet (150 mg) by mouth Daily Do not crush, chew, or split. * Britt Mcdaniel DO - 04/28/2025 11:00 AM EDT Images from the original note were not included. Subjective Patient ID: Delia Chin is a 34 y.o. female who [...] crush, chew, or split. documented in this encounterSaint Mary's Hospital of Blue [id number] History of Present illness Narrative* Britt Mcdaniel DO - 04/04/2025 11:20 AM EDT Images from the original note were not included. SUBJECTIVE: Delia Chin is a 34 y.o. female presents [...] bowls daily, dinner: lean protein with veggies. Exercise:walking. Pt admits she is tolerating the medication [...] mg) by mouth in the morning. Take beforemeals., Disp: 30 tablet, Rfl: 0 documented in this encounterSaint Mary's Hospital of Blue [id number] History of Present illness Narrative* Britt Mcdaniel DO - 03/02/2025 2:20 PM EDT Images from the original note were not included. SUBJECTIVE: Delia Chin is a 34 y.o. female presents with chief complaint of Weight Management. Pt presents to the office to discuss weight management options. Pt would like to discuss getting onSemaglutide pill form to help with weight loss. [...] (three) times a day as needed for mildpain - CBC and differential; Future - Comprehensive [...] Administer 1-2 sprays into each nostril Daily Shakegently. Before first use, prime pump. After use, [...] 14 tablet, Rfl: 0 documented in this encounterSaint Mary's Hospital of Blue [id number] History of Present illness Narrative* RONAL Olguin - 02/21/2025 9:30 AM EDT Reason for Appointment: Patient ID: Delia Chin is a 34 y.o. female who [...] nursing note reviewed. Exam conducted with a minor league baseball player present. Vitals: Estimated body mass index is 42.19 kg/m as calculated from the following: Height as of 25: 5' 4 . Weight as of this encounter: 245 lb 12.8 oz. BP: 120/78 Patient's last menstrual period was 02/07/2025. ASSESSMENT & PLAN Patient did come into the office today for Cultures. Patient labs ordered and cultures obtained without difficulty. Patient to return in 1 year for annual. Documented by Sapphire Adams LPN on behalf of: RONAL Olguin documented in this encounterSaint Mary's Hospital of Blue [id number] NotePatient Education Materials Follows: Dysuria Dysuria is pain or discomfort [...] these instructions at home: Medicines ? Take zdly-sll-atgmsuj and prescription medicines only as told by [...] back after urinating or having a bowel movement.Use each piece of toilet paper only once. ? Empty your bladder after sex. ? Keep all follow-up visits. This is important. ? If you had any tests done to find the cause of dysuria, it is up to you to get your test results.Ask your health care provider, or the department [...] provider. Document Revised: 06/01/2021 Document Reviewed: 06/01/2021 [employer] Patient Education ? 2023 [facility] History of Present illness Narrative* RONAL Schwartz - 12/27/2024 10:20 AM EST Images from the original note were not included. Subjective Patient ID: Delia Chin is a 34 y.o. female who [...] Administer 1-2 sprays into each nostril Daily Shakegently. Before first use, prime pump. After use, [...] COV 2 RNA neg documented in this encounterSaint Mary's Hospital of Blue [id number] History of Present illness Narrative* RONAL Olguin - 10/14/2024 10:30 AM EST Reason for Appointment: Patient ID: Delia Chin is a 33 y.o. female who [...] behalf of: RONAL Olguin documented in this encounterSaint Mary's Hospital of Blue [id number] History of Present illness Narrative* Halley Alfred LPN - 09/16/2024 10:50 AM EST Reason for Appointment: Patient ID: Delia Chin is a 33 y.o. female who presents for Weight Management Patient presents today for a weight management consultation. Patient has been prescribed Adipex andshe is here for her 2nd prescription. Today's [...] behalf of RONAL Olguin documented in this encounterSaint Mary's Hospital of Blue [id number] History of Present illness Narrative* Halley Alfred LPN - 08/19/2024 11:10 AM EDT * Catherine Alves, NEIDA - 08/19/2024 11:10 AM EDT Reason for Appointment: Patient ID: Delia Chin is a 33 y.o. female who [...] nursing note reviewed. Exam conducted with a minor league baseball player present. Vitals: Estimated body mass index is [...] by Catherine Alves LPN on behalf of: Heladio Morris DO documented in this encounterSaint Mary's Hospital of Blue [id number] History of Present illness Narrative* Catherine Alves, SOFTBALL UMPIRE - 07/15/2024 11:00 AM EDT Reason for Appointment: Patient ID: Delia Chin is a 33 y.o. female who [...] nursing note reviewed. Exam conducted with a minor league baseball player present. Vitals: Estimated body mass index is [...] by Catherine Alves LPN on behalf of: Heladio Morris DO documented in this encounterSaint Mary's Hospital of Blue [id number] History of Present illness Narrative* RONAL Schwartz - 07/12/2024 1:00 PM EDT Images from the original note were not included. Subjective Patient ID: Delia Chin is a 33 y.o. female who presents for URI (Pt presents for URI. Symptomsinclude runny nose, cough, headaches, body aches, chills. [...] other questions or concerns. documented in this encounterSaint Mary's Hospital of Blue [id number] Procedure noteMemorial HospitalEvaluation noteNo assessment information available [facility] Work Phone: Evaluation note* Diagnosis Encounter for weight management documented in this encounter [facility] HealthcareEvaluation note* Diagnosis Encounter for weight management documented in this encounter [facility] HealthcareEvaluation note* Diagnosis Thrombophlebitis of superficial veins of left lower extremity documented in this encounter [facility] HealthcareEvaluation note* Diagnosis Well woman exam with routine gynecological exam Routine gynecological examination Menorrhagia with regular cycle Pelvic pain in female Unspecified symptom associated with female genital organs Insulin resistance Other abnormal glucose PCOS (polycystic ovarian syndrome) Polycystic ovaries documented in this encounter [facility] HealthcareEvaluation note* Diagnosis Encounter for weight management documented in this encounter [facility] HealthcareEvaluation note* Diagnosis Viral upper respiratory infection- Primary Acute upper respiratory infections of unspecified site documented in this encounter [facility] HealthcareEvaluation note* Diagnosis Acute cough- Primary Viral upper respiratory infection Acute upper respiratory infections of unspecified site documented in this encounter [facility] HealthcareEvaluation note* Diagnosis Exposure to STD Vaginal [...] HealthcareHistory and physical note Author [facility] April 24, 2023 10:09amNote Date/TimeJune 2022 10:09[place] [address] Gastroenterology H&P Signed Patient: Delia Chin MR#: [id number] : 1990 Acct:[id number] Age/Sex: 32 / F Adm Date: 3 Loc: Room: Type: [facility] Attending Dr: Laine Marx MD Copies to: Arely Mcdaniel Jr, DO Laine Marx MD~ Date of Service: 04/24/2023 HISTORY & PHYSICAL: Patient's history with special attention to the cardiovascular, pulmonary systems and the current problem was reviewed with the patient immediately prior to the procedure. Present medications and doses reviewed in the EMR. Allergies and pertinent laboratory tests were also re viewedat this time in the EMR. The physical [...] signed by Laine Marx MD> 04/24/23 1009 [facility] Work Phone: Hospital Discharge instructions Additional Instructions [...] years -Follow up with PCP. -Office number [phone]. [facility] Work Phone: Summary Purpose Family History Relationship Condition Age at Onset Recorded Date/T josie sister Malignant neoplasm of colon Unknown sisterLupusUnknownsisterMalignant neoplasm of thyroid glandUnknownfather Alzheimer's diseaseUnknown Advance Directives Advance Directive Response Recorded Date/ Time Advance Directives No March 20 8 2:59pm Chief Complaint and Reason for Visit Chief Complaint Family Hx Colon Canc er Additional Source Comments INFORMATION SOURCE (unrecogn ized section and content) DATE CREATED AUTHOR 09/17/2019 [facility] DATE CREATED AUTHOR AUTHOR'S ORGANIZ ATION 05/01/2023 [facility] DATE CREATED AUTHOR AUTHOR'S ORGANIZ ATION 06/23/2025 [facility] DATE CREATED AUTHOR AUTHOR'S ORGANIZ ATION 08/23/2025 [facility] EPIC Care Teams (unrecognized sec tion and content) Team Status: Active Member Role Status Dates Gregg Mcdaniel DO Primary Care Provider Active Team Status: Inactive Member Role Status Dates Gregg Mcdaniel DO Primary Care Provider Active Mireya Mireles ProviderActiveTeam MemberRelationshipSpecialtyStart DateEnd Date Britt Mcdaniel DO [address] [place] [address] PCP Hernandez Bennett02/01/21 Britt Mcdaniel DO [address] [place] [address] PCP - GeneralFamily Medicine06/07/24Team MemberRelationshipSpecialtyStart DateEnd Date Britt Mcdaniel, DO [address] [place] [address] PCP - [facility]02/01/21 Britt Mcdaniel, DO [address] [place] [address] PCP - [facility] Medicine06/07/24Team MemberRelationshipSpecialtyStart DateEnd Date Britt Mcdaniel, DO [address] [place] [address] PCP - [facility] [employer]02/01/21 Britt Mcdaniel, DO [address] [place] [address] PCP - [facility] Medicine06/07/24Team MemberRelationshipSpecialtyStart DateEnd Date Britt Mcdaniel, DO [address] [place] [address] PCP - [facility] [employer]02/01/21 Britt Mcdaniel, DO [address] [place] [address] PCP - Generalmi Medicine06/07/24Team MemberRelationshipSpecialtyStart DateEnd Date Britt Mcdaniel, DO [address] [place] [address] PCP - [facility] [employer]02/01/21 Britt Mcdaniel, DO [address] [place] [address] PCP - GeneralFamily Medicine06/07/24Team MemberRelationshipSpecialtyStart DateEnd Date Britt Mcdaniel, DO [address] [place] [address] PCP - [facility] [employer]02/01/21 Britt Mcdaniel, DO [address] [place] [address] [facility] - [facility]06/07/24Team MemberRelationshipSpecialtyStart DateEnd Date Britt Mcdaniel, DO [address] [place] [address] PCP - [facility] [employer]02/01/21 Britt Mcdaniel, DO [address] [place] [address] [facility]/24Team MemberRelationshipSpecialtyStart DateEnd Date Britt Mcdaniel, DO [address] [place] [address] PCP - [facility] [employer]02/01/21 Britt Mcdaniel, DO [address] [place] [address] PCP - Generalmily Medicine06/07/24Team MemberRelationshipSpecialtyStart DateEnd Date Britt Mcdaniel, DO [address] [place] [address] PCP - [facility] [employer]02/01/21 Britt Mcdaniel, DO [address] [place] [address] PCP - GeneralFamily Medicine06/07/24Team MemberRelationshipSpecialtyStart DateEnd Date Britt Mcdaniel, DO [address] [place] [address] PCP - [facility] [employer]02/01/21 Britt Mcdaniel, DO [address] [place] [address] PCP - GeneralFamily Medicine06/07/24Team MemberRelationshipSpecialtyStart DateEnd Date Britt Mcdaniel, DO [address] [place] [address] PCP - [facility] [employer]02/01/21 Britt Mcdaniel, DO [address] [place] [address] PCP - GeneralFamily Medicine06/07/24Team MemberRelationshipSpecialtyStart DateEnd Date Britt Mcdaniel, DO [address] [place] [address] PCP - [facility] [employer]02/01/21 Britt Mcdaniel, DO [address] [place] [address] PCP - GeneralFamily Medicine06/07/24Team MemberRelationshipSpecialtyStart DateEnd Date Britt Mcdaniel, DO [address] [place] [address] PCP - [facility] [employer]02/01/21 Britt Mcdaniel, DO [address] [place] [address] PCP - GeneralFamily Medicine06/07/24Team MemberRelationshipSpecialtyStart DateEnd Date Britt Mcdaniel, DO [address] [place] [address] PCP - [facility] [employer]02/01/21 Britt Mcdaniel, DO [address] [place] [address] PCP - [facility] Medicine06/07/24Team MemberRelationshipSpecialtyStart DateEnd Date Britt Mcdaniel, DO [address] [place] [address] PCP - [facility] [employer]02/01/21 Britt Mcdaniel, DO [address] [place] [address] PCP - Generalmily Medicine06/07/24Team MemberRelationshipSpecialtyStart DateEnd Date Britt Mcdaniel, DO [address] [place] [address] PCP - [facility] [employer]02/01/21 Britt Mcdaniel, DO [address] [place] [address] PCP - Generalmily Medicine06/07/24Team MemberRelationshipSpecialtyStart DateEnd Date Britt Mcdaniel, DO [address] [place] [address] PCP - [facility] [employer]02/01/21 Britt Mcdaniel, DO [address] [place] [address] PCP - [facility] Medicine06/07/24Team MemberRelationshipSpecialtyStart DateEnd Date Britt Mcdaniel, DO [address] [place] [address] PCP - [facility] [employer]02/01/21 Britt Mcdaniel, DO [address] [place] [address] PCP - [facility]06/07/24Team MemberRelationshipSpecialtyStart DateEnd Date Britt Mcdaniel, DO [address] [place] [address] PCP - [facility] [employer]02/01/21 Britt Mcdaniel, DO [address] [place] [address] PCP - [facility] Medicine06/07/24Team MemberRelationshipSpecialtyStart DateEnd Date Britt Mcdnaiel, DO [address] [place] [address] PCP - [facility] [employer]02/01/21 Britt Mcdaniel, DO [address] [place] [address] PCP - [facility]06/07/24Team MemberRelationshipSpecialtyStart DateEnd Date Britt Mcdaniel, DO [address] [place] [address] PCP - [facility] [employer]02/01/21 Britt Mcdaniel, DO [address] [place] [address] PCP - [facility] Medicine06/07/24Team MemberRelationshipSpecialtyStart DateEnd Date Britt Mcdaniel, DO [address] [place] [address] PCP - [facility] [employer]02/01/21 Britt Mcdaniel, DO [address] [place] [address] PCP - [facility] Medicine06/07/24Team MemberRelationshipSpecialtyStart DateEnd Date Britt Mcdaniel, DO [address] [place] [address] PCP - [facility] [employer]02/01/21 Britt Mcdaniel, DO [address] [place] [address] [facility]06/07/24Team MemberRelationshipSpecialtyStart DateEnd Date Britt Mcdaniel, DO [address] [place] [address] PCP - [facility] [employer]02/01/21 Britt Mcdaniel, DO [address] [place] [address] PCP - Generalmily Medicine06/07/24Team MemberRelationshipSpecialtyStart DateEnd Date Britt Mcdaniel, [address] [place] [address] PCP - [facility] [employer]02/01/21 Britt Mcdaniel, [address] [place] [address] PCP - [facility] Medicine06/07/24Team MemberRelationshipSpecialtyStart DateEnd Date Britt Mcdaniel, [address] [place] [address] PCP - [facility] [employer]02/01/21 Britt Mcdaniel, [address] [place] [address] PCP - [facility] Medicine06/07/24Team MemberRelationshipSpecialtyStart DateEnd Date Britt Mcdaniel, DO [address] [place] [address] PCP - [facility] [employer]02/01/21 Britt Mcdaniel, [address] [place] [address] [facility] - [facility]06/07/24 Reason for Visit (unrecogniz ed section and content) ReasonCommentsWeight ManagementReasonOnset DateCommentsMed Kcnslb7610/04/2024 ReasonCommentsWell Women VisitReasonCommentsencounter for weight management Adipex #3ReasonCommentsURIPt presents for URI. Symptoms include runny nose, cough, headaches, body aches, chills. Onset was Saturday. OTC cough drops, Tylenol.ReasonCommentsSore ThroatPt states that this has been going on since Friday, no fever or chillsReasonCommentsSTI ScreeningReasonOnset DateComments Bqciupd5007/01/2025 FOR RECORDS PERTAINING TO PATIENTS WHO ARE [...] BE BASED ON THE PRIMARY CLINICAL RECORDS. [facility] [employer] provides no warranty or guarantee of the accuracy or completeness of information in this document.
--- OUTSIDE RECORDS SUMMARY | 2025-09-22 15:33 | XMS_ITS | CCD ---
Author Organization [facility] CliniSymt Care Team Providers Care Fibreglass Lay Up Worker Name Role Phone HELADIO MORRIS Admitting Unavailable HELADIO MORRIS Attending Unavailable Arely MCDANIEL Primary Care Unavailable GURPREET CALVO V Consulting Unavailable HELADIO MORRIS Consulting Unavailable ALIYAH MORRISY Admitting Unavailable HELADIO MORRIS Attending Unavailable HELADIO MORRIS Consulting Unavailable GERMAIN ALEXIS Consulting Unavailable Arely MCDANIEL Consulting Unavailable DO Gregg Mcdaniel Primary Care Provider [phone] MD Laine Marx Attending Provider [phone] Gregg Mcdaniel Primary Care Unavailable Laine Marx Attending Unavailable Laine Marx Admitting Unavailable Britt Mcdaniel DO Unavailable [phone] Britt Mcdaniel DO Primary Care Provider FREDRICK [...] MCDANIEL Attending Unavailable BRITT MCDANIEL Attending Unavailable HELADIO MORRIS Attending Unavailable Medications Current Medications MedicationDrug Class(es)DatesSig (Normalized)Sig (Original)cefdinir 300 mg oral capsule (2 sources)Cephalosporin AntibacterialStart: 05-31-2025 End: 14-32-8181jxmd 1 capsule by mouth in the morningcefdinir (Omnicef) 300 MG capsule Indications: Cellulitis of left upper extremity Take 1 capsule (300 mg) by mouth in the morning and 1 capsule (300 mg) before bedtime. Do all this for 10 days. 20 capsule 05/31/2025 06/10/2025 Activecetirizine hydrochloride 10 mg oral tablet (20 sources)Histamine-1 Receptor AntagonistStart: 05-20-2024 End: 17-90-1833mxnl 1 tablet by mouth once dailycetirizine (ZyrTEC) 10 MG tablet Indications: Allergic rhinitis due to other allergic trigger, unspecified seasonality Take 1 tablet (10 mg) by mouth Daily 30 tablet 11 03/02/2025 Active Start: 17-68-8996wsuk 10 mg by mouth once dailyCetirizine Active 10 MG PO Daily April 24, 2023 12:00amcyclobenzaprine hydrochloride 10 mg oral tablet (3 sources)Muscle RelaxantStart: 01-11-2025 End: 42-42-3601plgn 1 tablet by mouth three times daily as needed for muscle spasmscyclobenzaprine (Flexeril) 10 MG tablet Indications: Dysuria , Left flank pain Take 1 tablet (10 mg) by mouth 3 (three) times a day as needed for muscle spasms for up to 10 days 30 tablet 01/11/2025 02/21/2025 Qaimcugzikho20 hr dextromethorphan hydrobromide 60 mg / guaiFENesin 1200 mg extended release oral tablet (20 sources)Uncompetitive D-lufynn-Q-aspartate Receptor Antagonist, Sigma-1 AgonistStart: 03-22-1148mfosvgmwknujonxg-guaiFENesin (MUCINEX DM MAX STRENGTH) 60-1200 MG 12 hr tablet Indications: Viral upper respiratory infection Take 1 tablet by mouth every 12 (twelve) hours if needed (BID) 20 tablet 12/27/2024 ActiveStart: 21-88-8734ypcyyqmdoxajihor-guaiFENesin (MUCINEX DM MAX STRENGTH) 60-1200 MG 12 hr tablet Indications: Viral upper respiratory infection Take 1 tablet by mouth every 12 (twelve) hours if needed (BID) 20 tablet 12/27/2024 ActiveStart: 07-12-2024 End: 01-27-4197ixvdtpjaeloqaeaw-guaiFENesin (MUCINEX DM MAX STRENGTH) 60-1200 MG 12 hr tablet Indications: Viral upper respiratory infection Take 1 tablet by mouth every 12 (twelve) hours if needed (BID) 20 tablet 07/12/2024 12/27/2024 Discontinuedfluticasone propionate 0.05 mg/actuat metered dose nasal spray (20 sources)CorticosteroidStart: 12-27-2024 End: 57-42-3673pekc 1-2 spray(s) nasal route once dailyfluticasone (Flonase) 50 MCG/ACT nasal spray Indications: Viral upper respiratory infection Administer 1- 2 sprays into each nostril Daily Shake gently. Before first use, prime pump. After use, clean tip and replace cap 16 g 3 08/08/2025 ActiveStart: 05-20-2024 End: 17-68-3616oepy 2 spray(s) nasal route once dailyfluticasone (Flonase) 50 MCG/ACT nasal spray Indications: Allergic rhinitis due to other allergic tr igger, unspecified seasonality Administer 2 sprays into each nostril Daily Shake gently. Before first use, prime pump. After use, clean tip and replace cap. 16 g 11 05/20/2024 12/27/2024 DiscontinuedStart: 83-84-3120Jiprphcsodd Propionate Active 1 SPRAY INTRANASAL Daily April 24, 2023 12:00amibuprofen 800 mg oral tablet (20 sources)Nonsteroidal Anti-inflammatory DrugStart: 10-04-2024 End: 38-54-8203dyoe 1 tablet by mouth three times daily as needed for pain ibuprofen 800 MG tablet Indications: Thrombophlebitis of superficial veins of left lower extremity Take 1 tablet (800 mg) by mouth 3 (three) times a day as needed for mild pain 90 tablet 05/31/2025 ActiveStart: 06-07-2024 End: 75-69-4745yffj 1 tablet by mouth in the morning, [...] mg) before bedtime. 90 tablet 06/07/2024 07/15/2024 Olqzoswkcjai29 hr metFORMIN hydrochloride 500 mg extended release oral tablet (20 sources)BiguanideStart: 08-19-2024 End: 63-08-2743sxab 2 tablets by mouth every twenty-four hours at mealtime metFORMIN XR (Glucophage-XR) 500 MG 24 hr tablet Indications: Encounter for weight management Take 2 tablets (1,000 mg) by mouth in the evening. Take with meals Do not crush, chew, or split. 60 tablet 11 08/19/2024 ActiveStart: 07-15-2024 End: 82-04-1117wbig 1 tablet by mouth every twenty-four hours at mealtime metFORMIN XR (Glucophage-XR) 500 MG 24 hr tablet Indications: Insulin resistance , PCOS (polycysticovarian syndrome) Take 1 tablet (500 mg) by mouth in the evening. Take with meals Do not crush, chew, or split. 30 tablet 11 07/15/2024 10/14/2024 DiscontinuedmetroNIDAZOLE 500 mg oral tablet (3 sources)Nitroimidazole AntimicrobialStart: 02-23-2025 End: 71-99-3343mglm 1 tablet by mouth in the morningmetroNIDAZOLE [...] oral capsule (3 sources)Nitrofuran AntibacterialStart: 01-10-2025 End: 51-25-1430bmrt 1 capsule by mouth in the morningnitrofurantoin, macrocrystal-monohydrate, (Macrobid) 100 MG capsule Take 100 mg by mouth in the morning and 100 mg before bedtime. 01/10/2025 02/21/2025 Discontinuedphentermine hydrochloride 37.5 mg oral tablet (20 sources)Sympathomimetic Amine AnorecticStart: 03-02-2025 End: 67-55-6396xssw 1 tablet by mouth before mealtimephentermine (Adipex-P) 37.5 MG tablet Indications: Obesity without serious comorbidity, unspecifiedclass, unspecified obesity type Take 1 tablet (37.5 mg) by mouth in the morning. Take before meals.30 tablet 08/08/2025 09/07/2025 ActiveStart: 08-19-2024 End: 58-73-0933fctw 1 tablet by mouth before mealtimephentermine (Adipex-P) 37.5 MG tablet Indications: Encounter for weight management Take 1 tablet (37.5 mg) by mouth in the morning. Take before meals. 30 tablet 10/14/2024 02/21/2025 Discontinued Completed/Discontinued Medications MedicationDrug Class(es)DatesSig (Normalized)Sig (Original)12 hr buPROPion hydrochloride 150 mg extended release oral tablet (13 sources)AminoketoneStart: 04-04-2025 End: 26-17-3034vmvb 1 tablet by mouth once dailybuPROPion SR (Wellbutrin SR) 150 MG 12 hr tablet Indications: Mixed anxiety and depressive disorderTake 1 tablet (150 mg) by mouth Daily Do not crush, chew, or split. 04/28/2025 06/27/2025 Discontinuedramelteon 8 mg oral tablet (6 sources)Melatonin Receptor AgonistStart: 05-20-2024 End: 42-87-8824uozm 1 tablet by mouth at bedtimeramelteon (Rozerem) 8 MG tablet Indications: Primary insomnia Take 1 tablet (8 mg) by mouth at bedtime 30 tablet 11 05/20/2024 07/15/2024 Discontinued Problems Active Problems Problem ClassificationProblemDateDocumented DateEpisodic/Chronic Administrative/social admission (5 sources)Patient encounter status; Translations: [Persons encountering health services in other specified circumstances]78-05-9586WvttgxqjFynbhqk disorders (20 sources)Mixed anxiety and depressive disorder; Translations: [Other specified anxiety disorders]Onset: 162635-00-4638BkhitizDngabnlypnmuwzbj hemorrhage (4 sources)Gastrointestinal hemorrhage; Translations: [Hemorrhage of anus and rectum]57-39-1515UkmhbqfkQjcgmwippkmyh and screening for infectious disease (4 sources)Exposure to sexually transmissible disorder; Translations: [Contact with and (suspected) exposure to infections with a predominantly sexual mode of transmission]64-94-6246PasavswjYfblsbqtga infection (4 sources)Diarrhea of presumed infectious origin; Translations: [Diarrhea, unspecified]83-47-5022NytopaqoCpllqctla disorders (20 sources)Menorrhagia; Translations: [Excessive and frequent menstruation with regular cycle]Onset: 344767-00-8381DflxjzvHfedneeprxfpq mental health disorders (20 sources)Primary insomnia; Translations: [Primary insomnia]Onset: 05-20-2024 07-62-3277SmihymjAwkaqsbwvfmb breast conditions (2 sources)Mastodynia of bilateral breasts; Translations: [Mastodynia]08-22-2025 EpisodicOther endocrine disorders (4 sources)Polycystic ovarian syndrome; Translations: [POLYCYSTIC OVARIAN SYNDROME]Onset: 79-89-8349SlugljlWilcx endocrine disorders (20 sources)Polycystic ovary syndrome; Translations: [Polycystic ovarian syndrome]Onset: 294931-58-7177VxzfpmiHmxer female genital disorders (2 sources)Vaginal discharge; Translations: [Other specified noninflammatory disorders of vagina]35-79-9745MgdpmbmyTpugj lower respiratory disease (2 sources)Cough; Translations: [Acute cough]68-25-3360KcmepfzmVvawb nutritional; endocrine; and metabolic disorders (20 sources)Insulin resistance; Translations: [Insulin resistance]Onset: 005839-72-1808BrweggyLefwi nutritional; endocrine; and metabolic disorders (12 sources)Obesity; Translations: [Obesity, unspecified]99-85-6114IybfmgmXatub upper respiratory disease (20 sources)Allergic rhinitis; Translations: [Allergic rhinitis, unspecified] Onset: 302355-41-1369QbqbdbvJosyx upper respiratory infections (10 sources)Viral upper respiratory tract infection; Translations: [Acute upper respiratory infection, unspecified]79-73-1022PtcqvhynZdhzsjq cyst (4 sources)Unspecified ovarian cyst, unspecified side; Translations: [UNSPECIFIED OVARIAN CYST UNSP SIDE]Onset: 45-85-8549Fqjuazqag; thrombophlebitis and thromboembolism (7 sources)Thrombophlebitis of superficial vein of left lower limb; Translations: [Phlebitis and thrombophlebitis of superficial vessels of left lower extremity]82-65-1333VmhmcckqBsfzycdpb by nonmedicinal substances (2 sources)Bee sting; Translations: [Toxic effect of venom of bees, undetermined, initial encounter]49-44-1302NfwexfooYpru and subcutaneous tissue infections (2 sources)Cellulitis of left upper limb; Translations: [Cellulitis of left upper limb]44-38-3363NpciakcwMfkptgowbttk (1 source)Encounter for screening for malignant neoplasm of colon; Translations: [Encounter for screening formalignant neoplasm of colon]Onset: 04-24-2023 Past or Other Problems Problem ClassificationProblemDateDocumented DateEpisodic/ChronicAbdominal pain (20 sources)Pain in female pelvis; Translations: [Pelvic and perineal pain] Onset: 311915-34-1812SelifqmwIhvkrudf codes; unclassified (20 sources)Edema; Translations: [Edema, unspecified]Onset: EpisodicVaricose veins of lower extremity (20 sources)Varicose veins of bilateral lower limbs; Translations: [Asymptomatic varicose veins of bilateral lower extremities]Onset: Episodic Results Test NameValueInterpretationReference RangeFacilityIGP,APTIMA HPV,AGE GDLNon 41-04-7758NVO GDLN ACOG TESTINGNote.NOMS HealthcareComment on above:TESTS RESULT FLAG UNITS REF RANGE LAB Clinician Provided Cytology Information Source.............Cervix;Endocervix No. of containers..01 ThinPrep Vial Age Algo ACOG Courtney... 28 FLAG LEGEND: L-Low Normal,H-High Normal,LL-Alert Low,HH-Alert High <-Panic Low,>-Panic High,A-Abnormal,AA-Critical Abnormal Performed at: 01 =[address] [address] Leslie Mendez MD, HPV APTIMAPositiveAbnormalNegativeNOMS HealthcareComment on above:This nucleic acid amplification test detects fourteen high- risk HPV types (16,18,31,33,35,39,45,51,52,56,58,59,66,68) without differentiation. Performed at: =[address] [id number] Temperature Control Inspector: Leslie Mendez MD, Phone: [phone] Performed at: [address] [id number] Temperature Control Inspector: Leslie Mendez MD, Phone: [phone] IGP, APTIMA HPV, RFX 16/18,45NoteAbnormal.NOMS HealthcareComment on above:TESTS RESULT FLAG UNITS REF RANGE LAB DIAGNOSIS: [A] 02 EPITHELIAL CELL ABNORMALITY. LOW GRADE SQUAMOUS INTRAEPITHELIAL LESION (LSIL). Recommendation: [A] 02 Suggest follow up as clinically appropriate. Specimen adequacy: 02 Satisfactory for evaluation. Endocervical and/or squamous metaplastic cells (endocervical component) are present. Performed by: 02 Darlene Chun, Base Wad Operator Adjuster (ASCP) Electronically si... Candelario Coello MD, Pathologist [...] ThinPrep(R) pap test was interpreted using the SingWho(R) VisitorsCafe(TM) Cervical Algorithm whole slide imaging system. HPV Genotype Reflex Note 02 Criteria not met, HPV Genotype not performed. FLAG LEGEND: L-Low Normal,H-High Normal,LL-Alert Low,HH-Alert High <-Panic Low,>-Panic High,A-Abnormal,AA-Critical Abnormal Performed at: [address] [address] Leslie Mendez MD, Interpretation and review of laboratory resultsAbnormalNOMissouri Baptist Medical Center BRUSH-SPATULA CERVIX ENDOCERVIX CLINISYNCNOKY HealthcareCoding Summaryon 24-79-5210Slnkwa SummaryMLBase 64 CaemmvufWYf3yLe+PGhlYWQ+FG3KOQRfW09kxEPqnR9yQ5OQOVfIFvimSWLIKAvGXlXqckCwCB0wwENl ZXJu [file] bGF (more content not included)...[facility] DaytonRECURRENT VAGINITIS (HTRX)on 61-25-5991MVDREISOJ ZWXOBNW82.55AbnormalNOMS HealthcareATOPOBIUM VAGINAEDetectedAbnormalNOMS HealthcareBVAB 2,3 (BACTERIAL VAGINOSIS ASSOCIATED BACTERIA 2, 3); MOBILUNCUS SPP12.878AbnormalNOMS HealthcareBVAB 2,3 (BACTERIAL VAGINOSIS ASSOCIATED BACTERIA 2, 3); MOBILUNCUS SPPDetectedAbnormalNOMS HealthcareCANDIDA ALBICANS, PARAPSILOSIS, YODSHEDEYT9FAVZ HealthcareCANDIDA ALBICANS, PARAPSILOSIS, TROPICALISNot detectedNOMS HealthcareCANDIDA GLABRATA0 NOMS HealthcareCANDIDA GLABRATANot detectedNOMS HealthcareCANDIDA KQXORJ4DUVE HealthcareCANDIDA KRUSEINot detectedNOMS HealthcareCHLAMYDIA CRTFRNDNIDB8LZAO HealthcareCHLAMYDIA TRACHOMATISNot detectedNOMS HealthcareERMB, C; MEFA25.09 AbnormalNOMS HealthcareERMB, C; MEFADetectedAbnormalNOMS HealthcareGARDNERELLA ALGAMKOIE47.402AbnormalNOMS HealthcareGARDNERELLA VAGINALISDetectedAbnormalNOMS HealthcareHERPES SIMPLEX VIRUS 10NOMS HealthcareHERPES SIMPLEX VIRUS 1Not detectedNOMS HealthcareHERPES SIMPLEX VIRUS 20NOMS HealthcareHERPES SIMPLEX VIRUS 2Not detectedNOMS HealthcareInterpretation and review of laboratory resultsAbnormalNOKY HealthcareMEGASPHAERA (TYPES 1, 2)0[facility] MEGASPHAERA (TYPES 1, 2)Not detectedNOMS HealthcareMYCOPLASMA MTXBGWJHGK5JZCH HealthcareMYCOPLASMA GENITALIUMNot detectedNOMS HealthcareNEISSERIA GONORRHOEAE0 NOMS HealthcareNEISSERIA GONORRHOEAENot detectedNOMS HealthcareTET B, TET M 18.723AbnormalNOMS HealthcareTET B, TET MDetectedAbnormalNOKY Healthcare TRICHOMONAS JAYGMCKIR9PJPH HealthcareTRICHOMONAS VAGINALISNot detectedNOMS HealthcareNOMS HealthcareHCG ( test) Ql (U)on 63-55-7875Agyjzzyocnenvn and review of laboratory resultsNormalNOKY HealthcarePreg Test, UrNegative NegativeNOKY HealthcareNOKY HealthcareUrinalysis macro (dipstick) panel (U)on 21-51-5964Kcubfaqxe, UANegativeNegative - 4(70) +++ mg/dLNOMS HealthcareBlood, UAPositiveNegative - 50 Chucky/mcLNOMS HealthcareComment on above:trace-intact Clarity, UAClearNOMS HealthcareColor, UAYellowNOMS HealthcareGlucose, UANegative Negative - 1999(110) ++++ mg/dLNOMS HealthcareInterpretation and review of laboratory resultsAbnormalNOKY HealthcareKetones, UANegativeNegative - 160(16) ++++ mg/dLNOMS HealthcareLeukocytes, UATraceNegative - 500+++ Sriram/mcLNOMS HealthcareNitrite, UANegativeNegative - PositiveNOMS HealthcarepH, UA5.55 - 9 NOMS HealthcareProtein, UANegativeNegative - 2000(20) ++++ mg/dLNOMS Healthcare Spec Grav, UA1.0251 - 1.03NOMS HealthcareUrobilinogen, UA0.20.2 - 12 mg/dLNOMS HealthcareNOMS HealthcareCoding Summaryon 82-40-1148Aonkya SummaryHTMLBase 64 TblhixunQKp4tWs+PGhlYWQ+NZ9FKANzO32goZIfgD6nY5HOPPiXZgslJRBVRXkSAzEhbjHqWJ7qtKYr ZXJu [file] bGF (more content not included)...[facility] ABDOMEN PELVIS WO IV CONTRASTon 78-01-0232EC ABDOMEN PELVIS WO IV CONTRASTHISTORY: Left flank [...] BY: Obi Rod AvailableUrgent Care Note- Provideron 39-02-8036Czudws Care Note- ProviderCalled patient, identified by last [...] on: 01/14/2025 08:47 EDT] Ray Cooper CNP [facility]DRAISER-C [Verified on: 01/14/2025 08:47 EDT] Ray Cooper CNP [facility]DRAISER-[facility] Urineon 01-12-2025 UrineUrine Culture ordered as a result of parameters set on specific urine dip and urine microsopic results. Mixed skin, or urogenital dylon. Clinically insignificantNoOhio State East Hospital Comment on above:Performed By: #### [id number], [id number], [id number] #### [facility] (DEFAULT) [address] [place] [address]Euxgqygea/GC Amplification LCon 64-27-0426Ydevcrwrq trachomatis, BEATRIZ LCNegativeInvalid Interpretation [facility] [place], [place]NegWVUMedicine [facility] Hospital Comment on above:Performed By: #### [id number], [id number] #### [facility] (DEFAULT) [address] [place] [address] 713[address]Lmtyjfrjf gonorrhoeae, BEATRIZ LCNegativeInvalid Interpretation [facility] – [place], [place]NegativeMagruder HospitalComment on above:Result Comment: Performed At: =[address] [facility] [id number] Andrea Negro MD Ph:[phone] By: #### [id number], [id number] #### [facility] (DEFAULT) [address] [place] [address] 97[address]Xbzmwkkcoxbnz Testing LCon 98-15-4780Ufmc. Test Result LC COMMENTInvalid Interpretation CodeKing'S Daughters Medical Center Ohio HospitalComment on above:Result Comment: Test Ordered: [id number] Trich vag by BEATRIZ Trich vag by BEATRIZ Negative =G Reference Range: Negative Performed At: [facility] [id number] Zeke Singletary PhD Ph:[phone] Performed At: =[address] [id number] Andrea Negro MD Ph:[phone] By: #### [id number] #### [facility] (DEFAULT) [address] [place] [address]Ivqx. Lab Teston 64-12-0483TayjwcvyebnjbVeai 01/10/25 Invalid Interpretation CodeKing'S Daughters Medical Center [place] HospitalComment on above:Order Comment: TrichomonasPerformed By: #### [id number], [id number] #### [facility] (DEFAULT) [address] [place] [address]Rety of TestTrichomonasInvalid Interpretation CodeKing'S Daughters Medical Center [place] HospitalComment on above:Order Comment: TrichomonasPerformed By: #### [id number], [id number] #### [facility] (DEFAULT) [address] [place] [address]Ohnedfsqqrdsq Testing LCon 90-78-0393Pbojufboklkuz Testing LCTRICHOMONAS VAGINALIS NAAInvalid Interpretation CodeKing'S Daughters Medical Center [place] HospitalComment on above:Performed By: #### [id number] #### [facility] (DEFAULT) [address] [place] [address]33[address]Lbaj Code [id number] Interpretation CodeKing'S Daughters Medical Center [place] HospitalComment on above:Performed By: #### [id number] #### [facility] (DEFAULT) [address] [place] [address] 37[address]Vvyc Name LCTRICHOMONAS VAGINALIS NAAInvalid Interpretation [facility] HospitalComment on above:Performed By: #### [id number] #### [facility] (DEFAULT) [address] [place] [address] 65524Wnabjrphn Test Urine 1on 01-10-2025U PregNegativeNormal Henry County HospitalComment on above:Performed By: #### [id number], [id number] #### [facility] (DEFAULT) [address] [place] [address] 28723L Preg Internal ControlPassNoOhio State East HospitalComment on above:Performed By: #### [id number], [id number] #### [facility] (DEFAULT) [address] [place] [address] 40817YS Gikxf3en 29-89-9376CZ Bacteria1+[facility] Comment on above:Order Comment: Urinalysis Microscopic order added on by StreetOwl Expert Rules system.Performed By: #### [id number], [id number], [id number] #### [facility] (DEFAULT) [address] [place] [address] 28996NH RBC3-5NoOhio State East HospitalComment on above:Order Comment: Urinalysis Microscopic order added on by StreetOwl Expert Rules system. Performed By: #### [id number], [id number], [id number] #### [facility] (DEFAULT) [address] [place] [address] 59[address]DG Squam EpiFewNormOhioHealth Nelsonville Health CenterComment on above: Order Comment: Urinalysis Microscopic order added on by StreetOwl Expert Rules system.Performed By: #### [id number], [id number], [id number] #### [facility] (DEFAULT) [address] [place] [address] 65657OT VJQ72-08AzgsceIqfsyrlm HospitalComment on above:Order Comment: Urinalysis Microscopic order added on by StreetOwl Expert Rules system. Performed By: #### [id number], [id number], [id number] #### [facility] (DEFAULT) [address] [place] [address] 62553OF w Culture if Ind Standardon 71-03-6804Oergyvypfk UA NormalKing'S Daughters Medical Center [place] HospitalComment on above:Performed By: #### [id number], [id number], [id number] #### [facility] (DEFAULT) [address] [place] [address]4592Hspvu (U)YellowNormMercy Health St. [facility] HospitalComment on above: Performed By: #### [id number], [id number], [id number] #### [facility] (DEFAULT) [address] [place] [address] 14493Jqqqtra?IndicatedInvalid Interpretation CodeKing'S Daughters Medical Center [place] HospitalComment on above:Result Comment: Result created by rule GL_MAGR_ADD_UA_CULT Result created by rule GL_MAGR_ADD_UA_CULT Result created by rule GL_MAGR_ADD_UA_CULTPerformed By: #### [id number], [id number], [id number] #### [facility] (DEFAULT) [address] [place] [address] 42970Hegqcdz (U) [Mass/Vol]NegativeAccess Hospital Dayton Comment on above:Performed By: #### [id number], [id number], [id number] #### [facility] (DEFAULT) [address] [place] [address] 25574Rskbnes Ql (U)NegativeNormMercy Health St. [facility] HospitalComment on above:Performed By: #### [id number], [id number], [id number] #### [facility] (DEFAULT) [address] [place] [address] 78478Lxivv?IndicatedInvalid Interpretation CodeKing'S Daughters Medical Center [place] HospitalComment on above:Result Comment: Result created by rule GL_MAGR_ADD_UA_MICROPerformed By: #### [id number], [id number], [id number] #### [facility] (DEFAULT) [address] [place] [address] 32593OJ BilirubinNegativeNoOhioHealth Doctors Hospital HospitalComment on above:Performed By: #### [id number], [id number], [id number] #### [facility] (DEFAULT) [address] [place] [address] 24033WS BloodMODERATEAbnormalNEGATIVEKing'S Daughters Medical Center [place] HospitalComment on above:Performed By: #### [id number], [id number], [id number] #### [facility] (DEFAULT) [address] [place] [address] 01073KK ClaritySL CLOUDYAbnormalCLEARMagrst. mary's medical center HospitalComment on above:Performed By: #### [id number], [id number], [id number] #### [facility] (DEFAULT) [address] [place] [address] [id number] Leuk EstSMALLAbnormalNEGATIVEKing'S Daughters Medical Center [place] HospitalComment on above:Performed By: #### [id number], [id number], [id number] #### [facility] (DEFAULT) [address] [place] [address] [id number] NitriteNegativeNormalNEGATIVEMamorrow county hospital HospitalComment on above:Performed By: #### [id number], [id number], [id number] #### [facility] (DEFAULT) [address] [place] [address] 02121SG pH6.8Lbayel9-0Tewiklpz HospitalComment on above: Performed By: #### [id number], [id number], [id number] #### [facility] (DEFAULT) [address] [place] [address] [id number] ProteinNegativeNormalNEGATIVEMamorrow county hospital HospitalComment on above:Performed By: #### [id number], [id number] #### [facility] (DEFAULT) [address] [place] [id number] Spec Grav>=1.451Iqvnhu4.001-1.035[facility] Hospital Comment on above:Performed By: #### [id number], [id number], [id number] #### [facility] (DEFAULT) [address] [place] [id number] Urobilinogen0.2 mg/dLNormal0.2-1.0[facility] Comment on above:Performed By: #### [id number], [id number] #### [facility] (DEFAULT) [address] [place], [place] [address]Tijkr SourceClean CatchAccess Hospital DaytonComment on above:Performed By: #### [id number], [id number], [id number] #### [facility] (DEFAULT) [address] [place], [place] [address]Nmnfpgbuho - Microbiology and Antimicrobial susceptibility on 12-27-2024S. pyogenes Ag Ql (Throat)NegativeNegative, None DetectedNOMS GutcnanyprPBQY-VfJ-7 (COVID-19) RNA BEATRIZ+probe Ql (Unsp spec)NegativeNOMS HealthcareNo Panel Informationon 50-30-3157Ewptebwfaqlhiw and review of laboratory resultsNormalNOMS HealthcareNOMS HealthcareFLU ANegativeNOMS HealthcareFLU BNegativeNOMS HealthcareInterpretation and review of laboratory resultsNormalNOKY HealthcareNOMS HealthcareIGP,APTIMA HPV,AGE GDLNon 07-20-2024 AGE GDLN ACOG TESTINGNote.NOMS HealthcareComment on above:TESTS RESULT FLAG UNITS REF RANGE LAB Clinician Provided Cytology Information Source.............Cervix;Endocervix No. of containers..01 ThinPrep Vial Age Algo ACOG Courtney... FLAG LEGEND: L-Low Normal,H-High Normal,LL-Alert Low,HH-Alert High <-Panic Low,>-Panic High,A-Abnormal,AA-Critical Abnormal Performed at: 01 =[address] [place] [address] Leslie Mendez MD, HPV APTIMANegativeNegativeNOMS HealthcareComment on above:This nucleic acid amplification test detects fourteen high- risk HPV types (16,18,31,33,35,39,45,51,52,56,58,59,66,68) without differentiation. Performed at: =[facility] [id number] Temperature Control Inspector: Leslie Mendez MD, Phone: [phone] Performed at: [address], [place] [id number] Temperature Control Inspector: Leslie Mendez MD, Phone: [phone] IGP, APTIMA HPV, RFX 16/18,45Note.NOMS HealthcareComment on above:TESTS RESULT FLAG UNITS REF RANGE LAB DIAGNOSIS: 02 NEGATIVE FOR INTRAEPITHELIAL LESION OR MALIGNANCY. CELLULAR CHANGES ASSOCIATED WITH INFLAMMATION ARE PRESENT. Specimen adequacy: 02 Satisfactory for evaluation. Endocervical and/or squamous metaplastic cells (endocervical component) are present. Performed by: Adrian Lance, Rd Manager (ASCP) . 02 Note: Note 02 The [...] High,A-Abnormal,AA-Critical Abnormal Performed at: 02 [facility] [address] [place] [address] Leslie Mendez MD, BRUSH-SPATULA CERVIX ENDOCERVIX CLINISYNCNOMissouri Baptist Medical CenterHCG ( test) IA.rapid Ql (U)Ordered By: Imvladimir Asaad on 82-20-5002VGL ( test) Ql (U)NegativeMagruder Memorial HospitalHCG,Urineon 19-13-8068Ljri HCG ( test) Ql (U)NegativeNormal [facility] HospitalComment on above:Result Comment: PERFORMED BY: [facility] [address] [place] [address] PATHOLOGIST FLATBED PRESS OPERATOR JERMAINE ZAPATA M.D.Performed By: #### UHCG #### [facility] [address] [place] [address] USAUS PELVIS AND TRANSVAGon [id number] PELVIS AND TRANSVAG Patient: DELIA CHIN Exam Date: 09/16/2019 : 1990 Gender:F Ordering : DR HELADIO MORRIS . Admission #: [id number] Family : Order #: [id number] CLICK HERE TO VIEW EXAM RADIOLOGY REPORT [...] by: Germain Alexis M.D. on 09/16/2019 at 13:32[facility] HospitalUS PELVIS AND TRANSVAGon [id number] PELVIS AND TRANSVAGPatient: DELIA CHIN Exam Date: 07/22/2019 : 1990 Gender:F Ordering : DR HELADIO MORRIS . Admission #: [id number] Family : Order #: [id number] CLICK HERE TO VIEW EXAM RADIOLOGY REPORT [...] by: Gurpreet Calvo M.D. on 07/22/2019 at 11:16[facility] Vital Signs Date TimeVital SignValuePerforming UulkhuhuyHqmfvwyq54-58-4988 14:16-0400Body mass index (BMI) [Ratio]42.36 kg/a6Xjsvg Fazio DO Work Phone: [facility] SystemKbsnxfrfug69-86-3780 14:16-0400Body iczzzi313.95 kgCoremanuel Morris DO Work Phone: NOMissouri [facility] Medical CenterFdrivjpofz29-36-7459 14:16-0400Diastolic blood vhawakeh30 mm[Hg]Heladio Morris DO Work Phone: [facility] SystemXvzusrbrlh87-17-4822 14:16-0400Systolic blood rjszhiec244 mm[Hg]Heladio Morris DO Work Phone: [facility] SystemIzkqqussru07-30-0542 12:36-0400Body .6 cmGeorcelio Mcdaniel DO Work Phone: [facility] SystemHgghsjlzed70-51-3585 12:36-0400Body mass index (BMI) [Ratio]41.2 kg/f3Wuwowrcelio Mcdaniel DO Work Phone: [facility] SystemSlzxihcyop71-89-9750 12:36-0400Body temperature 96.91 [degF]Britt Mcdaniel DO Work Phone: NOMiss[facility] Medical CenterHjmokotszg81-48-6926 12:36-0400Body smtyfh035.86 kgGeorcelio Mcdaniel DO Work Phone: [facility]OM[facility] CenterGrpveuocbp19-19-2252 12:36-0400Diastolic blood xwghnvba99 mm[Hg]Britt Mcdaniel DO Work Phone: [facility] SystemGkirhjcwkl91-94-3592 12:36-0400Heart rate85 /min Britt Mcdaniel DO Work Phone: [facility]OM[facility] Medical CenterGdcxmjqlss62-11-4065 12:36-4100AkQ5% (BldA) [Mass fraction]95 %Britt Mcdaniel DO Work Phone: [facility]OM[facility] Medical CenterHixlizdetx89-30-1220 12:36-0400Systolic blood wcmnhizy154 mm[Hg]Britt Mcdaniel DO Work Phone: 1(419)625-[address] [place], [place] [address]Dtjkfxsvzb89-62-5425 13:17-0400Body tholsl200.6 cmGeorcelio Mcdaniel DO Work Phone: 1(419)[facility] [place] [address]25[address]25 13:17-0400Body mass index (BMI) [Ratio]41.13 kg/u2Cgkqwvcelio Mcdaniel DO Work Phone: 1(419)[facility] [place], [place] [address]Ejzizqduec33-61-6994 13:17-0400Body temperature 97.3 [degF]Britt Mcdaniel DO Work Phone: 1(419)[facility] [place] [address]25-2025 13:17-0400Body tdmfsu373.68 kgGeorcelio Mcdaniel DO Work Phone: 1(419)[facility] [place] [address]25-2025 13:17-0400Diastolic blood ekccgujm94 mm[Hg]Britt Mcdaniel DO Work Phone: 1(419)[facility] [place], [place] [address]Zbpjpowfmd94-36-7419 13:17-0400Heart rate73 /min Britt Mcdaniel DO Work Phone: 1(419)[facility] [place], [place] [address]Nrlhhspknb74-21-2441 13:17-8596HiT8% (BldA) [Mass fraction]99 %Britt Mcdaniel DO Work Phone: 1(706)[facility] [place], [place] [address]Wgjhubaymz60-75-8027 13:17-0400Systolic blood wfuwxttg996 mm[Hg]Britt Mcdaniel DO Work Phone: 1(837)[facility] [place], [place] [address]Dxcvvtonnl31-89-7381 14:34-0400Body ifwjyr816.6 cmGeorcelio Mcdaniel DO Work Phone: 1(419)[address] [place], [place] [address]-29-2025 14:34-0400Body mass index (BMI) [Ratio]41.71 kg/w7Hcazpncelio Mcdaniel DO Work Phone: 1(419)[facility] [place], [place] [address]Iqtnrggpea67-64-5313 14:34-0400Body temperature 96.91 [degF]Britt Mcdaniel DO Work Phone: 1(419)[facility] [place] [address]-29-2025 14:34-0400Body wbvyes434.22 kgGeorcelio Mcdaniel DO Work Phone: 1(419)[facility] [place] [address]-29-2025 14:34-0400Diastolic blood dwhlaokx90 mm[Hg]Britt Mcdaniel DO Work Phone: [facility]OM[facility] Medical CenterPkhdumxjwn79-22-4737 14:34-0400Heart rate65 /min Britt Mcdaniel DO Work Phone: [facility]OM[facility] CenterOvkbxuhzfy53-51-1262 14:34-9064EtB4% (BldA) [Mass fraction]99 %Britt Mcdaniel DO Work Phone: [facility]OM[facility] CenterOvkhxoerju87-61-2944 14:34-0400Systolic blood ofulyufk245 mm[Hg]Britt Mcdaniel DO Work Phone: [facility]OM[facility] CenterCidchfybnr73-50-9797 11:17-0400Body xubctv752.6 cmGeorcelio Mcdaniel DO Work Phone: [facility]OM[facility] CenterQfgdekltfe57-23-9485 11:17-0400Body mass index (BMI) [Ratio]41.85 kg/e2Bxbbbhcelio Mcdaniel DO Work Phone: [facility]OM[facility] CenterQnhfiogvbe17-06-9374 11:17-0400Body temperature 96.8 [degF]Britt Mcdaniel DO Work Phone: [facility]OM[facility] CenterTirwziyhqb57-51-6546 11:17-0400Body wkuhju636.59 kgGejone Mcdaniel DO Work Phone: [facility]OM[facility] CenterPywuuchtav10-68-0266 11:17-0400Diastolic blood kgynmurx74 mm[Hg]Britt Mcdaniel DO Work Phone: [facility]OM[facility] CenterFcpvcxmdul14-01-3287 11:17-0400Heart rate86 /min Britt Mcdaniel DO Work Phone: [facility]OM[facility] CenterDfojwlopyx73-05-2951 11:17-9339AcR9% (BldA) [Mass fraction]98 %Britt Mcdaniel DO Work Phone: [facility]OM[facility] CenterMjqssovprt38-19-3738 11:17-0400Systolic blood xkpncyda179 mm[Hg]Britt Mcdaniel DO Work Phone: [facility]OM[facility] CenterXwqvrcurrw30-17-5802 11:24-0400Body jvumxe418.6 cmGejone Mcdaniel DO Work Phone: noMissouri Baptist Medical CenterJibsbtgske36-18-6422 11:24-0400Body mass index (BMI) [Ratio]42.57 kg/b0Bormedjone Mcdaniel DO Work Phone: [facility] SystemDsriluthel23-28-3785 11:24-0400Body temperature 97.11 [degF]Britt Mcdaniel DO Work Phone: [facility] SystemPznogjlocz64-77-9574 11:24-0400Body rurqnh721.49 kgGeorcelio Mcdaniel DO Work Phone: 1(692)444-[address] [place], [place] [address]Iqzjwidxub52-82-8961 11:24-0400Diastolic blood jlzklepm35 mm[Hg]Britt Mcdaniel DO Work Phone: 1(688)073-[address] [place], [place] [address]Tibvvdqnjn98-08-2064 11:24-0400Heart rate83 /min Britt Mcdaniel DO Work Phone: 1(200)[facility] [place], [place] [address]Tovjrirfrr26-86-1471 11:24-3214ViR4% (BldA) [Mass fraction]98 %Britt Mcdaniel DO Work Phone: 1(029)441-[address] [place], [place] [address]Ehfgubujch08-81-3477 11:24-0400Systolic blood zcjyxott539 mm[Hg]Britt Mcdaniel DO Work Phone: 1(142)747-[address] [place], [place] [address]Rddcppgfyx48-80-1230 14:35-0400Body mass index (BMI) [Ratio]42.4 kg/h5Brbrwrjone Mcdaniel DO Work Phone: [facility] SystemXzxtjvypen15-59-1449 14:35-0400Body temperature 97.3 [degF]Britt Mcdaniel DO Work Phone: 1(740)584-[address] [place], [place] [address]Pjfgvqzmxs75-81-8729 14:35-0400Body gkybiv765.04 kgGejone Mcdaniel DO Work Phone: PacketworxMissouri Baptist Medical CenterFuhmnqggvi93-47-3068 14:35-0400Diastolic blood sebqooxk58 mm[Hg]Britt Mcdaniel DO Work Phone: 1(038)232-[facility] MilwaukeePacketworxMissouri Baptist Medical CenterNeqynbdydf70-02-0851 14:35-0400Heart rate81 /min Britt Mcdaniel DO Work Phone: PacketworxMissouri Baptist Medical CenterNhkztwfxdr92-83-6923 14:35-0142IfC3% (BldA) [Mass fraction]98 %Britt Mcdaniel DO Work Phone: noMissouri Baptist Medical CenterViojacjktf08-14-6319 14:35-0400Systolic blood mm[Hg]Britt Mcdaniel DO Work Phone: noMissouri [facility] Medical CenterAffxuwfjcr70-11-6207 09:51-0400Body mass index (BMI) [Ratio]42.19 kg/m2Mary Lou Camille PA Work Phone: [facility] SystemPnjpgiuzeb06-14-1877 09:51-0400Body emaqdk345.49 kgAmy Camille PA Work Phone: noMiss[facility] Medical CenterFdxrjnjhjm36-49-8480 09:51-0400Diastolic blood ujdyrwyf00 mm[Hg]Mary Lou Poe PA Work Phone: noMiss[facility] Medical CenterCijkxpyeko62-63-4919 09:51-0400Systolic blood avghszsy014 mm[Hg]Mary Lou Poe PA Work Phone: [facility] SystemLfnvuchona83-51-6654 10:24-0500Body .6 Brown Jimenez PA Work Phone: noMissouri [facility] Medical CenterRxhdvjwecc57-93-6521 10:24-0500Body mass index (BMI) [Ratio]42.4 kg/m2Washington Jimenez PA Work Phone: noMiss[facility] Medical CenterNctcjjabrm12-78-0132 10:24-0500Body xqueir657.04 kgWashington Jimenez PA Work Phone: noMiss[facility] Medical CenterAjudaubhop73-57-8655 10:24-0500Diastolic blood qtakmmpp99 mm[Hg]Washington Jimenez PA Work Phone: noMiss[facility] Medical CenterSsegcktrgs11-56-7070 10:24-0500Heart rate98 /min Washington Jimenez PA Work Phone: noMiss[facility] Medical CenterJrlrjhqrix09-26-4269 10:24-2901SqG1% (BldA) [Mass fraction]100 %Washington Jimenez PA Work Phone: noMiss[facility] Medical CenterEwavbakssd62-96-4260 10:24-0500Systolic blood hdinrggt846 mm[Hg]Washington Jimenez PA Work Phone: noMissouri Baptist Medical CenterZcqpgrxgwu83-75-8673 10:45-0500Body mass index (BMI) [Ratio]41.62 kg/m2Amy Camille PA Work Phone: [facility] SystemPqtmumelcm85-81-1769 10:45-0500Body jwqtoi854.45 kgMary Lou Keenaney PA Work Phone: [facility] SystemJtfovtlpqj84-28-2921 10:45-0500Diastolic blood oplgyeun15 mm[Hg]Mary Lou Poe PA Work Phone: 1(350)499-[address] [place], [place] [address]Koxhnsezee35-15-0983 10:45-0500Systolic blood vzxrivwf027 mm[Hg]Mary Lou Poe PA Work Phone: 1(311)715-[address] [place], [place] [address]Mqynazolrs36-08-9181 11:27-0500Body mass index (BMI) [Ratio]41.37 kg/m2Amy Camille PA Work Phone: 1(368)062-[address] [place], [place] [address]Wbtrsqfgst43-87-5198 11:27-0500Body vwziyz634.76 kgMary Lou Poe PA Work Phone: 1(385)053-[address] [place], [place] [address]Sylvtxwgwg85-37-7357 11:27-0500Diastolic blood yvyftbmt60 mm[Hg]Mary Lou Poe PA Work Phone: 1(843)234-[address] [place], [place] [address]Dorywkujyt58-44-2699 11:27-0500Systolic blood xnjnhgsy546 mm[Hg]Mary Lou Poe PA Work Phone: 1(449)013-[address] [place], [place] [address]Rrxwlvsgue59-38-8344 11:13-0400Body mass index (BMI) [Ratio]42.1 kg/z6Uhzeq Alexandra DO Work Phone: [phone])[address] [place], [place] [address]Ivbfzjoruq74-32-7329 11:13-0400Body noqvhq529.76 kgCorey Alexandra DO Work Phone: 1(568)939-[address] [place], [place] [address]Mlfloallup66-48-7907 11:13-0400Diastolic blood iteumaqq38 mm[Hg]Heladio Alexandra DO Work Phone: 1(450)180-[address] [place], [place] [address]Wrtlalelhw92-74-6401 11:13-0400Systolic blood ytvgoyyc795 mm[Hg]Heladio Alexandra DO Work Phone: 1(539)387-[address] [place], [place] [address]Lsfxwixkwn44-76-2264 11:10-0400Body dyblek479.1 cmCorey Alexandra DO Work Phone: [facility] SystemZycppnktjp30-82-4517 11:10-0400Body mass index (BMI) [Ratio]40.44 kg/u1Zmcso Alexandra DO Work Phone: [facility] SystemKcialddcug89-17-1418 11:10-0400Body wsjndy225.22 kgCorey Alexandra DO Work Phone: [facility] SystemJrthqhoixl16-59-5724 11:10-0400Diastolic blood axptjlbt12 mm[Hg]Heladiomanuel Fullero DO Work Phone: [facility] SystemCnhsaptkzb41-76-2318 11:10-0400Systolic blood eoskmshm879 mm[Hg]Heladio Alexandra DO Work Phone: [facility] SystemNrhyeubvht40-98-5398 13:11-0400Body hsjije070.1 cmRvilma Jimenez PA Work Phone: [facility] SystemRrjpcgcuvz95-10-2743 13:11-0400Body mass index (BMI) [Ratio]40.44 kg/m2Ryzain Jimenez PA Work Phone: [facility] SystemQmfguppvjo61-61-2218 13:11-0400Body temperature 98.71 [degF]Washington Jimenez PA Work Phone: 1(314)295-[address] [place], [place] [address]Cjbqwbqlmk31-10-1587 13:11-0400Body wjxlot726.22 kgWashington Jimenez PA Work Phone: [facility] SystemHjouvqhlcl77-07-0221 13:11-0400Diastolic blood bsoqoxcr22 mm[Hg]Washington Jimenez PA Work Phone: [place] [address]Irncuayvij50-16-8960 13:11-0400Heart rate83 /min Washington Jimenez PA Work Phone: [facility] SystemGpcojzilkl70-18-7976 13:11-9539JrW7% (BldA) [Mass fraction]100 %Washington Jimenez PA Work Phone: [facility] SystemZzkaswxaba97-14-4375 13:11-0400Systolic blood zofaacnq303 mm[Hg]Washington Jimenez PA Work Phone: 1(590)184-[address] [place], [place] [address]Yrvucqkufs11-06-9293 10:54-0400Diastolic blood annkmovb74 mm[Hg]DO Gregg Mcdaniel Work Phone: 1(255)[address] [place], [place] [address]06-22-2023 10:54-0400 Heart rate65 /Christina Mcdaniel Work Phone: 1(607)[address] [place], [place] [address]06-22-2023 10:54-0400 Respiratory rate16 /CarenO Gregg Mcdaniel Work Phone: 1(807)[address] [place], [place] [address]06-22-2023 10:54-0400 SaO2% (BldA) [Mass fraction]99 %DO Gregg Mcdaniel Work Phone: 1(340)[address] [place], [place] [address]06-22-2023 10:54-0400 Systolic blood percpnhx181 mm[Hg]DO Gregg Mcdaniel Work Phone: 1(847)[address] [place], [place] [address]06-22-2023 09:49-0400 Body zoiglb409.56 cmDO Gregg Mcdaniel Work Phone: 1(253)[address] [place], [place] [address]06-22-2023 09:49-0400 Body vwettuyfgoc42.9 [degF]DO Gregg Mcdaniel Work Phone: 1(187)[address] [place], [place] [address]06-22-2023 09:49-0400 Body qeevsv993.93 kgDO Gregg Mcdaniel Work Phone: 1(765)[address] [place] [address] Encounters Encounter DateEncounter TypeCare ProviderFacilityStart: 08-22-2025 End: 91-75-5729Alejoy flowsheetCorey Alexandra DO Work Phone: NOOC Nicolasa OBGYNStart: 08-22-2025 End: 37-02-6933Zrqkbx flowsheetCorey Alexandra DO Work Phone: NOYY Hunker OBGYNStart: 08-22-2025 End: 25-39-3859Flefpgonz Result EncounterCorey Alexandra DO Work Phone: NOVM External Department UnsolicitedStart: 08-22-2025 End: 19-81-2736ubybabsutxOCBKT FAZIONot AvailableStart: 08-22-2025 End: 10-95-1507Glqwcnn encounter procedureCorey Alexandra DO Work Phone: [facility] Work Phone: Start: 08-22-2025 End: 57-27-8312Fotspbbn preventive med est patient 18-39 yrsCorey Alexandra DO Work Phone: noms Nicolasa OBGYNComment on above:Well woman exam with routine gynecological exam; Pain of both breastsStart: 08-08-2025 End: 20-19-5229Egwmrn flowsheetGeorge R Kaftan DO Work Phone: [facility] 230Start: 08-08-2025 End: 75-09-6337Prxvja flowsheetGeorge R Kaftan DO Work Phone: noms [facility] 230Start: 08-08-2025 End: 78-58-5602Wzwsbs outpatient visit 15 minutesGeorge R Kaftan DO Work Phone: NOZF [facility] 230Comment on above: Obesity without serious comorbidity, unspecified class, unspecified obesity type; Viral upper respiratory infectionStart: 08-08-2025 End: 06-84-3466gprmkfkdzsWLWGGY R KAFTANNot AvailableStart: 07-01-2025 End: 84-98-6095Irzyhynon encounterGeorge R Kaftan DO Work Phone: [facility] 230Comment on above: ResultsStart: 06-27-2025 End: 96-56-6171Ygjnzn flowsheetGeorge R Kaftan DO Work Phone: [facility] 230Start: 06-27-2025 End: 48-59-5299Eszevp flowsheetGeorge R Kaftan DO Work Phone: [facility] 230Start: 06-27-2025 End: 18-95-9618Hqtrvw outpatient visit 15 minutesGeorge R Kaftan DO Work Phone: NOLQ [facility] 230Comment on above:PCOS (polycystic ovarian syndrome) (Primary Dx); Obesity without serious comorbidity, unspecified class, unspecified obesity type; Diarrhea of presumed infectious origin; Bright red blood per rectum; Lower abdominal painStart: 06-27-2025 End: 35-35-5435aqrxduscdgQJAMOZ R KAFTANNot AvailableStart: 28-46-4699gcfedjnhfc FREDRICK Simmscility:[facility] Systemtart: 05-31-2025 End: 86-42-2378qdskazgsfrJTDQRA R KAFTANNot AvailableStart: 05-31-2025 End: 30-64-0512Shmauw outpatient visit 15 minutesGeorge R Kaftan DO Work Phone: [facility] 230Comment on above:Bee sting, undetermined intent, initial encounter (Primary Dx); Obesity without serious comorbidity, unspecified class, unspecified obesity type; Cellulitis of left upper extremity; Thrombophlebitis of superficial veins of left lower extremityStart: 05-31-2025 End: 93-09-7948Bzdcit flowsheetGeorge R Kaftan DO Work Phone: [facility] 230Start: 05-31-2025 End: 43-48-7490Gepdmn flowsheetGeorge R Kaftan DO Work Phone: [facility] 230Start: 04-28-2025 End: 85-92-9820Hyuvin flowsheetGeorge R Kaftan DO Work Phone: [facility] 230Start: 04-28-2025 End: 22-59-3893Hffitg flowsheetGeorge R Kaftan DO Work Phone: [facility] 230Start: 04-28-2025 End: 57-54-0842ffnpsgxvduJKHPXX R KAFTANNot AvailableStart: 04-28-2025 End: 39-60-9882Ujkvbs outpatient visit 15 minutesGeorge R Kaftan DO Work Phone: [facility] 230Comment on above:Edema, unspecified type (Primary Dx); Obesity without serious comorbidity, unspecified class, unspecified obesity type; Thrombophlebitis of superficial veins of left lower extremity; Viral upper respiratory infection; Varicose veins of both lower extremities, unspecified whether complicated; Mixed anxiety and depressive disorderStart: 04-04-2025 End: 54-22-8132Laijjn flowsheetGeorge R Kaftan DO Work Phone: [facility] 230Start: 04-04-2025 End: 10-40-5834Mvvfmd flowsheetGeorge R Kaftan DO Work Phone: [facility] 230Start: 04-04-2025 End: 21-16-0903nwooguepvjRESDWE R KAFTANNot AvailableStart: 04-04-2025 End: 09-63-0782Brxegk outpatient visit 15 minutesGeorge R Kaftan DO Work Phone: [facility] 230Comment on above:PCOS (polycystic ovarian syndrome) (Primary Dx); Obesity without serious comorbidity, unspecified class, unspecified obesity type; Mixed anxiety and depressive disorderStart: 03-02-2025 End: 89-07-4909nhmmekaxgpWYMKVW R KAFTANNot AvailableStart: 03-02-2025 End: 50-52-0548Llwwpo outpatient visit 15 minutesGeorge R Kaftan DO Work Phone: [facility] 230Comment on above:PCOS (polycystic ovarian syndrome) (Primary Dx); Thrombophlebitis of superficial veins of left lower extremity; Allergic rhinitis due to other allergic trigger, unspecified seasonality; Viral upper respiratory infection; Mixed anxiety and depressive disorder; Obesity without serious comorbidity, unspecified class, unspecified obesity type Start: 03-02-2025 End: 42-45-6391Ixjzvo flowsheetGeorge R Kaftan DO Work Phone: [facility] 230Start: 03-02-2025 End: 01-92-3678Owvzgo flowsheetGeorge R Kaftan DO Work Phone: [facility] 230Start: 02-21-2025 End: 11-24-7875Dyhuxs Brett VILLEDA Work Phone: NOOA BCP OBStart: 02-21-2025 End: 09-21-1320Szhrai Brett VILLEDA Work Phone: noms BCP OBStart: 02-21-2025 End: 35-70-8725Kwnqxmqo Result EncounterMary Lou VILLEDA Work Phone: [facility] External Department UnsolicitedStart: 02-21-2025 End: 20-77-8630xbnqudwxdsDLR RAMEYNot AvailableStart: 02-21-2025 End: 49-62-3198Mwjexo outpatient visit 15 minutesMary Lou VILLEDA Work Phone: noMS BCP OBComment on above:Exposure to STD; Vaginal discharge; Sexually transmitted disease exposureStart: 01-14-2025 End: 53-25-1922zajswavvwgFITRVA R KAFTANNot AvailableStart: 01-11-2025 End: 03-19-1239imhyelkzevYSSJOU R KAFTANNot AvailableStart: 24-73-7108lefnxnrcet BRITT MCDANIELFacility:[facility] HospitalStart: 12-27-2024 End: 20-17-0902Qxdvyz Miriam VILLEDA Work Phone: [facility] 230Start: 12-27-2024 End: 29-03-2290Pihwmz Miriam VILLEDA Work Phone: [facility] 230Start: 12-27-2024 End: 35-11-1955Ryfkhe outpatient visit 15 minutesWashington VILLEDA Work Phone: [facility] 230Comment on above:Acute cough (Primary Dx); Viral upper respiratory infectionStart: 12-27-2024 End: 04-73-3299outgabozcjXIYP M MYERSNot AvailableStart: 10-14-2024 End: 07-31-3645Ikduon Brett VILLEDA Work Phone: noms BCP OBStart: 10-14-2024 End: 22-35-5943Zndchd flowsheetMary Lou Poe PA Work Phone: [facility] BCP OBStart: 10-14-2024 End: 23-62-7377Gqhxvc outpatient visit 15 minutesAmy Camille VILLEDA Work Phone: [facility] BCP OBComment on above:Encounter for weight managementStart: 10-14-2024 End: 65-06-1402llgpfgeolfMCC RAMEYNot AvailableStart: 10-04-2024 End: 65-65-4095PgvmvpFerdm Alphonse TAPER OPERATOR Work Phone: [facility] [phone] on above:Thrombophlebitis of superficial veins of left lower extremityStart: 09-16-2024 End: 45-25-2489Yxzsts flowsheetMary Lou Poe PA Work Phone: [facility] OBStart: 09-16-2024 End: 55-62-3423Kzzykw flowsheetMary Lou Poe PA Work Phone: [facility] OBStart: 09-16-2024 End: 55-89-3667okdqivgsxmRLT RAMEYNot AvailableStart: 09-16-2024 End: 42-63-9531Gtvmat outpatient visit 5 minutesAmy Camille VILLEDA Work Phone: [facility] OBComment on above:Encounter for weight managementStart: 08-19-2024 End: 64-86-6883Jvubvs flowsheetCorey Alexandra DO Work Phone: [facility] OBStart: 08-19-2024 End: 92-66-1238Ivvgbw flowsheetCorey Alexandra DO Work Phone: [facility] OBStart: 08-19-2024 End: 02-40-0472Zezwjf outpatient visit 15 minutesCorey Alexandra DO Work Phone: [facility] OBComment on above:Encounter for weight managementStart: 07-15-2024 End: 53-12-9781Xhsbnn flowsheetCorey Alexandra DO Work Phone: [facility] OBStart: 07-15-2024 End: 89-41-2404Wdtgcg flowsheetCorey Alexandra DO Work Phone: [facility]CP OBStart: 07-15-2024 End: 28-60-4956Ccbjjrnfr Result EncounterCorey Alexandra DO Work Phone: [facility] External Department UnsolicitedStart: 07-15-2024 End: 05-07-3099Yftvcnj encounter procedureCorey Alexandra DO Work Phone: [facility] HealthcareStart: 07-15-2024 End: 84-92-5232Mljawavf preventive med est patient 18-39 yrsCorey Alexandra DO Work Phone: noms BCP OBComment on above:Well woman exam with routine gynecological exam; Menorrhagia with regular cycle; Pelvic pain in female; Insulin resistance; PCOS (polycystic ovarian syndrome)Start: 07-12-2024 End: 40-28-5619Xihsdz Miriam VILLEDA Work Phone: [facility] 230Start: 07-12-2024 End: 56-79-6622Uuyplb Miriam VILLEDA Work Phone: [facility] 230Start: 07-12-2024 End: 00-92-4676Mofrxc outpatient visit 15 minutesWashington VILLEDA Work Phone: [facility] 230Comment on above:Viral upper respiratory infection (Primary Dx)Start: 04-24-2023 End: 40-41-4364zisbmdbadmQ. Robert KaftanFacility:[facility] Healthcaretart: 04-24-2023 End: 75-81-2284Mzqlrhido to same day surgery Iam Mcdaniel Work Phone: [facility] Work Phone: Start: 04-24-2023 End: 16-88-2648umwyqwsceyGU G. Robert Kaftan Work Phone: [facility] Work Phone: Start: 09-16-2019 End: 91-64-5269Gbtkhpq encounter procedureCOREY FAZIOFacility:L9Dnwlt: 07-22-2019 End: 13-71-0370Jvkcmeg encounter procedureCOREY FAZIOFacility:H1 Procedures DateProcedureProcedure DetailPerforming ClinicianStart: 03-95-3913NQD,APTIMA HPV,AGE GDLNCorey Alexandra DO Work Phone: Start: 38-37-4473WXUYEXTWL VAGINITIS (HTRX)Mary Lou VILLEDA Work Phone: Start: 02-21-2025 End: 09-01-3877Mqtrp dip stick/tablet rgnt non-auto w/o micrscpAmy Camille VILLEDA Work Phone: Start: 38-56-4032Aealvbwcf streptococcus group Kvng Nalini VILLEDA Work Phone: Start: 39-58-6885IIOGKJ COVID-19/FLURyan Nalini VILLEDA Work Phone: Start: 93-30-9667FSV,APTIMA HPV,AGE GDLNCorey Alexandra Street[employer]wl Work Phone: Start: 14-69-3840Qtqribcamkb observation [Identifier] in Cervix by Cyto stainCorey Alexandra DO Work Phone: Start: 61-12-2697BqhrtcxyqfgZP Gregg Mcdaniel Work Phone: Plan of Treatment DateCare ActivityDetailAuthorStart: 20-07-5740Tuvpkppsh for malignant neoplasm of cervixNOMS HealthcareStart: 27-28-2895Mwrapfdkh for malignant neoplasm of cervixNOMS HealthcareStart: 08-31-2026 End: 96-28-2592Fzxacdc encounter /29/2026 11:00 AM EDT Procedure Visit [facility] Nicolasa HERRERA [address] [phone] Heladio Morris DO [address] [place], [place] [id number] NOMMarky MOSSNStart: 11-23-2025 End: 99-33-9802Ontlocca Eiuuqxw0211/23/2025 8:30 AM EST Clinical Support [facility] [place] [facility] [address] [place], [id number] [facility] [place] OBGYNStart: 08-22-2025 End: 71-85-2277VK Breast - bilateral DiagnosticBilateral diagnostic mammogram Imaging Routine Pain of both breasts Expected: 08/22/2025 (Approximate), Expires: 10/22/2026[facility] Work Phone: comment on above:Expected: 08/22/2025 (Approximate), Expires: 10/22/2026Start: 08-22-2025 End: 01-15-1992Fytekbe encounter procedureNOMONTER[facility] OBStart: 08-08-2025 End: 45-33-2350Mgpffea encounter heqcedgaj64/06/2025 12:40 PM EDT Office Visit [facility] [address] [place] [address] Britt Mcdaniel DO [address] [place] [address] [facility] 230Comment on above:ArrivedStart: 07-28-2025 End: 14-89-1067Bahnuzr encounter lumvialpi26/25/2025 11:00 AM EDT Office Visit HILARY LINARES OB [address] [place] [phone] Heladio Morris DO [address] [place] [address] NOMS BCP OBStart: 74-40-1507Ofdozlzkh vaccinationCACHE [facility] HealthcareStart: 06-28-2025 End: 77-96-6900GTD W Auto Differential panel - BloodCBC and differential Lab Routine Obesity without serious comorbidity, unspecified class, unspecified obesity type PCOS (polycystic ovarian syndrome) Lower abdominal pain Expected: 06/28/2025 (Approximate), Expires: 07/27/2025[facility] HealthcareComment on above: Expected: 06/28/2025 (Approximate), Expires: 07/27/2025Start: 06-28-2025 End: 74-00-3080Cygvppwkkjmvmn difficile toxin A+B tcdA+tcdB genes [Presence] in Stool by BEATRIZ with probe detectionClostridium difficile toxin Microbiology Routine Diarrhea of presumed infectious origin Bright red blood per rectum Expected: 06/28/2025 (Approximate), Expires: 07/27/2025[facility] HealthcareComment on above:Expected: 06/28/2025 (Approximate), Expires: 07/27/2025Start: 06-28-2025 End: 74-06-4764Gtuszioseatfm metabolic 2000 panel - Serum or PlasmaComprehensive metabolic panel Lab Routine Obesity without serious comorbidity, unspecified class, unspecified obesity type PCOS (polycystic ovarian syndrome) Lower abdominal pain Expected: 06/28/2025(Approximate), Expires: 07/27/2025[facility] HealthcareComment on above:Expected: 06/28/2025 (Approximate), Expires: 07/27/2025Start: 06-28-2025 End: 00-12-0967Mzeom cultureStool culture Microbiology Routine Diarrhea of presumed infectious origin Bright red blood per rectum Expected: 06/28/2025 (Approximate), Expires: 07/27/2025[facility] Healthcare Work Phone: Comment on above:Expected: 06/28/2025 (Approximate), Expires: 07/27/2025Start: 06-27-2025 End: 62-91-9776GF Abdomen and Pelvis WO contrastCT abdomen pelvis wo IV contrast Imaging Routine Diarrhea of presumed infectious origin Bright red blood per rectum Lower abdominal pain Expected: 06/27/2025, Expires: 06/27/2026[facility] HealthcareComment on above:Expected: 06/27/2025, Expires: 06/27/2026Start: 06-27-2025 End: 78-98-4718Zigwmbg encounter vflctslta74/25/2025 1:20 PM EDT Office Visit NOMMarky [facility] [address] [place] [address] Britt Mcdaniel, DO [address] [place] [address] ArrivedNOMS Lizarraga [facility] 230Comment on above:ArrivedStart: 03-03-2025 End: 82-53-4121FAJ W Auto Differential panel - BloodCBC and [...] above:Expected: 03/03/2025 (Approximate), Expires: 04/01/2025Start: 03-03-2025 End: 58-12-6728Gupkxjidamxlp metabolic 2000 panel - Serum or PlasmaComprehensive metabolic panel Lab Routine Thrombophlebitis of superficial veins of left lower extremity Allergic rhinitis due to other allergic trigger, unspecified seasonality Viral upper respiratory infection PCOS (polycystic ovarian syndrome) Mixed anxiety and depressive disorder Obesity withoutserious comorbidity, unspecified class, unspecified obesity type Expected: 03/03/2025 (Approximate), Expires: 04/01/2025NOMS HealthcareComment on above:Expected: 03/03/2025 (Approximate), Expires: 04/01/2025Start: 03-03-2025 End: 45-12-9507Tsrsbbknez A1c/Hemoglobin.total in BloodHemoglobin A1c Lab Routine PCOS (polycystic ovarian syndrome) Expected: 03/03/2025 (Approximate), Expires: 04/01/2025NOMS HealthcareComment on above:Expected: 03/03/2025 (Approximate), Expires: 04/01/2025Start: 03-03-2025 End: 79-88-7993Ceuotsuhrkda [Mass/volume] in Serum or PlasmaTestosterone Lab Routine PCOS (polycystic ovarian syndrome) Expected: 03/03/2025 (Approximate), Expires: 04/01/2025[facility] Work Phone: Comment on above:Expected: 03/03/2025 (Approximate), Expires: 04/01/2025Start: 12-27-2024 End: 84-22-0466Nvqjeum encounter /24/2025 10:20 AM EST Office Visit [facility] [address] [place] [address] [place] Jimenez PA [address] [place] [address] ArrivedNOMS SWS FM 230Comment on above:ArrivedStart: 11-09-2024 End: 15-43-2618Axdinbs encounter /07/2025 10:10 AM EST Office Visit [facility] [address] [place] [phone] Mary Lou Poe, PA [address] [place] [address] NOMS BCP OBStart: 10-14-2024 End: 60-93-8041Lqbptvm encounter procedureNOMS BCP OBComment on above:Arrived Start: 09-16-2024 End: 58-30-6336Oyhjnww encounter equlftkjk71/14/2024 10:50 AM EST Office Visit [facility] [address] [place] [phone] Mary Lou Poe, PA [address] [place] [address] NOMS BCP OBStart: 08-19-2024 End: 73-90-2437Apcidxg encounter procedureNOMS BCP OBComment on above:Arrived Start: 07-15-2024 End: 25-13-0230Toodjukwibric hormone (AMH)Antimullerian hormone (AMH) Lab Routine Insulin resistance PCOS (polycystic ovarian syndrome) Expected: 07/15/2024, Expires: 07/15/2025NOMS HealthcareComment on above:Expected: 07/15/2024, Expires: 07/15/2025Start: 07-15-2024 End: 87-26-2230wEKX in Blood by Coagulation assayAPTT Lab Routine Menorrhagia with regular cycle Expected: 07/15/2024 (Approximate), Expires: 07/15/2025NOMS HealthcareComment on above:Expected: 07/15/2024 (Approximate), Expires: 07/15/2025Start: 07-15-2024 End: 80-83-3378MUA W Auto Differential panel - BloodNOKY HealthcareComment on above:Ordered: 07/15/2024Expected: 07/15/2024 (Approximate), Expires: 07/15/2025 Start: 07-15-2024 End: 81-65-0309XNICZONN Lab Routine Insulin resistance PCOS (polycystic ovarian syndrome) Expected: 07/15/2024, Expires: 07/15/2025NOMS HealthcareComment on above:Expected: 07/15/2024, Expires: 07/15/2025Start: 07-15-2024 End: 91-69-4447GTXJ-sulfateDHEA-sulfate Lab Routine Insulin resistance PCOS (polycystic ovarian syndrome) Expected: 07/15/2024(Approximate), Expires: 07/15/2025NOMS HealthcareComment on above:Expected: 07/15/2024 (Approximate), Expires: 07/15/2025Start: 07-15-2024 End: 67-03-5682Cjipcaoe stimulating hormoneFollicle stimulating hormone Lab Routine Insulin resistance PCOS (polycystic ovarian syndrome) Expected: 07/15/2024 (Approximate), Expires: 07/15/2025NOMS HealthcareComment on above: Expected: 07/15/2024 (Approximate), Expires: 07/15/2025Start: 07-15-2024 End: 05-00-7931dVN, quantitative, pregnancyNOMS HealthcareComment on above: Ordered: 07/15/2024Expected: 07/15/2024 (Approximate), Expires: 07/15/2025Start: 07-15-2024 End: 47-51-8812Saidjmgjzbq hormoneLuteinizing hormone Lab Routine Insulin resistance PCOS (polycystic ovarian syndrome) Expected: 07/15/2024 (Approximate), Expires: 07/15/2025NOMS HealthcareComment on above:Expected: 07/15/2024 (Approximate), Expires: 07/15/2025Start: 07-15-2024 End: 16-81-0234Aptucenpkpd [Units/volume] in Serum or PlasmaNOMS Healthcare Comment on above:Ordered: 07/15/2024Expected: 07/15/2024 (Approximate), Expires: 07/15/2025Start: 07-15-2024 End: 13-84-0333Cwmafrcvr (T4) free [Mass/volume] in Serum or PlasmaNOMS HealthcareComment on above:Ordered: 07/15/2024Expected: 07/15/2024 (Approximate), Expires: 07/15/2025Start: 07-15-2024 End: 91-70-8259VS for pregnancyUS PELVIS-TRANSVAG IF INDICATED Imaging Routine Menorrhagia with regular cycle Expected: 07/15/2024(Approximate), Expires: 07/15/2025[facility] HealthcareComment on above:Expected: 07/15/2024 (Approximate), Expires: 07/15/2025Start: 07-15-2024 End: 69-64-4948Sysseii encounter ioowhmhdb31/12/2024 11:00 AM EDT Office Visit [facility] [address] [place] [phone] Heladio Morris, DO [address] [place] [address] [facility] OBStart: 54-81-9537Iaiooawdu vaccination Influenza Vaccine (#1)NOMS HealthcareStart: 54-93-8393VkxnammjuUK Healthcaretart: 30-39-5810Tiuyrjrop for malignant neoplasm of cervixPap SmearNOKY HealthcareCHLAMYDIA TRACHOMATIS (GENITO/STI)CHLAMYDIA TRACHOMATIS (GENITO/STI) Lab Routine Exposure to STD Vaginal discharge Ordered: 02/21/2025[facility] Healthcare Comment on above:Ordered: 5Cytology Cervical or vaginal smear or scraping studyPap Smear Pathology and Cytology Routine Well woman exam with routine gynecological exam Ordered: 07/15/2024[facility] Healthcare Work Phone: comment on above:Ordered: ytology Cervical or vaginal smear or scraping studyPap Smear Pathology and Cytology Routine Well woman exam with routine gynecological exam Ordered: 08/22/2025[facility] Work Phone: comment on above:Ordered: 08/22/2025Hemoglobin A1c/Hemoglobin.total in BloodHemoglobin A1c Lab Routine Menorrhagia with regular cycle Ordered: 07/15/2024[facility] HealthcareComment on above:Ordered: 07/15/2024 Hepatitis B virus surface Ag [Presence] in Serum or Plasma by Immunoassay Hepatitis B surface antigen Lab Routine Sexually transmitted disease exposure Ordered: 02/21/2025[facility] HealthcareComment on above:Ordered: 02/21/2025 HIV-1/HIV-2 antigen/antibody combination immunoassayHIV-1 and HIV-2 antibodies Lab Routine Sexually transmitted disease exposure Ordered: 02/21/2025[facility] HealthcareComment on above:Ordered: 02/21/2025Human papilloma virus DNA [Presence] in Unspecified specimen by Probe with amplificationHPV DNA probe, amplified Microbiology Routine Well woman exam with routine gynecological exam Ordered: 07/15/2024[facility] HealthcareComment on above:Ordered: 07/15/2024Human papilloma virus DNA [Presence] in Unspecified specimen by Probe with amplificationHPV DNA probe, amplified Microbiology Routine Well woman exam with routine gynecological exam Ordered: 08/22/2025[facility] HealthcareComment on above: Ordered: 08/22/2025Neisseria gonorrhoeae DNA [Presence] in Unspecified specimen by BEATRIZ with probe detectionNeisseria gonorrhea DNA probe, direct Lab Routine Exposure to STD Vaginal discharge Ordered: 02/21/2025[facility] HealthcareComment on above:Ordered: 02/21/2025Patient EducationHemorrhoids (DC)[facility] Work Phone: Prothrombin time (PT) in Blood by Coagulation assay Protime-INR Lab Routine Menorrhagia with regular cycle Ordered: 07/15/2024[facility] HealthcareComment on above:Ordered: 07/15/2024eagin Ab [Presence] in Serum by RPRRPR Lab Routine Sexually transmitted disease exposure Ordered: 02/21/2025[facility] HealthcareComment on above:Ordered: 02/21/2025SURESWAB(R) ADVANCED VAGINITIS PLUS, TMASURESWAB(R) ADVANCED VAGINITIS PLUS, TMA Pathology and Cytology Routine Exposure to STD Vaginal discharge Ordered: 02/21/2025[facility] [employer] Work Phone: comment on above:Ordered: 02/21/2025 Immunizations Immunization DateImmunizationNotesCare JrysfcvqNwkfvwey56-51-3565ftspslfns, seasonal, injectable, preservative freeWashington Jimenez [place] Work Phone: noMiss[facility] CenterDhrazwsujk51-70-3745oyiuldjka virus vaccine, unspecified formulationWashington Jimenez MT Work Phone: noMiss[facility] CenterPbzuvvyphz30-84-0208hmriylx toxoid, reduced diphtheria toxoid, and acellular pertussis vaccine, adsorbedzain Jimenez MT Work Phone: [facility] Payers DatePayer CategoryPayerPoly [id number] [id number] Cross Blue ShieldBCBS [id number]egqCCVJ BCBS [id number] 2017-Present [phone] [address] [place] [phone] 1.2.840.621647.1.13.693.2.7.3.462[id number] 2.16.840.1.534423.3.57[id number] 2.16.840.1.921855.3.57[id number] 2.16.840.1.269544.3.579.[id number] 2.16.840.1.233753.3.57[id number] 2.16.840.1.510779.3.57[id number] 2.16.840.1.105836.3.57[id number] 2.16.840.1.881548.3.57[id number] 2.16840.1.127574.3.57[id number] 2.16.840.1.383932.3.579.2.426472-40-2484Iztlqbz7500695 2.16.840.1.913257.3.579.2.[id number] 2.16.840.1.078313.3.579.2.843716-80-1340Oqshwvg1437489 2.16.840.1.019952.3.579.2.[id number] 2.16.840.1.176787.3.57[id number] 2.16.840.1.971177.3.579.2.025297-92-0324Jnsaiqh4238449 2.16.840.1.248692.3.579.2.896786-89-8382Xizuuhv9842092 2.16.840.1.343561.3.579.2.122347-79-3256Zxbiiiv8064600 2.16.840.1.616169.3.579.2.305413-57-8019DxbrsrcBIZ695L8893361-03-7405Fnwcsmw [id number] 2.16.840.1.820001.3.579.2.531 Social History DateTypeDetailFacilityStart: 04-24-2023 End: 71-06-4550Rszhwqt smoking status NHISNever smoked tobacco (finding) [facility]: 68-45-7850Gaa Assigned At BirthFemale [facility]tart: 47-99-5969Vltsfgf use and exposure Smokeless tobacco non-userNOKY HealthcareStart: 07-15-2024 End: 51-87-0368Rarmtcgga beverage intakeCurrent drinker of alcohol (finding)[facility] HealthcareStart: 09-24-2023 End: 08-44-9563Frgljlh of Social functionNOKY HealthcareStart: 09-24-2023 End: 55-92-1870Lrkinhv Use Disorder Identification Test - Consumption [AUDIT-C] N[facility] HealthcareHow often to you have a drink containing alcohol?Monthly or less N[facility] HealthcareHow many standard drinks containing alcohol do you have on a typical day?1 or 2NOMS HealthcareHow often do you have 6 or more drinks on 1 occasion?NeverNOMS HealthcareStart: 22-21-5061Khliueg Comment1-2 drinks less than monthly in the past year, Caffeine intake: 1 can of pop per dayNOKY HealthcareStart: 83-38-5746Rju assigned at birthNot on fileNOMS HealthcareStart: 97-15-1342Naqhwa identityIdentifies as female gender (finding)[facility] Start: 25-49-7440VkdXskgqhZDNI Healthcare Goals DatePatient GoalDesired Activity/State Functional Status GqznKialsevqnmDawyxaWdkvnqrl58-09-5720Fdjvfnx Health Questionnaire 2 item (PHQ- 2) [Reported][facility] Mxmlqqckod60-55-4725Kunwhyg Health Questionnaire 2 item (PHQ- 2) [Reported][facility] Bcmxygjqrd09-97-7657Nmqghjx Health Questionnaire 2 item (PHQ- 2) [Reported][facility] SystemVdyidmpypj85-79-7356Ylursmy Health Questionnaire 2 item (PHQ- 2) [Reported][facility] SystemXqoqmxbftd06-16-4790Qvbshqq Health Questionnaire 2 item (PHQ- 2) [Reported][facility] SystemWbnkmpnkuq79-36-4567Lcnhkud Health Questionnaire 2 item (PHQ- 2) [Reported][facility] Clinical Notes 04-24-2023 to 08-22-2025 Note Date & LdezHpdwBqjpqgfr21-41-2729 History of Present illness Narrative* Cathryn Saucedo [...] nursing note reviewed. Exam conducted with a top ironer present. Vitals: Estimated body mass index is [...] of: Heladio Morris DO documented in this encounterFreeman Health SystemDfmxbxtvvl44-24-4867 History of Present illness Narrative* Britt Mcdaniel [...] 06/27/25 1322 cetirizine (ZyrTEC) 10 MG tablet [id number] Yes Take 1 tablet (10 mg) by mouth Daily Britt Mcdaniel DO Active fluticasone (Flonase) 50 MCG/ACT nasal spray [id number] Yes Administer 1-2 sprays into each nostril Daily Shake gently. Before first use, prime pump. After use, clean tip and replace cap Britt Mcdaniel DO Active ibuprofen 800 MG tablet [id number] Yes Take 1 tablet (800 mg) by mouth 3 (three) times a day as needed for mild pain Britt Mcdaniel, DO Active phentermine (Adipex-P) 37.5 MG tablet [id number] Yes Take 1 tablet (37.5 mg) by [...] tip and replace cap documented in this encounterFreeman Health SystemAiuqzbgshy99-40-9461 Telephone encounter Note* Telephone Encounter - Yasmin Salvador - 07/01/2025 10:41 AM EDT Pt calling to on blood work and stool sample. [facility] SystemIniiwprduz53-52-1827 Miscellaneous Notes* Telephone Encounter - Yasmin Salvador - 07/01/2025 10:41 AM EDT Pt calling to fu on blood work and stool sample. [facility] documented in this encounterFreeman Health SystemCbwkxnhspi48-81-7166 History of Present illness Narrative* Britt Mcdaniel [...] wo IV contrast; Future documented in this encounterFreeman Health SystemSnpgiidrnu90-38-9382 History of Present illness Narrative* Britt Mcdaniel [...] needed for mild pain documented in this encounterFreeman Health SystemRxtjsmbfvp61-89-2401 History of Present illness Narrative* Britt Mcdaniel [...] crush, chew, or split. documented in this encounterFreeman Health SystemHxbcudegud20-12-9284 History of Present illness Narrative* Britt Mcdaniel [...] 30 tablet, Rfl: 0 documented in this encounterFreeman Health SystemFxfpxmmnhr74-08-0525 History of Present illness Narrative* Britt Mcdaniel [...] 14 tablet, Rfl: 0 documented in this encounterFreeman Health SystemNcgwrokwsz42-72-9140 History of Present illness Narrative* RONAL Olguin [...] nursing note reviewed. Exam conducted with a top ironer present. Vitals: Estimated body mass index is [...] behalf of: RONAL Olguin documented in this encounterFreeman Health SystemIxmmpdyfag63-17-9486 NotePatient Education Materials Follows: Dysuria Dysuria is [...] these instructions at home: Medicines ? Take nyfh-gxy-bbzfwat and prescription medicines only as told by [...] provider. Document Revised: 06/01/2021 Document Reviewed: 06/01/2021 [employer] Patient Education ? 2023 [facility] DevicesTr[facility] Center02-24-2025 History of Present illness Narrative* [...] COV 2 RNA neg documented in this encounterFreeman Health SystemEqzxjrtuoq87-75-1834 History of Present illness Narrative* RONAL Olguin [...] behalf of: RONAL Olguin documented in this encounterFreeman Health SystemQcgzgzktct56-71-8155 History of Present illness Narrative* Halley Alfred [...] behalf of RONAL Olguin documented in this encounterFreeman Health SystemEanvsaelsu27-93-3074 History of Present illness Narrative* Halley Alfred [...] nursing note reviewed. Exam conducted with a top ironer present. Vitals: Estimated body mass index is [...] of: Heladio Morris DO documented in this encounterFreeman Health SystemClzsfnlntk79-52-7200 History of Present illness Narrative* Catherine Alves, TAPER OPERATOR - 07/15/2024 11:00 AM EDT Reason for [...] nursing note reviewed. Exam conducted with a top ironer present. Vitals: Estimated body mass index is [...] of: Heladio Morris DO documented in this encounterFreeman Health SystemYsyihjmmji15-79-3709 History of Present illness Narrative* RONAL Schwartz [...] other questions or concerns. documented in this encounterFreeman Health SystemOasqwgttmp93-82-0792 Procedure noteMagruder Memorial HospitalEvaluation noteNo assessment information available [facility] Work Phone: Evaluation note* Diagnosis Encounter for weight management documented in this encounter [facility] HealthcareEvaluation note* Diagnosis Encounter for weight management documented in this encounter [facility] HealthcareEvaluation note* Diagnosis Thrombophlebitis of superficial veins of left lower extremity documented in this encounter [facility] HealthcareEvaluation note* Diagnosis Well woman exam with routine gynecological exam Routine gynecological examination Menorrhagia with regular cycle Pelvic pain in female Unspecified symptom associated with female genital organs Insulin resistance Other abnormal glucose PCOS (polycystic ovarian syndrome) Polycystic ovaries documented in this encounter [facility] HealthcareEvaluation note* Diagnosis Encounter for weight management documented in this encounter [facility] HealthcareEvaluation note* Diagnosis Viral upper respiratory infection- Primary Acute upper respiratory infections of unspecified site documented in this encounter [facility] HealthcareEvaluation note* Diagnosis Acute cough- Primary Viral upper respiratory infection Acute upper respiratory infections of unspecified site documented in this encounter [facility] HealthcareEvaluation note* Diagnosis Exposure to STD Vaginal [...] Marx [facility] April 24, 2023 10:09amNote Date/TimeJune 2022 10:09[place] [address] Gastroenterology H&P Signed Patient: Delia Chin MR#: [id number] : 1990 Acct:[id number] Age/Sex: 32 / F Adm Date: 3 Loc: Room: Type: [facility] Attending Dr: Laine Marx MD Copies [...] signed by Laine Marx MD> 04/24/23 1009 [facility] Work Phone: Hospital Discharge instructions Additional [...] years -Follow up with PCP. -Office number [phone]. [facility] Work Phone: Summary Purpose Family History [...] section and content) DATE CREATED AUTHOR 09/17/2019 [facility] DATE CREATED AUTHOR AUTHOR'S ORGANIZ ATION 05/01/2023 [facility] DATE CREATED AUTHOR AUTHOR'S ORGANIZ ATION 06/23/2025 [facility] DATE CREATED AUTHOR AUTHOR'S ORGANIZ ATION 08/23/2025 [facility] EPIC Care Teams (unrecognized sec tion and content) Team Status: Active Member Role Status Dates Gregg Mcdaniel DO Primary Care Provider Active Team Status: Inactive Member Role Status Dates Gregg Mcdaniel DO Primary Care Provider Active Mireya Mireles ProviderActiveTeam MemberRelationshipSpecialtyStart DateEnd Date Britt Mcdaniel DO [address] [place] [address] PCP Hernandez Bennett02/01/21 Britt Mcdaniel DO [address] [place] [address] PCP - GeneralFamily Medicine06/07/24Team MemberRelationshipSpecialtyStart DateEnd Date Britt Mcdaniel, DO [address] [place] [address] PCP - [employer] [employer]02/01/21 Britt Mcdaniel, DO [address] [place] [address] PCP - [facility]06/07/24Team MemberRelationshipSpecialtyStart DateEnd Date Britt Mcdaniel, DO [address] [place] [address] PCP - [place] [employer]02/01/21 Britt Mcdaniel, DO [address] [place] [address] PCP - [facility]06/07/24Team MemberRelationshipSpecialtyStart DateEnd Date Britt Mcdaniel, DO [address] [place] [address] PCP - [facility] [employer]02/01/21 Britt Mcdaniel, DO [address] [place] [address] PCP - [facility]06/07/24Team MemberRelationshipSpecialtyStart DateEnd Date Britt Mcdaniel, DO [address] [place] [address] PCP - [employer]02/01/21 Britt Mcdaniel, DO [address] [place] [address] PCP - GeneralFamily Medicine06/07/24Team MemberRelationshipSpecialtyStart DateEnd Date Britt Mcdaniel, DO [address] [place] [address] PCP - [employer]02/01/21 Britt Mcdaniel, DO [address] [place] [address] [facility]/24Team MemberRelationshipSpecialtyStart DateEnd Date Britt Mcdaniel, DO [address] [place] [address] PCP - [facility] [employer]02/01/21 Britt Mcdaniel, DO [address] [place] [address] [facility]06/07/24Team MemberRelationshipSpecialtyStart DateEnd Date Britt Mcdaniel, DO [address] [place] [address] PCP - [facility] [employer]02/01/21 Britt Mcdaniel, DO [address] [place] [address] PCP - [facility]06/07/24Team MemberRelationshipSpecialtyStart DateEnd Date Britt Mcdaniel, DO [address] [place] [address] PCP - [employer]02/01/21 Britt Mcdaniel, DO [address] [place] [address] PCP - GeneralFamily Medicine06/07/24Team MemberRelationshipSpecialtyStart DateEnd Date Britt Mcdaniel, DO [address] [place] [address] PCP - [employer]02/01/21 Britt Mcdaniel, DO [address] [place] [address] PCP - GeneralFamily Medicine06/07/24Team MemberRelationshipSpecialtyStart DateEnd Date Britt Mcdaniel, DO [address] [place] [address] PCP - [facility]02/01/21 Britt Mcdaniel, DO [address] [place] [address] PCP - GeneralFamily Medicine06/07/24Team MemberRelationshipSpecialtyStart DateEnd Date Britt Mcdaniel, DO [address] [place] [address] PCP - [facility] [employer]02/01/21 Britt Mcdaniel, DO [address] [place] [address] PCP - GeneralFamily Medicine06/07/24Team MemberRelationshipSpecialtyStart DateEnd Date Britt Mcdaniel, DO [address] [place] [address] PCP - [facility] [employer]02/01/21 Britt Mcdaniel, DO [address] [place] [address] PCP - GeneralFamily Medicine06/07/24Team MemberRelationshipSpecialtyStart DateEnd Date Britt Mcdaniel, DO [address] [place] [address] PCP - [facility]02/01/21 Britt Mcdaniel, DO [address] [place] [address] PCP - [facility]06/07/24Team MemberRelationshipSpecialtyStart DateEnd Date Britt Mcdaniel, DO [address] [place] [address] PCP - [facility] [employer]02/01/21 Britt Mcdaniel, DO [address] [place] [address] PCP - [facility]06/07/24Team MemberRelationshipSpecialtyStart DateEnd Date Britt Mcdaniel, DO [address] [place] [address] PCP - [facility]02/01/21 Britt Mcdaniel, DO [address] [place] [address] PCP - [facility]06/07/24Team MemberRelationshipSpecialtyStart DateEnd Date Britt Mcdaniel, DO [address] [place] [address] PCP - [employer]02/01/21 Britt Mcdaniel, DO [address] [place] [address] PCP - [facility]06/07/24Team MemberRelationshipSpecialtyStart DateEnd Date Britt Mcdaniel, DO [address] [place] [address] PCP - [employer]02/01/21 Britt Mcdaniel, DO [address] [place] [address] PCP - [facility]06/07/24Team MemberRelationshipSpecialtyStart DateEnd Date Britt Mcdaniel, DO [address] [place] [address] PCP - [employer]02/01/21 Britt Mcdaniel, DO [address] [place] [address] PCP - [facility]06/07/24Team MemberRelationshipSpecialtyStart DateEnd Date Britt Mcdaniel, DO [address] [place] [address] PCP - [employer]02/01/21 Britt Mcdaniel, DO [address] [place] [address] PCP - [facility]06/07/24Team MemberRelationshipSpecialtyStart DateEnd Date Britt Mcdaniel, DO [address] [place] [address] PCP - [employer]02/01/21 Britt Mcdaniel, DO [address] [place] [address] PCP - [facility]06/07/24Team MemberRelationshipSpecialtyStart DateEnd Date Britt Mcdaniel, DO [address] [place] [address] PCP - [employer]02/01/21 Britt Mcdaniel, DO [address] [place] [address] PCP - [facility]06/07/24Team MemberRelationshipSpecialtyStart DateEnd Date Britt Mcdaniel, DO [address] [place] [address] PCP - [employer]02/01/21 Britt Mcdaniel, DO [address] [place] [address] [facility]/24Team MemberRelationshipSpecialtyStart DateEnd Date Britt Mcdaniel, DO [address] [place] [address] PCP - [employer]02/01/21 Britt Mcdaniel, DO [address] [place] [address] PCP - [facility]06/07/24Team MemberRelationshipSpecialtyStart DateEnd Date Britt Mcdaniel, [address] [place] [address] PCP - [employer]02/01/21 Britt Mcdaniel, [address] [place] [address] PCP - [facility]06/07/24Team MemberRelationshipSpecialtyStart DateEnd Date Britt Mcdaniel, [address] [place] [address] PCP - [employer]02/01/21 Britt Mcdaniel, [address] [place] [address] PCP - [facility]06/07/24Team MemberRelationshipSpecialtyStart DateEnd Date Britt Mcdaniel, DO [address] [place] [address] PCP - [employer]02/01/21 Britt Mcdaniel, [address] [place] [address] [facility]/24 Reason for Visit (unrecogniz ed section and content) ReasonCommentsWeight ManagementReasonOnset DateCommentsMed [id number]/04/2024 ReasonCommentsWell Women VisitReasonCommentsencounter for weight management Adipex #3ReasonCommentsURIPt presents for URI. Symptoms include runny nose, cough, headaches, body aches, chills. Onset was Saturday. OTC cough drops, Tylenol.ReasonCommentsSore ThroatPt states that this has been going on since Friday, no fever or chillsReasonCommentsSTI ScreeningReasonOnset DateComments [id number]/01/2025 FOR RECORDS PERTAINING TO PATIENTS WHO ARE [...] BE BASED ON THE PRIMARY CLINICAL RECORDS. [facility] [employer] provides no warranty or guarantee of the accuracy or completeness of information in this document.
== END 2025-09-20 15:27 | disposition home or self-care (01) ==
LOC: LAB 15:26
PROVIDERS: Family Provider Family Medicine; Visit Provider Obstetrics & Gynecology
DX: R87.612 Low grade squamous intraepithelial lesion on cytologic smear of cervix (LGSIL) (principal)
CPT/HCPCS: 88305